=== PATIENT | male | born 1965 | race Caucasian/White ===

== ENCOUNTER → 2018-11-11 09:08 | Outpatient (CLI) | payer MEDICAID, SELFPAY ==
--- NOTE | 2018-11-11 09:21 | RAD_ITS ---
STUDY: X-RAY CHEST REASON FOR EXAM: Male, 53 years old. Shortness of breath. TECHNIQUE: PA and lateral views of the chest. COMPARISON: None. FINDINGS: The lungs are clear and expanded. There is no demonstrated pleural abnormality. Normal size heart. Normal mediastinum and magdi. Normal visualized pulmonary arteries. Normal visualized aortic arch and descending thoracic aorta. Normal visualized thoracic spine. Normal visualized ribs, clavicles, and shoulders. There is no demonstrated abnormality of the visualized soft tissue structures of the upper abdomen. RAD/Chest PA and Lateral IMPRESSION: No evidence of acute cardiopulmonary process. Electronically Signed: Aaron Arcos DO at 21:09 EST , Service support ,
--- NOTE | 2018-11-11 09:22 | US_ITS ---
STUDY: ABDOMINAL ULTRASOUND - RIGHT UPPER QUADRANT REASON FOR VISIT: Male, 53 years old. Epigastric pain. TECHNIQUE: Ultrasound evaluation of the right upper quadrant was performed with real-time and static flores-scale imaging. TECHNICAL QUALITY: Adequate. COMPARISON: None. FINDINGS: Liver: The liver measures 17.5 cm. Increased echogenicity with coarsened echotexture. The bile ducts are within normal limits. There is hepatic color flow. The direction of portal flow is hepatopetal. There is no demonstrated mass lesion. Gallbladder: Normal distended gallbladder. The gallbladder wall measures 3 mm. There is a negative sonographic Dallas's sign. There is no pericholecystic fluid. There are no gallstones. Common Bile Duct (C.B.D.): The common bile duct measures 4 mm. Pancreas: Normal size of the head, body and tail of the pancreas. There is normal echogenicity of the pancreas. There is no demonstrated pancreatic mass or cyst. Right Kidney: Normal size of the right kidney. The right kidney measures 13.6 cm. Normal renal cortex. The right cortex measures 2.3 cm. There is no demonstrated renal mass or cyst. There is no right hydronephrosis. US/Gallbladder IMPRESSION: Fatty liver. Normal gallbladder. Electronically Signed: Raul Arnold MD at 3:30 EST , Service support ,
== END ==
PROVIDERS: Family Provider Family Medicine; PCP Family Medicine; Referring Provider Family Medicine; Visit Provider Family Medicine
DX: R10.13 Epigastric pain (principal); R06.02 Shortness of breath
CPT/HCPCS: 71046; 76705

== ENCOUNTER 2018-11-17 12:48 | Observation (INO) | payer OTHER, SELFPAY ==
[2018-11-17] VITALS (10 sets, daily range): BP systolic 119–147; BP diastolic 68–95; PULSE 56–82; RESP 13–22; TEMP 36.8–37.1; O2SAT 96–98; BMI 38.9; BMI 37.7
--- NOTE | 2018-11-17 13:11 | RAD_ITS ---
STUDY: X-RAY CHEST REASON FOR EXAM: Male, 53 years old. Chest pain TECHNIQUE: AP COMPARISON: 11/11/2018 FINDINGS: EKG leads project over the chest. The lungs are clear and expanded. There is no demonstrated pleural abnormality. Interval enlargement of the cardiac silhouette may be projectional artifact. Normal mediastinum and magdi. Normal visualized pulmonary arteries. Normal visualized aortic arch and descending thoracic aorta. No acute bony process. There is no demonstrated abnormality of the visualized soft tissue structures of the upper abdomen. RAD/Chest 1 View (Portable) IMPRESSION: 1. No airspace consolidation or pleural effusion. 2. Probable artificial enlargement of the cardiac silhouette. Electronically Signed: Tom Vicente MD at 13:40 EDT , Service support ,
--- NOTE | 2018-11-17 13:11 | EKG12_ITS ---
Test Reason : CP Blood Pressure : / mmHG Vent. Rate : 060 BPM Atrial Rate : 060 BPM P-R Int : 178 ms QRS Dur : 092 ms QT Int : 404 ms P-R-T Axes : 054 -26 058 degrees QTc Int : 404 ms Normal sinus rhythm Normal ECG Confirmed by HANK LARA, SANJIV ([id number]), advertising editor TAWANA GERMAN ([id number]) on 11/22/2018 9:22:32 AM Referred By: Dung Fernandez Confirmed By:SANJIV MCKINNEY MD
--- NOTE | 2018-11-17 13:17 | NURSING ---
NO OLD EKGS
[2018-11-17 13:27] LABS: Absolute Lymphocyte Count 1.68 X10^3/ul (0.83-4.51); Absolute Neutrophil Count 3.9 X10^3/uL (2.0-7.7); Basophil# 0.08 X10^3/uL; Basophil% 1.2 % (0-1); Eosinophil# 0.19 X10^3/uL; Eosinophils% 2.9 % (0-5); Hematocrit 44.9 % (40-54); Hemoglobin 14.5 g/dl (13.0-16.5); Lymphocyte # 1.68 X10^3/ul (4.0); Lymphocyte % 25.7 % (19-41); Mean Corp Hgb Conc 32.3 g/gl (32-36); Mean Corpuscular Hgb 26.9 pg (27.0-32.0); Mean Corpuscular Volume 83.1 fL (80-94); Mean Platelet Vol. 9.8 fl (6.2-12.0); Monocyte# 0.65 X10^3/uL; Monocyte% 9.9 % (0-10); Neutrophil # 3.91 X10^3/uL (2.7-7.7); Neutrophil % 59.8 % (47-70); POSITIVE COUNT NO; POSITIVE DIFFERENTIAL NO; POSITIVE MORPHOLOGY NO; Platelet Count 300 K/mm3 (150-450); RBC Distribution Width CV 13.3 % (11.6-14.6); RBC Distribution Width SD 40.5 fl (35.1-43.9); White Blood Count 6.5 K/mm3 (4.4-11.0)
[2018-11-17 13:43] LABS: Anion Gap 6 (5-15); BUN 17 mg/dL (7-18); BUN/Creat Ratio 16.8 RATIO (10-20); Calcium,Total 8.5 mg/dL (8.5-10.1); Chloride 105 mmol/L (98-107); Creatinine, Serum 1.01 mg/dL (0.70-1.30); EST Glomerular Filtration Rate 81 mL/min (>60); Est Glom Filt Rate - Afr Amer 99 mL/min (>60); Estimated Creatinine Clearance 101.46 ml/min; Glucose 98 mg/dL (74-106); Sodium Level 136 mmol/L (136-145)
[2018-11-17] MEDS: Nitroglycerin Oint 1 INCH PACKET TRANSDERM. (14:37)
--- NOTE | 2018-11-17 15:10 | ED.VISSUMM ---
- ER Visit Summary Date of Service: 11/17/18 Chief Complaint: Chest pain History of Present Illness: The patient is a 53 M with chest pain since last night he describes as sharp in the lower chest wall region and pressure in the upper left chest region as well as radiation to his left jaw. He has no shortness of breath no back pain no tearing sensation he has no pleuritic component. Physical Examination: Not appear in acute distress. Moist mucous membranes, no obvious facial deformity No C-spine tenderness supple neck. Regular rate and rhythm without any obvious murmurs Clear lungs bilaterally speaking in full sentences without any obvious respiratory distress Abdomen soft and nontender no guarding or rebound Moves all extremities without any difficulty or pain. Skin does not show any obvious rashes or lesions, no trauma. Alert oriented ?3 with no gross focal deficit Emergency Department Course and Treatment: Patient has an unremarkable EKG, troponin is intermediate heart score is 6. Patient was placed on nitroglycerin ointment. He is now pain-free. He will be admitted to the hospital service. Disposition: Admit in stable condition Impression: Chest pain This note was generated with [employer] dictation software. It may contain incorrect words, spelling, and punctuation that were not noted in review of the chart prior to signing ED Disposition - Plan for ED Patient: Referrals: Maximo Samayoa [Primary Care Provider] -
--- NOTE | 2018-11-17 15:13 | ED.DCSUM_ITS ---
- ER Visit Summary Date of Service: 11/17/18 Chief Complaint: Chest pain History of Present Illness: The patient is a 53 M with chest pain since last night he describes as sharp in the lower chest wall region and pressure in the upper left chest region as well as radiation to his left jaw. He has no shortn ess of breath no back pain no tearing sensation he has no pleuritic component. Physical Examination: Not appear in acute distress. Moist mucous membranes, no obvious facial deformity No C-spine tenderness supple neck. Regular rate and rhythm without any obvious murmurs Clear lungs bilaterally speaking in full sentences without any obvious respiratory distress Abdomen soft and nontender no guarding or rebound Moves all extremities without any difficulty or pain. Skin does not show any obvious rashes or lesions, no trauma. Alert oriented ?3 with no gross focal deficit Emergency Department Course and Treatment: Patient has an unremarkable EKG, troponin is intermediate heart score is 6. Patient was placed on nitroglycerin ointment. He is now pain-free. He will be admitted to the hospital service. Disposition: Admit in stable condition Impression: Chest pain This note was generated with [employer] dictation software. It may contain incorrect words, spelling, and punctuation that were not noted in review of the chart prior to signing ED Disposition - Plan for ED Patient: Referrals: Maximo Samayoa [Primary Care Provider] -
--- NOTE | 2018-11-17 15:57 | PCM.HP.STD ---
Problem List (1) Unstable angina Status: Acute History of Present Illness Date of Admission: 11/17/18 Chief Complaint: chest pain The patient is a 53 year old M who was in normal state of health up until this morning where he started having left-sided chest pain. Begin lower left chest and upwards of his chest and into his left side of his jaw. He has had pain similar to this. Patient had a stent placed in his maker 5 years ago. Has had intermittent chest pain evaluated and has been previously unremarkable. Last heart catheterization was about 2 years ago. Did feel nauseated and short of breath when this happened. [] Past Medical History Medical History: Medical History (Last Updated 11/17/18 @ 15:58 by Dung Fernandez DO) CAD (coronary artery disease) I25.10 Allergies No Known Allergies Allergy (Verified 11/17/18 12:59) Home Medications: Ambulatory Orders Medication Instructions Recorded Clopidogrel Bisulfate [Plavix] 75 mg PO DAILY 11/17/18 Rosuvastatin Calcium [Crestor] 5 mg PO DAILY 11/17/18 Lives: Spouse/ Significant Other Smoking Status: Never smoker Tobacco Use: Non-smoker Alcohol: None Drugs: None - *Family History Paternal History Items: Heart Disease Review of Systems Constitutional: Denies: Anorexia, Chills, Fever, Night Sweats Eyes: Denies: Blurred vision, Double vision HEENT: Denies: Head Aches, Sinus Congestion, Sinus Drainage Cardiovascular: Reports: Chest Pain. Denies: Edema Respiratory: Reports: Shortness of Breath. Denies: Cough, Sputum production Gastrointestinal: Reports: Abdominal Pain - Was not having abdominal pain receiving 3 weeks prior to his events today., Nausea. Denies: Vomiting Genitourinary: Denies: Dysuria Musculoskeletal: Denies: Joint Pain, Joint Tenderness Skin: Denies: Dryness, Jaundice Neurological: Denies: Balance problems, Blurred vision, Double vision Psychiatric: Denies: Anxiety, Depression Hematologic/ Lymphatic: Denies: Easy Bruising, Easy Bleeding, Hx of blood clot VTE Information - Inpt Only VTE Present on Admission: No VTE Mechan Device Prophylaxis: None VTE Pharm Prophylaxis ordered?: Yes Patient Problems: Active and Suspected Problems Unstable angina (Acute) - Physical Exam General: Alert, Cooperative, No apparent distress HEENT: Atraumatic, Normocephalic Oral: Moist Mucosa, No Gingival or Mucosal Lesions/ Ulcerations Neck: No Nodes, Thyroid Normal Size and Texture Lungs: Clear to auscultation, Normal air movement, No rhonchi, No wheeze Cardiovascular: Regular rate, Regular Rhythm, Normal S1, Normal S2, No murmurs Abdomen: Bowel Sounds Present, Soft, Non Tender, Non-Distended, No Hepato-splenomegaly Extremities: No edema, No Calf Tenderness Skin: No rashes, No breakdown Psych/Mental Status: Normal Affect, Appropriate Vital Signs Temp Pulse Resp BP Pulse Ox 36.8 C 59 L 13 134/95 H 98 11/17/18 12:49 11/17/18 15:13 11/17/18 15:13 11/17/18 15:13 11/17/18 15:13 Oxygen Delivery Method Nasal Cannula Weight: 145 kg Body Mass Index (BMI) 38.9 Laboratory Tests Past 24 Hrs 11/17/18 11/17/18 12:50 12:50 WBC 6.5 RBC 5.40 Hgb 14.5 Hct 44.9 MCV 83.1 MCH 26.9 L MCHC 32.3 RDW 13.3 RDW Differential 40.5 Plt Count 300 MPV 9.8 Immature Gran % (Auto) 0.500 Neut % (Auto) 59.8 Lymph % (Auto) 25.7 [place] % (Auto) 9.9 Eos % (Auto) 2.9 Baso % (Auto) 1.2 H Absolute Neuts (auto) 3.9 Absolute Lymphs (auto) 1.68 Total Counted Not Reportable Sodium 136 Potassium 4.0 Chloride 105 Carbon Dioxide 25.0 Anion Gap 6 BUN 17 Creatinine 1.01 Estim Creat Clear Calc 101.46 Est GFR (MDRD) Af Amer 99 Est GFR (MDRD) Non-Af 81 BUN/Creatinine Ratio 16.8 Glucose 98 Calcium 8.5 Troponin I 0.091 H EKG reviewed and showed normal sinus rhythm without any acute changes. Assessment/Plan All Active Problems Unstable angina (Acute) 1. Unstable angina: Currently pain-free at this time. We will continue with Evex. Patient received aspirin in the emergency room and will continue with her on 4. Change Crestor to high intensity statin with atorvastatin. Discussed with Dr. Abdul, who states that cardiology team will see him in the morning and make further recommendations at that time, such as if he needs a heart catheterization or not. We will cycle the troponins. Requested records from [facility] where the patient has had his prior heart catheterizations. Troponin slightly elevated at 0.09. 2. DVT prophylaxis with low molecular weight heparin Code Visit OBSV E&M: 92447 Initial observation care L2
[2018-11-17] MEDS: Atorvastatin Calcium 80 MG Tablet PO (20:57)
--- NOTE | 2018-11-17 21:07 | EKG12_ITS ---
Test Reason : AM EKG Blood Pressure : / mmHG Vent. Rate : 056 BPM Atrial Rate : 056 BPM P-R Int : 188 ms QRS Dur : 090 ms QT Int : 418 ms P-R-T Axes : 053 -22 043 degrees QTc Int : 403 ms Sinus bradycardia Otherwise normal ECG When compared with ECG of 17-NOV-2018 16:33, MANUAL COMPARISON REQUIRED, DATA IS UNCONFIRMED Confirmed by HANK LARA, SANJIV ([id number]), school photograph editor TAWANA GERMAN ([id number]) on 11/22/2018 9:42:36 AM Referred By: Dung Fernandez Confirmed By:SANJIV MCKINNEY MD
[2018-11-17 22:22] LABS: Bacteria 0 SEEN /hpf (None Seen); Mucous, Urine 0 SEEN /hpf (<or=2+); Red Blood Cells-Urine 0 SEEN /hpf (0-5); White Blood Cells 0 SEEN /hpf (0-5)
[2018-11-17 22:24] LABS: Color, Urine Yellow (Yellow); Glucose, Dipstick Normal (Normal); Ketone-Dipstick Negative (Negative); Leukocyte Esterase-Dipstick Negative /ul (Negative); Nitrite-Dipstick Negative (Negative); Occult Blood-Urine Negative /ul (Negative); Protein-Dipstick 30 mg/dl (Negative); Specific Gravity, Urine 1.005 (1.002-1.030); Urine Bilirubin Dipstick Negative (Negative); Urine Clarity Clear (Clear); Urine Urobilinogen Normal (Normal)
[2018-11-17 22:32] LABS: Squamous Epithelial Cells - UA 0-5 SEEN /hpf (0-5)
[2018-11-18] VITALS (14 sets, daily range): BP systolic 111–135; BP diastolic 50–75; PULSE 51–69; RESP 18; TEMP 36.9–37; O2SAT 94–99
[2018-11-18 01:59] LABS: International Normalized Ratio 1.1; Prothrombin Time (Protime)PT. 13.7 SECONDS (11.7-14.9)
[2018-11-18 02:00] LABS: Partial Thromboplast Time 27.2 Seconds (24.1-36.2)
[2018-11-18 02:04] LABS: Hematocrit 43.3 % (40-54); Hemoglobin 13.9 g/dl (13.0-16.5); Mean Corp Hgb Conc 32.1 g/gl (32-36); Mean Corpuscular Hgb 26.7 pg (27.0-32.0); Mean Corpuscular Volume 83.1 fL (80-94); Mean Platelet Vol. 9.9 fl (6.2-12.0); Platelet Count 281 K/mm3 (150-450); RBC Distribution Width CV 13.2 % (11.6-14.6); RBC Distribution Width SD 39.9 fl (35.1-43.9); Red Blood Count 5.21 M/mm3 (4.6-6.2); White Blood Count 6.6 K/mm3 (4.4-11.0)
[2018-11-18 02:05] LABS: Scan Indicated on CBC? Y/N NO
[2018-11-18 02:15] LABS: Anion Gap 7 (5-15); BUN 15 mg/dL (7-18); BUN/Creat Ratio 16.3 RATIO (10-20); Chloride 108 mmol/L (98-107); Cholesterol 133 mg/dL (200); Creatinine, Serum 0.92 mg/dL (0.70-1.30); EST Glomerular Filtration Rate 91 mL/min (>60); Est Glom Filt Rate - Afr Amer 110 mL/min (>60); Estimated Creatinine Clearance 111.38 ml/min; Glucose 94 mg/dL (74-106); High Density Lipoprotein 23 mg/dL; Potassium 3.7 mmol/L (3.5-5.1); Sodium Level 139 mmol/L (136-145); Triglycerides 275 mg/dL; Very Low Density Lipoprotein 55 mg/dL (5-40)
--- NOTE | 2018-11-18 06:00 | EKG12_ITS ---
Test Reason : CP ADMISSION Blood Pressure : / mmHG Vent. Rate : 055 BPM Atrial Rate : 055 BPM P-R Int : 192 ms QRS Dur : 092 ms QT Int : 424 ms P-R-T Axes : 057 -23 044 degrees QTc Int : 405 ms Sinus bradycardia Otherwise normal ECG When compared with ECG of 17-NOV-2018 12:51, MANUAL COMPARISON REQUIRED, DATA IS UNCONFIRMED Confirmed by HANK LARA, SANJIV ([id number]), marketing editor TAWANA GERMAN ([id number]) on 11/22/2018 9:46:55 AM Referred By: Dung Fernandez Confirmed By:SANJIV MCKINNEY MD
[2018-11-18] MEDS: Clopidogrel Bisulfate 75 MG Tablet PO (07:29)
[2018-11-18] MEDS: Aspirin E.C. 81 MG Tablet PO (07:29)
--- NOTE | 2018-11-18 07:52 | PCM.CONS.C ---
Reason for Consult Date of Consultation: 11/18/18 Reason for Consultation: Chest pain History of Present Illness: The patient is a 53 year old M with a known history of coronary artery disease status post angioplasty and stenting approximately 5 years ago and a cardiac catheterization 2 years ago. He also states that he had a stress test done in June of last year. He presented to the emergency room with chest discomfort which was noted to be sharp but also tight and radiating to his jaw. It was somewhat reminiscent of his previous chest discomfort. He had no nausea or diaphoresis no dizziness near syncope or syncope. He was inactive when this happened. He was seen in the emergency room he was noted to be in sinus rhythm with no acute changes cardiac enzymes were done which were mildly abnormal. He has not had any further chest discomfort since coming into the hospital. [] Past Medical History Allergies/Adverse Reactions: Allergies No Known Allergies Allergy (Verified 11/17/18 12:59) Home Medications: Ambulatory Orders Medication Instructions Recorded Aspirin [Aspirin, Baby] 81 mg PO DAILY 11/17/18 Clopidogrel Bisulfate [Plavix] 75 mg PO DAILY 11/17/18 Rosuvastatin Calcium [Crestor] 5 mg PO DAILY 11/17/18 - *Family History Paternal History Items: Heart Disease Lives: Spouse/ Significant Other Smoking Status: Former smoker Tobacco Use: Non-smoker Alcohol: None Drugs: None Review of Systems - Review of Systems General: Denies: Fever, Night Sweats, Fatigue HEENT: Denies: Vision Change Cardiovascular: Reports: Chest Discomfort, Chest Discomfort at Rest. Denies: Shortness of Breath, Orthopnea, PND, Peripheral Edema, Palpitations, Lightheadedness, Dizziness, Near Syncope, Syncope Respiratory: Denies: Cough, Sputum Production, Hemoptysis Gastrointestinal: Denies: Indigestion, Hematemesis, Hematochezia, Melena Genitourinary: Denies: Dysuria, Hematuria Muscoloskeletal: Denies: Myalgias Skin: Denies: Rash Neurological: Denies: Dizziness Psychiatric: Denies: Anxiety Endocrine: Denies: Excessive Sweating Subjectve: Pleasant gentleman in no apparent distress Objective: Vital Signs Temp Pulse Resp BP Pulse Ox 98.6 F 58 L 18 122/75 H 97 11/18/18 07:24 11/18/18 07:24 11/18/18 07:24 11/18/18 07:24 11/18/18 07:24 Oxygen Delivery Method Room Air Weight: 309 lb 11.991 oz Body Mass Index (BMI) 37.7 Intake and Output for Last 24 Hours 11/16/18 11/17/18 11/18/18 22:59 23:59 23:59 Intake Total Balance General: Awake, Alert, Oriented x 3 HEENT: PERRL, EOMI, Sclera Non Icteric Neck: Supple, Good ROM, No Lymph Node Enlargement Lungs: Clear to auscultation Cardiovascular: Regular Rhythm, Normal S1, Normal S2, No Murmurs, No Rubs, No Gallops Vascular: No Carotid Bruits, Normal Femoral Pulses, Normal Radial Pulses, Normal Dorsalis Pedal Pulse, Normal Posterior Tibial Pulses Abdomen: Bowel Sounds Present, Soft, Non Tender, No HSM, No Organomegaly Extremities: No Cyanosis, No Clubbing, No edema Musculoskeletal: No Erythema Skin: No Rashes Lymphatic: No Lymph Node Enlargement Neurological: No Focal Motor or Sensory Deficit Psych/Mental Status: Appropriate 11/17/18 12:50: WBC 6.5, RBC 5.40, Hgb 14.5, Hct 44.9, MCV 83.1, MCH 26.9 L, MCHC 32.3, RDW 13.3, RDW Differential 40.5, Plt Count 300, MPV 9.8, Immature Gran % (Auto) 0.500, Neut % (Auto) 59.8, Lymph % (Auto) 25.7, [place] % (Auto) 9.9, Eos % (Auto) 2.9, Baso % (Auto) 1.2 H, Absolute Neuts (auto) 3.9, Total Counted Not Reportable 11/17/18 12:50: Sodium 136, Potassium 4.0, Chloride 105, Carbon Dioxide 25.0, Anion Gap 6, BUN 17, Creatinine 1.01, Est GFR (MDRD) Af Amer 99, Est GFR (MDRD) Non-Af 81, BUN/Creatinine Ratio 16.8, Glucose 98, Calcium 8.5, Troponin I 0.091 H 11/17/18 12:58: Urine Color Yellow, Urine Clarity Clear, Urine pH 7.0, Ur Specific [place] 1.005, Urine Protein 30 H, Urine Glucose (UA) Normal, Urine Ketones Negative, Urine Occult Blood Negative, Urine Nitrite Negative, Urine Bilirubin Negative, Urine Urobilinogen Normal, Ur Leukocyte Esterase Negative, Urine RBC 0 SEEN, Urine WBC 0 SEEN 11/17/18 16:48: Troponin I 0.096 H 11/17/18 18:45: Troponin I 0.085 H 11/18/18 01:40: Triglycerides Cancelled, Cholesterol Cancelled, LDL Cholesterol Cancelled, VLDL Cholesterol Cancelled, HDL Cholesterol Cancelled 11/18/18 01:40: Sodium 139, Potassium 3.7, Chloride 108 H, Carbon Dioxide 24.0, Anion Gap 7, BUN 15, Creatinine 0.92, Est GFR (MDRD) Af Amer 110, Est GFR (MDRD) Non-Af 91, BUN/Creatinine Ratio 16.3, Glucose 94, Calcium 8.0 L, Troponin I 0.095 H, Triglycerides 275 H, Cholesterol 133, LDL Cholesterol 55, VLDL Cholesterol 55 H, HDL Cholesterol 23 L 11/18/18 01:40: WBC 6.6, RBC 5.21, Hgb 13.9, Hct 43.3, MCV 83.1, MCH 26.7 L, MCHC 32.1, RDW 13.2, RDW Differential 39.9, Plt Count 281, MPV 9.9 11/18/18 01:40: PT 13.7, INR 1.1, APTT 27.2 11/18/18 01:40: Sodium Cancelled, Potassium Cancelled, Chloride Cancelled, Carbon Dioxide Cancelled, Anion Gap Cancelled, BUN Cancelled, Creatinine Cancelled, Est GFR (MDRD) Af Amer Cancelled, Est GFR (MDRD) Non-Af Cancelled, BUN/Creatinine Ratio Cancelled, Glucose Cancelled, Calcium Cancelled Rhythm: EKG: Normal sinus rhythm with no acute changes Assessment/Plan 1. Chest pain Patient presents with chest pain and has mildly abnormal cardiac enzymes. He underwent stress testing less than 4 months ago which was apparently normal. Due to the above it was felt that with a correct of the chest pain reminiscent of his previous angina the recommendation would be to proceed with a left heart catheterization. He is already on clopidogrel which will be continued. The risk benefits alternatives have been explained to him he understands and agrees to proceed. 2. Coronary artery disease Patient has known coronary artery disease and this will be further evaluated with a cardiac catheterization. 3. Hyperlipidemia Continue high intensity statin. Thank you for allowing me to participate in the care of your patient. Please don't hesitate to call if any issues arise Addendum: Cardiac catheterization today demonstrated the following: Normal left main coronary artery. Left anterior descending artery with previously placed stents patent with mild diffuse disease. Ramus intermedius with 60% mid to distal stenosis Left circumflex artery with diffuse moderate disease. Dominant right coronary artery with mild disease Preserved left ventricular systolic function On the above angiographic findings I would probably recommend medical therapy with nitrates and low-dose beta-ash.
--- NOTE | 2018-11-18 07:57 | CON.PCM_ITS ---
Reason for Consult Date of Consultation: 11/18/18 Reason for Consultation: Chest pain History of Present Illness: The patient is a 53 year old M with a known history of coronary artery disease status post angioplasty and stenting approximately 5 years ago and a cardiac catheterization 2 years ago. He also states that he had a stress test done in June of last year. He presented to the emergency room with chest discomfort which was noted to be sharp but also tight and radiating to his jaw. It was somewhat reminiscent of his previous chest discomfort. He had no nausea or diaphoresis no dizziness near syncope or syncope. He was inactive when this happened. He was seen in the emergency room he was noted to be in sinus rhythm with no acute changes cardiac enzymes were done which were mildly abnormal. He has not had any further chest discomfort since coming into the hospital. [] Past Medical History Allergies/Adverse Reactions: Allergies No Known Allergies Allergy (Verified 11/17/18 12:59) Home Medications: Ambulatory Orders Medication Instructions Recorded Aspirin [Aspirin, Baby] 81 mg PO DAILY 11/17/18 Clopidogrel Bisulfate [Plavix] 75 mg PO DAILY 11/17/18 Rosuvastatin Calcium [Crestor] 5 mg PO DAILY 11/17/18 - *Family History Paternal History Items: Heart Disease Lives: Spouse/ Significant Other Smoking Status: Former smoker Tobacco Use: Non-smoker Alcohol: None Drugs: None Review of Systems - Review of Systems General: Denies: Fever, Night Sweats, Fatigue HEENT: Denies: Vision Change Cardiovascular: Reports: Chest Discomfort, Chest Discomfort at Rest. Denies: Shortness of Breath, Orthopnea, PND, Peripheral Edema, Palpitations, Lightheadedness, Dizziness, Near Syncope, Syncope Respiratory: Denies: Cough, Sputum Production, Hemoptysis Gastrointestinal: Denies: Indigestion, Hematemesis, Hematochezia, Melena Genitourinary: Denies: Dysuria, Hematuria Muscoloskeletal: Denies: Myalgias Skin: Denies: Rash Neurological: Denies: Dizziness Psychiatric: Denies: Anxiety Endocrine: Denies: Excessive Sweating Subjectve: Pleasant gentleman in no apparent distress Objective: Vital Signs Temp Pulse Resp BP Pulse Ox 98.6 F 58 L 18 122/75 H 97 11/18/18 07:24 11/18/18 07:24 11/18/18 07:24 11/18/18 07:24 11/18/18 07:24 Oxygen Delivery Method Room Air Weight: 309 lb 11.991 oz Body Mass Index (BMI) 37.7 Intake and Output for Last 24 Hours 11/16/18 11/17/18 11/18/18 22:59 23:59 23:59 Intake Total Balance General: Awake, Alert, Oriented x 3 HEENT: PERRL, EOMI, Sclera Non Icteric Neck: Supple, Good ROM, No Lymph Node Enlargement Lungs: Clear to auscultation Cardiovascular: Regular Rhythm, Normal S1, Normal S2, No Murmurs, No Rubs, No Gallops Vascular: No Carotid Bruits, Normal Femoral Pulses, Normal Radial Pulses, Normal Dorsalis Pedal Pulse, Normal Posterior Tibial Pulses Abdomen: Bowel Sounds Present, Soft, Non Tender, No HSM, No Organomegaly Extremities: No Cyanosis, No Clubbing, No edema Musculoskeletal: No Erythema Skin: No Rashes Lymphatic: No Lymph Node Enlargement Neurological: No Focal Motor or Sensory Deficit Psych/Mental Status: Appropriate 11/17/18 12:50: WBC 6.5, RBC 5.40, Hgb 14.5, Hct 44.9, MCV 83.1, MCH 26.9 L, MCHC 32.3, RDW 13.3, RDW Differential 40.5, Plt Count 300, MPV 9.8, Immature Gran % (Auto) 0.500, Neut % (Auto) 59.8, Lymph % (Auto) 25.7, [place] % (Auto) 9.9, Eos % (Auto) 2.9, Baso % (Auto) 1.2 H, Absolute Neuts (auto) 3.9, Total Counted Not Reportable 11/17/18 12:50: Sodium 136, Potassium 4.0, Chloride 105, Carbon Dioxide 25.0, Anion Gap 6, BUN 17, Creatinine 1.01, Est GFR (MDRD) Af Amer 99, Est GFR (MDRD) Non-Af 81, BUN/Creatinine Ratio 16.8, Glucose 98, Calcium 8.5, Troponin I 0.091 H 11/17/18 12:58: Urine Color Yellow, Urine Clarity Clear, Urine pH 7.0, Ur Specific [place] 1.005, Urine Protein 30 H, Urine Glucose (UA) Normal, Urine Ketones Negative, Urine Occult Blood Negative, Urine Nitrite Negative, Urine Bilirubin Negative, Urine Urobilinogen Normal, Ur Leukocyte Esterase Negative, Urine RBC 0 SEEN, Urine WBC 0 SEEN 11/17/18 16:48: Troponin I 0.096 H 11/17/18 18:45: Troponin I 0.085 H 11/18/18 01:40: Triglycerides Cancelled, Cholesterol Cancelled, LDL Cholesterol Cancelled, VLDL Cholesterol Cancelled, HDL Cholesterol Cancelled 11/18/18 01:40: Sodium 139, Potassium 3.7, Chloride 108 H, Carbon Dioxide 24.0, Anion Gap 7, BUN 15, Creatinine 0.92, Est GFR (MDRD) Af Amer 110, Est GFR (MDRD) Non-Af 91, BUN/Creatinine Ratio 16.3, Glucose 94, Calcium 8.0 L, Troponin I 0.095 H, Triglycerides 275 H, Cholesterol 133, LDL Cholesterol 55, VLDL Cholesterol 55 H, HDL Cholesterol 23 L 11/18/18 01:40: WBC 6.6, RBC 5.21, Hgb 13.9, Hct 43.3, MCV 83.1, MCH 26.7 L, MCHC 32.1, RDW 13.2, RDW Differential 39.9, Plt Count 281, MPV 9.9 11/18/18 01:40: PT 13.7, INR 1.1, APTT 27.2 11/18/18 01:40: Sodium Cancelled, Potassium Cancelled, Chloride Cancelled, Carbon Dioxide Cancelled, Anion Gap Cancelled, BUN Cancelled, Creatinine Cancelled, Est GFR (MDRD) Af Amer Cancelled, Est GFR (MDRD) Non-Af Cancelled, BUN/Creatinine Ratio Cancelled, Glucose Cancelled, Calcium Cancelled Rhythm: EKG: Normal sinus rhythm with no acute changes Assessment/Plan 1. Chest pain Patient presents with chest pain and has mildly abnormal cardiac enzymes. He underwent stress testing less than 4 months ago which was apparently normal. Due to the above it was felt that with a correct of the chest pain reminiscent of his previous angina the recommendation would be to proceed with a left heart catheterization. He is already on clopidogrel which will be continued. The risk benefits alternatives have been explained to him he understands and agrees to proceed. 2. Coronary artery disease * Patient has known coronary artery disease and this will be further evaluated with a cardiac catheterization. * 3. Hyperlipidemia * Continue high intensity statin. * * * * Thank you for allowing me to participate in the care of your patient. Please don't hesitate to call if any issues arise * Addendum: Cardiac catheterization today demonstrated the following: Normal left main coronary artery. Left anterior descending artery with previously placed stents patent with mild diffuse disease. Ramus intermedius with 60% mid to distal stenosis Left circumflex artery with diffuse moderate disease. Dominant right coronary artery with mild disease Preserved left ventricular systolic function On the above angiographic findings I would probably recommend medical therapy with nitrates and low-dose beta-ash.
[2018-11-18] MEDS: 0.9% NaCl Peripheral Flush Adult/Peds IV (08:36)
[2018-11-18] MEDS: 0.9% Normal Saline 1,000 ML 15 ML IV (08:36)
--- NOTE | 2018-11-18 09:02 | CASEMGMT ---
According to the [facility] website, the following are in-network tertiary facilities: [facility], [facility], [facility], [facility], [facility], and . Milo BARKER CM
--- NOTE | 2018-11-18 12:45 | PCM.PN.HOSP ---
Patient Problems: Active and Suspected Problems (Last Updated 11/17/18 @ 15:58 by Dung Fernandez DO) Unstable angina (Acute) Subjective: Patient seen and examined. He was admitted with complaint of chest pain overnight. Currently he denies any chest pain. Denies any fever chills, palpitations or dizziness, abdominal pain, diarrhea or vomiting. Review of systems otherwise negative. He is to have a cardiac cath today. Cardiology on board. Vitals/I&O's: Vital Signs Temp Pulse Resp BP Pulse Ox 98.6 F 63 18 122/75 H 97 11/18/18 07:24 11/18/18 10:59 11/18/18 07:24 11/18/18 07:24 11/18/18 07:24 Oxygen Delivery Method Room Air Weight: 309 lb 11.991 oz Body Mass Index (BMI) 37.7 Intake and Output for Last 24 Hours 11/16/18 11/17/18 11/18/18 22:59 23:59 23:59 Intake Total Balance General: Alert, Oriented x3, Cooperative, No apparent distress HEENT: Atraumatic, PERRLA, EOMI, Normocephalic Oral: Moist Mucosa Neck: Supple, No JVD, Negative Carotid Bruits Lungs: Clear to auscultation, Normal air movement, No rhonchi, No wheeze, No rales Cardiovascular: Regular rate, Regular Rhythm, Normal S1, Normal S2, No murmurs Abdomen: Bowel Sounds Present, Non Tender, Non-Distended, No Hepato-splenomegaly Extremities: No clubbing, No cyanosis, No edema, Capillary Refill Less than 3 Seconds Skin: No rashes, No breakdown Musculoskeletal: No Tenderness to Palpation of Joints or Extremities Lymphatic: No Cervical, Supraclavicular, or Inguinal Adenopathy Neurological: Cranial nerves II-XII grossly intact, Neuro grossly intact, Motor Exam 5/5 strength throughout Psych/Mental Status: Normal Affect, Appropriate, Alert and oriented to time, place, person, mood and affect Laboratory Results 11/17/18 12:50: WBC 6.5, RBC 5.40, Hgb 14.5, Hct 44.9, MCV 83.1, MCH 26.9 L, MCHC 32.3, RDW 13.3, RDW Differential 40.5, Plt Count 300, MPV 9.8, Immature Gran % (Auto) 0.500, Neut % (Auto) 59.8, Lymph % (Auto) 25.7, [place] % (Auto) 9.9, Eos % (Auto) 2.9, Baso % (Auto) 1.2 H, Absolute Neuts (auto) 3.9, Absolute Lymphs (auto) 1.68, Total Counted Not Reportable 11/17/18 12:50: Sodium 136, Potassium 4.0, Chloride 105, Carbon Dioxide 25.0, Anion Gap 6, BUN 17, Creatinine 1.01, Estim Creat Clear Calc 101.46, Est GFR (MDRD) Af Amer 99, Est GFR (MDRD) Non-Af 81, BUN/Creatinine Ratio 16.8, Glucose 98, Calcium 8.5, Troponin I 0.091 H 11/17/18 12:58: Urine Color Yellow, Urine Clarity Clear, Urine pH 7.0, Ur Specific [place] 1.005, Urine Protein 30 H, Urine Glucose (UA) Normal, Urine Ketones Negative, Urine Occult Blood Negative, Urine Nitrite Negative, Urine Bilirubin Negative, Urine Urobilinogen Normal, Ur Leukocyte Esterase Negative, Urine RBC 0 SEEN, Urine WBC 0 SEEN, Ur Squamous Epith Cells 0-5 SEEN, Urine Bacteria 0 SEEN, Urine Mucus 0 SEEN 11/17/18 16:48: Troponin I 0.096 H 11/17/18 18:45: Troponin I 0.085 H 11/18/18 01:40: Triglycerides Cancelled, Cholesterol Cancelled, LDL Cholesterol Cancelled, VLDL Cholesterol Cancelled, HDL Cholesterol Cancelled 11/18/18 01:40: Sodium 139, Potassium 3.7, Chloride 108 H, Carbon Dioxide 24.0, Anion Gap 7, BUN 15, Creatinine 0.92, Estim Creat Clear Calc 111.38, Est GFR (MDRD) Af Amer 110, Est GFR (MDRD) Non-Af 91, BUN/Creatinine Ratio 16.3, Glucose 94, Calcium 8.0 L, Troponin I 0.095 H, Triglycerides 275 H, Cholesterol 133, LDL Cholesterol 55, VLDL Cholesterol 55 H, HDL Cholesterol 23 L 11/18/18 01:40: WBC 6.6, RBC 5.21, Hgb 13.9, Hct 43.3, MCV 83.1, MCH 26.7 L, MCHC 32.1, RDW 13.2, RDW Differential 39.9, Plt Count 281, MPV 9.9 11/18/18 01:40: PT 13.7, INR 1.1, APTT 27.2 11/18/18 01:40: Sodium Cancelled, Potassium Cancelled, Chloride Cancelled, Carbon Dioxide Cancelled, Anion Gap Cancelled, BUN Cancelled, Creatinine Cancelled, Estim Creat Clear Calc Cancelled, Est GFR (MDRD) Af Amer Cancelled, Est GFR (MDRD) Non-Af Cancelled, BUN/Creatinine Ratio Cancelled, Glucose Cancelled, Calcium Cancelled Current Medications Aspirin (Ecotrin) 81 mg PO DAILY@0800 [facility] Last Admin: 11/18/18 07:29 Dose: 81 mg Atorvastatin Calcium (Lipitor) 80 mg PO QHS [facility] Last Admin: 11/17/18 20:57 Dose: 80 mg Clopidogrel Bisulfate (Plavix) 75 mg PO DAILY [facility] Last Admin: 11/18/18 07:29 Dose: 75 mg Enoxaparin Sodium (Lovenox) 40 mg SC DAILY@1000 [facility] Last Admin: 11/18/18 10:13 Dose: Not Given Sodium Chloride () 1,000 mls @ 15 mls/hr IV .Q48H [facility] Last Admin: 11/18/18 08:36 Dose: 15 mls/hr Magnesium Hydroxide (Milk Of Magnesia) 30 ml PO DAILY PRN PRN Reason: Constipation Nitroglycerin (Nitrostat) 0.4 mg SUBLINGUAL Q5M PRN PRN Reason: CHEST PAIN Sodium Chloride () 5 - 15 ml IV UD PRN PRN Reason: SALINE FLUSH Last Admin: 11/18/18 08:36 Dose: 10 ml Medical Necessity - Tobacco Use Smoking Status: Former smoker Tobacco Use: Non-smoker Assessment/Plan All Active Problems (Last Updated 11/17/18 @ 15:58 by Dung Fernandez DO) Unstable angina (Acute) 1. Unstable angina He was admitted with complaint of chest pain. Has a history of a stent being placed in his maker about 5 years ago. On aspirin, Plavix and high intensity statin. Cardiac cath findings were moderate CD with previously placed stents patent. Cardiology on board-recommend medical therapy 2. CAD status post stent: As under 1. DVT prophylaxis: Lovenox. Code Visit OBSV E&M: 87307 Subsequent observation care L3
--- NOTE | 2018-11-18 12:50 | PN_ITS ---
Patient Problems: Active and Suspected Problems (Last Updated 11/17/18 @ 15:58 by Dung Fernandez DO) Unstable angina (Acute) Subjective: Patient seen and examined. He was admitted with complaint of chest pain overnight. Currently he denies any chest pain. Denies any fever chills, palpitations or dizziness, abdominal pain, diarrhea or vomiting. Review of systems otherwise negative. He is to have a cardiac cath today. Cardiology on board. Vitals/I&O's: Vital Signs Temp Pulse Resp BP Pulse Ox 98.6 F 63 18 122/75 H 97 11/18/18 07:24 11/18/18 10:59 11/18/18 07:24 11/18/18 07:24 11/18/18 07:24 Oxygen Delivery Method Room Air Weight: 309 lb 11.991 oz Body Mass Index (BMI) 37.7 Intake and Output for Last 24 Hours 11/16/18 11/17/18 11/18/18 22:59 23:59 23:59 Intake Total Balance General: Alert, Oriented x3, Cooperative, No apparent distress HEENT: Atraumatic, PERRLA, EOMI, Normocephalic Oral: Moist Mucosa Neck: Supple, No JVD, Negative Carotid Bruits Lungs: Clear to auscultation, Normal air movement, No rhonchi, No wheeze, No rales Cardiovascular: Regular rate, Regular Rhythm, Normal S1, Normal S2, No murmurs Abdomen: Bowel Sounds Present, Non Tender, Non-Distended, No Hepato-splenomegaly Extremities: No clubbing, No cyanosis, No edema, Capillary Refill Less than 3 Seconds Skin: No rashes, No breakdown Musculoskeletal: No Tenderness to Palpation of Joints or Extremities Lymphatic: No Cervical, Supraclavicular, or Inguinal Adenopathy Neurological: Cranial nerves II-XII grossly intact, Neuro grossly intact, Motor Exam 5/5 strength throughout Psych/Mental Status: Normal Affect, Appropriate, Alert and oriented to time, place, person, mood and affect Laboratory Results 11/17/18 12:50: WBC 6.5, RBC 5.40, Hgb 14.5, Hct 44.9, MCV 83.1, MCH 26.9 L, MCHC 32.3, RDW 13.3, RDW Differential 40.5, Plt Count 300, MPV 9.8, Immature Gran % (Auto) 0.500, Neut % (Auto) 59.8, Lymph % (Auto) 25.7, [place] % (Auto) 9.9, Eos % (Auto) 2.9, Baso % (Auto) 1.2 H, Absolute Neuts (auto) 3.9, Absolute Lymphs (auto) 1.68, Total Counted Not Reportable 11/17/18 12:50: Sodium 136, Potassium 4.0, Chloride 105, Carbon Dioxide 25.0, Anion Gap 6, BUN 17, Creatinine 1.01, Estim Creat Clear Calc 101.46, Est GFR (MDRD) Af Amer 99, Est GFR (MDRD) Non-Af 81, BUN/Creatinine Ratio 16.8, Glucose 98, Calcium 8.5, Troponin I 0.091 H 11/17/18 12:58: Urine Color Yellow, Urine Clarity Clear, Urine pH 7.0, Ur Specific [place] 1.005, Urine Protein 30 H, Urine Glucose (UA) Normal, Urine Ketones Negative, Urine Occult Blood Negative, Urine Nitrite Negative, Urine Bilirubin Negative, Urine Urobilinogen Normal, Ur Leukocyte Esterase Negative, Urine RBC 0 SEEN, Urine WBC 0 SEEN, Ur Squamous Epith Cells 0-5 SEEN, Urine Bacteria 0 SEEN, Urine Mucus 0 SEEN 11/17/18 16:48: Troponin I 0.096 H 11/17/18 18:45: Troponin I 0.085 H 11/18/18 01:40: Triglycerides Cancelled, Cholesterol Cancelled, LDL Cholesterol Cancelled, VLDL Cholesterol Cancelled, HDL Cholesterol Cancelled 11/18/18 01:40: Sodium 139, Potassium 3.7, Chloride 108 H, Carbon Dioxide 24.0, Anion Gap 7, BUN 15, Creatinine 0.92, Estim Creat Clear Calc 111.38, Est GFR (MDRD) Af Amer 110, Est GFR (MDRD) Non-Af 91, BUN/Creatinine Ratio 16.3, Glucose 94, Calcium 8.0 L, Troponin I 0.095 H, Triglycerides 275 H, Cholesterol 133, LDL Cholesterol 55, VLDL Cholesterol 55 H, HDL Cholesterol 23 L 11/18/18 01:40: WBC 6.6, RBC 5.21, Hgb 13.9, Hct 43.3, MCV 83.1, MCH 26.7 L, MCHC 32.1, RDW 13.2, RDW Differential 39.9, Plt Count 281, MPV 9.9 11/18/18 01:40: PT 13.7, INR 1.1, APTT 27.2 11/18/18 01:40: Sodium Cancelled, Potassium Cancelled, Chloride Cancelled, Carbon Dioxide Cancelled, Anion Gap Cancelled, BUN Cancelled, Creatinine Cancelled, Estim Creat Clear Calc Cancelled, Est GFR (MDRD) Af Amer Cancelled, Est GFR (MDRD) Non-Af Cancelled, BUN/Creatinine Ratio Cancelled, Glucose Cancelled, Calcium Cancelled Current Medications Aspirin (Ecotrin) 81 mg PO DAILY@0800 [facility] Last Admin: 11/18/18 07:29 Dose: 81 mg Atorvastatin Calcium (Lipitor) 80 mg PO QHS [facility] Last Admin: 11/17/18 20:57 Dose: 80 mg Clopidogrel Bisulfate (Plavix) 75 mg PO DAILY [facility] Last Admin: 11/18/18 07:29 Dose: 75 mg Enoxaparin Sodium (Lovenox) 40 mg SC DAILY@1000 [facility] Last Admin: 11/18/18 10:13 Dose: Not Given Sodium Chloride () 1,000 mls @ 15 mls/hr IV .Q48H [facility] Last Admin: 11/18/18 08:36 Dose: 15 mls/hr Magnesium Hydroxide (Milk Of Magnesia) 30 ml PO DAILY PRN PRN Reason: Constipation Nitroglycerin (Nitrostat) 0.4 mg SUBLINGUAL Q5M PRN PRN Reason: CHEST PAIN Sodium Chloride () 5 - 15 ml IV UD PRN PRN Reason: SALINE FLUSH Last Admin: 11/18/18 08:36 Dose: 10 ml Medical Necessity - Tobacco Use Smoking Status: Former smoker Tobacco Use: Non-smoker Assessment/Plan All Active Problems (Last Updated 11/17/18 @ 15:58 by Dung Fernandez DO) Unstable angina (Acute) 1. Unstable angina * He was admitted with complaint of chest pain. Has a history of a stent being placed in his maker about 5 years ago. * On aspirin, Plavix and high intensity statin. * Cardiac cath findings were moderate CD with previously placed stents patent. * Cardiology on board-recommend medical therapy * 2. CAD status post stent: As under 1. DVT prophylaxis: Lovenox. Code Visit OBSV E&M: 62351 Subsequent observation care L3
--- NOTE | 2018-11-18 12:55 | CL.D_ITS ---
Patient Name: QI VELA Study Date: 11/18/2018 Performing: Gordo Godinez MD Ht: 75.98 inches 193 cm : 1965 Wt: 310.85 lbs 141 kg Age: 53 Gender: male BSA: 2.67 PROCEDURE(S) PERFORMED [id number]/LV CLINICAL PROFILE AND INDICATIONS Indications: Suspected CAD Heart Failure: None Stress/Imaging Stress/Image Study Performed: No CAD Presentations: Unstable angina. CONCLUSIONS Moderate CAD with previously placed stents patent RECOMMENDATIONS Medical therapy DESCRIPTION OF PROCEDURE The patient arrived to the procedure lab. The risks and benefits of the procedure as well as a full d escription of our services here and current unavailability of surgical backup were fully explained to the patient and/or their significant other prior to the catheterization. The Timeout was completed, verifying the correct patient and procedure. The patient's procedural site was prepped and draped in the usual fashion. Local anesthetic was given subcutaneously to right radial region with Lidocaine 2% . Using a modified Seldinger technique, arterial access was obtained via the right radial artery, a 6 Fr sheath was inserted. Left Coronary Artery selective angiography was performed in multiple views u sing a 5 Fr. 4.0 [place] catheter. Right Coronary Artery selective angiography was then performed in mu ltiple views using a 5 Fr. 4.0 [place] catheter. Left Ventriculography was performed in RAMÍREZ projection using a 5 Fr. [place] catheter. LV to AO pullback pressures were then recorded.The arterial sheath was pulled and a TR Band was applied for hemostasis CORONARY ANGIOGRAPHY DOMINANCE: Right Dominant LEFT HEART ASSESSMENT Left Ventricular Ejection Fraction: by LV Gram 60 % Normal LV wall motion Normal Left Ventricular systolic function LEFT MAIN: Mild calcification, Mild luminal irregularities LEFT ANTERIOR DECENDING ARTERY: PROX LAD: Previously placed stent is patent MID LAD: Mild luminal irregularities DIAGONAL 1: Proximal - Mild luminal irregularities DIAGONAL 2: Proximal - Mild luminal irregularities CIRCUMFLEX ARTERY: MID CIRC: Moderate luminal irregularities up to 50% RAMUS: 60-70 % Stenosis RIGHT CORONARY ARTERY: Mild luminal irregularities COMPLICATIONS No Complications PROCEDURE MEDICATIONS Versed 1 mg IV Fentanyl 50 mcg IV Oxygen: 2 L/min via nasal cannula Heparin given IA 11/18/2018 12:20:40 Verapamil 2.5mg, Ntg 100mcgs, 2000 units of Heparin given IA 11/18/2018 12:20:40 SUMMARY OF HEMODYNAMIC DATA Time AIR REST ECG 12:06:29 AO 94/63 (78) SA 12:22:45 LV 106/-2, 5 12:32:58 LV 123/-2, 7 12:33:05 LV 97/-4, 5 12:34:21 LV 93/-4, 4 12:34:28 LVp 95/-4, 5 12:34:35 AOp 102/56 (76) 12:34:40 Signed By Gordo Godinez MD On 11/18/2018 12:54:41 Gordo Godinez MD
--- NOTE | 2018-11-18 16:13 | DCINST_ITS ---
- Discharge Diagnoses Current Active Problems: Current Active and Chronic Problems (Last Updated 11/17/18 @ 15:58 by Dung Fernandez DO) Unstable angina (Acute) You will use the following diet at home:: Cardiac Your food should be the consistency of: Regular Your liquids should be the consistency of: Regular/Thin Discharge Activity: Return to Normal Activity Weight Bearing Status: Weight bearing as tolerated Call your doctor if you observe: Chest pain Allergies/Adverse Reactions: Allergies No Known Allergies Allergy (Verified 11/17/18 12:59) Medications to take at Discharge Aspirin [Aspirin, Baby] 81 mg PO DAILY 11/17/18 Clopidogrel Bisulfate [Plavix] 75 mg PO DAILY 11/17/18 Isosorbide Mononitrate [Imdur] 30 mg PO DAILY #30 tablet 11/18/18 Metoprolol(XL)Succ [Toprol Xl (Beta Cheryl)] 25 mg PO DAILY #30 tablet 11/18/18 Rosuvastatin Calcium 20 mg PO DAILY #30 tablet 11/18/18 The following prescriptions were given: Isosorbide Mononitrate [Imdur] 30 mg PO DAILY #30 tablet Metoprolol(XL)Succ [Toprol Xl (Beta Cheryl)] 25 mg PO DAILY #30 tablet Rosuvastatin Calcium 20 mg PO DAILY #30 tablet Primary Care Physician: Maximo Samayoa [Primary Care Provider] - Please follow up with your Primary Care Physician in: one week Test Results: Test results from this visit will be discussed in further detail at your follow- up appointment, if applicable. Please Follow Up With: Gordo Godinez MD When: 1-2 weeks Proposed Discharge Date: 11/18/18
--- NOTE | 2018-11-18 16:17 | DS.PCM_ITS ---
Discharge Date and Diagnosis - Problem List Patient Problems: Active and Suspected Problems (Last Updated 11/17/18 @ 15:58 by Dung Fernandez DO) Unstable angina (Acute) Date of Admission: 11/17/18 Date of Discharge: 11/18/18 - Primary Discharge Diagnosis Active and Suspected Problems (Last Updated 11/17/18 @ 15:58 by Dung Fernandez DO) Unstable angina (Acute) Hospital Course and Treatment Imaging Results: Diagnostic Data Chest X-Ray 11/17/18 13:11 IMPRESSION: 1. No airspace consolidation or pleural effusion. 2. Probable artificial enlargement of the cardiac silhouette. Electronically Signed: Tom Vicente MD at 13:40 EDT , Service support , cardiology- Dr Godinez Operations: None Procedures: Cardiac catheterization Summary of Care Provided: The patient is a 53 year old M with past medical history of CAD status post stents was admitted with complaint of left-sided chest pain with assisted nausea and shortness of breath. He had a stent put in his maker artery 5 years ago. Review of systems otherwise negative. Troponins were mildly elevated; EKG showed no acute ST changes. He was admitted and managed for unstable angina. He had a cardiac cath on 11/18/2018 which showed moderate coronary artery disease with patent previously placed stents. Recommendation was for medical management. Patient remained stable post cardiac cath and was discharged home on 11/18/2018. He was given scripts for high intensity statin, and was started on Imdur and metoprolol. His follow-up with his primary care doctor and cardiology. Vision seen and examined prior to discharge. He had no complaints and felt well. Review of systems otherwise negative. Labs and vitals reviewed. Medications reviewed and reconciled. [] o/e: Vital Signs Height 6 ft 4 in Weight: 309 lb 11.991 oz Weight in Pounds 309.7 lbs Pulse Ox 95 Temperature 98.6 F Pulse Rate 67 Respiratory Rate 18 Blood Pressure 135/70 Blood Pressure Position Semi-Fowlers General: Alert, Oriented x3, Cooperative, No apparent distress HEENT: Atraumatic, PERRLA, EOMI, Normocephalic Oral: Moist Mucosa Neck: Supple, No JVD, Negative Carotid Bruits Lungs: Clear to auscultation, Normal air movement, No rhonchi, No wheeze, No rales Cardiovascular: Regular rate, Regular Rhythm, Normal S1, Normal S2, No murmurs Abdomen: Bowel Sounds Present, Non Tender, Non-Distended, No Hepato-splenomegaly Extremities: No clubbing, No cyanosis, No edema, Capillary Refill Less than 3 Seconds Skin: No rashes, No breakdown Musculoskeletal: No Tenderness to Palpation of Joints or Extremities Lymphatic: No Cervical, Supraclavicular, or Inguinal Adenopathy Neurological: Cranial nerves II-XII grossly intact, Neuro grossly intact, Motor Exam 5/5 strength throughout Psych/Mental Status: Normal Affect, Appropriate, Alert and oriented to time, place, person, mood and affect Plan as above. Patient Problems: Active and Suspected Problems (Last Updated 11/17/18 @ 15:58 by Dung Fernandez DO) Unstable angina (Acute) - Physical Exam Vital Signs Temp Pulse Resp BP Pulse Ox 98.6 F 67 18 135/70 H 95 11/18/18 16:03 11/18/18 16:03 11/18/18 16:03 11/18/18 16:03 11/18/18 16:03 Oxygen Delivery Method Room Air Weight: 309 lb 11.991 oz Body Mass Index (BMI) 37.7 Intake and Output for Last 24 Hours 11/16/18 11/17/18 11/18/18 22:59 23:59 23:59 Intake Total Balance Laboratory Tests Past 24 Hrs 11/17/18 11/17/18 11/17/18 12:58 16:48 18:45 WBC RBC Hgb Hct MCV MCH MCHC RDW RDW Differential Plt Count MPV PT INR APTT Sodium Potassium Chloride Carbon Dioxide Anion Gap BUN Creatinine Estim Creat Clear Calc Est GFR (MDRD) Af Amer Est GFR (MDRD) Non-Af BUN/Creatinine Ratio Glucose Calcium Troponin I 0.096 H 0.085 H Triglycerides Cholesterol LDL Cholesterol VLDL Cholesterol HDL Cholesterol Urine Color Yellow Urine Clarity Clear Urine pH 7.0 Ur Specific Willard 1.005 Urine Protein 30 H Urine Glucose (UA) Normal Urine Ketones Negative Urine Occult Blood Negative Urine Nitrite Negative Urine Bilirubin Negative Urine Urobilinogen Normal Ur Leukocyte Esterase Negative Urine RBC 0 SEEN Urine WBC 0 SEEN Ur Squamous Epith Cells 0-5 SEEN Urine Bacteria 0 SEEN Urine Mucus 0 SEEN 11/18/18 11/18/18 11/18/18 01:40 01:40 01:40 WBC 6.6 RBC 5.21 Hgb 13.9 Hct 43.3 MCV 83.1 MCH 26.7 L MCHC 32.1 RDW 13.2 RDW Differential 39.9 Plt Count 281 MPV 9.9 PT INR APTT Sodium 139 Potassium 3.7 Chloride 108 H Carbon Dioxide 24.0 Anion Gap 7 BUN 15 Creatinine 0.92 Estim Creat Clear Calc 111.38 Est GFR (MDRD) Af Amer 110 Est GFR (MDRD) Non-Af 91 BUN/Creatinine Ratio 16.3 Glucose 94 Calcium 8.0 L Troponin I 0.095 H Triglycerides Cancelled 275 H Cholesterol Cancelled 133 LDL Cholesterol Cancelled 55 VLDL Cholesterol Cancelled 55 H HDL Cholesterol Cancelled 23 L Urine Color Urine Clarity Urine pH Ur Specific Willard Urine Protein Urine Glucose (UA) Urine Ketones Urine Occult Blood Urine Nitrite Urine Bilirubin Urine Urobilinogen Ur Leukocyte Esterase Urine RBC Urine WBC Ur Squamous Epith Cells Urine Bacteria Urine Mucus 11/18/18 11/18/18 01:40 01:40 WBC RBC Hgb Hct MCV MCH MCHC RDW RDW Differential Plt Count MPV PT 13.7 INR 1.1 APTT 27.2 Sodium Cancelled Potassium Cancelled Chloride Cancelled Carbon Dioxide Cancelled Anion Gap Cancelled BUN Cancelled Creatinine Cancelled Estim Creat Clear Calc Cancelled Est GFR (MDRD) Af Amer Cancelled Est GFR (MDRD) Non-Af Cancelled BUN/Creatinine Ratio Cancelled Glucose Cancelled Calcium Cancelled Troponin I Triglycerides Cholesterol LDL Cholesterol VLDL Cholesterol HDL Cholesterol Urine Color Urine Clarity Urine pH Ur Specific Willard Urine Protein Urine Glucose (UA) Urine Ketones Urine Occult Blood Urine Nitrite Urine Bilirubin Urine Urobilinogen Ur Leukocyte Esterase Urine RBC Urine WBC Ur Squamous Epith Cells Urine Bacteria Urine Mucus Discharge Diet: Low fat/ Low Cholesterol Discharge Activity: Return to Normal Activity Weight Bearing Status: Weight bearing as tolerated Call your doctor if you observe: Chest pain Home Medications: Medications to take at Discharge Aspirin [Aspirin, Baby] 81 mg PO DAILY 11/17/18 Clopidogrel Bisulfate [Plavix] 75 mg PO DAILY 11/17/18 Isosorbide Mononitrate [Imdur] 30 mg PO DAILY #30 tablet 11/18/18 Metoprolol(XL)Succ [Toprol Xl (Beta Cheryl)] 25 mg PO DAILY #30 tablet 11/18/18 Rosuvastatin Calcium 20 mg PO DAILY #30 tablet 11/18/18 Following Prescrptions Were Given to Patient: Isosorbide Mononitrate [Imdur] 30 mg PO DAILY #30 tablet Metoprolol(XL)Succ [Toprol Xl (Beta Cheryl)] 25 mg PO DAILY #30 tablet Rosuvastatin Calcium 20 mg PO DAILY #30 tablet Primary Care Physician: Maximo Samayoa [Primary Care Provider] - Please follow up with your Primary Care Physician in: one week Please Follow Up With: Gordo Godinez MD When: 1-2 weeks Patient Instructions: Discharge Instructions for Angina Disposition: Home Minutes spent on discharge:: 40 Patient Condition:: Stable Medical Necessity - Tobacco Use Smoking Status: Former smoker Tobacco Use: Non-smoker Meaningful Use Info Meaningful Use Diagnoses (Choose all that apply): None applicable Code Visit Inpatient E&M: 02025 Disch Hosp
== END 2018-11-18 12:45 | disposition home or self-care (01) ==
LOC: ED 13:45 → PCU 16:09
PROVIDERS: Emergency Provider Emergency Medicine; Family Provider Family Medicine; PCP Family Medicine; Visit Provider Student in an Organized Health Care Education/Training Program
DX: I25.110 Atherosclerotic heart disease of native coronary artery with unstable angina pectoris (principal); E78.5 Hyperlipidemia, unspecified; Z79.02 Long term (current) use of antithrombotics/antiplatelets; Z79.899 Other long term (current) drug therapy; Z79.82 Long term (current) use of aspirin; Z95.5 Presence of coronary angioplasty implant and graft; Z87.891 Personal history of nicotine dependence
CPT/HCPCS: 36415; 71045; 80048; 80061; 81001; 84484; 85025; 85027; 85610; 85730; 93005; 93458; 99152; 99153; 99218; 99284; J7030; A4216; C1769; C1894; G0378; Q9967

== ENCOUNTER → 2019-02-10 | Outpatient (CLI) | payer MEDICAID, SELFPAY ==
[2019-02-10 09:07] VITALS: BMI 39.2
--- NOTE | 2019-02-10 09:19 | RAD_ITS ---
STUDY: X-RAY - RIGHT KNEE REASON FOR EXAM: Pain. TECHNIQUE: 5 view(s) of the knee. COMPARISON: None. FINDINGS: Normal visualized distal femur. Normal visualized proximal tibia and fibula. Normal proximal tibiofibular articulation. There is severe joint space loss of the medial femorotibial compartment. There are marginal osteophytes of the lateral tibial plateau without joint space narrowing of the lateral femorotibial compartment. There are small marginal osteophytes and mild joint space narrowing of the patellofemoral articulation. The soft tissue structures are unremarkable. RAD/Knee 4 or More Views IMPRESSION: Arthrosis of the medial femorotibial and patellofemoral compartments. Electronically Signed: Bernardino Cruz MD at 10:38 EDT Tel , Service support ,
--- NOTE | 2019-02-10 09:19 | RAD_ITS ---
STUDY: X-RAY - LEFT KNEE REASON FOR EXAM: Pain. TECHNIQUE: 5 view(s) of the knee. COMPARISON: None. FINDINGS: Normal visualized distal femur. Normal visualized proximal tibia and fibula. Normal proximal tibiofibular articulation. There is severe joint space loss of the medial femorotibial compartment. There are marginal osteophytes of the lateral tibial plateau without joint space narrowing of the lateral femorotibial compartment. There are small marginal osteophytes and mild joint space narrowing of the patellofemoral articulation. The soft tissue structures are unremarkable. RAD/Knee 4 or More Views IMPRESSION: Arthrosis of the medial femorotibial and patellofemoral compartments. Electronically Signed: Bernardino Cruz MD at 10:37 EDT Tel , Service support ,
== END | disposition home or self-care (01) ==
LOC: HPRAD 09:18
PROVIDERS: Family Provider Family Medicine; PCP Family Medicine; Referring Provider Orthopaedic Surgery; Visit Provider Orthopaedic Surgery
DX: M25.561 Pain in right knee (principal); M25.562 Pain in left knee
CPT/HCPCS: 73564

== ENCOUNTER 2019-07-08 14:47 | Observation (INO) | payer OTHER, SELFPAY ==
[2019-06-23 08:05] VITALS: BMI 39.2
[2019-06-30 10:12] VITALS: BP 130/75; PULSE 60; RESP 16; TEMP 36.8; O2SAT 97; BMI 39.7
[2019-06-30 10:55] LABS: Hematocrit 44.4 % (40-54); Mean Corp Hgb Conc 31.5 g/dL (32-36); Mean Corpuscular Hgb 26.4 pg (27.0-32.0); Mean Corpuscular Volume 83.6 fL (80-94); Mean Platelet Vol. 9.7 fl (6.2-12.0); Platelet Count 242 K/mm3 (150-450); RBC Distribution Width CV 13.2 % (11.6-14.6); RBC Distribution Width SD 40.2 fl (35.1-43.9); Red Blood Count 5.31 M/mm3 (4.6-6.2); White Blood Count 5.6 K/mm3 (4.4-11.0)
[2019-06-30 11:08] LABS: Anion Gap 4 (5-15); BUN 23 mg/dL (7-18); BUN/Creat Ratio 20.4 RATIO (10-20); Calcium,Total 9.4 mg/dL (8.5-10.1); Chloride 106 mmol/L (98-107); Creatinine, Serum 1.13 mg/dL (0.70-1.30); EST Glomerular Filtration Rate 71 mL/min (>60); Est Glom Filt Rate - Afr Amer 86 mL/min (>60); Estimated Creatinine Clearance 88.28 ml/min; Glucose 91 mg/dL (74-106); Potassium 4.3 mmol/L (3.5-5.1); Sodium Level 138 mmol/L (136-145)
[2019-07-08] VITALS (11 sets, daily range): BP systolic 95–128; BP diastolic 50–81; PULSE 54–80; RESP 16–18; TEMP 36.4–36.9; O2SAT 92–99; BMI 38.7
[2019-07-08] MEDS: Scopolamine 1mg/72hr Patch 1 PATCH TRANSDERM. (07:00)
[2019-07-08] MEDS: Gabapentin 600 MG Tablet PO (08:59)
[2019-07-08] MEDS: Acetaminophen 500 MG Tablet 1000 MG PO ×3 (09:00→21:48)
[2019-07-08] MEDS: Celecoxib 200 MG Capsule 400 MG PO (09:00)
[2019-07-08] MEDS: Magnesium Sulfate 4gm/100mL 4 GM/100 ML IV.SOLN. IV (09:45)
[2019-07-08] MEDS: Lactated Ringers 1,000 ML 100 ML IV (09:48)
[2019-07-08 10:11] LABS: Bedside Glucose 154 mg/dL (70-110)
[2019-07-08] MEDS: Cefazolin 2 GM in 0.9% Normal Saline 100 ML IV (10:23)
--- NOTE | 2019-07-08 10:28 | HP.PCM_ITS ---
History and Physical Date of Admission: 07/08/19 Intake Vital Signs 06/23/19 Body Mass Index (BMI) 39.2 Intake Visit Reasons: LEFT KNEE Chief Complaint: Follow up Allergies No Known Allergies Allergy (Verified 12/04/18 12:58) Medications Aspirin [Aspirin, Baby] 81 mg PO DAILY 11/17/18 [History Confirmed 06/23/19] nitroglycerin 0.4 mg sublingual tablet 0.4 mg SUBLINGUAL Q5-15M PRN 11/29/18 [History Confirmed 06/23/19] lisinopril 2.5 mg tablet 2.5 mg PO DAILY #90 tab 12/04/18 [Rx Confirmed 06/23/19] omega-3 fatty acids 1,000 mg capsule 1,000 mg PO DAILY 12/04/18 [History Confirmed 06/23/19] clopidogrel 75 mg tablet 75 mg PO DAILY #30 tab 12/06/18 [Rx Confirmed 06/23/19] PFSH Medical History (Updated 11/18/18 @ 18:36 by Suzanne Chowdary) Hyperlipidemia (Chronic) Atherosclerosis of coronary artery of [place] heart without angina pectoris (Chronic) Obesity (Chronic) Surgical History (Updated 11/29/18 @ 14:47 by Kristal Bryant) History of coronary artery stent placement (Resolved ~2013) History of left heart catheterization (Resolved 11/18/18) Family History (Updated 11/18/18 @ 18:34 by Suzanne Chowdary) Father Heart disease Social History (Updated 06/23/19 @ 08:55 by Leonel Witt DO) Smoking Status: Never smoker HPI LEFT KNEE: Details: Parts of this documentation were recorded by a scribe, this documentation accurately reflects the service provided and the decisions made by tx, Leonel Witt DO 06/23/19 0752. QI VELA is a 53 year old M here today for LEFT KNEE pain. Patient is here today to sign surgery consent for a left TKA. Denies numbness, tingling or other associated symptoms. Patient continues to have left knee pain and states that the PT, NSAIDs, and bracing. Patient is not a diabetic and does not smoke. Ortho Exam Right Knee Patella Translation: 1 Left Knee Skin/Wound: No ecchymosis, No erythema, No swelling Homans Sign: No Knee ROM: Yes ROM-Extension -20 to 0, No ROM-Flexion 0-140 (118) Stability: NML: Anterior Drawer, NML: Posterior Drawer, NML: Valgus 30, NML: Varus 30 Apprehension with Lateral Translation: No Patella Translation: 1 Patella Grind: Yes KNEE: good quad tone, no joint effusion 4mm of medial gapping. no varus instability. Assessment & Plan Problems 1. Primary osteoarthritis of left knee M17.12 Plan Patient educated that since he has not had success with conservative tx for his left knee OA then we can proceed with left TKA. Reviewed the pre-operative plans with the patient. Risks and benefits of the procedure were fully explained, including but not limited to infection, neurovascular injury, continued pain, arthritis, stiffness, need for further surgery, re-injury, DVT, PE, general risks of anesthesia, and loss of limb or life. The patient understands all the risks and does wish to proceed with written consent. Educated that he may have an Iovera tx if he chooses. We will be looking at surgery for July 08 2019. 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 Patient educated that the most important part is to start ROM and therapy. Patient educated that post op he will be on a blood thinner for 2 weeks post op during which he can continue baby aspirin if PCP desires. Follow up 2 weeks post op or sooner if pain, swelling, numbness or associated symptoms, or concerns develop. All questions answered. Patient in agreement of plan. Coding Level of Care Code Off vis,est,level 3 Diagnoses Primary osteoarthritis of left knee M17.12 I have re-examined the patient. There are no clinical changes since date of exam
[2019-07-08] MEDS: dexAMETHasone 10 MG/ML Vial IV (10:39)
[2019-07-08] MEDS: Bupivacaine 0.5% PF 10 ML VIAL (12:08)
[2019-07-08] MEDS: Betamethasone/Betamethasone 30 MG/5 ML Vial (12:08)
--- NOTE | 2019-07-08 13:04 | RAD_ITS ---
STUDY: X-RAY - LEFT KNEE REASON FOR EXAM: Male, 53 years old. Total knee replacement. TECHNIQUE: AP and lateral view(s) of the knee. COMPARISON: Comparison is made with prior study dated February 10, 2019. FINDINGS: The patient status post total knee replacement. There is good alignment. Postoperative soft tissue changes. RAD/Knee 1 or 2 Views IMPRESSION: Status post total knee replacement. There is good alignment. Postoperative soft tissue changes. Electronically Signed: Liu Clements, at 13:46 EDT , Service support ,
[2019-07-08] MEDS: Lactated Ringers 1,000 ML 125 ML IV ×2 (13:37→15:04)
--- NOTE | 2019-07-08 13:53 | OP.PCM_ITS ---
Report of Operation Date of Procedure: 07/08/19 Description of Surgical Findings:: Preoperative diagnosis: Left knee DJD Postoperative diagnosis: Same Procedure: Left total knee arthroplasty Implant: Lawrence triathlon press-fit left femoral component size 8, press-fit tibial baseplate size 8, press fit asymmetric patella size 38, polyethylene X3 size 9 CS Anesthesia: General with adductor canal block Tourniquet time: 90 minutes at 300 mmHg Complications: None Estimated blood loss: 25 cc Indication for procedure: This is a 3-year-old male with long standing degenerative joint disease of the knee who has failed conservative treatment and wished to proceed with elective total knee arthroplasty. Risk benefits and alternatives were reviewed including; risk of bleeding, infection, nerve artery and tissue damage, continued pain, postoperative stiffness, venous thromboembolism, need for postoperative rehabilitation, mechanical feel to the knee, and expected postoperative course. Procedure: The patient was met in the preoperative holding area. The operative extremity was identified by both patient and physician and was marked. Patient was met by anesthesia. An adductor canal block was placed by anesthesia preoperatively. The patient was brought back to the operating room on a wheeled cart and transferred to the operating table in the supine position. Anesthesia was started. A well-padded tourniquet was placed on the operative extremity. The patient was prepped and draped in the usual sterile fashion. A timeout was called to ensure the proper patient procedure and extremity were being contemplated. An Esmarch was used to exsanguinate the extremity. The tourniquet was inflated. A 10 blade scalpel was used to make a midline incision down through the skin and subcutaneous tissue. Skin retractors placed. Bovie was used to perform meticulous hemostasis. full-thickness flaps were elevated medial and lateral along the joint capsule. A deep blade scalpel was used to perform a medial parapatellar arthrotomy. The knee was brought to full extension. A Bovie was used to release the soft tissues off the most proximal aspect of the medial tibial plateau a three-quarter inch curved osteotome was also used for this process. The infrapatellar fat pad was excised. The fat pad was excised partially anterior lateral portion the anterior medial was elevated from the femur. the patella was everted. The knee was brought into flexion. An intramedullary drill was used followed by flexible intramedullary guide roselia. The distal femoral cutting block was placed and set to remove 10 mm of bone and 5 degrees of valgus. The block was secured with pins and an oscillating saw was used to complete the distal femoral cut. During this, and all bony cuts retractors were used to protect the collateral ligaments. At this point a femoral sizer was used to measure the AP dimension of the femur. The sizer block was pinned in 3 degrees of external rotation. The sizing block was removed and the appropriately sized 4-in-1 cutting block was placed over the previously made pinholes. It was checked with an imani wing and the block was secured with pins. An oscillating saw was used to complete the anterior cut followed by the posterior cut followed by the posterior chamfer cut followed by the anterior chamfer cut. The block was removed as well as the fragments. A ronguer was used to remove excess osteophytes. The medial and lateral meniscus were excised as well as the ACL. At this point a PCL retractor was placed and an intramedullary drill was passed down the tibial canal followed by a solid intramedullary guide roselia. The tibial cutting block was attached and set to taina ve 9 mm of bone from the high side. This was checked with an external alignment drop roselia for slope and tilt. It was pinned into place. An oscillating saw was used to complete the tibial plateau cut and the block was removed. A large osteotome was used to elevate the fragment and a Babak and a Bovie were used to free the fragment from the surrounding soft tissue. A rongeur was once again used to remove osteophytes a lamina mechanical estimator was used to evaluate the posterior capsular structures. A three-quarter inch curved osteotome was used to remove posterior osteophytes. A spacer block was inserted in both extension and flexion to ensure adequate spacing. Trials were inserted full extension and flexion were achieved in varus and valgus stability throughout range of motion were seen, balancing techniques were performed. At this point the attention was turned towards the patella. A caliper was used to ensure sufficient bone stock to remove 11 mm of bone. A reamer was used to perform this task. Lug holes were made for the appropriate-sized patella. The patella trial was inserted and there was good patellar tracking with knee range of motion. The tibial baseplate was allowed to float into rotation and was marked on the tibial plateau with a Bovie. Lug holes were made in the femur and trials were removed. The tibial baseplate was then sized and its preparation was completed with a fin punch, and 4 corner drill guide for press-fit component. the knee was thoroughly irrigated. Aricept rinse was allowed to sit for 1 minute then rinsed out. A posterior capsular injection was performed with our standard cocktail. this point all gloves were changed. the knee was brought into flexion and irrigated again. The tibial baseplate was press fit . The polyethylene component was inserted. The femoral component was press-fit. The knee was brought into full extension and placed on a bump. The patellar component was press-fit. The knee was thoroughly irrigated the joint capsule was closed with #1 Ethibond. Tourniquet was let down followed by 0 Vicryl and 2-0 Vicryl in the subcutaneous tissues. followed by meredith in the skin. Dressing was applied in the form of Mepilex Ag web roll and an Yaron wrap from the foot to the groin. The patient tolerated the procedure well, all counts were correct patient was brought back to the PACU in stable condition.
[2019-07-08] MEDS: Cefazolin 1 GM/50 ML BAG IV ×2 (13:57→21:44)
[2019-07-08] MEDS: Senna/Docusate Sodium 1 Tablet 2 TABLET PO (21:50)
[2019-07-08] MEDS: oxyCODONE HCl Cr 10 MG Tablet PO (21:51)
[2019-07-09 03:33] VITALS: BP 98/61; PULSE 68; RESP 16; TEMP 36.9
[2019-07-09] MEDS: oxyCODONE 5 MG Tablet PO (03:43)
[2019-07-09] MEDS: Cefazolin 1 GM/50 ML BAG IV (05:35)
[2019-07-09] MEDS: Acetaminophen 500 MG Tablet 1000 MG PO ×2 (05:37→13:38)
[2019-07-09 05:42] LABS: Hematocrit 37.8 % (40-54); Hemoglobin 11.7 g/dL (13.0-16.5); Mean Corpuscular Hgb 26.4 pg (27.0-32.0); Mean Corpuscular Volume 85.1 fL (80-94); Mean Platelet Vol. 10.2 fl (6.2-12.0); Platelet Count 239 K/mm3 (150-450); RBC Distribution Width CV 13.4 % (11.6-14.6); Red Blood Count 4.44 M/mm3 (4.6-6.2); White Blood Count 14.5 K/mm3 (4.4-11.0)
[2019-07-09 06:07] LABS: Anion Gap 8 (5-15); BUN 29 mg/dL (7-18); BUN/Creat Ratio 23.8 RATIO (10-20); Calcium,Total 8.2 mg/dL (8.5-10.1); Chloride 105 mmol/L (98-107); Creatinine, Serum 1.22 mg/dL (0.70-1.30); EST Glomerular Filtration Rate 65 mL/min (>60); Est Glom Filt Rate - Afr Amer 79 mL/min (>60); Estimated Creatinine Clearance 83.99 ml/min; Glucose 162 mg/dL (74-106); Potassium 4.6 mmol/L (3.5-5.1); Sodium Level 139 mmol/L (136-145)
--- NOTE | 2019-07-09 07:46 | DCINST_ITS ---
Discharge Diet: No Restrictions Call your doctor if you observe: Shortness of breath, Dizziness, Chest pain Additional Instructions: Ice and elevate next week while not ambulating. Encourage ambulation weightbearing as tolerated. Encourage FULL knee extension and flexion 1 time EVERY time you get up and down and MULTIPLE times per day. Begin showering postop day #3. Remove the dressing prior to shower gently wash with warm water and antibacterial soap then pat dry place ABD pad and REJI hose over top. This is to be done daily. do not submerge for 3 weeks. If not showering daily must clean incision and change dressing daily. Do not allow animals near incision keep clean. Follow anticoagulation recommendations. Hold Plavix until completed with Eliquis may continue baby aspirin however. call Dr. Witt with any concerns. Allergies/Adverse Reactions: Allergies No Known Allergies Allergy (Verified 07/08/19 08:51) Medications to take at Discharge Aspirin [Aspirin, Baby] 81 mg PO DAILY 11/17/18 nitroglycerin 0.4 mg sublingual tablet 0.4 mg SUBLINGUAL Q5-15M PRN 11/29/18 lisinopril 2.5 mg tablet 2.5 mg PO DAILY #90 tab 12/04/18 omega-3 fatty acids 1,000 mg capsule 1,000 mg PO DAILY 12/04/18 Acetaminophen [Tylenol] 1,000 mg PO Q6H PRN #50 tab 07/09/19 Apixaban [Eliquis] 2.5 mg PO BID #28 tab 07/09/19 Oxycodone [Oxyir] 5 - 10 mg PO Q4H PRN PRN #60 tablet 07/09/19 The following prescriptions were given: Apixaban [Eliquis] 2.5 mg PO BID #28 tab Transmission Status: Pending to [facility][id number] Oxycodone [Oxyir] 5 - 10 mg PO Q4H PRN PRN #60 tablet PRN Reason: Pain Score 4-10/10 Transmission Status: Received by [id number] Acetaminophen [Tylenol] 1,000 mg PO Q6H PRN #50 tab Transmission Status: Pending to [facility][id number] Primary Care Physician: Maximo Samayoa [Primary Care Provider] - Test Results: Test results from this visit will be discussed in further detail at your follow- up appointment, if applicable. Please Follow Up With: Leonel Witt DO - 2 weeks
--- NOTE | 2019-07-09 07:47 | PCM.DC.SUM ---
Discharge Date and Diagnosis Date of Admission: 07/08/19 Date of Discharge: 07/09/19 - Secondary Discharge Diagnosis Chronic Problems (Last Reviewed 12/04/18 @ 13:27 by Gordo Godinez MD) Hyperlipidemia (Chronic) Atherosclerosis of coronary artery of [place] heart without angina pectoris (Chronic) Hospital Course and Treatment Operations: None Summary of Care Provided: The patient is a 53 year old M who has long history of degenerative joint disease to the knee who has failed conservative treatment and wished to undergo elective total knee arthroplasty. Patient underwent the aformentioned procedure on the admission date without any intraoperative complications. Patient did receive pre-and postoperative antibiotics which were discontinued within 23 hours postoperatively. Patient did receive general anesthesia as well as an adductor canal block postoperatively. pain was controlled with IV and transition to p.o. pain medication Patient will be discharged home with oxycodone and will continue Tylenol as well. Patient had minimal intraoperative blood loss and tranexamic acid was administered there was no need for postoperative blood transfusion her vital signs remained stable. Patient was started on both mechanical and chemical DVT per prophylaxis postoperatively in the form of SCDs REJI hose and Eliquis 2.5 mg twice daily for which she will continue for 2 additional weeks post hospital discharge. Yaron removed post op day number one and thigh high reji hose placed over top of the meplix silver dressing. This should be removed 72 hrs post operatively and showering begun daily at that time with warm water and antibacterial soap. not to submerge for 3 weeks. To change dressing daily at that point. Patient will follow-up in the office in 2 weeks. No intrahospital complications. Subjective: Alert oriented pain controlled no fevers chills nausea vomiting shortness of breath chest pain - Physical Exam Vitals/I&O's: Vital Signs Temp Pulse Resp BP Pulse Ox 98.5 F 68 16 98/61 96 07/09/19 03:33 07/09/19 03:33 07/09/19 03:33 07/09/19 03:33 07/08/19 21:59 Oxygen Flow Rate (L/min) 2 Oxygen Delivery Method Room Air Weight: 317 lb 14.505 oz Body Mass Index (BMI) 38.7 Intake and Output for Last 24 Hours 07/07/19 07/08/19 07/09/19 23:59 23:59 23:59 Intake Total 4511.25 / 6511.25 355 / 3549 Balance 451. / 65. 355 / 3549 General: Alert, Oriented x3, Cooperative, No apparent distress Extremities: - - Dressing clean dry and intact compartment soft neurovascular intact Laboratory Results 07/08/19 08:57: POC Glucose 154 H 07/09/19 05:26: WBC 14.5 H, RBC 4.44 L, Hgb 11.7 L, Hct 37.8 L, MCV 85.1, MCH 26.4 L, MCHC 31.0 L, RDW Std Deviation 42.0, RDW Coeff of Hillary 13.4, Plt Count 239, MPV 10.2 07/09/19 05:26: Sodium 139, Potassium 4.6, Chloride 105, Carbon Dioxide 26.0, Anion Gap 8, BUN 29 H, Creatinine 1.22, Estim Creat Clear Calc 83.99, Est GFR (MDRD) Af Amer 79, Est GFR (MDRD) Non-Af 65, BUN/Creatinine Ratio 23.8 H, Glucose 162 H, Calcium 8.2 L Current Medications Acetaminophen (Tylenol) 1,000 mg PO Q8 [facility] Last Admin: 07/09/19 05:37 Dose: 1,000 mg Documented by: Apixaban (Eliquis) 2.5 mg PO BID [facility] Hydromorphone HCl (Dilaudid Inj) 0.5 mg IV Q2H PRN PRN PRN Reason: Breakthrough pain (>4/10) Insulin Human Lispro (Humalog Kwikpen (Bkc)) 1 - 6 unit SC Q4H PRN PRN; Protocol PRN Reason: BG>/= 180, SEE PROTOCOL Ketorolac Tromethamine (Toradol) 30 mg IV Q6H PRN PRN PRN Reason: Pain Score 1-5/10 Stop: 07/10/19 13:04 Lisinopril (Zestril) 2.5 mg PO DAILY [facility] Nitroglycerin (Nitrostat) 0.4 mg SUBLINGUAL Q5M PRN PRN Reason: chest pain Ondansetron HCl (Zofran) 4 mg IV Q6H PRN PRN PRN Reason: NAUSEA Oxycodone HCl (Oxyir) 5 - 10 mg PO Q4H PRN PRN PRN Reason: Pain Score 4-10/10 Last Admin: 07/09/19 03:43 Dose: 5 mg Documented by: Oxycodone HCl (Oxycontin) 10 mg PO BID [facility] Stop: 07/09/19 10:01 Last Admin: 07/08/19 21:51 Dose: 10 mg Documented by: Senna/Docusate Sodium (Senokot-S, Joana-Colace) 2 tablet PO BID [facility] Last Admin: 07/08/19 21:50 Dose: 2 tablet Documented by: Sodium Chloride () 5 - 15 ml IV UD PRN PRN Reason: SALINE FLUSH Discharge Diet: No Restrictions Call your doctor if you observe: Shortness of breath, Dizziness, Chest pain Home Medications: Medications to take at Discharge Aspirin [Aspirin, Baby] 81 mg PO DAILY 11/17/18 nitroglycerin 0.4 mg sublingual tablet 0.4 mg SUBLINGUAL Q5-15M PRN 11/29/18 lisinopril 2.5 mg tablet 2.5 mg PO DAILY #90 tab 12/04/18 omega-3 fatty acids 1,000 mg capsule 1,000 mg PO DAILY 12/04/18 Acetaminophen [Tylenol] 1,000 mg PO Q6H PRN #50 tab 07/09/19 Apixaban [Eliquis] 2.5 mg PO BID #28 tab 07/09/19 Oxycodone [Oxyir] 5 - 10 mg PO Q4H PRN PRN #60 tablet 07/09/19 Following Prescrptions Were Given to Patient: Apixaban [Eliquis] 2.5 mg PO BID #28 tab Transmission Status: Pending to [id number] Oxycodone [Oxyir] 5 - 10 mg PO Q4H PRN PRN #60 tablet PRN Reason: Pain Score 4-1010 Transmission Status: Received by [id number] Acetaminophen [Tylenol] 1,000 mg PO Q6H PRN #50 tab Transmission Status: Pending to [id number] Primary Care Physician: Maximo Samayoa [Primary Care Provider] - Please Follow Up With: Leonel Witt DO - 2 weeks Additional Instructions: Ice and elevate next week while not ambulating. Encourage ambulation weightbearing as tolerated. Encourage FULL knee extension and flexion 1 time EVERY time you get up and down and MULTIPLE times per day. Begin showering postop day #3. Remove the dressing prior to shower gently wash with warm water and antibacterial soap then pat dry place ABD pad and REJI hose over top. This is to be done daily. do not submerge for 3 weeks. If not showering daily must clean incision and change dressing daily. Do not allow animals near incision keep clean. Follow anticoagulation recommendations. Hold Plavix until completed with Eliquis may continue baby aspirin however. call Dr. Witt with any concerns. Medical Necessity - Tobacco Use Smoking Status: Former smoker Meaningful Use Info Meaningful Use Diagnoses (Choose all that apply): None applicable
[2019-07-09 08:10] VITALS: BP 120/56; PULSE 67; RESP 16; TEMP 36.7; O2SAT 94
[2019-07-09] MEDS: Senna/Docusate Sodium 1 Tablet 2 TABLET PO (08:10)
[2019-07-09] MEDS: Lisinopril 2.5 MG Tablet PO (08:10)
[2019-07-09] MEDS: oxyCODONE HCl Cr 10 MG Tablet PO (08:13)
[2019-07-09] MEDS: APIXABAN 2.5 MG TABLET PO (08:13)
--- NOTE | 2019-07-09 09:40 | CASEMGMT ---
LUCERO ARNOLD Face to Face with patient for initial transition planning/care coordination assessment. RN CATALINA introduced self and role at [facility]. Patient lying in bed, alert and oriented. Patient willing to participate in assessment and is able to answer all questions appropriately. Care providers, pharmacy, and demographics verified. Patient wishes to discharge home and has outpatient therapy scheduled for tomorrow in [place]. Patient states he has no further needs or concerns at this time. CM to follow for discharge planning needs that may arise. PCP: Yao Specialists: [employer] Preferred Pharmacy: [facility] Insurance: [employer] Prescription Benefit: yes Living Will/HPOA: none LNOK: Living Arrangements: Patient lives with in single story home with no steps to enter the room. Patient independent prior to surgery Transportation: DME/HHC: Patient states he has walker, cane, crutches, raised toilet, tub bench, and BSC. Patient has outpatient therapy scheduled for tomorrow in [place] Disposition Plan: Patient to discharge home with outpatient therapy, family support, and follow-up plans in place. Eileen ESTRELLAN, RN, CM
[2019-07-09 13:40] VITALS: BP 121/72; PULSE 67; RESP 16; TEMP 36.5; O2SAT 97
== END 2019-07-09 14:49 | disposition home or self-care (01) ==
LOC: SDC 15:04
PROVIDERS: Admitting Provider Orthopaedic Surgery; Family Provider Family Medicine; PCP Family Medicine; Referring Provider Orthopaedic Surgery; Visit Provider Orthopaedic Surgery
PROC: (CPT 27447; principal; 2019-07-08 10:05)
DX: M17.12 Unilateral primary osteoarthritis, left knee (principal); E78.5 Hyperlipidemia, unspecified; I25.10 Atherosclerotic heart disease of native coronary artery without angina pectoris; E66.9 Obesity, unspecified; I10 Essential (primary) hypertension; Z68.38 Body mass index [BMI] 38.0-38.9, adult; Z79.899 Other long term (current) drug therapy; Z79.82 Long term (current) use of aspirin; Z71.3 Dietary counseling and surveillance; Z79.01 Long term (current) use of anticoagulants; Z87.891 Personal history of nicotine dependence; Z79.02 Long term (current) use of antithrombotics/antiplatelets; Z95.5 Presence of coronary angioplasty implant and graft
CPT/HCPCS: 27447; 64447; 36415; 73560; 80048; 82962; 85027; 87081; 96361; 96365; 96366; 97110; 97116; 97162; 97166; 97530; 99218; C1776; J7120; G0378; G0379; J0702; J2405

== ENCOUNTER 2020-02-13 11:58 | Observation (INO) | payer OTHER, SELFPAY ==
[2019-09-29 07:51] VITALS: BMI 38.7
[2020-02-13] VITALS (7 sets, daily range): BP systolic 110–139; BP diastolic 71–82; PULSE 51–61; RESP 12–18; TEMP 36.4–37.1; O2SAT 95–98; BMI 41.8; BMI 39.0; BMI 39.1
--- NOTE | 2020-02-13 12:17 | EKG12_ITS ---
Test Reason : Blood Pressure : / mmHG Vent. Rate : 062 BPM Atrial Rate : 062 BPM P-R Int : 188 ms QRS Dur : 090 ms QT Int : 400 ms P-R-T Axes : 002 -22 039 degrees QTc Int : 406 ms Normal sinus rhythm Normal ECG Confirmed by HANK LARA, SANJIV ([id number]), publication editor TAWANA GERMAN ([id number]) on 02/16/2020 1:27:13 PM Referred By: RADHA Confirmed By:SANJIV MCKINNEY MD
--- NOTE | 2020-02-13 12:23 | ED.DCSUM_ITS ---
- ER Visit Summary Date of Service: 02/13/20 Chief Complaint: Chest pain History of Present Illness: The patient is a 54 M presenting with chest pain. Patient has had intermittent chest pain for the past 2 days. Today he had associated diaphoresis. Pain is in his mid chest and radiates to his left arm. He denies PE/DVT risk factors. He has history of one cardiac stent. He has hypertension and hypercholesterolemia. He has not been able to find a cholesterol medicine that does not give him side effects. He is not a smoker. Physical Examination: Vitals are stable. Patient is afebrile. Alert no acute distress. HEENT exam is unremarkable. Neck is supple. Lungs are clear and equal bilaterally. Heart is regular rate and rhythm. Abdomen is soft nontender nondistended. Extremities are unremarkable. Skin is warm and dry. No focal neurologic deficit. Remainder of exam is unremarkable. Emergency Department Course and Treatment: Patient was given aspirin on arrival. EKG is sinus rhythm rate of 62 with no acute ischemic changes. Chest x-ray shows cardiomegaly. CBC, chemistries unremarkable other than glucose 137, BUN 22. Troponin 0.128. Patient remains chest pain-free in the ED. Discussed with Dr. Godinez and the hospitalist. Patient will be admitted. Disposition: Admission Impression: Chest pain This note was generated with [employer] dictation software. It may contain incorrect words, spelling, and punctuation that were not noted in review of the chart prior to signing ED Disposition - Plan for ED Patient: Referrals: Maximo Samayoa DO [Primary Care Provider] -
[2020-02-13] MEDS: Aspirin 81 MG TAB.CHEW 324 MG PO (12:27)
[2020-02-13 12:45] LABS: Absolute Lymphocyte Count 1.38 X10^3/uL (0.83-4.51); Absolute Neutrophil Count 3.8 X10^3/uL (2.0-7.7); Basophil# 0.07 X10^3/uL; Basophil% 1.2 % (0-1); Eosinophil# 0.21 X10^3/uL; Eosinophils% 3.5 % (0-5); Hematocrit 42.8 % (40-54); Hemoglobin 13.6 g/dL (13.0-16.5); Lymphocyte # 1.38 X10^3/ul (4.0); Mean Corp Hgb Conc 31.8 g/dL (32-36); Mean Corpuscular Hgb 26.7 pg (27.0-32.0); Mean Corpuscular Volume 84.1 fL (80-94); Monocyte# 0.55 X10^3/uL; Monocyte% 9.2 % (0-10); NRBC Flagged by Analyzer 0 % (0-5); Neutrophil # 3.75 X10^3/uL (2.7-7.7); Neutrophil % 62.4 % (47-70); Platelet Count 237 K/mm3 (150-450); RBC Distribution Width SD 42.5 fl (35.1-43.9); Red Blood Count 5.09 M/mm3 (4.6-6.2)
--- NOTE | 2020-02-13 12:55 | RAD_ITS ---
STUDY: X-RAY CHEST REASON FOR EXAM: Male, 54 years old. chest pain TECHNIQUE: Single AP portable view of the chest. COMPARISON: Comparison is made with prior study of November 17, 2018. FINDINGS: EKG electrodes are seen. The lungs are clear and expanded. There is no demonstrated pleural abnormality. There is moderate cardiac enlargement. Normal mediastinum and magdi. Normal visualized pulmonary arteries. Normal visualized aortic arch and descending thoracic aorta. Normal visualized thoracic spine. Normal visualized ribs, clavicles, and shoulders. There is no demonstrated abnormality of the visualized soft tissue structures of the upper abdomen. RAD/Chest 1 View (Portable) IMPRESSION: Cardia megaly. Electronically Signed: Liu Clements, at 13:17 EDT , Service support ,
[2020-02-13 12:58] LABS: Anion Gap 8 (5-15); BUN 22 mg/dL (7-18); BUN/Creat Ratio 18.6 RATIO (10-20); Calcium,Total 9.2 mg/dL (8.5-10.1); Chloride 104 mmol/L (98-107); Creatinine, Serum 1.18 mg/dL (0.70-1.30); EST Glomerular Filtration Rate 68 mL/min (>60); Est Glom Filt Rate - Afr Amer 82 mL/min (>60); Estimated Creatinine Clearance 83.55 ml/min; Glucose 137 mg/dL (74-106); Potassium 3.8 mmol/L (3.5-5.1); Sodium Level 137 mmol/L (136-145)
--- NOTE | 2020-02-13 15:03 | EKG12_ITS ---
Test Reason : CP ADMIT Blood Pressure : / mmHG Vent. Rate : 053 BPM Atrial Rate : 053 BPM P-R Int : 196 ms QRS Dur : 092 ms QT Int : 428 ms P-R-T Axes : 055 -21 036 degrees QTc Int : 401 ms Sinus bradycardia Otherwise normal ECG When compared with ECG of 13-FEB-2020 11:58, MANUAL COMPARISON REQUIRED, DATA IS UNCONFIRMED Confirmed by HANK LARA, SANJIV ([id number]), electronic news gathering editor TACO FUENTES ([id number]) on 02/17/2020 10:38:53 AM Referred By: WALTER Confirmed By:SANJIV MCKINNEY MD
--- NOTE | 2020-02-13 15:23 | PCM.HP.STD ---
History of Present Illness Date of Admission: 02/13/20 Chief Complaint: Chest pain The patient is a 54 year old M with a significant PMH for CAD who presented to the ED today with intermittent CP for the last 2 days. He states that he was having sx a few weeks ago and his duplicating machine operator (Dr. Kothari) did a stress test and told him that the stress test was negative and put him on metoprolol 25 mg BID (this has since been changed to ER as he was having fatigue). He reports that over the last 2 days he has had CP in the center of his chest but became worried today when it started to radiate to his shoulder and upper arm on the L side. This was also associated with diaphoresis. He denies any nausea, vomiting, or lightheadedness. He does state that it seems worse when sits up. He did ride his bike for 30 min this am and was asymptomatic while riding. He has not tolerated Crestor in the past and doesn't take a statin. He is compliant with ASA and Plavix. He has a cardiac stent that was place in [place] in 2013 and had a cardiac cath done about 1 year ago here that showed patency of his previously placed stent in the proximal left anterior descending artery, mild luminal irregularities were noted in the first and second diagonal branch, the circumflex artery had moderate luminal irregularities up to 50% and there was a ramus intermedius versus high first obtuse marginal branch which had a 60-70% stenosis which was unchanged from his previous cardiac catheterization in 2015. Per notes he has been on nitrates and BB in the past and not tolerated them well. His initial troponin was 0.128. There were no acute ischemia changes on his EKG. He is currently asymptomatic. Past Medical History Past Medical History (Chronic Problems): Chronic Problems (Last Reviewed 12/04/18 @ 13:[address] Gordo Godinez MD) Hyperlipidemia (Chronic) Atherosclerosis of coronary artery of [place] heart without angina pectoris (Chronic) Medical History: Medical History (Last Reviewed 02/13/20 @ 15:[address] Destiny Briscoe DO) Hyperlipidemia (Chronic) E78.5 Atherosclerosis of coronary artery of [place] heart without angina pectoris (Chronic) I25.10 Obesity E66.9 Allergies No Known Allergies Allergy (Verified 02/13/20 11:58) Home Medications: Ambulatory Orders Medication Instructions Recorded Aspirin [Aspirin, Baby] 81 mg PO DAILY 11/17/18 nitroglycerin 0.4 mg sublingual 0.4 mg SUBLINGUAL Q5-15M PRN 11/29/18 tablet omega-3 fatty acids 1,000 mg 2 cap PO DAILY 12/04/18 capsule clopidogrel 75 mg tablet 75 mg PO DAILY #90 tab 12/16/19 lisinopril 2.5 mg tablet 2.5 mg PO DAILY #90 tab 12/16/19 Metoprolol Succinate 25 mg PO DAILY 02/13/20 Surgical History: Surgical History (Last Reviewed 02/13/20 @ 15:[address] Destiny Briscoe DO) History of coronary artery stent placement (Resolved) Onset Date: ~2013 Z95.5 Prox LAD 01/29/2014 Waqar History of left heart catheterization Onset Date: 11/18/18 Z98.890 Surgical History: total knee arthroplasty Lives: Spouse/ Significant Other Smoking Status: Former smoker Tobacco Use: Cigarettes Alcohol: Rare Drugs: None - *Family History Paternal Family History: Family History (Last Reviewed 02/13/20 @ 15:[address] Destiny Briscoe DO) Father Heart disease History Items: Heart Disease Review of Systems Constitutional: Reports: Weakness, Fatigue. Denies: Anorexia, Chills, Fever, Night Sweats, Malaise, Weight Change Eyes: Denies: Blurred vision, Cataracts, Conjunctivae Inflammation, Double vision, Drainage, Eyelid Inflammation, Pain, Redness, Vision Change HEENT: Denies: Difficulty Hearing, Difficulty Swallowing, Dysphasia, Ear Pain, Eye Pain, Hard of Hearing, Head Aches, Hearing Changes, Nasal bleeding, Nasal Congestion, Post Nasal Drip, Sinus Congestion, Sinus Drainage, Sore Throat, Visual Changes Cardiovascular: Reports: Chest Pain, Chest Pressure, Chest Tightness, Heaviness. Denies: Claudication, Edema, Light Headedness, Orthopnea, Palpitations, Paroxysmal Noc. Dyspnea, Syncope Respiratory: Reports: Shortness of Breath, Shortness of breath upon exertion. Denies: Cough, Hemoptysis, Pleuritic Pain, Shortness of breath at rest, Sputum production, Wheezing Gastrointestinal: Denies: Abdominal Pain, Constipation, Diarrhea, Dyspepsia, Hematemesis, Hematochezia, Nausea, Melena, Vomiting Genitourinary: Denies: Dysuria, Frequency, Hematuria, Hesitancy, Incontinence, Nocturia, Retention, Urgency Musculoskeletal: Reports: Arm Pain, Shoulder Pain. Denies: Back Pain, Joint Pain, Joint stiffness, Joint swelling, Joint Tenderness, Neck Pain Skin: Denies: Dryness, Jaundice, Lesions, Pruritis, Rash, Skin Changes, Wounds Neurological: Denies: Balance problems, Blurred vision, Double vision, Change in Speech, Slurred speech, Confusion, Difficulty swallowing, Focal weakness, Headaches, Incoordination, Numbness, Tingling, Tremor, Seizures Psychiatric: Denies: Anxiety, Depression Endocrine: Denies: Change in Body Habitus, Heat/ Cold Intolerance, Polydipsia, Polyuria, Hx of Irradiation, Hx of Thyroiditis Hematologic/ Lymphatic: Denies: Adenopathy, Anemia, Easy Bruising, Easy Bleeding, Petechiae, Purpura, Hx of blood clot, Hx of blood transfusion VTE Information - Inpt Only VTE Present on Admission: No VTE Mechan Device Prophylaxis: SCD's VTE Pharm Prophylaxis ordered?: No - Physical Exam Vitals/I&O's: Vital Signs Temp Pulse Resp BP Pulse Ox 97.8 F 53 L 12 126/78 H 98 02/13/20 15:18 02/13/20 15:18 02/13/20 15:18 02/13/20 15:18 02/13/20 15:18 Oxygen Flow Rate (L/min) 2 Oxygen Delivery Method Nasal Cannula Weight: 141.8 kg Body Mass Index (BMI) 39.0 General: Alert, Oriented x3, Cooperative, No apparent distress, Well developed, Well nourished, - - at bedside HEENT: Atraumatic, PERRLA, EOMI, Normocephalic, EAC Clear Oral: Moist Mucosa, No Gingival or Mucosal Lesions/ Ulcerations, - - Mallampati 3, no thrush, good dentition Neck: Supple, No JVD, Negative Carotid Bruits, Negative Hepatojugular Reflux, No Nodes, No Nuchal Rigidity, Trachea Midline, Thyroid Normal Size and Texture Lungs: Clear to auscultation, Normal air movement, No rhonchi, No wheeze, No rales Cardiovascular: Regular rate, Regular Rhythm, Normal S1, Normal S2, No murmurs, No Ectopic Activity, No rub noted, No Gallop Abdomen: Bowel Sounds Present, Soft, Non Tender, Non-Distended, No Hepato-splenomegaly, No hernias noted Extremities: No clubbing, No cyanosis, No edema, Capillary Refill Less than 3 Seconds, No Calf Tenderness, Peripheral Pulses Normal Skin: No rashes, No breakdown Musculoskeletal: No Tenderness to Palpation of Joints or Extremities, No Muscle Wasting, - - well healed scar L knee Lymphatic: No Cervical, Supraclavicular, or Inguinal Adenopathy Neurological: Cranial nerves II-XII grossly intact, Deep Tendon Reflexes 2+/4 and Symmetrical, Neuro grossly intact, Motor Exam 5/5 strength throughout, Muscle tone normal, Sensory exam intact to light touch and pain Psych/Mental Status: Normal Affect, Appropriate, Alert and oriented to time, place, person, mood and affect Laboratory Results 02/13/20 12:25: WBC 6.0, RBC 5.09, Hgb 13.6, Hct 42.8, MCV 84.1, MCH 26.7 L, MCHC 31.8 L, RDW Std Deviation 42.5, RDW Coeff of Hillary 14.0, Plt Count 237, MPV 10.0, Immature Gran % (Auto) 0.700, Neut % (Auto) 62.4, Lymph % (Auto) 23.0, Waller % (Auto) 9.2, Eos % (Auto) 3.5, Baso % (Auto) 1.2 H, Absolute Neuts (auto) 3.8, Absolute Lymphs (auto) 1.38, Nucleated RBC % 0 02/13/20 12:25: Sodium 137, Potassium 3.8, Chloride 104, Carbon Dioxide 25.0, Anion Gap 8, BUN 22 H, Creatinine 1.18, Estim Creat Clear Calc 83.55, Est GFR (MDRD) Af Amer 82, Est GFR (MDRD) Non-Af 68, BUN/Creatinine Ratio 18.6, Glucose 137 H, Calcium 9.2, Troponin I 0.128 H Current Medications Acetaminophen (Tylenol) 650 mg PO Q6H PRN PRN PRN Reason: Pain Score 1-10/Temp > 100.7 F Albuterol Sulfate (Ventolin Aerosols) 2.5 mg INHALATION Q2H PRN PRN PRN Reason: SOB/Wheezing Aspirin (Aspirin, Baby) 81 mg PO DAILY@0800 [facility] Atorvastatin Calcium (Lipitor) 80 mg PO QHS [facility] Clopidogrel Bisulfate (Plavix) 75 mg PO DAILY [facility] Dextrose (D50w Syringe) 0 gm IV X1 PRN; Protocol PRN Reason: Hypoglycemia Glucagon () 1 mg IM .X1 PRN PRN Reason: Hypoglycemia Lactated Ringer's () 1,000 mls @ 50 mls/hr IV .Q20H [facility] Lisinopril (Zestril) 2.5 mg PO DAILY [facility] Melatonin (Melatonin) 3 mg PO QHS PRN PRN PRN Reason: INSOMNIA Metoprolol Succinate (Toprol Xl (Beta Cheryl)) 25 mg PO DAILY [facility] Morphine Sulfate () 2 mg IV Q3H PRN PRN PRN Reason: Pain Score 6-10/10 Nitroglycerin (Nitrostat) 0.4 mg SUBLINGUAL Q5M PRN PRN Reason: CARDIAC/CHEST PAIN Non-Formulary Medication (Sycamore-3 Fatty Acids [Sycamore-3]) 2 cap PO DAILY [facility] Ondansetron HCl (Zofran) 4 mg IV Q8H PRN PRN PRN Reason: NAUSEA/VOMITING Senna/Docusate Sodium (Senokot-S, Joana-Colace) 2 tablet PO BID PRN PRN PRN Reason: Constipation Sodium Chloride () 10 - 40 ml IV UD PRN PRN Reason: SALINE FLUSH Assessment/Plan All Active Problems (Last Reviewed 12/04/18 @ 13:[address] Gordo Godinez MD) Elevated troponin (Acute 11/17/18) History of coronary artery stent placement (Resolved ~2013) Unstable angina (Acute) CP -pt with strong cardiac history -per ED--> d/w Dr. Godinez and asked to admit for further cardiac w/u -repeat EKG upon arrival to the floor -cycle troponins -prn nitro -prn morphine for pain -cardiac diet -continue asa and plavix -continue BB for now--> may need to discontinue prior to d/c as it sound like pt may not be tolerating -will start statin for pleiotropic effects (Lipitor) -check lipids in am -Consult cards -NPO after MN incase cath desired CICI -mild -will hydrate in anticipation of potential cath -BMP in am CAD -see above HPL -restart statin -check lipids in am -continue fish oil -was recently started on Niacin but stopped 2/2 flushing Suspected MARTIR -needs outpt PSG Obesity -recommend wgt loss Hyperglycemia -non-fasting -will check fasting in am -A1c in am DVT prophylaxis -Lovenox 40 daily Inpatient E&M: 22445 Init Hosp L3
[2020-02-13] MEDS: Lactated Ringers 1,000 ML 50 ML IV (15:58)
[2020-02-13] MEDS: 0.9% Saline Lock 10 ML Syringe IV (15:58)
--- NOTE | 2020-02-13 16:03 | CASEMGMT ---
Insurance review for [employer] insurance/[employer] per website if transfer is recommended: [facility] ([facility]), [facility], [facility], [facility], [facility], [facility], [facility], [place] Carli Greer BSN RN CM
[2020-02-13 16:26] LABS: Bedside Glucose 92 mg/dL (70-110)
[2020-02-13 16:31] LABS: Hemoglobin A1c 6.5 % (3.8-5.6)
[2020-02-13] MEDS: Enoxaparin 40 MG/0.4 ML Syringe SC (16:41)
--- NOTE | 2020-02-13 17:05 | PCM.CONS.C ---
Reason for Consult Date of Consultation: 02/13/20 Reason for Consultation: Chest pain History of Present Illness: The patient is a 54 year old M with a history of coronary artery disease who presented to the emergency room today with intermittent chest discomfort over the last 2 days. He says that he had similar symptoms in May and blew it off. 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 He was put on metoprolol 25 mg twice a day. He reports that over the last 2 days he has had CP in the center of his chest but became worried today when it started to radiate to his shoulder and upper arm on the L side. This was also associated with diaphoresis. He denies any nausea, vomiting, or lightheadedness. He does state that it seems worse when sits up. He did ride his bike for 30 min this am and was asymptomatic while riding. He has not tolerated Crestor in the past and doesn't take a statin. He is compliant with ASA and Plavix. He has a cardiac stent that was place in [place] in 2013 and had a cardiac cath done about 1 year ago here that showed patency of his previously placed stent in the proximal left anterior descending artery, mild luminal irregularities were noted in the first and second diagonal branch, the circumflex artery had moderate luminal irregularities up to 50% and there was a ramus intermedius versus high first obtuse marginal branch which had a 60-70% stenosis which was unchanged from his previous cardiac catheterization in 2014. He also had distal circumflex lesion and a right coronary artery with luminal irregularities. Per notes he has been on nitrates and BB in the past and not tolerated them well. His initial troponin was 0.128. There were no acute ischemia changes on his EKG. He is currently asymptomatic. Cardiology was called for further evaluation and management. Past Medical History Allergies/Adverse Reactions: Allergies No Known Allergies Allergy (Verified 02/13/20 11:58) Home Medications: Ambulatory Orders Medication Instructions Recorded Aspirin [Aspirin, Baby] 81 mg PO DAILY 11/17/18 nitroglycerin 0.4 mg sublingual 0.4 mg SUBLINGUAL Q5-15M PRN 11/29/18 tablet omega-3 fatty acids 1,000 mg 2 cap PO DAILY 12/04/18 capsule clopidogrel 75 mg tablet 75 mg PO DAILY #90 tab 12/16/19 lisinopril 2.5 mg tablet 2.5 mg PO DAILY #90 tab 12/16/19 Metoprolol Succinate 25 mg PO DAILY 02/13/20 Past Medical History (Chronic Problems): Chronic Problems (Last Reviewed 02/13/20 @ 15:[address] Destiny Briscoe DO) Hyperlipidemia (Chronic) Atherosclerosis of coronary artery of [place] heart without angina pectoris (Chronic) Surgical History: total knee arthroplasty - *Family History Paternal Family History: Family History (Last Reviewed 02/13/20 @ 15:[address] Destiny Briscoe DO) Father Heart disease History Items: Heart Disease Lives: Spouse/ Significant Other Smoking Status: Former smoker Tobacco Use: Cigarettes Alcohol: Rare Drugs: None Review of Systems - Review of Systems General: Denies: Fever, Night Sweats, Fatigue HEENT: Denies: Vision Change Cardiovascular: Reports: Chest Discomfort, Chest Discomfort at Rest. Denies: Shortness of Breath, Orthopnea, PND, Peripheral Edema, Palpitations, Lightheadedness, Dizziness, Near Syncope, Syncope Respiratory: Denies: Cough, Sputum Production, Hemoptysis Gastrointestinal: Denies: Indigestion, Hematemesis, Hematochezia, Melena Genitourinary: Denies: Dysuria, Hematuria Muscoloskeletal: Denies: Myalgias Skin: Denies: Rash Neurological: Denies: Dizziness Psychiatric: Denies: Anxiety Endocrine: Denies: Unexplained Weight Loss Hematologic/ Lymphatic: Denies: Anemia Subjectve: Pleasant obese gentleman in no distress Objective: Vital Signs Temp Pulse Resp BP Pulse Ox 97.8 F 54 L 12 126/78 H 98 02/13/20 15:18 02/13/20 15:32 02/13/20 15:18 02/13/20 15:18 02/13/20 15:18 Oxygen Flow Rate (L/min) 2 Oxygen Delivery Method Room Air Weight: 312 lb 9.848 oz Body Mass Index (BMI) 39.0 General: Awake, Alert, Oriented x 3 HEENT: PERRL, EOMI, Sclera Non Icteric Neck: Supple, Good ROM, No Lymph Node Enlargement Lungs: Clear to auscultation Cardiovascular: Regular Rhythm, Normal S1, Normal S2, No Murmurs, No Rubs, No Gallops Vascular: No Carotid Bruits, Normal Femoral Pulses, Normal Radial Pulses, Normal Dorsalis Pedal Pulse, Normal Posterior Tibial Pulses Abdomen: Bowel Sounds Present, Soft, Non Tender, No HSM, No Organomegaly Extremities: No Cyanosis, No Clubbing, No edema Musculoskeletal: No Erythema Skin: No Rashes Lymphatic: No Lymph Node Enlargement Neurological: No Focal Motor or Sensory Deficit Psych/Mental Status: Appropriate 02/13/20 12:25: WBC 6.0, RBC 5.09, Hgb 13.6, Hct 42.8, MCV 84.1, MCH 26.7 L, MCHC 31.8 L, Plt Count 237, MPV 10.0, Immature Gran % (Auto) 0.700, Neut % (Auto) 62.4, Lymph % (Auto) 23.0, [place] % (Auto) 9.2, Eos % (Auto) 3.5, Baso % (Auto) 1.2 H, Absolute Neuts (auto) 3.8, Nucleated RBC % 0 02/13/20 12:25: Sodium 137, Potassium 3.8, Chloride 104, Carbon Dioxide 25.0, Anion Gap 8, BUN 22 H, Creatinine 1.18, Est GFR (MDRD) Af Amer 82, Est GFR (MDRD) Non-Af 68, BUN/Creatinine Ratio 18.6, Glucose 137 H, Calcium 9.2, Troponin I 0.128 H 02/13/20 12:25: Hemoglobin A1c 6.5 H 02/13/20 15:56: Troponin I 0.124 H Rhythm: EKG: Normal sinus rhythm with no acute changes ECHO: Stress Test: Cardiac Cath: PCI: CT Surgery: Holter monitor: EPS: PPM: CXR: Chest CT Scan: Assessment/Plan 1. Chest pain. Patient with known coronary artery disease status post previous angioplasty and stenting of the left anterior descending artery who underwent cardiac catheterization in November 2018 and a stress test in the last 8 weeks demonstrating no obvious ischemia. He continues to have a recurrence of his chest discomfort the etiology of which is unclear at this particular time. He does have mildly abnormal cardiac troponin enzymes. My recommendation at this time would be to continue to serially study his cardiac enzymes and depending on the levels further recommendations will be made. This may include a repeat cardiac catheterization. 2. Hypertension Good control on the current medical therapy I would not recommend any changes at this time 3. Risk factor modification Unfortunately he has not been able to tolerate statins in the past. This somewhat limits appropriate care. We will try and start him on a lower dose of a statin. Thank you for allowing me to participate in the care of your patient. Please don't hesitate to call if any issues arise.
[2020-02-13] MEDS: Enoxaparin 120 MG/0.8 ML Syringe 110 MG SC (20:43)
[2020-02-13] MEDS: Atorvastatin Calcium 80 MG Tablet PO (21:35)
[2020-02-13 22:01] LABS: Bedside Glucose 88 mg/dL (70-110)
[2020-02-14] VITALS (9 sets, daily range): BP systolic 103–127; BP diastolic 66–77; PULSE 55–64; RESP 17–20; TEMP 36.4–36.9; O2SAT 93–97
[2020-02-14 06:37] LABS: Absolute Lymphocyte Count 1.78 X10^3/uL (0.83-4.51); Basophil# 0.08 X10^3/uL; Basophil% 1.4 % (0-1); Eosinophil# 0.27 X10^3/uL; Eosinophils% 4.7 % (0-5); Hematocrit 44.5 % (40-54); Hemoglobin 14.1 g/dL (13.0-16.5); Lymphocyte # 1.78 X10^3/ul (4.0); Mean Corp Hgb Conc 31.7 g/dL (32-36); Mean Corpuscular Hgb 26.4 pg (27.0-32.0); Mean Corpuscular Volume 83.2 fL (80-94); Mean Platelet Vol. 10.1 fl (6.2-12.0); Monocyte# 0.62 X10^3/uL; Monocyte% 10.8 % (0-10); NRBC Flagged by Analyzer 0 % (0-5); Neutrophil # 2.95 X10^3/uL (2.7-7.7); Neutrophil % 51.2 % (47-70); Platelet Count 249 K/mm3 (150-450); RBC Distribution Width SD 41.1 fl (35.1-43.9); Red Blood Count 5.35 M/mm3 (4.6-6.2); White Blood Count 5.8 K/mm3 (4.4-11.0)
[2020-02-14 06:41] LABS: Bedside Glucose 135 mg/dL (70-110)
[2020-02-14 07:11] LABS: AST(SGOT) 18 U/L (15-37); Alanine Aminotransfer ALT/SGPT 40 U/L (16-61); Albumin, Serum 3.6 g/dL (3.2-5.0); Alkaline Phosphatase 57 U/L (45-117); Anion Gap 9 (5-15); BUN 18 mg/dL (7-18); BUN/Creat Ratio 15.8 RATIO (10-20); Chloride 103 mmol/L (98-107); Cholesterol 203 mg/dL (200); Creatinine, Serum 1.14 mg/dL (0.70-1.30); EST Glomerular Filtration Rate 71 mL/min (>60); Est Glom Filt Rate - Afr Amer 85 mL/min (>60); Estimated Creatinine Clearance 86.48 ml/min; Globulin 3.5 g/dL (2.2-4.2); Glucose 133 mg/dL (74-106); High Density Lipoprotein 19 mg/dL; Potassium 4.2 mmol/L (3.5-5.1); Protein, Total 7.1 g/dL (6.4-8.2); Sodium Level 138 mmol/L (136-145); Triglycerides 493 mg/dL
[2020-02-14] MEDS: Lactated Ringers 1,000 ML 50 ML IV (09:26)
[2020-02-14] MEDS: Aspirin 81 MG TAB.CHEW PO (09:27)
[2020-02-14] MEDS: Omega-3 Acid Ethyl Esters 1 GM Capsule 2 GM PO (09:28)
[2020-02-14] MEDS: Clopidogrel Bisulfate 75 MG Tablet PO (09:28)
[2020-02-14] MEDS: Metoprolol(XL)Succ 25 MG Tablet PO (09:28)
[2020-02-14] MEDS: Lisinopril 2.5 MG Tablet PO (09:29)
--- NOTE | 2020-02-14 10:03 | PN.CARD_ITS ---
Subjectve: Patient seen and evaluated. Appears to be doing well. No chest pain. Objective: Vital Signs Temp Pulse Resp BP Pulse Ox 98.2 F 62 20 H 127/77 H 93 02/14/20 09:23 02/14/20 09:28 02/14/20 09:23 02/14/20 09:23 02/14/20 09:23 Oxygen Flow Rate (L/min) 2 Oxygen Delivery Method Room Air Weight: 309 lb 4.937 oz Body Mass Index (BMI) 39.0 Intake and Output for Last 24 Hours 02/12/20 02/13/20 02/14/20 23:59 23:59 23:59 Intake Total 950.83 / 950.83 472.50 / 472.50 Balance 950.83 / 950.83 472.50 / 472.50 General: Awake, Alert, Oriented x 3 HEENT: PERRL, EOMI, Sclera Non Icteric Neck: Supple, Good ROM, No Lymph Node Enlargement Lungs: Clear to auscultation Cardiovascular: Regular Rhythm, Normal S1, Normal S2, No Murmurs, No Rubs, No Gallops Vascular: No Carotid Bruits, Normal Femoral Pulses, Normal Radial Pulses, Normal Dorsalis Pedal Pulse, Normal Posterior Tibial Pulses Abdomen: Bowel Sounds Present, Soft, Non Tender, No HSM, No Organomegaly Extremities: No Cyanosis, No Clubbing, No edema Musculoskeletal: No Erythema Skin: No Rashes Lymphatic: No Lymph Node Enlargement Neurological: No Focal Motor or Sensory Deficit Psych/Mental Status: Appropriate 02/13/20 12:25: WBC 6.0, RBC 5.09, Hgb 13.6, Hct 42.8, MCV 84.1, MCH 26.7 L, MCHC 31.8 L, Plt Count 237, MPV 10.0, Immature Gran % (Auto) 0.700, Neut % (Auto) 62.4, Lymph % (Auto) 23.0, [place] % (Auto) 9.2, Eos % (Auto) 3.5, Baso % (Auto) 1.2 H, Absolute Neuts (auto) 3.8, Nucleated RBC % 0 02/13/20 12:25: Sodium 137, Potassium 3.8, Chloride 104, Carbon Dioxide 25.0, Anion Gap 8, BUN 22 H, Creatinine 1.18, Est GFR (MDRD) Af Amer 82, Est GFR (MDRD) Non-Af 68, BUN/Creatinine Ratio 18.6, Glucose 137 H, Calcium 9.2, Troponin I 0.128 H 02/13/20 12:25: Hemoglobin A1c 6.5 H 02/13/20 15:56: Troponin I 0.124 H 02/13/20 18:12: Troponin I 0.136 H 02/13/20 21:35: Troponin I 0.134 H 02/14/20 06:00: WBC 5.8, RBC 5.35, Hgb 14.1, Hct 44.5, MCV 83.2, MCH 26.4 L, MCHC 31.7 L, Plt Count 249, MPV 10.1, Immature Gran % (Auto) 0.900, Neut % (Auto) 51.2, Lymph % (Auto) 31.0, [place] % (Auto) 10.8 H, Eos % (Auto) 4.7, Baso % (Auto) 1.4 H, Absolute Neuts (auto) 3.0, Nucleated RBC % 0 02/14/20 06:00: Sodium 138, Potassium 4.2, Chloride 103, Carbon Dioxide 26.0, Anion Gap 9, BUN 18, Creatinine 1.14, Est GFR (MDRD) Af Amer 85, Est GFR (MDRD) Non-Af 71, BUN/Creatinine Ratio 15.8, Glucose 133 H, Calcium 9.0, Magnesium 2.0, Total Bilirubin 0.50, Triglycerides 493 H, Cholesterol 203 H, LDL Cholesterol TNP, VLDL Cholesterol TNP, HDL Cholesterol 19 L Rhythm: EKG: ECHO: Stress Test: Cardiac Cath: PCI: CT Surgery: Holter monitor: EPS: PPM: CXR: Chest CT Scan: Medical Necessity - Tobacco Use Smoking Status: Former smoker Tobacco Use: Cigarettes Assessment/Plan 1. Chest pain. * Patient with known coronary artery disease status post previous angioplasty and stenting of the left anterior descending artery who underwent cardiac catheterization in November 2018 and a stress test in the last 8 weeks demonstrating no obvious ischemia. He continues to have a recurrence of his chest discomfort the etiology of which is unclear at this particular time. He does have mildly abnormal cardiac troponin enzymes. * After discussion with him he is agreeable to undergoing a cardiac catheterization. This will be performed on Sunday a.m. * 2. Hypertension * Good control on the current medical therapy I would not recommend any changes at this time * 3. Risk factor modification * Unfortunately he has not been able to tolerate statins in the past. This somewhat limits appropriate care. We will try and start him on a lower dose of a statin. * * Thank you for allowing me to participate in the care of your patient. Please don't hesitate to call if any issues arise.
--- NOTE | 2020-02-14 11:09 | PCM.PROGNOTE ---
<Freddy Amayassica - Last Filed: 02/14/20 11:21> Subjective: Patient seen and examined. Denies further chest pain overnight or this morning. Plan for cardiac catheterization Sunday. - Physical Exam Vitals/I&O's: Vital Signs Temp Pulse Resp BP Pulse Ox 98.2 F 62 20 H 127/77 H 93 02/14/20 09:23 02/14/20 09:28 02/14/20 09:23 02/14/20 09:23 02/14/20 09:23 Oxygen Flow Rate (L/min) 2 Oxygen Delivery Method Room Air Weight: 309 lb 4.937 oz Body Mass Index (BMI) 39.0 Intake and Output for Last 24 Hours 02/12/20 02/13/20 02/14/20 23:59 23:59 23:59 Intake Total 950.83 / 950.83 551.67 / 551.67 Balance 950.83 / 950.83 551.67 / 551.67 General: Alert, Oriented x3, Cooperative HEENT: Atraumatic, PERRLA, EOMI, Normocephalic Neck: Supple, No JVD, Negative Carotid Bruits Lungs: Clear to auscultation, Normal air movement Cardiovascular: Regular rate, Regular Rhythm, Normal S1, Normal S2, No murmurs Abdomen: Bowel Sounds Present, Soft, Non Tender Extremities: No clubbing, No cyanosis, No edema, Capillary Refill Less than 3 Seconds Skin: No rashes, No breakdown Musculoskeletal: No Tenderness to Palpation of Joints or Extremities Neurological: Cranial nerves II-XII grossly intact, Neuro grossly intact Psych/Mental Status: Normal Affect, Appropriate Laboratory Results 02/13/20 12:25: WBC 6.0, RBC 5.09, Hgb 13.6, Hct 42.8, MCV 84.1, MCH 26.7 L, MCHC 31.8 L, RDW Std Deviation 42.5, RDW Coeff of [place] 14.0, Plt Count 237, MPV 10.0, Immature Gran % (Auto) 0.700, Neut % (Auto) 62.4, Lymph % (Auto) 23.0, [place] % (Auto) 9.2, Eos % (Auto) 3.5, Baso % (Auto) 1.2 H, Absolute Neuts (auto) 3.8, Absolute Lymphs (auto) 1.38, Nucleated RBC % 0 02/13/20 12:25: Sodium 137, Potassium 3.8, Chloride 104, Carbon Dioxide 25.0, Anion Gap 8, BUN 22 H, Creatinine 1.18, Estim Creat Clear Calc 83.55, Est GFR (MDRD) Af Amer 82, Est GFR (MDRD) Non-Af 68, BUN/Creatinine Ratio 18.6, Glucose 137 H, Calcium 9.2, Troponin I 0.128 H 02/13/20 12:25: Hemoglobin A1c 6.5 H 02/13/20 15:56: Troponin I 0.124 H 02/13/20 16:11: POC Glucose 92 02/13/20 18:12: Troponin I 0.136 H 02/13/20 21:34: POC Glucose 88 02/13/20 21:35: Troponin I 0.134 H 02/14/20 06:00: WBC 5.8, RBC 5.35, Hgb 14.1, Hct 44.5, MCV 83.2, MCH 26.4 L, MCHC 31.7 L, RDW Std Deviation 41.1, RDW Coeff of [place] 14.0, Plt Count 249, MPV 10.1, Immature Gran % (Auto) 0.900, Neut % (Auto) 51.2, Lymph % (Auto) 31.0, [place] % (Auto) 10.8 H, Eos % (Auto) 4.7, Baso % (Auto) 1.4 H, Absolute Neuts (auto) 3.0, Absolute Lymphs (auto) 1.78, Nucleated RBC % 0 02/14/20 06:00: Sodium 138, Potassium 4.2, Chloride 103, Carbon Dioxide 26.0, Anion Gap 9, BUN 18, Creatinine 1.14, Estim Creat Clear Calc 86.48, Est GFR (MDRD) Af Amer 85, Est GFR (MDRD) Non-Af 71, BUN/Creatinine Ratio 15.8, Glucose 133 H, Calcium 9.0, Magnesium 2.0, Total Bilirubin 0.50, AST 18, ALT 40, Alkaline Phosphatase 57, Total Protein 7.1, Albumin 3.6, Globulin 3.5, Albumin/Globulin Ratio 1.0, Triglycerides 493 H, Cholesterol 203 H, LDL Cholesterol TNP, VLDL Cholesterol TNP, HDL Cholesterol 19 L 02/14/20 06:32: POC Glucose 135 H Current Medications Acetaminophen (Tylenol) 650 mg PO Q6H PRN PRN PRN Reason: Pain Score 1-10/Temp > 100.7 F Albuterol Sulfate (Ventolin Aerosols) 2.5 mg INHALATION Q2H PRN PRN PRN Reason: SOB/Wheezing Aspirin (Aspirin, Baby) 81 mg PO DAILY@0800 REPLACED BY [facility] Last Admin: 02/14/20 09:27 Dose: 81 mg Documented by: Atorvastatin Calcium (Lipitor) 80 mg PO QHS REPLACED BY [facility] Last Admin: 02/13/20 21:35 Dose: 80 mg Documented by: Clopidogrel Bisulfate (Plavix) 75 mg PO DAILY REPLACED BY [facility] Last Admin: 02/14/20 09:28 Dose: 75 mg Documented by: Dextrose (D50w Syringe) 0 gm IV X1 PRN; Protocol PRN Reason: Hypoglycemia Enoxaparin Sodium (Lovenox) 150 mg SC Q12@0600,1800 REPLACED BY [facility] Last Admin: 02/14/20 05:58 Dose: Not Given Documented by: Glucagon () 1 mg IM .X1 PRN PRN Reason: Hypoglycemia Insulin Human Lispro (Humalog Kwikpen (Bkc)) 0 unit SC ACHS REPLACED BY [facility]; Protocol Last Admin: 02/14/20 06:37 Dose: Not Given Documented by: Lisinopril (Zestril) 2.5 mg PO DAILY REPLACED BY [facility] Last Admin: 02/14/20 09:29 Dose: 2.5 mg Documented by: Melatonin (Melatonin) 3 mg PO QHS PRN PRN PRN Reason: INSOMNIA Metoprolol Succinate (Toprol Xl (Beta Cheryl)) 25 mg PO DAILY REPLACED BY [facility] Last Admin: 02/14/20 09:28 Dose: 25 mg Documented by: Morphine Sulfate () 2 mg IV Q3H PRN PRN PRN Reason: Pain Score 6-10/10 Nitroglycerin (Nitrostat) 0.4 mg SUBLINGUAL Q5M PRN PRN Reason: CARDIAC/CHEST PAIN Ljfuc-3-Wmsr Ethyl Esters (Lovaza) 2 gm PO DAILY REPLACED BY [facility] Last Admin: 02/14/20 09:28 Dose: 2 gm Documented by: Ondansetron HCl (Zofran) 4 mg IV Q8H PRN PRN PRN Reason: NAUSEA/VOMITING Senna/Docusate Sodium (Senokot-S, Joana-Colace) 2 tablet PO BID PRN PRN PRN Reason: Constipation Sodium Chloride () 10 - 40 ml IV UD PRN PRN Reason: SALINE FLUSH Last Admin: 02/13/20 15:58 Dose: 10 ml Documented by: Medical Necessity - Tobacco Use Smoking Status: Former smoker Tobacco Use: Cigarettes Assessment/Plan All Active Problems (Last Reviewed 02/13/20 @ 15:[address] Destiny Briscoe, DO) Elevated troponin (Acute 11/17/18) History of coronary artery stent placement (Resolved ~2013) Unstable angina (Acute) 1. Chest pain, abnormal troponin with history of CAD status post PCI-continue aspirin, Plavix, beta-cheryl, lisinopril. PRN nitro. Plan for cardiac cath Sunday. Cardiology following. Cardiac catheterization November 2018 demonstrated moderate CAD with patent previously placed stents. 2. Newly diagnosed type 2 diabetes mellitus-hemoglobin A1c 6.5%. Accu-Cheks with sliding scale insulin. will initiate oral regimen at discharge. 3. Hypertension-stable, continue home metoprolol, lisinopril regimen. 4. Hyperlipidemia-lipid panel with elevated triglycerides and total cholesterol. Low HDL. Continue high-dose statin. 5. Suspected MARTIR-recommend outpatient PSG. 6. Obesity-encouraged diet and lifestyle modifications. Nutrition consult. DVT prophylaxis-Lovenox subcu This patient was seen by PENELOPE Corrales under the supervision of Dr. Ahumada. <Wilbert Ahumada - Last Filed: 02/14/20 12:23> - Physical Exam Vitals/I&O's: Vital Signs Temp Pulse Resp BP Pulse Ox 98.2 F 62 20 H 127/77 H 93 02/14/20 09:23 02/14/20 09:28 02/14/20 09:23 02/14/20 09:23 02/14/20 09:23 Oxygen Flow Rate (L/min) 2 Oxygen Delivery Method Room Air Weight: 140.3 kg Body Mass Index (BMI) 39.0 Intake and Output for Last 24 Hours 02/12/20 02/13/20 02/14/20 23:59 23:59 23:59 Intake Total 950.83 / 950.83 551.67 / 551.67 Balance 950.83 / 950.83 551.67 / 551.67 Laboratory Results 02/13/20 12:25: WBC 6.0, RBC 5.09, Hgb 13.6, Hct 42.8, MCV 84.1, MCH 26.7 L, MCHC 31.8 L, RDW Std Deviation 42.5, RDW Coeff of [place] 14.0, Plt Count 237, MPV 10.0, Immature Gran % (Auto) 0.700, Neut % (Auto) 62.4, Lymph % (Auto) 23.0, [place] % (Auto) 9.2, Eos % (Auto) 3.5, Baso % (Auto) 1.2 H, Absolute Neuts (auto) 3.8, Absolute Lymphs (auto) 1.38, Nucleated RBC % 0 02/13/20 12:25: Sodium 137, Potassium 3.8, Chloride 104, Carbon Dioxide 25.0, Anion Gap 8, BUN 22 H, Creatinine 1.18, Estim Creat Clear Calc 83.55, Est GFR (MDRD) Af Amer 82, Est GFR (MDRD) Non-Af 68, BUN/Creatinine Ratio 18.6, Glucose 137 H, Calcium 9.2, Troponin I 0.128 H 02/13/20 12:25: Hemoglobin A1c 6.5 H 02/13/20 15:56: Troponin I 0.124 H 02/13/20 16:11: POC Glucose 92 02/13/20 18:12: Troponin I 0.136 H 02/13/20 21:34: POC Glucose 88 02/13/20 21:35: Troponin I 0.134 H 02/14/20 06:00: WBC 5.8, RBC 5.35, Hgb 14.1, Hct 44.5, MCV 83.2, MCH 26.4 L, MCHC 31.7 L, RDW Std Deviation 41.1, RDW Coeff of [place] 14.0, Plt Count 249, MPV 10.1, Immature Gran % (Auto) 0.900, Neut % (Auto) 51.2, Lymph % (Auto) 31.0, [place] % (Auto) 10.8 H, Eos % (Auto) 4.7, Baso % (Auto) 1.4 H, Absolute Neuts (auto) 3.0, Absolute Lymphs (auto) 1.78, Nucleated RBC % 0 02/14/20 06:00: Sodium 138, Potassium 4.2, Chloride 103, Carbon Dioxide 26.0, Anion Gap 9, BUN 18, Creatinine 1.14, Estim Creat Clear Calc 86.48, Est GFR (MDRD) Af Amer 85, Est GFR (MDRD) Non-Af 71, BUN/Creatinine Ratio 15.8, Glucose 133 H, Calcium 9.0, Magnesium 2.0, Total Bilirubin 0.50, AST 18, ALT 40, Alkaline Phosphatase 57, Total Protein 7.1, Albumin 3.6, Globulin 3.5, Albumin/Globulin Ratio 1.0, Triglycerides 493 H, Cholesterol 203 H, LDL Cholesterol TNP, VLDL Cholesterol TNP, HDL Cholesterol 19 L 02/14/20 06:32: POC Glucose 135 H 02/14/20 12:10: POC Glucose 129 H Current Medications Acetaminophen (Tylenol) 650 mg PO Q6H PRN PRN PRN Reason: Pain Score 1-10/Temp > 100.7 F Albuterol Sulfate (Ventolin Aerosols) 2.5 mg INHALATION Q2H PRN PRN PRN Reason: SOB/Wheezing Aspirin (Aspirin, Baby) 81 mg PO DAILY@0800 REPLACED BY [facility] Last Admin: 02/14/20 09:27 Dose: 81 mg Documented by: Atorvastatin Calcium (Lipitor) 80 mg PO QHS REPLACED BY [facility] Last Admin: 02/13/20 21:35 Dose: 80 mg Documented by: Clopidogrel Bisulfate (Plavix) 75 mg PO DAILY REPLACED BY [facility] Last Admin: 02/14/20 09:28 Dose: 75 mg Documented by: Dextrose (D50w Syringe) 0 gm IV X1 PRN; Protocol PRN Reason: Hypoglycemia Enoxaparin Sodium (Lovenox) 150 mg SC Q12@0600,1800 REPLACED BY [facility] Last Admin: 02/14/20 05:58 Dose: Not Given Documented by: Glucagon () 1 mg IM .X1 PRN PRN Reason: Hypoglycemia Insulin Human Lispro (Humalog Kwikpen (Bkc)) 0 unit SC ACHS REPLACED BY [facility]; Protocol Last Admin: 02/14/20 06:37 Dose: Not Given Documented by: Lisinopril (Zestril) 2.5 mg PO DAILY REPLACED BY [facility] Last Admin: 02/14/20 09:29 Dose: 2.5 mg Documented by: Melatonin (Melatonin) 3 mg PO QHS PRN PRN PRN Reason: INSOMNIA Metoprolol Succinate (Toprol Xl (Beta Cheryl)) 25 mg PO DAILY REPLACED BY [facility] Last Admin: 02/14/20 09:28 Dose: 25 mg Documented by: Morphine Sulfate () 2 mg IV Q3H PRN PRN PRN Reason: Pain Score 6-10/10 Nitroglycerin (Nitrostat) 0.4 mg SUBLINGUAL Q5M PRN PRN Reason: CARDIAC/CHEST PAIN Wnjse-2-Ciap Ethyl Esters (Lovaza) 2 gm PO DAILY REPLACED BY [facility] Last Admin: 02/14/20 09:28 Dose: 2 gm Documented by: Ondansetron HCl (Zofran) 4 mg IV Q8H PRN PRN PRN Reason: NAUSEA/VOMITING Senna/Docusate Sodium (Senokot-S, Joana-Colace) 2 tablet PO BID PRN PRN PRN Reason: Constipation Sodium Chloride () 10 - 40 ml IV UD PRN PRN Reason: SALINE FLUSH Last Admin: 02/13/20 15:58 Dose: 10 ml Documented by: Assessment/Plan This patient was seen in conjunction with PENELOPE Corrales . I have independently interviewed and examined the patient and reviewed pertinent historical, laboratory, and other data. Please refer to PENELOPE Corrales note for details of this patient's presentation, findings, and recommendations. I have reviewed PENELOPE Corrales note and concur with documented findings. In brief, patient is 84-year-old gentleman with past medical history single for CAD with previous PCI who presented with chest pain with slightly elevated troponin admitted to monitored bed with consultation placed to cardiology. Plan for patient to undergo left heart catheterization on 02/16/2020 Physical Examination: GENERAL: cooperative HEENT: Atraumatic; EYES; Anicteric, Normal Conjunctiva NECK; supple, normal thyroid, RESPIRATORY: Diminished to auscultation CARDIOVASCULAR: Regular S1 S2, GI: soft, normoactive bowel sounds, : No Renal angle tenderness; EXTREMITIES: No edema, no clubbing, MUSCULOSKELETAL: no muscle waisting NEURO: Awake; no lateralizing signs. SKIN: No Rash PSYCH; Flat affect Assessment: 1. Chest pain, abnormal troponin 3. CAD with previous PCI 3./Hypertension 4. Dyslipidemia 5. [place] diagnosed diabetes mellitus type 2 6. Suspected CAD 7. Obesity with BMI of 38.7 8. DVT prophylaxis 1. I have discussed the results of my overview and impressions with the patient 2. Options for management were reviewed Inpatient E&M: 56724 Subs Hosp L3
[2020-02-14 12:15] LABS: Bedside Glucose 129 mg/dL (70-110)
[2020-02-14 17:11] LABS: Bedside Glucose 98 mg/dL (70-110)
[2020-02-14] MEDS: Enoxaparin 150 MG/ML Syringe SC (17:11)
[2020-02-14] MEDS: Atorvastatin Calcium 80 MG Tablet PO (21:21)
[2020-02-14 21:26] LABS: Bedside Glucose 104 mg/dL (70-110)
[2020-02-15] VITALS (10 sets, daily range): BP systolic 104–120; BP diastolic 57–71; PULSE 53–65; RESP 16–18; TEMP 36.6–36.9; O2SAT 94–97
[2020-02-15] MEDS: Enoxaparin 150 MG/ML Syringe SC (06:36)
[2020-02-15 06:51] LABS: Bedside Glucose 129 mg/dL (70-110)
--- NOTE | 2020-02-15 08:40 | PN.CARD_ITS ---
Subjectve: Patient seen and evaluated. Objective: Vital Signs Temp Pulse Resp BP Pulse Ox 98.0 F 53 L 17 120/68 97 02/15/20 03:20 02/15/20 06:44 02/15/20 03:20 02/15/20 03:20 02/15/20 07:11 Oxygen Flow Rate (L/min) 2 Oxygen Delivery Method Room Air Weight: 309 lb 8.464 oz Body Mass Index (BMI) 39.0 Intake and Output for Last 24 Hours 02/13/20 02/14/20 02/15/20 23:59 23:59 23:59 Intake Total 950.83 / 950.83 1811.67 / 1811.67 350 / 350 Balance 950.83 / 950.83 1811.67 / 1811.67 350 / 350 General: Awake, Alert, Oriented x 3 HEENT: PERRL, EOMI, Sclera Non Icteric Neck: Supple, Good ROM, No Lymph Node Enlargement Lungs: Clear to auscultation Cardiovascular: Regular Rhythm, Normal S1, Normal S2, No Murmurs, No Rubs, No Gallops Vascular: No Carotid Bruits, Normal Femoral Pulses, Normal Radial Pulses, Normal Dorsalis Pedal Pulse, Normal Posterior Tibial Pulses Abdomen: Bowel Sounds Present, Soft, Non Tender, No HSM, No Organomegaly Extremities: No Cyanosis, No Clubbing, No edema Musculoskeletal: No Erythema Skin: No Rashes Lymphatic: No Lymph Node Enlargement Neurological: No Focal Motor or Sensory Deficit Psych/Mental Status: Appropriate Rhythm: EKG: ECHO: Stress Test: Cardiac Cath: PCI: CT Surgery: Holter monitor: EPS: PPM: CXR: Chest CT Scan: Medical Necessity - Tobacco Use Smoking Status: Former smoker Tobacco Use: Cigarettes Assessment/Plan 1. Chest pain. * Patient with known coronary artery disease status post previous angioplasty and stenting of the left anterior descending artery who underwent cardiac catheterization in November 2018 and a stress test in the last 8 weeks demo nstrating no obvious ischemia. He continues to have a recurrence of his chest discomfort the etiology of which is unclear at this particular time. He does have mildly abnormal cardiac troponin enzymes. * After discussion with him he is agreeable to undergoing a cardiac catheterization. This will be performed on Sunday a.m. * 2. Hypertension * Good control on the current medical therapy I would not recommend any changes at this time * 3. Risk factor modification * Unfortunately he has not been able to tolerate statins in the past. This somewhat limits appropriate care. We will try and start him on a lower dose of a statin. * * Thank you for allowing me to participate in the care of your patient. Please don't hesitate to call if any issues arise.
[2020-02-15] MEDS: Aspirin 81 MG TAB.CHEW PO (09:31)
[2020-02-15] MEDS: Omega-3 Acid Ethyl Esters 1 GM Capsule 2 GM PO (09:31)
[2020-02-15] MEDS: Clopidogrel Bisulfate 75 MG Tablet PO (09:32)
[2020-02-15] MEDS: Metoprolol(XL)Succ 25 MG Tablet PO (09:32)
[2020-02-15] MEDS: Lisinopril 2.5 MG Tablet PO (09:32)
--- NOTE | 2020-02-15 10:21 | PCM.PROGNOTE ---
<Terri Amaya - Last Filed: 02/15/20 10:23> Subjective: Patient seen and examined. Denies chest pain overnight or this morning. Denies current complaints. Plan for cardiac cath in a.m. - Physical Exam Vitals/I&O's: Vital Signs Temp Pulse Resp BP Pulse Ox 98.4 F 65 18 119/57 L 94 02/15/20 09:28 02/15/20 09:32 02/15/20 09:28 02/15/20 09:28 02/15/20 09:28 Oxygen Flow Rate (L/min) 2 Oxygen Delivery Method Room Air Weight: 309 lb 8.464 oz Body Mass Index (BMI) 39.0 Intake and Output for Last 24 Hours 02/13/20 02/14/20 02/15/20 23:59 23:59 23:59 Intake Total 950.83 / 950.83 1811.67 / 1811.67 350 / 350 Balance 950.83 / 950.83 1811.67 / 1811.67 350 / 350 General: Alert, Oriented x3, Cooperative HEENT: Atraumatic, PERRLA, EOMI, Normocephalic Neck: Supple, No JVD, Negative Carotid Bruits Lungs: Clear to auscultation, Normal air movement Cardiovascular: Regular rate, Regular Rhythm, Normal S1, Normal S2, No murmurs Abdomen: Bowel Sounds Present, Soft, Non Tender, Non-Distended Extremities: No clubbing, No cyanosis, No edema, Capillary Refill Less than 3 Seconds Skin: No rashes, No breakdown Musculoskeletal: No Tenderness to Palpation of Joints or Extremities Neurological: Cranial nerves II-XII grossly intact, Neuro grossly intact Psych/Mental Status: Normal Affect, Appropriate Laboratory Results 02/14/20 12:10: POC Glucose 129 H 02/14/20 16:59: POC Glucose 98 02/14/20 21:19: POC Glucose 104 02/15/20 06:35: POC Glucose 129 H Current Medications Acetaminophen (Tylenol) 650 mg PO Q6H PRN PRN PRN Reason: Pain Score 1-10/Temp > 100.7 F Albuterol Sulfate (Ventolin Aerosols) 2.5 mg INHALATION Q2H PRN PRN PRN Reason: SOB/Wheezing Aspirin (Aspirin, Baby) 81 mg PO DAILY@0800 [facility] Last Admin: 02/15/20 09:31 Dose: 81 mg Documented by: Atorvastatin Calcium (Lipitor) 80 mg PO QHS [facility] Last Admin: 02/14/20 21:21 Dose: 80 mg Documented by: Clopidogrel Bisulfate (Plavix) 75 mg PO DAILY [facility] Last Admin: 02/15/20 09:32 Dose: 75 mg Documented by: Dextrose (D50w Syringe) 0 gm IV X1 PRN; Protocol PRN Reason: Hypoglycemia Enoxaparin Sodium (Lovenox) 40 mg SC DAILY@0600 [facility] Glucagon () 1 mg IM .X1 PRN PRN Reason: Hypoglycemia Sodium Chloride () 1,000 mls @ 0 mls/hr IV .Q0M [facility] Insulin Human Lispro (Humalog Kwikpen (Bkc)) 0 unit SC ACHS [facility]; Protocol Last Admin: 02/15/20 06:36 Dose: Not Given Documented by: Lisinopril (Zestril) 2.5 mg PO DAILY [facility] Last Admin: 02/15/20 09:32 Dose: 2.5 mg Documented by: Melatonin (Melatonin) 3 mg PO QHS PRN PRN PRN Reason: INSOMNIA Metoprolol Succinate (Toprol Xl (Beta Cheryl)) 25 mg PO DAILY [facility] Last Admin: 02/15/20 09:32 Dose: 25 mg Documented by: Morphine Sulfate () 2 mg IV Q3H PRN PRN PRN Reason: Pain Score 6-10/10 Nitroglycerin (Nitrostat) 0.4 mg SUBLINGUAL Q5M PRN PRN Reason: CARDIAC/CHEST PAIN Gwaln-5-Jrfo Ethyl Esters (Lovaza) 2 gm PO DAILY [facility] Last Admin: 02/15/20 09:31 Dose: 2 gm Documented by: Ondansetron HCl (Zofran) 4 mg IV Q8H PRN PRN PRN Reason: NAUSEA/VOMITING Senna/Docusate Sodium (Senokot-S, Joana-Colace) 2 tablet PO BID PRN PRN PRN Reason: Constipation Sodium Chloride () 10 - 40 ml IV UD PRN PRN Reason: SALINE FLUSH Last Admin: 02/13/20 15:58 Dose: 10 ml Documented by: Medical Necessity - Tobacco Use Smoking Status: Former smoker Tobacco Use: Cigarettes Assessment/Plan All Active Problems (Last Reviewed 02/13/20 @ 15:[address] Destiny Briscoe DO) Elevated troponin (Acute 11/17/18) History of coronary artery stent placement (Resolved ~2013) Unstable angina (Acute) 1. Chest pain, abnormal troponin with history of CAD status post PCI-continue aspirin, Plavix, beta-cheryl, lisinopril. PRN nitro. Plan for cardiac cath Sunday morning. Cardiology following. Cardiac catheterization November 2018 demonstrated moderate CAD with patent previously placed stents. 2. Newly diagnosed type 2 diabetes mellitus-hemoglobin A1c 6.5%. Accu-Cheks with sliding scale insulin. Will initiate oral regimen at discharge. 3. Hypertension-stable, continue home metoprolol, lisinopril regimen. 4. Hyperlipidemia-lipid panel with elevated triglycerides and total cholesterol. Low HDL. Continue high-dose statin. 5. Suspected MARTIR-recommend outpatient PSG. 6. Obesity-encouraged diet and lifestyle modifications. Nutrition consult. DVT prophylaxis-Lovenox subcu This patient was seen by PENELOPE Corrales under the supervision of Dr. Ahumada. <Wilbert Ahumada - Last Filed: 02/15/20 11:24> - Physical Exam Vitals/I&O's: Vital Signs Temp Pulse Resp BP Pulse Ox 98.4 F 65 18 119/57 L 94 02/15/20 09:28 02/15/20 09:32 02/15/20 09:28 02/15/20 09:28 02/15/20 09:28 Oxygen Flow Rate (L/min) 2 Oxygen Delivery Method Room Air Weight: 140.4 kg Body Mass Index (BMI) 39.0 Intake and Output for Last 24 Hours 02/13/20 02/14/20 02/15/20 23:59 23:59 23:59 Intake Total 950.83 / 950.83 1811.67 / 1811.67 350 / 350 Balance 950.83 / 950.83 1811.67 / 1811.67 350 / 350 Laboratory Results 02/14/20 12:10: POC Glucose 129 H 02/14/20 16:59: POC Glucose 98 02/14/20 21:19: POC Glucose 104 02/15/20 06:35: POC Glucose 129 H Current Medications Acetaminophen (Tylenol) 650 mg PO Q6H PRN PRN PRN Reason: Pain Score 1-10/Temp > 100.7 F Albuterol Sulfate (Ventolin Aerosols) 2.5 mg INHALATION Q2H PRN PRN PRN Reason: SOB/Wheezing Aspirin (Aspirin, Baby) 81 mg PO DAILY@0800 [facility] Last Admin: 02/15/20 09:31 Dose: 81 mg Documented by: Atorvastatin Calcium (Lipitor) 80 mg PO QHS [facility] Last Admin: 02/14/20 21:21 Dose: 80 mg Documented by: Clopidogrel Bisulfate (Plavix) 75 mg PO DAILY [facility] Last Admin: 02/15/20 09:32 Dose: 75 mg Documented by: Dextrose (D50w Syringe) 0 gm IV X1 PRN; Protocol PRN Reason: Hypoglycemia Enoxaparin Sodium (Lovenox) 40 mg SC DAILY@0600 [facility] Glucagon () 1 mg IM .X1 PRN PRN Reason: Hypoglycemia Sodium Chloride () 1,000 mls @ 0 mls/hr IV .Q0M [facility] Insulin Human Lispro (Humalog Kwikpen (Bkc)) 0 unit SC ACHS [facility]; Protocol Last Admin: 02/15/20 06:36 Dose: Not Given Documented by: Lisinopril (Zestril) 2.5 mg PO DAILY [facility] Last Admin: 02/15/20 09:32 Dose: 2.5 mg Documented by: Melatonin (Melatonin) 3 mg PO QHS PRN PRN PRN Reason: INSOMNIA Metoprolol Succinate (Toprol Xl (Beta Cheryl)) 25 mg PO DAILY [facility] Last Admin: 02/15/20 09:32 Dose: 25 mg Documented by: Morphine Sulfate () 2 mg IV Q3H PRN PRN PRN Reason: Pain Score 6-10/10 Nitroglycerin (Nitrostat) 0.4 mg SUBLINGUAL Q5M PRN PRN Reason: CARDIAC/CHEST PAIN Rjrfz-1-Lbtr Ethyl Esters (Lovaza) 2 gm PO DAILY [facility] Last Admin: 02/15/20 09:31 Dose: 2 gm Documented by: Ondansetron HCl (Zofran) 4 mg IV Q8H PRN PRN PRN Reason: NAUSEA/VOMITING Senna/Docusate Sodium (Senokot-S, Joana-Colace) 2 tablet PO BID PRN PRN PRN Reason: Constipation Sodium Chloride () 10 - 40 ml IV UD PRN PRN Reason: SALINE FLUSH Last Admin: 02/13/20 15:58 Dose: 10 ml Documented by: Assessment/Plan This patient was seen in conjunction with PENELOPE Corrales . I have independently interviewed and examined the patient and reviewed pertinent historical, laboratory, and other data. Please refer to PENELOPE Corrales note for details of this patient's presentation, findings, and recommendations. I have reviewed PENELOPE Corrales note and concur with documented findings. In brief, patient is 84-year-old gentleman with past medical history single for CAD with previous PCI who presented with chest pain with slightly elevated troponin admitted to monitored bed with consultation placed to cardiology. Plan for patient to undergo left heart catheterization on 02/16/2020 02/15/2020: Seen denies any chest pain. Scheduled to undergo left heart catheterization on 02/16/2020 with possible PCI if indicated Physical Examination: GENERAL: cooperative HEENT: Atraumatic; EYES; Anicteric, Normal Conjunctiva NECK; supple, normal thyroid, RESPIRATORY: Diminished to auscultation CARDIOVASCULAR: Regular S1 S2, GI: soft, normoactive bowel sounds, : No Renal angle tenderness; EXTREMITIES: No edema, no clubbing, MUSCULOSKELETAL: no muscle waisting NEURO: Awake; no lateralizing signs. SKIN: No Rash PSYCH; Flat affect Assessment: 1. Chest pain, abnormal troponin 3. CAD with previous PCI 3./Hypertension 4. Dyslipidemia 5. New Luis Felipe diagnosed diabetes mellitus type 2 6. Suspected CAD 7. Obesity with BMI of 38.7 8. DVT prophylaxis 1. I have discussed the results of my overview and impressions with the patient 2. Options for management were reviewed Inpatient E&M: 63379 Subs Hosp L2
[2020-02-15 11:30] LABS: Bedside Glucose 120 mg/dL (70-110)
[2020-02-15 17:01] LABS: Bedside Glucose 96 mg/dL (70-110)
[2020-02-15] MEDS: Atorvastatin Calcium 80 MG Tablet PO (21:11)
[2020-02-15 21:16] LABS: Bedside Glucose 119 mg/dL (70-110)
[2020-02-16] VITALS (24 sets, daily range): BP systolic 102–131; BP diastolic 50–90; PULSE 51–66; RESP 13–21; TEMP 36.6–37; O2SAT 92–100
[2020-02-16 05:21] LABS: Hematocrit 45.7 % (40-54); Hemoglobin 14.5 g/dL (13.0-16.5); Mean Corp Hgb Conc 31.7 g/dL (32-36); Mean Corpuscular Hgb 26.2 pg (27.0-32.0); Mean Corpuscular Volume 82.6 fL (80-94); Mean Platelet Vol. 9.9 fl (6.2-12.0); Platelet Count 234 K/mm3 (150-450); RBC Distribution Width CV 13.5 % (11.6-14.6); RBC Distribution Width SD 40.6 fl (35.1-43.9); Red Blood Count 5.53 M/mm3 (4.6-6.2); White Blood Count 6.8 K/mm3 (4.4-11.0)
[2020-02-16 05:27] LABS: Prothrombin Time (Protime)PT. 12.9 SECONDS (11.7-14.9)
[2020-02-16 05:33] LABS: Anion Gap 9 (5-15); BUN 20 mg/dL (7-18); BUN/Creat Ratio 18.7 RATIO (10-20); Calcium,Total 8.5 mg/dL (8.5-10.1); Chloride 107 mmol/L (98-107); Creatinine, Serum 1.07 mg/dL (0.70-1.30); EST Glomerular Filtration Rate 76 mL/min (>60); Est Glom Filt Rate - Afr Amer 92 mL/min (>60); Estimated Creatinine Clearance 92.13 ml/min; Glucose 117 mg/dL (74-106); Potassium 4.2 mmol/L (3.5-5.1); Sodium Level 137 mmol/L (136-145)
--- NOTE | 2020-02-16 05:55 | EKG12_ITS ---
Test Reason : AM EKG Blood Pressure : / mmHG Vent. Rate : 054 BPM Atrial Rate : 054 BPM P-R Int : 198 ms QRS Dur : 088 ms QT Int : 418 ms P-R-T Axes : 057 -14 048 degrees QTc Int : 396 ms Sinus bradycardia Otherwise normal ECG When compared with ECG of 13-FEB-2020 15:51, MANUAL COMPARISON REQUIRED, DATA IS UNCONFIRMED Confirmed by HANK LARA, SANJIV ([id number]), general expeditor TACO FUENTES ([id number]) on 02/17/2020 10:18:48 AM Referred By: DR WATSON Confirmed By:SANJIV MCKINNEY MD
[2020-02-16] MEDS: Aspirin 81 MG TAB.CHEW PO (06:02)
[2020-02-16] MEDS: Lisinopril 2.5 MG Tablet PO (06:02)
[2020-02-16] MEDS: Clopidogrel Bisulfate 75 MG Tablet PO (06:02)
[2020-02-16] MEDS: Metoprolol(XL)Succ 25 MG Tablet PO (06:02)
[2020-02-16 06:46] LABS: Bedside Glucose 136 mg/dL (70-110)
[2020-02-16] MEDS: 0.9% Saline Lock 10 ML Syringe IV (07:26)
[2020-02-16] MEDS: 0.9% Normal Saline 1,000 ML 15 ML IV (07:26)
--- NOTE | 2020-02-16 07:28 | NURSING ---
Called report to Di BARKER in [facility] manager
--- NOTE | 2020-02-16 08:17 | PN.CARD_ITS ---
Subjectve: Patient seen and evaluated. Objective: Vital Signs Temp Pulse Resp BP Pulse Ox 98.6 F 61 18 111/65 96 02/16/20 06:01 02/16/20 07:01 02/16/20 06:01 02/16/20 06:02 02/16/20 06:01 Oxygen Flow Rate (L/min) 2 Oxygen Delivery Method Room Air Weight: 308 lb 10.354 oz Body Mass Index (BMI) 39.0 Intake and Output for Last 24 Hours 02/14/20 02/15/20 02/16/20 23:59 23:59 23:59 Intake Total 1811.67 / 1811.67 1800 / 1800 0 / 0 Balance 1811.67 / 1811.67 1800 / 1800 0 / 0 General: Awake, Alert, Oriented x 3 HEENT: PERRL, EOMI, Sclera Non Icteric Neck: Supple, Good ROM, No Lymph Node Enlargement Lungs: Clear to auscultation Cardiovascular: Regular Rhythm, Normal S1, Normal S2, No Murmurs, No Rubs, No Gallops Vascular: No Carotid Bruits, Normal Femoral Pulses, Normal Radial Pulses, Normal Dorsalis Pedal Pulse, Normal Posterior Tibial Pulses Abdomen: Bowel Sounds Present, Soft, Non Tender, No HSM, No Organomegaly Extremities: No Cyanosis, No Clubbing, No edema Musculoskeletal: No Erythema Skin: No Rashes Lymphatic: No Lymph Node Enlargement Neurological: No Focal Motor or Sensory Deficit Psych/Mental Status: Appropriate 02/16/20 05:00: WBC 6.8, RBC 5.53, Hgb 14.5, Hct 45.7, MCV 82.6, MCH 26.2 L, MCHC 31.7 L, Plt Count 234, MPV 9.9 02/16/20 05:00: Sodium 137, Potassium 4.2, Chloride 107, Carbon Dioxide 21.0, Anion Gap 9, BUN 20 H, Creatinine 1.07, Est GFR (MDRD) Af Amer 92, Est GFR (MDRD) Non-Af 76, BUN/Creatinine Ratio 18.7, Glucose 117 H, Calcium 8.5 02/16/20 05:00: PT 12.9, INR 1.0 Rhythm: EKG: ECHO: Stress Test: Cardiac Cath: PCI: CT Surgery: Holter monitor: EPS: PPM: CXR: Chest CT Scan: Medical Necessity - Tobacco Use Smoking Status: Former smoker Tobacco Use: Cigarettes Assessment/Plan 1. Chest pain. * Patient with known coronary artery disease status post previous angioplasty and stenting of the left anterior descending artery who underwent cardiac catheterization in November 2018 and a stress test in the last 8 weeks demonstrating no obvious ischemia. * His cardiac catheterization today demonstrated the following: Left main coronary artery which is normal. Left anterior descending artery with previously placed stent which is patent and moderate disease noted in the diagonal vessel and mid left anterior descending artery. Ramus intermedius with mild proximal disease and distal 90% stenosis. Left circumflex artery which is large with moderate 40 to 50% proximal and mid disease and distal 90% in the second obtuse marginal branch. Dominant right coronary artery with mild luminal irregularities. Preserved low ventricular systolic function. Based on the above angiographic findings would recommend angioplasty to the ramus intermedius as well as the distal circumflex artery. 2. Hypertension * Good control on the current medical therapy I would not recommend any changes at this time * 3. Risk factor modification * Unfortunately he has not been able to tolerate statins in the past. This somewhat limits appropriate care. We will try and start him on a lower dose of a statin. * * Thank you for allowing me to participate in the care of your patient. Please don't hesitate to call if any issues arise.
--- NOTE | 2020-02-16 08:25 | NURSING ---
Called report to Mic BARKER in ICU
--- NOTE | 2020-02-16 08:34 | CL.D_ITS ---
Patient Name: QI VELA Study Date: 02/16/2020 Performing: Gordo Godinez MD Ht: 75.19 inches 191 cm : 1965 Wt: 308.65 lbs 140 kg Age: 54 Gender: male BSA: 2.64 PROCEDURE(S) PERFORMED [id number]/LV CLINICAL PROFILE AND INDICATIONS Indications: Suspected CAD Heart Failure: None Stress/Imaging Stress/Image Study Performed: No CAD Presentations: Unstable angina. CONCLUSIONS Triple-vessel disease with previously placed stent in the LAD patent, severe disease noted in the nichole us intermedius and the circumflex artery RECOMMENDATIONS Referred for immediate PCI DESCRIPTION OF PROCEDURE The patient arrived to the procedure lab. The risks and benefits of the procedure as well as a full d escription of our services here and current unavailability of surgical backup were fully explained to the patient and/or their significant other prior to the catheterization. The Timeout was completed, verifying the correct patient and procedure. The patient's procedural site was prepped and draped in the usual fashion. Local anesthetic was given subcutaneously to right groin region with Lidocaine 2%. Using a modified Seldinger technique, arterial access was obtained via the right femoral artery, a 5 Fr sheath was inserted. Left Coronary Artery selective angiography was performed in multiple views u sing a 5 Fr. JL4 catheter. Right Coronary Artery selective angiography was then performed in multiple views using a 5 Fr. 3DRC (Luis) catheter. Left Ventriculography was performed in RAMÍREZ projection using a 5 Fr. Pigtail catheter. LV to AO pullback pressures were then recorded. CORONARY ANGIOGRAPHY DOMINANCE: Right Dominant LEFT HEART ASSESSMENT Left Ventricular Ejection Fraction: by LV Gram 60 % Normal LV wall motion Normal Left Ventricular systolic function LEFT MAIN: Mild calcification, No significant disease noted LEFT ANTERIOR DESCENDING ARTERY: Previously placed stent is patent, Mild luminal irregularities less than 30% DIAGONAL 1: Ostial - 50 % Stenosis CIRCUMFLEX ARTERY: PROX CIRC: Moderate luminal irregularities up to 50% OM 2: Distal - 90 % Stenosis RAMUS: 90 % Stenosis RIGHT CORONARY ARTERY: Mild luminal irregularities COMPLICATIONS PROCEDURE MEDICATIONS Versed 1 mg IV Versed 1 mg IV Oxygen: 2 L/min via nasal cannula Heparin 6000 unit(s) IV 02/16/2020 08:16:39 Nitro 200 mcg IC 02/16/2020 08:19:03 Nitro 200 mcg IC 02/16/2020 08:19:03 IV Bolus: .9 NaCl ml total 02/16/2020 08:17:52 SUMMARY OF HEMODYNAMIC DATA Time AIR REST ECG 07:40:14 AO 117/76 (96) SA 07:55:16 LV 128/7, 12 08:02:42 LV 113/8, 13 08:02:48 LV 107/9, 11 08:03:33 LVp 109/7, 12 08:03:36 AOp 112/71 (89) 08:03:41 Signed By Gordo Godinez MD On 02/16/2020 08:33:40 Gordo Godinez MD
--- NOTE | 2020-02-16 09:12 | CL.I_ITS ---
Patient Name: QI VELA Study Date: 02/16/2020 Performing: Kamron Rapp MD Ht: 75 inches 191 cm : 1965 Wt: 309.1 lbs 140 kg Age: 54 Gender: male BSA: 2.64 PROCEDURE(S) PERFORMED [id number] W OR WO PTCA, SINGLE CORONARY ARTERY [id number] W OR WO PTCA, SINGLE CORONARY ARTERY CLINICAL PROFILE AND CO-MORBIDITIES Indications: Suspected CAD, ACS > 24 hrs, New Onset Angina <= 2 months, Stable Known CAD Heart Failure: None Stress/Imaging Stress Test w/SPECT MPI: Yes Result: Negative Stress Test with SPECT MPI: Negative Stress/Image Study Performed: No Angina Classification Anginal Classification w/in 2 Weeks: CCS IV CAD Presentations: Unstable angina. Unstable angina. Non-STEMI. Symptom onset Date/Time: 0 Time Not Available Comorbidities/Risk Factors: Hypertension Dyslipidemia Prior PCI CONCLUSIONS Successful PTCA/SUSY to distal Ramus with a 2.25 x 12 Promus Synergy, followed upstream with a 2.25 x 12 Promus Synergy; 85% and 75%, respectively reduced to 0%. Pt had identical CP symptoms during stent deployment. Successful PTCA/SUSY distal LCX with a 2.25 x 12 Promus Synergy; 75%-->0%, no dissection. RECOMMENDATIONS Highly recommend quitting all tobacco products Follow up with primary customs compliance specialist Risk factor modification ASA Indefinitley Plavix for at least 12 months Routine post interventional care Refer for Outpatient Cardiac Rehab Manual sheath removal per protocol Follow up with Dr. Godinez Successful Mynx Control closure of RFA. DESCRIPTION OF PROCEDURE The patient arrived to the procedure lab. The risks and benefits of the procedure as well as a full d escription of our services here and current unavailability of surgical backup were fully explained to the patient and/or their significant other prior to the catheterization. The Timeout was completed, verifying the correct patient and procedure. The patient's procedural site was prepped and draped in the usual fashion. Local anesthetic was given subcutaneously to right groin region with Lidocaine 2% Using a modified Seldinger technique,arterial access was obtained via the right femoral artery, a 5Fr sheath was inserted. Left Coronary Artery selective angiography was performed in multiple views usin g a 5 Fr. JL4 catheter. Right Coronary Artery selective angiography was then performed in multiple vi ews using a 5 Fr. 3DRC (Luis) catheter. Left Ventriculography was performed in RAMÍREZ projection usi ng a 5 Fr. Pigtail catheter. LV to AO pullback pressures were then recorded.The images were reviewed and options discussed. A decision was then made to proceed with an Intervention, IVUS o r other adjunct procedure. Arterial sheath was exchanged for a 6 Fr Sheath. EBU 3.75 Guide catheter was inserted and engaged into the LCA. BMW [place] Guide wire was advanced to the Circumflex. BMW [place] (2) Guide wire was advanced to the Ramus. Emerge 2.0 x 8 Balloon catheter was inserted on BMW Wire (2). Balloon cath eter was advanced across lesion in the ramus branch, distal. PTCA balloon inflated at 7 atms for 17 s ecs. PTCA balloon inflated at 6 atms for 10 secs. PTCA balloon inflated at 6 atms for 12 secs. Angiog nichole performed post balloon dilatation. Synergry 2.25 x 12 Drug Eluting stent was inserted on BMW Wire (2). Drug Eluting stent was advanced across the lesion in the ramus branch, distal. Emerge 2.0 x 8 B alloon catheter was reinserted on BMW Wire (1). Balloon catheter was advanced across lesion in the ci rcumflex, distal. PTCA balloon inflated at 8 atms for 23 secs. Synergy 2.25 x 12 Drug Eluting stent w as inserted on BMW Wire (1). Synergy 2.25 x 12 Drug Eluting stent was inserted on BMW Wire (2). Drug Eluting stent was advanced across the lesion in the ramus branch, mid. Contrast was injecte d through the sheath and the Right Iliac and Femoral artery were assessed for possible closure device . The arterial sheath was pulled and a Mynx closure device was deployed for hemostasis INTERVENTION INFORMATION LESION SITE: Ramus (Distal) Lesion Complexity: Non-High/Non-C, lesion at bifurcation: No, thrombus present: No, lesion length: 12 mm, culprit lesion: Yes Pre Stenosis: 85 % Pre intervention MT flow: 3 PROCEDURE: Drug Eluting Stent with pre dilatation. Post Stenosis: 0 % Post intervention MT flow: 3 Lesion Devices: Zeomatrixtronic 6 Fr EBU3.75 100cm Guide Catheter Arrieta .014 BMW [place] Straight 190cm Arrieta .014 [employer] [place] Straight 190cm Marcus Sci EMERGE MR 2.00x08 BALLOON Marcus Sci Synergy MR SUSY 2.25x12 LESION SITE: Circumflex (Distal) Lesion Complexity: Non-High/Non-C, lesion at bifurcation: No, thrombus present: No, lesion length: 12 mm, culprit lesion: No Pre Stenosis: 75 % Pre intervention MT flow: 3 PROCEDURE: Drug Eluting Stent Post Stenosis: 0 % Post intervention MT flow: 3 Lesion Devices: Medtronic 6 Fr EBU3.75 100cm Guide Catheter Arrieta .014 [employer] [place] Straight 190cm Arrieta .014 [employer] [place] Straight 190cm Marcus Sci EMERGE MR 2.00x08 BALLOON Marcus Sci Synergy MR SUSY 2.25x12 LESION SITE: Ramus (Mid) Lesion Complexity: Non-High/Non-C, lesion at bifurcation: No, thrombus present: No, lesion length: 12 mm, culprit lesion: No Pre Stenosis: 75 % Pre intervention MT flow: 3 PROCEDURE: Drug Eluting Stent with pre dilatation. 0 % Post intervention MT flow: 3 Lesion Devices: Marcus Sci Synergy MR SUSY 2.25x12 COMPLICATIONS No Complications PROCEDURE MEDICATIONS Versed 1 mg IV Versed 1 mg IV Oxygen: 2 L/min via nasal cannula Heparin 6000 unit(s) IV 02/16/2020 08:16:39 Nitro 200 mcg IC 02/16/2020 08:19:03 Nitro 200 mcg IC 02/16/2020 08:19:03 Nitro 200 mcg IC 02/16/2020 08:31:02 IV Bolus: .9 NaCl 500ml total 02/16/2020 08:17:52 IV Fluids: .9 NaCl decreased to 150 ml/hr 02/16/2020 08:56:43 SUMMARY OF HEMODYNAMIC DATA Time AIR REST ECG 07:40:14 AO 117/76 (96) SA 07:55:16 LV 128/7, 12 08:02:42 LV 113/8, 13 08:02:48 LV 107/9, 11 08:03:33 LVp 109/7, 12 08:03:36 AOp 112/71 (89) 08:03:41 Signed By Kamron Rapp MD On 02/16/2020 9:11:40 AM Kamrno Rapp MD
--- NOTE | 2020-02-16 09:15 | EKG12_ITS ---
Test Reason : PCI Blood Pressure : / mmHG Vent. Rate : 055 BPM Atrial Rate : 055 BPM P-R Int : 202 ms QRS Dur : 086 ms QT Int : 422 ms P-R-T Axes : 059 -24 050 degrees QTc Int : 403 ms Sinus bradycardia Low voltage QRS Borderline ECG No previous ECGs available Confirmed by HANK LARA, SANJIV ([id number]), copy editor TAWANA GERMAN ([id number]) on 02/24/2020 9:48:00 AM Referred By: ALLY Confirmed By:SANJIV MCKINNEY MD
[2020-02-16] MEDS: 0.9% Normal Saline 1,000 ML 150 ML IV (09:20)
--- NOTE | 2020-02-16 10:23 | CRPHASE1 ---
Patient Communication PHII Cardiac Rehab Discussed with Patient:: Yes Guide to Cardiac Rehab Given to Patient:: Yes Cardiac Rehab Facility Choice List Given to Patient:: Yes Choice Program [facility] CR PHII:: Communication Given to CR, Refer to [facility] Service Correspondent:: Kamron Rapp Refer Phase II Cardiac Rehab:: Yes - To take place after discharge Sessions:: 36 sessions - 3 days/wk, 12 weeks Risk Factors/Lifestyle Family History: Family History (Last Reviewed 02/13/20 @ 15:[address] Destiny Briscoe, DO) Father Heart disease Laboratory Values: Cardiac Rehab Phase I Labs Hemoglobin A1c 6.5 % (3.8-5.6) H 02/13/20 12:25 Triglycerides 493 mg/dL (-199) H 02/14/20 06:00 Cholesterol 203 mg/dL (200) H 02/14/20 06:00 LDL Cholesterol TNP 02/14/20 06:00 HDL Cholesterol 19 mg/dL (40-) L 02/14/20 06:00 Cardiac Rehabilitation Info Cardiac Rehabilitation Program Information: Cardiac Rehabilitation is important for patients like you who are recovering from a heart problem. Cardiac rehabilitation programs are recognized as integral to the continued care of the patient with coronary heart disease. The cardiac rehabilitation program is designed to optimize a patient's physical, psychological, and social functioning. Health residential care officer work in cardiac rehabilitation programs and assist you with getting the treatments you need to get stronger and healthier - like exercise, healthy eating habits, and medications. Cardiac rehabilitation has been show to help people with heart problems live longer and have better life enjoyment than people who do not go to cardiac rehabilitation. Please contact the Cardiac Rehabilitation Program at [facility] at in two weeks if you have not heard from them.
--- NOTE | 2020-02-16 10:25 | CRPH1.INSTRU ---
General Education CAD and cardiac anatomy and function:: Patient communicates acknowledgment Explanation of diagnoses and procedures:: Patient communicates acknowledgment Sign/Symptoms of [place]:: Patient communicates acknowledgment Antiplatelet therapy: Patient communicates acknowledgment Proper use of NTG-SL: Patient communicates acknowledgment Emergency procedures and activation of EMS: Patient communicates acknowledgment Compliance of all prescribed medications: Patient communicates acknowledgment Smoking Patient Nicotine/Smoking Risk Factors Are:: Cigarettes Recommendations Include:: Previous smoker; encourage continued cessation Nicotine/Smoking Response Code:: Patient communicates acknowledgment Dyslipidemia Patient Dyslipidemia Risk Factors Are:: Total Cholesterol - 203, Triglycerides - 493, HDL - 19 Recommendations Include:: Lipid profile provided, Reviewed NCEP/ATP guidelines, Therapeutic Lifestyle Change dietary guidelines Dyslipidemia Response Code:: Patient communicates acknowledgment Overweight/Obesity Patient Overweight/Obesity Risk Factors Are:: Obesity - > or = 30 Recommendations Include:: Weight loss of 5-10%, Reduced calorie diet, Exercise 5-7 times/week Overweight/Obesity:: Patient communicates acknowledgment Heart Disease Patient Heart Disease Risk Factors Are:: Family history of heart disease < 65 years old, Previous cardiac event Recommendations Include:: Educated family members of their risk, Educated family members of importance of prevention of heart disease Heart Disease Response Code:: Patient communicates acknowledgment Diabetes Patient Diabetes Risk Factors Are:: No documented hx of diabetes, Elevated blood sugars, Post-op hyperglycemia Recommendations Include:: Maintain fasting blood sugars 70-110 md/dL, Maintain HgbA1c of 6% or less, Monitor blood sugar as prescribed, Diabetic dietary guidelines, Decrease/maintain body weight Diabetes:: Patient communicates acknowledgment Metabolic Syndrome Patient Metabolic Syndrome Risk Factors Are [3 of 5]:: Fasting blood sugar > 100 mg/dL, Waist circumference > 35 [female] or 40 [male], High triglyceride >150, Low HDL <40 [male] or < 50 [female] Recommendations Include:: Reinforce compliance to risk factor modifications, Encouraged follow-up with Primary Care Physician Metabolic Syndrome Response Code:: Patient communicates acknowledgment Sedentary Patient Sedentary Risk Factors Are:: Lack of regular exercise Recommendations Include:: Aerobic exercise 5-7 times/week for 20-30 minutes continuously, Benefits of regular exercise, Discussed home walking program, Monitored Outpatient Cardiac Rehab Sedentary Response Code:: Patient communicates acknowledgment Stress Recommendations Include:: Identification of stressors, and assessment of coping skills, Stress management techniques Stress Response Code:: Patient communicates acknowledgment
[2020-02-16 11:10] LABS: Bedside Glucose 110 mg/dL (70-110)
[2020-02-16] MEDS: Omega-3 Acid Ethyl Esters 1 GM Capsule 2 GM PO (11:16)
--- NOTE | 2020-02-16 12:18 | PCM.PROGNOTE ---
<Terri Amaya - Last Filed: 02/16/20 12:59> Subjective: Patient seen and examined. Patient underwent cardiac catheterization with successful PTCA/SUSY to distal ramus and distal LCx. Patient reports 3/10 pain across his upper chest/collar bone area. Denies other associated symptoms. - Physical Exam Vitals/I&O's: Vital Signs Temp Pulse Resp BP Pulse Ox 98.1 F 55 L 16 128/82 H 100 02/16/20 12:00 02/16/20 12:00 02/16/20 12:00 02/16/20 12:00 02/16/20 12:00 Oxygen Flow Rate (L/min) 2 Oxygen Delivery Method Room Air Weight: 308 lb 10.354 oz Body Mass Index (BMI) 39.0 Intake and Output for Last 24 Hours 02/14/20 02/15/20 02/16/20 23:59 23:59 23:59 Intake Total 1811.67 / 1811.67 1800 / 1800 120 / 120 Output Total 450 / 450 Balance 1811.67 / 1811.67 1800 / 1800 -330 / -330 General: Alert, Oriented x3, Cooperative HEENT: Atraumatic, PERRLA, EOMI, Normocephalic Neck: Supple, No JVD, Negative Carotid Bruits Lungs: Clear to auscultation, Normal air movement Cardiovascular: Regular rate, Regular Rhythm, Normal S1, Normal S2, No murmurs Abdomen: Bowel Sounds Present, Soft, Non Tender, Obese Extremities: No clubbing, No cyanosis, No edema, Capillary Refill Less than 3 Seconds Skin: No rashes, No breakdown, - - Right groin site intact Musculoskeletal: No Tenderness to Palpation of Joints or Extremities Neurological: Cranial nerves II-XII grossly intact, Neuro grossly intact Psych/Mental Status: Normal Affect, Appropriate Laboratory Results 02/15/20 16:55: POC Glucose 96 02/15/20 21:09: POC Glucose 119 H 02/16/20 05:00: WBC 6.8, RBC 5.53, Hgb 14.5, Hct 45.7, MCV 82.6, MCH 26.2 L, MCHC 31.7 L, RDW Std Deviation 40.6, RDW Coeff of Hillary 13.5, Plt Count 234, MPV 9.9 02/16/20 05:00: Sodium 137, Potassium 4.2, Chloride 107, Carbon Dioxide 21.0, Anion Gap 9, BUN 20 H, Creatinine 1.07, Estim Creat Clear Calc 92.13, Est GFR (MDRD) Af Amer 92, Est GFR (MDRD) Non-Af 76, BUN/Creatinine Ratio 18.7, Glucose 117 H, Calcium 8.5 02/16/20 05:00: PT 12.9, INR 1.0 02/16/20 06:40: POC Glucose 136 H 02/16/20 11:00: POC Glucose 110 Current Medications Acetaminophen (Tylenol) 650 mg PO Q6H PRN PRN PRN Reason: Pain Score 1-10/Temp > 100.7 F Albuterol Sulfate (Ventolin Aerosols) 2.5 mg INHALATION Q2H PRN PRN PRN Reason: SOB/Wheezing Aspirin (Aspirin, Baby) 81 mg PO DAILY@0800 [facility] Last Admin: 02/16/20 06:02 Dose: 81 mg Documented by: Atorvastatin Calcium (Lipitor) 80 mg PO QHS [facility] Last Admin: 02/15/20 21:11 Dose: 80 mg Documented by: Atropine Sulfate () 0.5 mg IV UD PRN PRN Reason: HR <50 bpm Clopidogrel Bisulfate (Plavix) 75 mg PO DAILY [facility] Last Admin: 02/16/20 06:02 Dose: 75 mg Documented by: Dextrose (D50w Syringe) 0 gm IV X1 PRN; Protocol PRN Reason: Hypoglycemia Glucagon () 1 mg IM .X1 PRN PRN Reason: Hypoglycemia Heparin Sodium (Beef Lung) (Heparin 500 Unit/5 Ml (100/Ml)) 500 unit IV UD PRN PRN Reason: HEPARIN FLUSH Sodium Chloride () 1,000 mls @ 0 mls/hr IV .Q0M [facility] Last Admin: 02/16/20 07:26 Dose: 15 mls/hr Documented by: Sodium Chloride () 1,000 mls @ 150 mls/hr IV .Q6H40M [facility] Stop: 02/16/20 15:44 Last Admin: 02/16/20 09:20 Dose: 150 mls/hr Documented by: Labetalol HCl (Trandate) 5 mg IV X1 PRN PRN Reason: SBP > 160 when pulling sheath Stop: 02/18/20 09:06 Lisinopril (Zestril) 2.5 mg PO DAILY [facility] Last Admin: 02/16/20 06:02 Dose: 2.5 mg Documented by: Melatonin (Melatonin) 3 mg PO QHS PRN PRN PRN Reason: INSOMNIA Metoprolol Succinate (Toprol Xl (Beta Cheryl)) 25 mg PO DAILY [facility] Last Admin: 02/16/20 06:02 Dose: 25 mg Documented by: Morphine Sulfate () 2 mg IV Q3H PRN PRN PRN Reason: Pain Score 6-10/10 Nitroglycerin (Nitrostat) 0.4 mg SUBLINGUAL Q5M PRN PRN Reason: CARDIAC/CHEST PAIN Oyfga-2-Ggeo Ethyl Esters (Lovaza) 2 gm PO DAILY [facility] Last Admin: 02/16/20 11:16 Dose: 2 gm Documented by: Ondansetron HCl (Zofran) 4 mg IV Q8H PRN PRN PRN Reason: NAUSEA/VOMITING Senna/Docusate Sodium (Senokot-S, Joana-Colace) 2 tablet PO BID PRN PRN PRN Reason: Constipation Sodium Chloride () 10 - 40 ml IV UD PRN PRN Reason: SALINE FLUSH Last Admin: 02/16/20 07:26 Dose: 10 ml Documented by: Sodium Chloride () 500 ml IV BOLUS PRN PRN Reason: VASO-VAGAL PROTOCOL Medical Necessity - Tobacco Use Smoking Status: Former smoker Tobacco Use: Cigarettes Assessment/Plan All Active Problems (Last Reviewed 02/13/20 @ 15:[address] Destiny Briscoe, DO) Elevated troponin (Acute 11/17/18) History of coronary artery stent placement (Resolved ~2013) Unstable angina (Acute) 1. Chest pain, abnormal troponin with history of CAD status post PCI-Cardiology following. Cardiac catheterization November 2018 demonstrated moderate CAD with patent previously placed stents. Repeat cardiac catheterization completed 02/16/2020, patient underwent cardiac catheterization with successful PTCA/SUSY to distal ramus and distal LCx. Continue aspirin, Plavix, beta-cheryl, lisinopril. 2. Newly diagnosed type 2 diabetes mellitus-hemoglobin A1c 6.5%. Accu-Cheks with sliding scale insulin. Will initiate oral regimen at discharge. 3. Hypertension-stable, continue home metoprolol, lisinopril regimen. 4. Hyperlipidemia-lipid panel with elevated triglycerides and total cholesterol. Low HDL. Continue high-dose statin. 5. Suspected MARTIR-recommend outpatient PSG. 6. Obesity-encouraged diet and lifestyle modifications. Nutrition consult. DVT prophylaxis-Lovenox subcu This patient was seen by PENELOPE Corrales under the supervision of Dr. Miranda. <Eva Miranda - Last Filed: 02/16/20 13:58> - Physical Exam Vitals/I&O's: Vital Signs Temp Pulse Resp BP Pulse Ox 98.1 F 65 18 124/57 H 96 02/16/20 12:00 02/16/20 13:00 02/16/20 13:00 02/16/20 13:00 02/16/20 13:00 Oxygen Flow Rate (L/min) 2 Oxygen Delivery Method Room Air Weight: 140 kg Body Mass Index (BMI) 39.0 Intake and Output for Last 24 Hours 02/14/20 02/15/20 02/16/20 23:59 23:59 23:59 Intake Total 1811.67 / 1811.67 1800 / 1800 120 / 120 Output Total 450 / 450 Balance 1811.67 / 1811.67 1800 / 1800 -330 / -330 Laboratory Results 02/15/20 16:55: POC Glucose 96 02/15/20 21:09: POC Glucose 119 H 02/16/20 05:00: WBC 6.8, RBC 5.53, Hgb 14.5, Hct 45.7, MCV 82.6, MCH 26.2 L, MCHC 31.7 L, RDW Std Deviation 40.6, RDW Coeff of Hillary 13.5, Plt Count 234, MPV 9.9 02/16/20 05:00: Sodium 137, Potassium 4.2, Chloride 107, Carbon Dioxide 21.0, Anion Gap 9, BUN 20 H, Creatinine 1.07, Estim Creat Clear Calc 92.13, Est GFR (MDRD) Af Amer 92, Est GFR (MDRD) Non-Af 76, BUN/Creatinine Ratio 18.7, Glucose 117 H, Calcium 8.5 02/16/20 05:00: PT 12.9, INR 1.0 02/16/20 06:40: POC Glucose 136 H 02/16/20 11:00: POC Glucose 110 Current Medications Acetaminophen (Tylenol) 650 mg PO Q6H PRN PRN PRN Reason: Pain Score 1-10/Temp > 100.7 F Albuterol Sulfate (Ventolin Aerosols) 2.5 mg INHALATION Q2H PRN PRN PRN Reason: SOB/Wheezing Aspirin (Aspirin, Baby) 81 mg PO DAILY@0800 [facility] Last Admin: 02/16/20 06:02 Dose: 81 mg Documented by: Atorvastatin Calcium (Lipitor) 80 mg PO QHS [facility] Last Admin: 02/15/20 21:11 Dose: 80 mg Documented by: Atropine Sulfate () 0.5 mg IV UD PRN PRN Reason: HR <50 bpm Clopidogrel Bisulfate (Plavix) 75 mg PO DAILY [facility] Last Admin: 02/16/20 06:02 Dose: 75 mg Documented by: Dextrose (D50w Syringe) 0 gm IV X1 PRN; Protocol PRN Reason: Hypoglycemia Glucagon () 1 mg IM .X1 PRN PRN Reason: Hypoglycemia Heparin Sodium (Beef Lung) (Heparin 500 Unit/5 Ml (100/Ml)) 500 unit IV UD PRN PRN Reason: HEPARIN FLUSH Sodium Chloride () 1,000 mls @ 0 mls/hr IV .Q0M [facility] Last Admin: 02/16/20 07:26 Dose: 15 mls/hr Documented by: Sodium Chloride () 1,000 mls @ 150 mls/hr IV .Q6H40M [facility] Stop: 02/16/20 15:44 Last Admin: 02/16/20 09:20 Dose: 150 mls/hr Documented by: Labetalol HCl (Trandate) 5 mg IV X1 PRN PRN Reason: SBP > 160 when pulling sheath Stop: 02/18/20 09:06 Lisinopril (Zestril) 2.5 mg PO DAILY [facility] Last Admin: 02/16/20 06:02 Dose: 2.5 mg Documented by: Melatonin (Melatonin) 3 mg PO QHS PRN PRN PRN Reason: INSOMNIA Metoprolol Succinate (Toprol Xl (Beta Cheryl)) 25 mg PO DAILY [facility] Last Admin: 02/16/20 06:02 Dose: 25 mg Documented by: Morphine Sulfate () 2 mg IV Q3H PRN PRN PRN Reason: Pain Score 6-10/10 Nitroglycerin (Nitrostat) 0.4 mg SUBLINGUAL Q5M PRN PRN Reason: CARDIAC/CHEST PAIN Hpvdx-9-Abon Ethyl Esters (Lovaza) 2 gm PO DAILY [facility] Last Admin: 02/16/20 11:16 Dose: 2 gm Documented by: Ondansetron HCl (Zofran) 4 mg IV Q8H PRN PRN PRN Reason: NAUSEA/VOMITING Senna/Docusate Sodium (Senokot-S, Joana-Colace) 2 tablet PO BID PRN PRN PRN Reason: Constipation Sodium Chloride () 10 - 40 ml IV UD PRN PRN Reason: SALINE FLUSH Last Admin: 02/16/20 07:26 Dose: 10 ml Documented by: Sodium Chloride () 500 ml IV BOLUS PRN PRN Reason: VASO-VAGAL PROTOCOL Assessment/Plan This patient was seen in conjunction with Terri Amaya FEED MILLER. I have independently interviewed and examined the patient and reviewed pertinent historical, laboratory, and other data. Please refer to her note for patient's presentation, findings, and recommendations. Patient was seen and examined. He underwent successful PCI with stents to the mid and distal ramus, distal left circumflex -3 stents in total. Complains of mild upper chest discomfort. Denied dizziness or palpitations. Vitals were reviewed -stable Physical Exam: Gen: Comfortable, not pale, not jaundiced, alert oriented x3 CVS:HS I +II, regular, no murmurs RESP: CTA GI: BS present and normal, nontender, no palpable organs, right groin is soft, no hematoma EXT:No edema Labs reviewed: ASSESSMENT: 1. Angina/CAD status post 3 stents 2. Type II DM, newly diagnosed 3. Hypertension 4. Hyperlipidemia 5. Suspected MARTIR 6. Obesity Meds reviewed Plan: Continue on aspirin, Plavix, statin, lisinopril, metoprolol Inpatient E&M: 99623 Subs Hosp L2
[2020-02-16 13:55] LABS: ACT Activated Clotting Time 153 sec (74-137)
[2020-02-16] MEDS: Atorvastatin Calcium 80 MG Tablet PO (21:14)
[2020-02-17] VITALS (12 sets, daily range): BP systolic 90–156; BP diastolic 60–100; PULSE 53–72; RESP 11–21; TEMP 36.6–36.7; O2SAT 94–98
[2020-02-17 03:54] LABS: Hematocrit 43.6 % (40-54); Hemoglobin 13.9 g/dL (13.0-16.5); Mean Corp Hgb Conc 31.9 g/dL (32-36); Mean Corpuscular Hgb 26.4 pg (27.0-32.0); Mean Corpuscular Volume 82.7 fL (80-94); Mean Platelet Vol. 10.2 fl (6.2-12.0); Platelet Count 252 K/mm3 (150-450); RBC Distribution Width CV 14.1 % (11.6-14.6); RBC Distribution Width SD 41.1 fl (35.1-43.9); Red Blood Count 5.27 M/mm3 (4.6-6.2); White Blood Count 7.8 K/mm3 (4.4-11.0)
[2020-02-17 03:56] LABS: AST(SGOT) 64 U/L (15-37); Alanine Aminotransfer ALT/SGPT 109 U/L (16-61); Albumin, Serum 3.6 g/dL (3.2-5.0); Alkaline Phosphatase 63 U/L (45-117); Anion Gap 7 (5-15); BUN 21 mg/dL (7-18); BUN/Creat Ratio 18.9 RATIO (10-20); Calcium,Total 8.4 mg/dL (8.5-10.1); Chloride 106 mmol/L (98-107); Creatinine, Serum 1.11 mg/dL (0.70-1.30); EST Glomerular Filtration Rate 73 mL/min (>60); Est Glom Filt Rate - Afr Amer 88 mL/min (>60); Estimated Creatinine Clearance 88.81 ml/min; Globulin 3.6 g/dL (2.2-4.2); Glucose 114 mg/dL (74-106); Potassium 4.2 mmol/L (3.5-5.1); Protein, Total 7.2 g/dL (6.4-8.2); Sodium Level 137 mmol/L (136-145)
[2020-02-17 04:02] LABS: Scan Indicated on CBC? Y/N NO
--- NOTE | 2020-02-17 07:49 | PN.CARD_ITS ---
Subjectve: Patient seen and evaluated. Appears to be doing well this morning. No complaints. Objective: Vital Signs Temp Pulse Resp BP Pulse Ox 98.1 F 62 21 H 96/72 98 02/17/20 04:00 02/17/20 06:00 02/17/20 06:00 02/17/20 06:00 02/17/20 06:00 Oxygen Flow Rate (L/min) 2 Oxygen Delivery Method Room Air Weight: 308 lb 10.354 oz Body Mass Index (BMI) 39.0 Intake and Output for Last 24 Hours 02/15/20 02/16/20 02/17/20 23:59 23:59 23:59 Intake Total 1800 / 1800 1773.5 / 1773.5 480 / 480 Output Total 450 / 450 Balance 1800 / 1800 1323.5 / 1323.5 480 / 480 General: Awake, Alert, Oriented x 3 HEENT: PERRL, EOMI, Sclera Non Icteric Neck: Supple, Good ROM, No Lymph Node Enlargement Lungs: Clear to auscultation Cardiovascular: Regular Rhythm, Normal S1, Normal S2, No Murmurs, No Rubs, No Gallops Vascular: No Carotid Bruits, Normal Femoral Pulses, Normal Radial Pulses, Normal Dorsalis Pedal Pulse, Normal Posterior Tibial Pulses Abdomen: Bowel Sounds Present, Soft, Non Tender, No HSM, No Organomegaly Extremities: No Cyanosis, No Clubbing, No edema Musculoskeletal: No Erythema Skin: No Rashes Lymphatic: No Lymph Node Enlargement Neurological: No Focal Motor or Sensory Deficit 02/17/20 03:25: WBC 7.8, RBC 5.27, Hgb 13.9, Hct 43.6, MCV 82.7, MCH 26.4 L, MCHC 31.9 L, Plt Count 252, MPV 10.2 02/17/20 03:25: Sodium 137, Potassium 4.2, Chloride 106, Carbon Dioxide 24.0, Anion Gap 7, BUN 21 H, Creatinine 1.11, Est GFR (MDRD) Af Amer 88, Est GFR (MDRD) Non-Af 73, BUN/Creatinine Ratio 18.9, Glucose 114 H, Calcium 8.4 L, Total Bilirubin 0.40 Rhythm: EKG: ECHO: Stress Test: Cardiac Cath: PCI: CT Surgery: Holter monitor: EPS: PPM: CXR: Chest CT Scan: Medical Necessity - Tobacco Use Smoking Status: Former smoker Tobacco Use: Cigarettes Assessment/Plan 1. Chest pain. * Patient with known coronary artery disease status post previous angioplasty and stenting of the left anterior descending artery who underwent cardiac catheterization in November 2018 and a stress test in the last 8 weeks demonstrating no obvious ischemia. * His cardiac catheterization demonstrated the following: Left main coronary artery which is normal. Left anterior descending artery with previously placed stent which is patent and moderate disease noted in the diagonal vessel and mid left anterior descending artery. Ramus intermedius with mild proximal disease and distal 90% stenosis. Left circumflex artery which is large with moderate 40 to 50% proximal and mid disease and distal 90% in the second obtuse marginal branch. Dominant right coronary artery with mild luminal irregularities. Preserved low ventricular systolic function. Based on the above angiographic findings he underwent angioplasty to the ramus intermedius as well as the distal circumflex artery. * This morning he is doing well he has no complaints. No EKG changes. 2. Hypertension * Good control on the current medical therapy I would not recommend any changes at this time * 3. Risk factor modification * Unfortunately he has not been able to tolerate statins in the past. This somewhat limits appropriate care. We will try and start him on a lower dose of a statin. * * * He can be discharged for outpatient follow-up with me in 2 to 4 weeks. * Thank you for allowing me to participate in the care of your patient. Please don't hesitate to call if any issues arise.
--- NOTE | 2020-02-17 09:15 | DCINST_ITS ---
You will use the following diet at home:: Calorie/Carbohydrate Controlled (specify 1200, 1400, etc), Cardiac Discharge Activity: Return to Normal Activity Call your doctor if you observe: Shortness of breath, Dizziness, Fainting spells, Chest pain Allergies/Adverse Reactions: Allergies No Known Allergies Allergy (Verified 02/13/20 11:58) Medications to take at Discharge Aspirin [Aspirin, Baby] 81 mg PO DAILY 11/17/18 nitroglycerin 0.4 mg sublingual tablet 0.4 mg SUBLINGUAL Q5-15M PRN 11/29/18 omega-3 fatty acids 1,000 mg capsule 2 cap PO DAILY 12/04/18 clopidogrel 75 mg tablet 75 mg PO DAILY #90 tab 12/16/19 lisinopril 2.5 mg tablet 2.5 mg PO DAILY #90 tab 12/16/19 Metoprolol Succinate 25 mg PO DAILY 02/13/20 Atorvastatin Calcium 40 mg PO QHS #30 tab 02/17/20 metFORMIN (XR) [Glucophage Xr] 500 mg PO DAILY #30 tab 02/17/20 The following prescriptions were given: Atorvastatin Calcium 40 mg PO QHS #30 tab Transmission Status: Pending to [facility]/pharmacy #[id number] metFORMIN (XR) [Glucophage Xr] 500 mg PO DAILY #30 tab Transmission Status: Pending to [facility]/pharmacy #[id number] Primary Care Physician: Maximo Samayoa DO [Primary Care Provider] - Please follow up with your Primary Care Physician in: 1 Week Test Results: Test results from this visit will be discussed in further detail at your follow- up appointment, if applicable. Please Follow Up With: Gordo Godinez MD When: 2-4 weeks Proposed Discharge Date: 02/17/20
--- NOTE | 2020-02-17 09:37 | PCM.DC.SUM ---
<Terri Amaya - Last Filed: 02/17/20 09:43> Discharge Date and Diagnosis Date of Admission: 02/13/20 Date of Discharge: 02/17/20 - Primary Discharge Diagnosis Acute Problems: 1. Chest pain, abnormal troponin, CAD status post PTCA/SUSY to distal ramus and distal LCx. 2. Newly diagnosed type 2 diabetes mellitus 3. Hypertension 4. Hyperlipidemia 5. Suspected MARTIR 6. Obesity - Secondary Discharge Diagnosis Chronic Problems: Chronic Problems (Last Reviewed 02/13/20 @ 15:[address] Destiny Briscoe, DO) Hyperlipidemia (Chronic) Atherosclerosis of coronary artery of [place] without angina pectoris (Chronic) Hospital Course and Treatment Imaging Results: Diagnostic Data Chest X-Ray 02/13/20 12:55 IMPRESSION: Marleen dodson. Electronically Signed: Liu Clements, at 13:17 EDT , Service support , Dr. ramirez- cardiology Operations: None Procedures: Cardiac catheterization Summary of Care Provided: The patient is a 54 year old M admitted at 02/13/2020 due to chest pain. 1. Chest pain, abnormal troponin with history of CAD status post PCI-Cardiology following. Cardiac catheterization November 2018 demonstrated moderate CAD with patent previously placed stents. Repeat cardiac catheterization completed 02/16/2020, patient underwent cardiac catheterization with successful PTCA/SUSY to distal ramus and distal LCx. Continue aspirin, Plavix, beta-cheryl, lisinopril. Follow-up with cardiology in 2 to 4 weeks. 2. Newly diagnosed type 2 diabetes mellitus-hemoglobin A1c 6.5%. Metformin 500 mg daily at discharge. Follow-up with primary care physician for repeat hemoglobin A1c. 3. Hypertension-stable, continue home metoprolol, lisinopril regimen. 4. Hyperlipidemia-lipid panel with elevated triglycerides and total cholesterol. Low HDL. Has not tolerated Crestor in the past. Has been tolerating atorvastatin during admission. Discharged on atorvastatin 40 mg nightly. 5. Suspected MARTIR-recommend outpatient PSG which can be arranged by primary care provider. 6. Obesity-encouraged diet and lifestyle modifications. Nutrition consult. General: Alert, Oriented x3, Cooperative HEENT: Atraumatic, PERRLA, EOMI, Normocephalic Neck: Supple, No JVD, Negative Carotid Bruits Lungs: Clear to auscultation, Normal air movement Cardiovascular: Regular rate, Regular Rhythm, Normal S1, Normal S2, No murmurs Abdomen: Bowel Sounds Present, Soft, Non Tender, Obese Extremities: No clubbing, No cyanosis, No edema, Capillary Refill Less than 3 Seconds Skin: No rashes, No breakdown, - - Right groin site intact Musculoskeletal: No Tenderness to Palpation of Joints or Extremities Neurological: Cranial nerves II-XII grossly intact, Neuro grossly intact Psych/Mental Status: Normal Affect, Appropriate Patient seen and examined prior to discharge. Physical assessment as noted above. Patient is stable for discharge with follow up recommendations as noted above. This patient was seen by PENELOPE Corrales under the supervision of Dr. Miranda. - Physical Exam Vitals/I&O's: Vital Signs Temp Pulse Resp BP Pulse Ox 98.1 F 62 15 108/74 94 02/17/20 04:00 02/17/20 08:00 02/17/20 08:00 02/17/20 08:00 02/17/20 08:00 Oxygen Flow Rate (L/min) 2 Oxygen Delivery Method Room Air Weight: 308 lb 10.354 oz Body Mass Index (BMI) 39.0 Intake and Output for Last 24 Hours 02/15/20 02/16/20 02/17/20 23:59 23:59 23:59 Intake Total 1800 / 1800 1773.5 / 1773.5 480 / 480 Output Total 450 / 450 Balance 1800 / 1800 1323.5 / 1323.5 480 / 480 Laboratory Results 02/16/20 08:49: Activated Clotting Time 153 H 02/16/20 11:00: POC Glucose 110 02/17/20 03:25: WBC 7.8, RBC 5.27, Hgb 13.9, Hct 43.6, MCV 82.7, MCH 26.4 L, MCHC 31.9 L, RDW Std Deviation 41.1, RDW Coeff of Hilalry 14.1, Plt Count 252, MPV 10.2 02/17/20 03:25: Sodium 137, Potassium 4.2, Chloride 106, Carbon Dioxide 24.0, Anion Gap 7, BUN 21 H, Creatinine 1.11, Estim Creat Clear Calc 88.81, Est GFR (MDRD) Af Amer 88, Est GFR (MDRD) Non-Af 73, BUN/Creatinine Ratio 18.9, Glucose 114 H, Calcium 8.4 L, Total Bilirubin 0.40, AST 64 H, ALT 109 H, Alkaline Phosphatase 63, Total Protein 7.2, Albumin 3.6, Globulin 3.6, Albumin/Globulin Ratio 1.0 Current Medications Acetaminophen (Tylenol) 650 mg PO Q6H PRN PRN PRN Reason: Pain Score 1-10/Temp > 100.7 F Albuterol Sulfate (Ventolin Aerosols) 2.5 mg INHALATION Q2H PRN PRN PRN Reason: SOB/Wheezing Aspirin (Aspirin, Baby) 81 mg PO DAILY@0800 [facility] Last Admin: 02/16/20 06:02 Dose: 81 mg Documented by: Atorvastatin Calcium (Lipitor) 80 mg PO QHS [facility] Last Admin: 02/16/20 21:14 Dose: 80 mg Documented by: Atropine Sulfate () 0.5 mg IV UD PRN PRN Reason: HR <50 bpm Clopidogrel Bisulfate (Plavix) 75 mg PO DAILY [facility] Last Admin: 02/16/20 06:02 Dose: 75 mg Documented by: Dextrose (D50w Syringe) 0 gm IV X1 PRN; Protocol PRN Reason: Hypoglycemia Glucagon () 1 mg IM .X1 PRN PRN Reason: Hypoglycemia Heparin Sodium (Beef Lung) (Heparin 500 Unit/5 Ml (100/Ml)) 500 unit IV UD PRN PRN Reason: HEPARIN FLUSH Sodium Chloride () 1,000 mls @ 0 mls/hr IV .Q0M [facility] Last Infusion: 02/16/20 19:00 Dose: Infused Documented by: Labetalol HCl (Trandate) 5 mg IV X1 PRN PRN Reason: SBP > 160 when pulling sheath Stop: 02/18/20 09:06 Lisinopril (Zestril) 2.5 mg PO DAILY [facility] Last Admin: 02/16/20 06:02 Dose: 2.5 mg Documented by: Melatonin (Melatonin) 3 mg PO QHS PRN PRN PRN Reason: INSOMNIA Metoprolol Succinate (Toprol Xl (Beta Cheryl)) 25 mg PO DAILY [facility] Last Admin: 02/16/20 06:02 Dose: 25 mg Documented by: Morphine Sulfate () 2 mg IV Q3H PRN PRN PRN Reason: Pain Score 6-10/10 Nitroglycerin (Nitrostat) 0.4 mg SUBLINGUAL Q5M PRN PRN Reason: CARDIAC/CHEST PAIN Jaorq-6-Isxl Ethyl Esters (Lovaza) 2 gm PO DAILY [facility] Last Admin: 02/16/20 11:16 Dose: 2 gm Documented by: Ondansetron HCl (Zofran) 4 mg IV Q8H PRN PRN PRN Reason: NAUSEA/VOMITING Senna/Docusate Sodium (Senokot-S, Joana-Colace) 2 tablet PO BID PRN PRN PRN Reason: Constipation Sodium Chloride () 10 - 40 ml IV UD PRN PRN Reason: SALINE FLUSH Last Admin: 02/16/20 07:26 Dose: 10 ml Documented by: Sodium Chloride () 500 ml IV BOLUS PRN PRN Reason: VASO-VAGAL PROTOCOL Discharge Diet: Low fat/ Low Cholesterol, Carb Control Diet Discharge Activity: Return to Normal Activity Call your doctor if you observe: Shortness of breath, Dizziness, Fainting spells, Chest pain Home Medications: Medications to take at Discharge Aspirin [Aspirin, Baby] 81 mg PO DAILY 11/17/18 nitroglycerin 0.4 mg sublingual tablet 0.4 mg SUBLINGUAL Q5-15M PRN 11/29/18 omega-3 fatty acids 1,000 mg capsule 2 cap PO DAILY 12/04/18 clopidogrel 75 mg tablet 75 mg PO DAILY #90 tab 12/16/19 lisinopril 2.5 mg tablet 2.5 mg PO DAILY #90 tab 12/16/19 Metoprolol Succinate 25 mg PO DAILY 02/13/20 Atorvastatin Calcium 40 mg PO QHS #30 tab 02/17/20 metFORMIN (XR) [Glucophage Xr] 500 mg PO DAILY #30 tab 02/17/20 Following Prescrptions Were Given to Patient: Atorvastatin Calcium 40 mg PO QHS #30 tab Transmission Status: Received by [facility] #[id number] metFORMIN (XR) [Glucophage Xr] 500 mg PO DAILY #30 tab Transmission Status: Received by [facility] #[id number] Other Amb Orders: Glucometer Location: None Selected Primary Care Physician: Maximo Samayoa DO [Primary Care Provider] - Please follow up with your Primary Care Physician in: 1 Week Please Follow Up With: Gordo Ramirez MD When: 2-4 weeks Disposition: Home Minutes spent on discharge:: 35 Patient Condition:: Stable Medical Necessity - Tobacco Use Smoking Status: Former smoker Tobacco Use: Cigarettes Meaningful Use Info Meaningful Use Diagnoses (Choose all that apply): None applicable <Eva Miranda - Last Filed: 02/17/20 14:36> Discharge Date and Diagnosis - Secondary Discharge Diagnosis Chronic Problems: Chronic Problems (Last Reviewed 02/13/20 @ 15:[address] Destiny Briscoe, DO) Hyperlipidemia (Chronic) Atherosclerosis of coronary artery of [place] without angina pectoris (Chronic) Hospital Course and Treatment Summary of Care Provided: This patient was seen in conjunction with Terri Amaya NP. I have independently interviewed and examined the patient and reviewed pertinent historical, laboratory, and other data. Please refer to her note for patient's presentation, findings, and recommendations. 54-year-old male with past medical history of CAD who was abnormal. Admitted with 2-day history of chest pain. This was not associated with any nausea vomiting or lightheadedness. EKG showed normal sinus rhythm, no acute ST-T changes. Patient's cycled troponins were abnormal. Patient underwent cardiac catheterization on 02/16/20 which showed stenosis in the mid and distal ramus as well as distal left circumflex artery. He subsequently underwent intervention with stents placement. He was monitored overnight in the ICU with no acute events. On the day of discharge, patient was seen and examined. Denied any new complaints. No chest pain or dizziness or palpitation. He will follow-up in the outpatient with cardiology. Vitals were reviewed -stable Physical Exam: Gen: Comfortable, not pale, not jaundiced, alert oriented x3 CVS:HS I +II, regular, no murmurs RESP: CTA GI: BS present and normal, nontender, no palpable organs, right groin is soft, no hematoma, minor skin bruise EXT:No edema Labs reviewed: - Physical Exam Vitals/I&O's: Vital Signs Temp Pulse Resp BP Pulse Ox 98.0 F 70 16 113/74 95 02/17/20 09:00 02/17/20 09:51 02/17/20 09:38 02/17/20 09:51 02/17/20 09:38 Oxygen Flow Rate (L/min) 2 Oxygen Delivery Method Room Air Weight: 140 kg Body Mass Index (BMI) 39.0 Intake and Output for Last 24 Hours 0602/16/20 02/17/20 23:59 23:59 23:59 Intake Total 1800 / 1800 1773.5 / 1773.5 480 / 480 Output Total 450 / 450 Balance 1800 / 1800 1323.5 / 1323.5 480 / 480 Laboratory Results 02/17/20 03:25: WBC 7.8, RBC 5.27, Hgb 13.9, Hct 43.6, MCV 82.7, MCH 26.4 L, MCHC 31.9 L, RDW Std Deviation 41.1, RDW Coeff of Hillary 14.1, Plt Count 252, MPV 10.2 02/17/20 03:25: Sodium 137, Potassium 4.2, Chloride 106, Carbon Dioxide 24.0, Anion Gap 7, BUN 21 H, Creatinine 1.11, Estim Creat Clear Calc 88.81, Est GFR (MDRD) Af Amer 88, Est GFR (MDRD) Non-Af 73, BUN/Creatinine Ratio 18.9, Glucose 114 H, Calcium 8.4 L, Total Bilirubin 0.40, AST 64 H, ALT 109 H, Alkaline Phosphatase 63, Total Protein 7.2, Albumin 3.6, Globulin 3.6, Albumin/Globulin Ratio 1.0 02/17/20 10:40: POC Glucose 135 H OBSV E&M: [id number] Observation care discharge
[2020-02-17] MEDS: Metoprolol(XL)Succ 25 MG Tablet PO (09:51)
[2020-02-17] MEDS: Lisinopril 2.5 MG Tablet PO (09:52)
[2020-02-17] MEDS: Clopidogrel Bisulfate 75 MG Tablet PO (09:52)
[2020-02-17] MEDS: Aspirin 81 MG TAB.CHEW PO (09:52)
--- NOTE | 2020-02-17 10:00 | EKG12_ITS ---
Test Reason : AM EKG Blood Pressure : / mmHG Vent. Rate : 059 BPM Atrial Rate : 059 BPM P-R Int : 196 ms QRS Dur : 088 ms QT Int : 414 ms P-R-T Axes : 054 -20 038 degrees QTc Int : 409 ms Sinus bradycardia Otherwise normal ECG When compared with ECG of 16-FEB-2020 05:37, MANUAL COMPARISON REQUIRED, DATA IS UNCONFIRMED Confirmed by HANK LARA, SANJIV ([id number]), fashion editor TAWANA GERMAN ([id number]) on 02/24/2020 9:47:26 AM Referred By: ALLY Confirmed By:SANJIV MCKINNEY MD
[2020-02-17 11:01] LABS: Bedside Glucose 135 mg/dL (70-110)
== END 2020-02-17 11:15 | disposition home or self-care (01) ==
LOC: ED 12:55 → PCU 14:31 → ICU 02-16 08:28
PROVIDERS: Family Medicine; Internal Medicine; Internal Medicine Cardiovascular Disease; Nurse Practitioner Family; Admitting Provider Internal Medicine; Emergency Provider Emergency Medicine; PCP Family Medicine; Visit Provider Internal Medicine
DX: I25.110 Atherosclerotic heart disease of native coronary artery with unstable angina pectoris (principal); I10 Essential (primary) hypertension; E78.5 Hyperlipidemia, unspecified; E11.9 Type 2 diabetes mellitus without complications; E66.9 Obesity, unspecified; Z95.5 Presence of coronary angioplasty implant and graft; Z79.899 Other long term (current) drug therapy; Z79.82 Long term (current) use of aspirin; Z79.02 Long term (current) use of antithrombotics/antiplatelets; Z87.891 Personal history of nicotine dependence; Z68.39 Body mass index [BMI] 39.0-39.9, adult
CPT/HCPCS: 36415; 71045; 80048; 80053; 80061; 82962; 83036; 83735; 84484; 85025; 85027; 85347; 85610; 92928; 93005; 93458; 96360; 96361; 96372; 97802; 99152; 99153; 99218; 99285; C1760; J7030; J7120; A4216; C1769; C9600; G0378; Q9967

== ENCOUNTER → 2020-02-24 08:02 | Outpatient (CLI) | payer OTHER, SELFPAY ==
[2020-02-17 10:14] VITALS: BMI 39.0
--- NOTE | 2020-02-24 08:07 | CR.ITP_ITS ---
Diagnosis - General Information Admitting Diagnosis: PCI W/COROANRY STENT Personal Learning Style:: Audio/Visual, Written Barriers to Learning: Vision Impairment Stage of change r/t lifestyle modifications:: Action Gave educational material for:: Treating Heart Disease, Emotions & Heart Disease, Stress Management & Relaxation, Sleep Disorders & Heart Disease, How The Heart Works, What it means to have Heart Disease, How Coronary Artery Disease is Diagnosed, Heart Procedures, What Heart Medications Do, Risk Factors & Modifications, Living an Active Life, Nutrition - Education/Goals Individual Counseling: Initial Assessment: Nicotine/Smoking, Abnormal Cholesterol Levels, High Blood Pressure, Overweight/Obesity, Diabetes - [place] TYPE II DM, Metabolic Syndrome (as evidenced by 3 of 5 A-E below), A. Fasting Blood Sugar >100 - GLUCOSE 114 A1C 6.5, B. Waist Circumference >35/Females >40/Males - OBESITY BMI 39, C. High Triglycerides >150 - TRI 493, Hypertension - 113/74 CONTROLLED MEDICATIONS, Low HDL <40/Males or <50/Females - HDL 19 Cardiac Rehabilitation Goals: 1. Maintain the individual as the primary focus of care. 2. To improve the patient's quality of life. 3. Identification of cardiac risk factors and provide cardiac risk factor management. 4. Enhance the psychosocial status of the patient. 5. Reconditioning enough to allow the patient to resume customary activities. 6. Control symptoms of cardiac disease Personal Goals: Initial Assessment: Improve energy level, Improve muscle strength and endurance, Improve diet and eating habits (eat healthier), Control risk factors (learn risk factor modification) Scale for measuring improvement of personal goals: Enter appropriate number in Comments. 2 = Unchanged. 3 = Slightly Better. 4 = Moderate Improvement. 5 = Met my Goal - Diagnosis & Disease Process Outcomes/Goals: Pt IDs own risk factors & lifestyle modifications by Session 10, Verbalizes symptoms of angina & response by session 3., Pt independently manages Plan/Interventions: Assist Pt to ID & engage in lifestyle modification to reduce CVD risk, Instruct on individual risk factors, Review symptoms of angina & emergency actions, Review secondary diagnosis & identify educational needs. - Safety Referral to Physical Therapy: No Referral to [facility] Case Management: No Fall Risk Assessed:: Yes Assistive Devices:: None Exercise - Initial Assessment - Visit Date of Eval: 02/24/20 Session #:: 0 - INITIAL EVALUATION Mets: Pre-: >7 METS for 30 minutes by discharge - Physician Prescribed Exercise Modalities: Treadmill, Rower, Airdyne, NuStep Frequency: 3x/week for 12 weeks [36 sessions] Intensity: 60-80% of age predicted maximum heart rate reserve Target Heart Rate:: 106-139 Resting Blood Pressure: 113/74 EKG Type: SINUS BRADYCARDIA - Outcomes & Goals Goals:: Verbalizes understanding of THR, RPE & goal METS by session 6, Documents in home exercise log/reports 30 min aerobic 5 day/wk by DC, Demonstrates accurate pulse taking by DC - Intervention & Plan Exercise Program Goals: Instruct on personal THR & RPE, Instruct on MET level & personal MET goal, Show patient to take own pulse /validate performance until accurate, Instruct on home exercise - Physical Activity Home Exercise Physical Activity - Home Exercise: Safe Exercise, Warm-up, Self-monitoring, Cool-Down, Home Exercise > 30 min Daily, Sitting Time <3 hours/daily - Outcomes & Goals Outcomes/Goals: Demonstrates correct Warm-up/exercise Cool-Down (S3) if = 2.5 METs, Verbalizes symptoms of exercise intolerance by Session 3 (S3), Demonstrate safe equipment use (S3) & follows exercise prescrition (6) - Intervention & Plan Plan/Intervention: Instruct warm-up & cool-down if exercising at > 2 METs, Instruct on symptoms of exercise intolerance & actions to take, Instruct & monitor on saf, Assess intial functional capacity & safety risk Nutrition - Initial Assessment - Program Goals Nutrition Program Goals: LDL <100 optimal. 100 - 129 Near optimal. 130 - 159 Borderline High. 160 - 189 High. Total Cholesterol <200 desirable. 200 - 239 Borderline High. >/= 240 High. HDL < 40 Low >/=60 High. Triglycerides <150 desirable. <199 optimal. VlDL 5 - 40. HgbA1C <7%. BMI <25 Patient has diagnosis of Hyperlipidemia (ICD E78)?: Yes - Visit Date of Assessment:: 02/24/20 Session #:: 0 - INITIAL EVALUATION - Cholesterol/Lipids Triglycerides (mg/dL): 493 Total Cholesterol (mg/dL): 203 LDL Cholesterol (mg/dL): 0 - TNP HDL Cholesterol (mg/dL): 19 Determine presence & major risk factors that modify LDL goal: Cigarette smoking, Hypertension or hypertensive medication, Low HDL cholesterol <40 mg/dL*, Age men > 45 years; women >/= 55 years Outcomes/Goals: Pt IDs own risk factors & lifestyle modifications by Session 10, Verbalizes symptoms of angina & response by session 3., Pt independently manages Intervention/Plan: Instruct on personal lipid levels & lipid goals/NCEP guidelines, Instruct on cholesterol Referral to dietitian:: Yes - MEDICAL NUTRITION THERAPY/DSMNT & MNT/WHY WEIGHT - Diabetes (Other Core Measures) Diabetes Type: Diagnosis Type II ICD-10 E11 - [place] DM TYPE II / RISK METABOLIC SYNDROME Non-Insulin Dependent?: Yes - METFORMIN 500MG Do you monitor your blood sugar at home?: Yes Referral to Diabetic Clinic:: Yes - DSMNT & MNT Outcomes/Goals:: Able to state symptoms of, Able to state, Able to state Intervention/Plan:: Instruct on, Refer to, Instruct on - Weight Mgt (Other Care) Not Applicable: No Height: 6 ft 3 in Weight:: 308 lb BMI: 38.5 Diagnosis Overweight/Obesity BMI> 30% ICD-10 E66: Yes Diagnosis High BMI/Morbid Obesity BMI> 35% ICD-10 Z68: Yes Outcomes/Goals: Pt sets, maintains & shows weight loss goal & trend during rehab Intervention/Plan: Instruct on ideal BMI & set weight loss goal w/patient, Assist pt to ID & incorporate diet changes for weight loss by S9, Refer to Structured Weight Loss program as appropriate, Encourage goal of using 250- 300dcal per session for weight loss - Healthy Eating Habits Will attend diet classes:: Yes Outcomes/Goals:: Consume diet rich in vegs,fruits,whole grain/high fiber,fish,lean meat, Limit sat/trans fats,cholesterol & added salts & sugars Intervention/Plan:: Assess current eating habits - Education Gave educational materials for:: Signs & symptoms of hypoglycemia, Signs & symptoms of hyperglycemia, Relate diabetes to coronary artery disease, Healthy eating Medical - Initial Assessment - Visit Date of Eval: 02/24/20 Session #:: 0 - INITIAL EVALUATION - Medication Compliance Preventative Medication(s):: Aspirin, Clopidogrel/P2Y12 inhibit, Statin/lipid, Beta ash H/O mental health issues: depression, anxiety, or addiction?: No Doesn?t believe in the benefits of treatment?: No Believes medications are unnecessary or harmful?: No Has a concern about medication side effects?: No Expresses concern over the cost of medications?: No Outcomes/Goals: Verbalizes medications,desired effect & common side effects @ DC, Pt self-reports following medication regimen, Keeps card in wallet w/medications listed by DC Interventions/plans: Instruct on medication effects & side effects, Review medication list w/patient every two weeks, Instruct importance of taking meds as ordered & assist problem solving - Tobacco Use Tobacco Use: Cigarettes - RECENT QUIT HEAVY SMOKER > 10/DAY How long ago did you quit using tobacco products?: Less than 6 months ago Do you use smokeless tobacco?: No Outcomes/Goals: Smoking cessation achieved or maintained by discharge, Identify aids/strategies for achieving smoking cessation by session 6 Interventions/plan: Instruct on effects of smoking & provide smoking cessation resource, Assist pt to set quit date & provide encouragement, Assist pt w/nicotine replacement & medication for cessation success - Hypertension Hypertension Diagnosis:: Hypertension ICD-10 I10 Resting Blood Pressure:: 113/74 [place] [employer] Hypertension Guidelines: [place] [employer] Hypertension Guidelines. Normal BP Less than 120/80. Elevated BP 120/80. Hypertension Stage 1: BP 130-139/80-89. Hypertesnion Stage 2: BP 140 or higher/90 or higher. Hypertension Crisis: BP higher than 180/120 Outcomes/Goals: Able to verbalize/achieve optimal blood pressure <130/80, Incorporates diet changes & exercise for blood pressure control by DC Interventions/plan: Instruct on optimal blood pressure, hypertension & medications, Instruct on effects of sodium, alcohol, stress, exercise &hypertension - Tobacco Cessation Referral Smoking Cessation Referral:: Yes Individual Education/Counseling:: Yes - SMOKING CESSATION NICOTINE DEPENDENCY Education Schedule Given:: Yes Psychosocial - Initial Assess - VIsit Date of Eval: 02/24/20 Session #:: 0 - INITIAL EVALUATION Not Applicable: Yes History of previous Mental disease:: No - Target Goals Target Goals: Assess presence or absence of depression. Using a valid screening tool, maximizes coping skills. Positive support system - Psychosocial Test Tool Used:: [employer] SuperDimension QOL Cardiac, PHQ-9 Questionnaire phq-9 Severity: Severity. 1-4 Minimal Depression. 5-9 Mild Depression. 10-14 Moderate Depression. 15-19 Moderately Sever Depression. 20-27 Severe Depression. Rule: - Referral to Behavioral Health PS - Interventions: Yes Attend Stress Management Classes, No Referral to [facility] - Outcomes/Goals: See list Psychosocial Outcomes/Goals:: ID's personal stressors & 2 strategies to manage stress by discharge - Intervention/Plan: See List Interventions/Plan:: Assess stressors,coping strategies & signs of derpression on admission, Instruct/assist pt to develop coping & personal stress Mgt strategies, Instruct patient to recognize signs & symptoms of depression, Instruct patient to recog Patient Health Questionnaire Initial Assessment 1. Little interest or pleasure in doing things: Not at all 2. Feeling down, depressed, or hopeless: Not at all 3. Trouble falling or staying asleep, or sleeping too much: Not at all 4. Feeling tired or having little energy: Not at all 5. Poor appetite or overeating: Several days 6. Feeling bad about yourself -- or that you are a failure or have let yourself or your family down: Several days 7. Trouble concentrating on things, such as reading the newspaper or watching television: Not at all 8. Moving or speaking so slowly that other people could have noticed. Or the opposite - being so fidgety or restless that you have been moving around a lot more than usual: Not at all 9. Thoughts that you would be better off , or of hurting yourself in some way: Not at all How difficult have these problems made it for you to do your work, take care of things at home, or get along with other people?: Not difficult at all Total Score: 2 MAXIMILIANO-Q SV Test - Statements CAD is a disease of the arteries in the heart: True Examples of risk factors for heart disease: True Angina is chest pain or discomfort: False The benefits of resistance training include: True Eating more meat and dairy products: False Anti-platelet medications such as aspirin are important: True The only effective way to manage stress: False An exercise warm-up slowly increases heart rate: True Prepared, processed foods usually have high sodium: True Depression is common after a heart attack: I Don't Know The statin medications lower cholesterol: True To control blood pressure, lower the amount of sodium: True If someone gets chest discomfort during walking: False Transfats are partially hydrogenated vegetable oils: True Sleep apnea that is not treated increases the risk: I Don't Know To control cholesterol, one should become a vegetarian: False Someone knows if he/she is exercising at the right level: True Diabetes cannot be prevented with exercise & health eating: False Stress is a large risk for heart attack: True A diet that can help lower blood pressure is rich in: True - Total Score Total Correct Responses: 16 Self-Efficacy Initial Assessment We would like to know how confident you are in doing certain activities. Please select your confidence level for:: Select your confidence level for the following using the scale 1-10 where 1 is not at all confident and 10 is totally confident. Your score is the average of all 6 responses. Fatigue: How confident are you that you can keep the fatigue caused by your disease from interfering with the things you want to do? Select Number: 9 Physical Discomfort or Pain: How confident are you that you can keep the physical discomfort or pain of your disease from interfering with the things you want to do? Select Number: 8 Emotional Distress: How confident are you that you can keep the emotional distress caused by your disease from interfering with the things you want to do? Select Number: 8 Other Symptoms or Health Problems: How confident are you that you can keep other symptoms or health problems from interfering with the things you want to do? Select Number: 8 Different Tasks and Activities: How confident are you that you can do the different tasks and activities needed to manage your health condition so as to reduce your need to see a doctor? Select Number: 7 Medication: How confident are you that you can do things other than just taking medication to reduce how much your illness affects your everyday life? Select Number: 8 Total Score:: 8 Nutrition Survey - Nutrition Survey Instructions Scoring Instructions: Scoring is as follows: Yes = 1 points. No = 0 point. Patient score that is >/=12 is considered to be at potential nutritional risk and could benefit from a referral to a registered dietitian. - Nutrition Survey Initial Have you lost >10 lbs over the past 2 months without trying?: No Are you following a special diet at home for diabetes, low fat, or low salt?: Yes Are you interested in meeting with a dietitian for help understanding your diet?: No Do you eat less than 3 meals a day?: Yes Do you eat fatty meats (lockhart, sausage, ribs, etc), fried foods, desserts, large amounts of salad dressings, margarine, butter, or cheese most days?: No Do you have food allergies? [Enter types in comment field]: No Do you eat in restaurants more than 3 times a week?: No Do you season food with salt, seasoning salt, or garlic salt?: Yes Do you used canned, boxed, frozen meals, or soups, seasoning packets?: No Total Score:: 3
--- NOTE | 2020-02-24 08:07 | PCM.CR.HP2 ---
CR - History & Physical - General Arrival date:: 02/24/20 Arrival time:: 08:09 Date of Referral:: 02/17/20 Date of CR Evaluation:: 02/24/20 Referring Physician: DR. SANJIV MCKINNEY Primary Diagnosis: PCI W/CORONARY STENTING - History of Present Cardiac Event Onset Date: Enter Onset Date of cardiac illnesses in Comment field below PTCA or coronary stenting:: Yes - 02/16/2020 Type of Symptoms:: INTERMITTENT CHEST PAIN FOR TWO DAYS, PRESENTED TO EMERGENCY ROOM W/ELEVATED TROPONIN. PATIENT STRONG CARDIAC HISTORY. PATIENT HAD PREVIOUS STENT PLACEMENT IN 2013. Interventions with present event:: HEART CATH/PCI INTERVENTION Were there any complications?: NONE - Medications Home Medications: Ambulatory Orders Medication Instructions Recorded Aspirin [Aspirin, Baby] 81 mg PO DAILY 11/17/18 nitroglycerin 0.4 mg sublingual 0.4 mg SUBLINGUAL Q5-15M PRN 11/29/18 tablet omega-3 fatty acids 1,000 mg 2 cap PO DAILY 12/04/18 capsule clopidogrel 75 mg tablet 75 mg PO DAILY #90 tab 12/16/19 lisinopril 2.5 mg tablet 2.5 mg PO DAILY #90 tab 12/16/19 Metoprolol Succinate 25 mg PO DAILY 02/13/20 Atorvastatin Calcium 40 mg PO QHS #30 tab 02/17/20 metFORMIN (XR) [Glucophage Xr] 500 mg PO DAILY #30 tab 02/17/20 - Allergies Allergies/Adverse Reactions: Allergies No Known Allergies Allergy (Verified 02/13/20 11:58) - Sleep Disorder Evaluation Hx of Sleep Apnea: Yes Do you snore loudly (louder than talking or can be heard through closed doors)?: Yes - SUSPECTED MARTIR Do you often feel tired/ fatigued/ sleepy during daytime?: No Has anyone observed you stop breathing during sleep?: No History of Hypertension (for STOP score): Yes STOP Results: Positive Advanced Directives - Advanced Directives Power of Financial Reporting Advisor: No Living Will: No Advance Directives Information Provided: Yes Advance Directives on File: No DNR Order?:: No - MOLST See MOLST form: No Past Medical History - Past Medical Illness Medical History: Past Medical History (Last Updated 02/24/20 @ 08:30 by Josiah Shen, CHILD WELFARE SPECIALIST, FARM MACHINERY MECHANIC, BS) Hyperlipidemia (Chronic) E78.5 Atherosclerosis of coronary artery of [place] heart without angina pectoris (Chronic) I25.10 NEWLY DIAGNOSED TYPE II DIABETES MELLITU Hypertension I10 Obesity E66.9 - Past Surgical History Surgical History: Past Surgical History (Last Updated 02/17/20 @ 17:42 by Harper Rodriguez) History of coronary artery stent placement (Resolved) Onset Date: 02/16/20 Z95.5 Prox LAD 01/29/2014 Waqar; Ramus intermedius 02/16/2020 @ [facility] History of left heart catheterization Onset Date: 11/18/18 Z98.890 Surgical History: total knee arthroplasty - Family History Summary Family History: Family History (Last Reviewed 02/13/20 @ 15:[address] Destiny Briscoe, DO) Father Heart disease Social History - Smoking History Smoking Status: Former smoker Years Smokin - QUIT SMOKING IN 1992 Packs Smoked per Day: 1 Hx Tobacco Use: Yes Hx Smoking Exposure: No - Alcohol Use Alcohol Usage: No - Substance Abuse Hx Substance Use: No - Occupation Occupation (List type of work in comments):: Employed Hours worked per day:: 8 Returned to work on:: 02/23/20 - Hobbies, Recreation, Social Activities Hobbies: Other - HUNTING FISHING Recreational Activities: I am able to engage in most, but not all activities Social Environment - Status Marital Status: - Current Living Arrangements Living Environment:: Spouse - Children How many children do you have?: 2 Do any of your children live nearby?: Yes - Safety Do you feel safe in your surroundings?: Yes - Assistance Do you need any assistance at home?: NONE Review of Systems - Review of Systems Hints: Right click = Denies (Slash). Left click = Reports ([place]) Review of Present Symptoms: Reports: Heart Arrhythmia/Irregularities - SINUS BRADYCARDIA, Appetite - Normal, Appetite - Special Diet - CARDIAC DIET, LOW FAT, LOW SODIUM, LOW CHOLESTEROL. JUST NEWLY DIAGNOSED DM TYPE II., Sleep - Normal - SUSPECTED MARTRI.. Denies: Shortness of Breath at Rest, Shortness of Breath with Exertion, Angina, Dizziness/Lightheadedness, Fatigue, Sexual Changes - Pain Is Patient Pain Free?: Yes Pain Location: none Pain Level: 0/10 Risk Factor Assessment - Chief Complaint Chief Complaint: PATIENT IS A 54 YR OLD MALE OF DR. MCKINNEY WHO PRESENTS TO CARDIAC REHAB TODAY FOLLOWING RECENT HOSPITALIZATION W/PCI INTERVENTION ON 02/16/2020. - Vital Signs Temperature: 98 F Respiratory Rate: 16 Pulse Ox: 95 Blood Pressure: 113/74 - Pulse Pulse Rate: 70 Pulse Rhythm: Regular - Hypertension How long have you been treated?: COUPLE OF YEARS, PATIENT NOT VERY INFORMATIVE On medication(s)?: YES Blood Pressure Sitting - Left Arm: 113/74 - Blood Cholesterol/Lipids Total Cholesterol (mg/dL) Goal = less than 200 mg/dL: 203 HDL Cholesterol (mg/dL) Goal = less than 40 mg/dL: 19 LDL Cholesterol (mg/dL) Goal = less than 70 mg/dL: 0 - TNP Triglycerides (mg/dL) Goal = less than 150 mg/dL: 493 - Diabetes Diabetic History: Type II - [place] DM TYPE II, Medication Dependent Nutrition Referral for Diabetes: Yes - Obesity Height: 6 ft 3 in Weight:: 308 lb Weight in Pounds: 308.0 lbs Weight Source: Stated by Patient Body Mass Index (BMI): 38.5 Nutritional Referral for Obesity: Yes - WHY WEIGHT PROGRAM - Risk Stratification Risk Guidelines: Lowest Risk: Risk Factor for Hypertension - CURRENTLY CONTROLLED, Risk Factor for Sedentary Lifestyle, Risk Factor for Depression, Moderate Risk: Risk Factor for Diabetes, Highest Risk: Risk Factor for Smoking - RECENT QUIT HEAVY SMOKER > 10 PER DAY, Risk Factor for Dyslipidemia, Risk Factor for Obesity - For Smoking Smoking Risk Guidelines: Smoking Low Risk: None or quit greater than 6 months ago. Smoking Moderate Risk: Smoker or quit 6 months or less ago. Smoking High Risk: Smoker - For Dyslipidemia Dyslipidemia Risk Guidelines: Low Risk: Moderate Risk: High Risk: 15-25% fat 25.1-29% fat >/= 30% fat. <7% sat fat 7-9% sat fat >9% sat fat. <150 mg chol 150-299 mg chol >/= 300 mg chol. LDL <100 LDL 100-129 LDL >/= 130. Chol/HDL ratio <5.0 Chol/HDL ratio 5.0-6.0 Chol/HDL ratio >6.0. Triglycerides <100 Triglycerides 100-149 Triglycerides >/= 150 - For Diabetes Mellitus Diabetes Risk Guidelines: Diabetes Low Risk: HgA1c <6.5% and/or FBG <120. Diabetes Moderate Risk: HgA1c 6.6-7.9% and/or FBG 120-180. Diabetes High Risk: HgA1c >/= 8% and/or FBG >180 - For Obesity/Overweight Obesity/Overweight Risk Guidelines: Obesity Low Risk: BMI <25.0. Obesity Moderate Risk: BMI 25-29.9. Obesity High Risk: BMI >/= 30.0 - For Hypertension Hypertension Risk Guidelines: Hypertension Low Risk: Systolic <120 and Diastolic <80. Hypertension Moderate Risk: Systolic 120-139 and Diastolic 80-89. Hypertension High Risk: Systolic >/= 140 and Diastolic >/= 90 - For Sedentary Lifestyle Sedentary Lifestyle Risk Guidelines: Sedentary Lifestyle Low Risk: >/= 1,500 kcal/week. Sedentary Lifestyle Moderate Risk: 700-1,499 kcal/week. Sedentary Lifestyle High Risk: < 700 kcal/week - For Depression Depression Risk Guidelines: Depression Low Risk: Not clinically depressed. Depression Moderate Risk: Mildly depressed. Depression High Risk: Clinically depressed - Family History Family History: Family History (Last Reviewed 02/13/20 @ 15:[address] Destiny Briscoe, DO) Father Heart disease Motivation - Motivation to Participate On a scale of 1 to 10, how prepared are you to commit to attending program?: 5 What do you see as barriers to successfully being able to complete the program?: AFFORD What do you see as the benefits of succesfully completing the program? In other words, what do you hope to get out of participating in the program?: KNOWING MORE ABOUT HEART DISEASE AND WHAT I NEED OT BE DOING FOR MY HEALTH Are there issues you are dealing with that will interfere with completing the program?: FINANCIALLY ABLE TO AFFORD IT BASED ON INSURANCE Do you have a spouse or signficant other, family or friends who will help support you to complete the program?: YES.
[2020-02-24 08:36] VITALS: BP 113/74; PULSE 70; RESP 16; TEMP 36.6; O2SAT 95; BMI 38.5
[2020-02-24 09:21] VITALS: BP 113/74; BMI 38.5
== END ==
PROVIDERS: PCP Family Medicine; Referring Provider Internal Medicine Cardiovascular Disease; Visit Provider Internal Medicine Cardiovascular Disease
DX: E66.9 Obesity, unspecified (principal); E78.5 Hyperlipidemia, unspecified; I10 Essential (primary) hypertension

== ENCOUNTER → 2020-06-23 06:45 | Outpatient (CLI) | payer OTHER, SELFPAY ==
[2020-02-24 09:21] VITALS: BMI 38.5
[2020-06-14 07:43] VITALS: BMI 36.3
[2020-06-23 09:08] LABS: AST(SGOT) 14 U/L (15-37); Alanine Aminotransfer ALT/SGPT 38 U/L (16-61); Alkaline Phosphatase 76 U/L (45-117); Bilirubin, Direct 0.19 mg/dL (0.00-0.30); Cholesterol 106 mg/dL (200); Globulin 3.9 g/dL (2.2-4.2); High Density Lipoprotein 29 mg/dL; Protein, Total 7.9 g/dL (6.4-8.2); Triglycerides 99 mg/dL; Very Low Density Lipoprotein 20 mg/dL (5-40)
== END ==
PROVIDERS: PCP Family Medicine; Referring Provider Internal Medicine Cardiovascular Disease; Visit Provider Internal Medicine Cardiovascular Disease
DX: E78.5 Hyperlipidemia, unspecified (principal); E78.1 Pure hyperglyceridemia
CPT/HCPCS: 36415; 80061; 80076

== ENCOUNTER → 2020-12-06 06:11 | Outpatient (CLI) | payer OTHER, SELFPAY ==
[2020-02-24 09:21] VITALS: BMI 38.5
--- NOTE | 2020-12-06 12:32 | STRESSREP_ITS ---
Stress Test Report Exercise myocardial perfusion stress test. 55-year-old man with a history of coronary artery disease status post angioplasty and stenting of the left circumflex artery. Stress protocol: Resting EKG demonstrates normal sinus rhythm with a rate of 52 bpm normal intervals are noted resting blood pressure is 116/70 mmHg. The patient exerci sed according to the regular [place]ano protocol for a total duration of 9 minutes and 10 seconds. The maximum heart rate was 142 bpm which was 87% of max impacted heart rate the maximum workload was 10.4 metabolic equivalents. At rest there were no ST or T wave changes noted to suggest ischemia and at peak exercise upsloping ST changes only were noted which did not meet the criteria for ischemia. No clinical angina was noted. The test was terminated due to the target heart rate being achieved. The resting blood pressure was 116/70 with a peak blood pressure 160/69 mmHg. Myocardial perfusion protocol. 14.8 mCi of technetium 99m sestamibi was injected at rest. The patient exercised according to regular Cayetano protocol for a total duration of 9 minutes and 10 seconds. At peak exercise 44.9 mCi of technetium 99m sestamibi was injected stress images were obtained stress and rest images were reconstructed and compared in the short axis vertical long and horizontal long axis. Gated images were also obtained. Perfusion SPECT analysis: Review of the stress images demonstrate normal uptake of tracer noted in all areas of the myocardium, the resting images similar demonstrated normal uptake of tracer noted in all areas of the myocardium. There is mild inferior wall attenuation artifact noted. No obvious ischemia is noted and no previous infarct is present. Gated SPECT analysis: The gated ejection fraction is 55%. Conclusion: Exercise myocardial perfusion stress test at a high workload with no evidence of ischemia. Inferior attenuation artifact is present.
== END ==
PROVIDERS: PCP Family Medicine; Referring Provider Internal Medicine Cardiovascular Disease; Visit Provider Internal Medicine Cardiovascular Disease
DX: R53.83 Other fatigue (principal); R42 Dizziness and giddiness; M79.602 Pain in left arm; I25.2 Old myocardial infarction; I25.10 Atherosclerotic heart disease of native coronary artery without angina pectoris; Z95.5 Presence of coronary angioplasty implant and graft
CPT/HCPCS: 78452; 93017; A9500; A4216

== ENCOUNTER → 2020-12-22 08:03 | Outpatient (CLI) | payer OTHER, SELFPAY ==
[2020-02-24 09:21] VITALS: BMI 38.5
[2020-12-22 09:12] LABS: AST(SGOT) 19 U/L (15-37); Alanine Aminotransfer ALT/SGPT 43 U/L (16-61); Albumin, Serum 4.2 g/dL (3.2-5.0); Alkaline Phosphatase 77 U/L (45-117); Bilirubin, Direct 0.18 mg/dL (0.00-0.30); Cholesterol 126 mg/dL (200); Globulin 3.7 g/dL (2.2-4.2); High Density Lipoprotein 27 mg/dL; Protein, Total 7.9 g/dL (6.4-8.2); Triglycerides 150 mg/dL; Very Low Density Lipoprotein 30 mg/dL (5-40)
== END ==
PROVIDERS: PCP Family Medicine; Referring Provider Physician Assistant Medical; Visit Provider Physician Assistant Medical
DX: E78.00 Pure hypercholesterolemia, unspecified (principal); E78.5 Hyperlipidemia, unspecified
CPT/HCPCS: 36415; 80061; 80076

== ENCOUNTER → 2021-06-22 07:51 | Outpatient (CLI) | payer OTHER, SELFPAY ==
[2020-02-24 09:21] VITALS: BMI 38.5
[2021-06-22 09:14] LABS: AST(SGOT) 20 U/L (15-37); Alanine Aminotransfer ALT/SGPT 56 U/L (16-61); Albumin, Serum 4.1 g/dL (3.2-5.0); Alkaline Phosphatase 74 U/L (45-117); Bilirubin, Direct 0.15 mg/dL (0.00-0.30); Cholesterol 128 mg/dL (200); Globulin 3.6 g/dL (2.2-4.2); High Density Lipoprotein 24 mg/dL; Protein, Total 7.7 g/dL (6.4-8.2); Triglycerides 188 mg/dL; Very Low Density Lipoprotein 38 mg/dL (5-40)
== END ==
PROVIDERS: PCP Family Medicine; Referring Provider Physician Assistant Medical; Visit Provider Physician Assistant Medical
DX: E78.00 Pure hypercholesterolemia, unspecified (principal); E78.5 Hyperlipidemia, unspecified
CPT/HCPCS: 36415; 80061; 80076

== ENCOUNTER → 2022-01-23 | Outpatient (CLI) | payer OTHER, SELFPAY ==
[2020-02-24 09:21] VITALS: BMI 38.5
[2022-01-23 15:20] LABS: Absolute Lymphocyte Count 1.58 X10^3/uL (0.83-4.51); Absolute Neutrophil Count 4.1 X10^3/uL (2.0-7.7); Basophil# 0.08 X10^3/uL; Basophil% 1.2 % (0-1); Eosinophil# 0.27 X10^3/uL; Hematocrit 43.9 % (40-54); Lymphocyte # 1.58 X10^3/ul (0.83-4.51); Lymphocyte % 23.3 % (19-41); Mean Corp Hgb Conc 31.9 g/dL (32-36); Mean Corpuscular Hgb 26.9 pg (27.0-32.0); Mean Corpuscular Volume 84.4 fL (80-94); Mean Platelet Vol. 10.3 fl (6.2-12.0); Monocyte% 10.3 % (0-10); NRBC Flagged by Analyzer 0 % (0-5); Neutrophil # 4.11 X10^3/uL (2.7-7.7); Neutrophil % 60.5 % (47-70); Platelet Count 299 K/mm3 (150-450); RBC Distribution Width CV 13.2 % (11.6-14.6); RBC Distribution Width SD 40.4 fl (35.1-43.9); White Blood Count 6.8 K/mm3 (4.4-11.0)
[2022-01-23 16:07] LABS: Anion Gap 8 (5-15); BUN 26 mg/dL (7-18); BUN/Creat Ratio 22.6 RATIO (10-20); Chloride 106 mmol/L (98-107); Creatinine, Serum 1.15 mg/dL (0.70-1.30); EST Glomerular Filtration Rate 69 mL/min (>60); Est Glom Filt Rate - Afr Amer 84 mL/min (>60); Free T3 2.7 pg/mL (2.18-3.98); Glucose 164 mg/dL (74-106); Magnesium 1.9 mg/dL (1.6-2.6); Sodium Level 140 mmol/L (136-145); Thyroid Stim Hormone (TSH) 1.12 uIU/mL (0.358-3.74)
== END | disposition home or self-care (01) ==
LOC: LAB 14:12
PROVIDERS: PCP Family Medicine; Referring Provider Nurse Practitioner Gerontology; Visit Provider Nurse Practitioner Gerontology
DX: R00.2 Palpitations (principal)
CPT/HCPCS: 36415; 80048; 83735; 84439; 84443; 84481; 85025

== ENCOUNTER → 2022-02-02 | Outpatient (CLI) | payer OTHER, SELFPAY ==
[2020-02-24 09:21] VITALS: BMI 38.5
== END | disposition home or self-care (01) ==
LOC: PSN 08:22
PROVIDERS: PCP Family Medicine; Referring Provider Nurse Practitioner Gerontology; Visit Provider Nurse Practitioner Gerontology
DX: R00.2 Palpitations (principal)
CPT/HCPCS: 93225; 93226

== ENCOUNTER → 2022-04-06 | Outpatient (CLI) | payer OTHER, SELFPAY ==
[2020-02-24 09:21] VITALS: BMI 38.5
[2022-04-06 10:54] LABS: AST(SGOT) 18 U/L (15-37); Alanine Aminotransfer ALT/SGPT 50 U/L (16-61); Alkaline Phosphatase 75 U/L (45-117); Bilirubin, Direct 0.08 mg/dL (0.00-0.30); Cholesterol 149 mg/dL (200); Globulin 3.6 g/dL (2.2-4.2); High Density Lipoprotein 27 mg/dL; Protein, Total 7.6 g/dL (6.4-8.2); Triglycerides 230 mg/dL; Very Low Density Lipoprotein 46 mg/dL (5-40)
== END | disposition home or self-care (01) ==
LOC: LAB 09:19
PROVIDERS: PCP Family Medicine; Referring Provider Physician Assistant Medical; Visit Provider Physician Assistant Medical
DX: E78.5 Hyperlipidemia, unspecified (principal)
CPT/HCPCS: 36415; 80061; 80076

== ENCOUNTER → 2022-10-02 | Outpatient (CLI) | payer OTHER, SELFPAY ==
[2020-02-24 09:21] VITALS: BMI 38.5
--- NOTE | 2022-10-02 06:58 | CT_ITS ---
STUDY: CT SCAN LOWER EXTREMITY RIGHT REASON FOR EXAM: Male, 57 years old. Templating right TKA. LYDIA protocol. RADIATION DOSAGE (If Supplied By Facility): CTDIvol = ( 19.09 ) mGy, DLP = ( 3126.27 ) mGycm. Individualized dose optimization techniques were used for this CT.? TECHNIQUE: Multiple axial tomographic images of the hip joint, knee joint and ankle joint were obtained. Coronal and sagittal reconstruction was obtained as well. COMPARISON: None. FINDINGS: Imaging of the hip joint was obtained. No significant joint space narrowing is seen. There is evidence of a small inguinal hernia containing fat. Imaging of the knee joint was obtained. There is a marked degree of joint space narrowing involving the medial compartment of knee joint with evidence of degenerative spur formation of the medial and lateral femoral condyles as well as the lateral tibial plateau. There is also evidence of small subchondral geodes along the medial tibial plateau. Moderate degree of joint space narrowing of the patellofemoral joint. Tiny joint effusion. Imaging of the ankle joint was obtained. No significant abnormality is seen. CT/Extremity Lower without Contra IMPRESSION: Moderate degree of joint space narrowing with degenerative spur formation involving the medial compartment of knee joint. Electronically Signed: Liu Clements MD at 9:03 EST ,
== END | disposition home or self-care (01) ==
LOC: CT 06:56
PROVIDERS: PCP Family Medicine; Referring Provider Orthopaedic Surgery; Visit Provider Orthopaedic Surgery
DX: M17.11 Unilateral primary osteoarthritis, right knee (principal); M25.40 Effusion, unspecified joint
CPT/HCPCS: 73700

== ENCOUNTER 2022-10-10 14:41 | Observation (INO) | payer OTHER, SELFPAY ==
[2020-02-24 09:21] VITALS: BMI 38.5
--- NOTE | 2022-10-02 07:10 | EKG12_ITS ---
Test Reason : PRE-OP Blood Pressure : / mmHG Vent. Rate : 068 BPM Atrial Rate : 068 BPM P-R Int : 176 ms QRS Dur : 086 ms QT Int : 376 ms P-R-T Axes : 013 -40 051 degrees QTc Int : 399 ms Normal sinus rhythm Left axis deviation Abnormal ECG Confirmed by HANK LARA, SANJIV ([id number]), managing editor TAWANA GERMAN ([id number]) on 10/02/2022 11:00:11 AM Referred By: Leonel Witt Confirmed By:SANJIV MCKINNEY MD
[2022-10-02 08:04] LABS: Absolute Neutrophil Count 3.3 X10^3/uL (2.0-7.7); Basophil# 0.08 X10^3/uL; Basophil% 1.4 % (0-1); Eosinophil# 0.26 X10^3/uL; Eosinophils% 4.6 % (0-5); Hematocrit 47.7 % (40-54); Hemoglobin 15.2 g/dL (13.0-16.5); Lymphocyte % 23.1 % (19-41); Mean Corp Hgb Conc 31.9 g/dL (32-36); Mean Corpuscular Volume 84.6 fL (80-94); Mean Platelet Vol. 9.9 fl (6.2-12.0); Monocyte# 0.62 X10^3/uL; NRBC Flagged by Analyzer 0 % (0-5); Neutrophil # 3.33 X10^3/uL (2.7-7.7); Neutrophil % 59.4 % (47-70); Platelet Count 299 K/mm3 (150-450); RBC Distribution Width CV 13.3 % (11.6-14.6); RBC Distribution Width SD 41.1 fl (35.1-43.9); Red Blood Count 5.64 M/mm3 (4.6-6.2); White Blood Count 5.6 K/mm3 (4.4-11.0)
[2022-10-02 08:22] LABS: Anion Gap 7 (5-15); BUN 17 mg/dL (7-18); BUN/Creat Ratio 13.1 RATIO (10-20); Chloride 105 mmol/L (98-107); EST Glomerular Filtration Rate 60 mL/min (>60); Est Glom Filt Rate - Afr Amer 73 mL/min (>60); Glucose 131 mg/dL (74-106); Potassium 4.7 mmol/L (3.5-5.1); Sodium Level 137 mmol/L (136-145)
[2022-10-02 08:27] LABS: Magnesium 2.2 mg/dL (1.6-2.6)
[2022-10-02 08:40] LABS: International Normalized Ratio 1.1; Prothrombin Time (Protime)PT. 13.6 SECONDS (11.7-14.9)
[2022-10-02 08:41] LABS: Partial Thromboplast Time 26.8 Seconds (24.1-36.2)
[2022-10-02 08:45] LABS: Hemoglobin A1c 6.8 % (3.8-5.6)
[2022-10-04 20:55] LABS: Fructosamine 246 umol/L (0-285)
[2022-10-10] VITALS (10 sets, daily range): BP systolic 105–126; BP diastolic 61–79; PULSE 53–72; RESP 16–18; TEMP 36.1–36.9; O2SAT 92–100; BMI 38.8; BMI 38.6
--- NOTE | 2022-10-10 10:08 | HP.PCM_ITS ---
History and Physical Date of Admission: 10/10/22 [facility] [id number] [place] [address] OFFICE VISIT Date of Service:? 09/13/22 MR#: [id number] Acct: [id number] Name:QI TAYLOR Rep #: [id number] : 1965 ? ? Provider: Dr. Leonel Witt, DO Age/Sex:? 57/M ? ? [place] [facility] [place] Signed with Addenda ADDENDUM by Dr. Leonel Witt, DO on 09/27/22 at 1003 Assessment and Plan Assessment and Plan (1) Primary osteoarthritis of right knee: ?Status:?Acute ?Plan: Patient was educated on postoperative range of motion and strengthening exercises that will need to be performed and expected postoperative course in addition he was set up for up rehabilitation physical therapy evaluation to review this as well. (2) History of non-ST elevation myocardial infarction (NSTEMI): ?Status:?Resolved ?Comment: 11/2018, 02/13/2020 (3) Atherosclerosis of coronary artery of [place] heart without angina pectoris: ?Status:?Chronic ?Qualifiers: ?Coronary Disease-Associated Artery/Lesion type:?[place] artery? Qualified Code(s):?I25.10 - Atherosclerotic heart disease of [place] coronary artery without angina pectoris (4) Hypertriglyceridemia: ?Status:?Chronic (5) History of coronary artery stent placement: ?Status:?Resolved ?Comment: QQU-RDE-Dsgk LAD 01/29/2014; GPU-OTD-ywinjs Ramus with a 2.25 x 12 mm? Promus Synergy, followed upstream with a 2.25 x 12 mm Promus Synergy,? SUSY distal LCX with a 2.25 x 12 mm Promus Synergy? 02/16/2020 09/27/22 1003 <Electronically signed by Leonel Witt DO> Date Leonel Witt DO cc:? Dr. Maximo Samayoa, DO ~* Signed Intake Vital Signs ? 09/13/2308:56 Height 6 ft 3 in Weight: 321 lb BMI 40.1 Intake Visit Reasons:?RIGHT KNEE Chief Complaint: right knee Is patient in pain?: Yes Allergies rosuvastatin [From Crestor] Adverse Reaction (Verified 09/13/22 09:25) myalgia Medications aspirin 81 mg tablet,delayed release (Adult Aspirin Regimen) 81 mg PO QDAY #90 tabs 07/27/22 [Rx Confirmed 09/13/22] atorvastatin 40 mg tablet 40 mg PO QHS #90 tabs 07/27/22 [Rx Confirmed 09/13/22] isosorbide mononitrate 30 mg tablet,extended release 24 hr 30 mg PO DAILY #90 tabs 07/27/22 [Rx Confirmed 09/13/22] lisinopril 2.5 mg tablet 2.5 mg PO DAILY #90 tabs 07/27/22 [Rx Confirmed 09/13/22] nitroglycerin 0.4 mg sublingual tablet 0.4 mg sublingual Q5-15M PRN chest pain #25 tabs 07/27/22 [Rx Confirmed 09/13/22] ranolazine 500 mg tablet,extended release,12 hr 500 mg PO DAILY #90 tabs 07/27/22 [Rx Confirmed 09/13/22] gabapentin 100 mg capsule 100 mg PO 09/13/22 [History Confirmed 09/13/22] metformin 500 mg tablet,extended release 24 hr 500 mg PO 09/13/22 [History Confirmed 09/13/22] PFSH Medical History? Atherosclerosis of coronary artery of [place] heart without angina pectoris History of non-ST elevation myocardial infarction (NSTEMI) (02/13/20) Hyperlipidemia Hypertriglyceridemia Obesity Type 2 diabetes mellitus Surgical History? History of coronary artery stent placement (02/16/20) History of left heart catheterization (02/13/20) Family History? Father Heart disease Social History?(Reviewed 04/06/22 @ 08:55 by Rashi H Roof DIRECTOR SALES SUPPORT, DIRECTOR SALES SUPPORT-C) Smoking Status:? Former smoker HPI RIGHT KNEE Details: Parts of this documentation were recorded by a scribe, this documentation accurately reflects the service provided and the decisions made by me, Dr. Leonel Witt, DO 09/13/22 0919. QI VELA is a 57 year old M here today for a followup on his right knee. Patient states that he is having knee pain over his medial knee.? Patient has knee instability. Patient has popping and clicking and grinding. He notes his pain is affecting his ADLs. He has increased pain with ambulating down stairs. He had a steroid injection on 02/01/22 which was helpful for about a month and on 06/14/2020. Patient believes he had gel injections many years ago which he is unsure if they were helpful.? Patient would like to discuss having a total knee arthroplasty. Ortho Exam General General: Yes no acute distress Neurologic: Yes alert and Yes oriented x3 Psychologic: Yes reasonable and appropriate Right Knee Skin/Wound: Yes CDI, No erythema, No ecchymosis and No swelling Knee ROM: Yes ROM-Extension -20 to 0 and Yes ROM-Flexion 0-140 (122) Examination: Yes Med jt line tenderness Stability: NML: Valgus 0, NML: Valgus 30, NML: Varus 0 (fixed varus deformity) and NML: Varus 30 KNEE: firm bakers cyst, no numbness or tingling. BMI 40.1 Supplemental Info 09/13/2022 x-ray right knee: Severe knee arthrosis medial compartment there is moderate spurring of the lateral and patellofemoral compartment Coding Level of Care Code Off vis,est,level 4 Diagnoses Primary osteoarthritis of right knee? M17.11 History of non-ST elevation myocardial infarction (NSTEMI)? I25.2 Atherosclerosis of coronary artery of [place] heart without angina pectoris? I25.10 ? ? ? Coronary Disease-Associated Artery/Lesion type: [place] artery Hypertriglyceridemia? E78.1 History of coronary artery stent placement? Z95.5 Assessment and Plan Assessment and Plan (1) Primary osteoarthritis of right knee: ?Status:?Acute (2) History of non-ST elevation myocardial infarction (NSTEMI): ?Status:?Resolved ?Comment: 11/2018, 02/13/2020 (3) Atherosclerosis of coronary artery of [place] heart without angina pectoris: ?Status:?Chronic ?Qualifiers: ?Coronary Disease-Associated Artery/Lesion type:?[place] artery? Qualified Code(s):?I25.10 - Atherosclerotic heart disease of [place] coronary artery without angina pectoris (4) Hypertriglyceridemia: ?Status:?Chronic (5) History of coronary artery stent placement: ?Status:?Resolved ?Comment: QTP-VBV-Wgva LAD 01/29/2014; WFC-SHL-rotryt Ramus with a 2.25 x 12 mm? Promus Synergy, followed upstream with a 2.25 x 12 mm Promus Synergy,? SUSY distal LCX with a 2.25 x 12 mm Promus Synergy? 02/16/2020 ? ? ? Orders: Orders Knee 4 or More Views Today M17.11 - Unilateral primary osteoarthritis, right knee ? Plan Spoke with the patient about the anatomy of the knee. Explained his options- steroid injection, visco injections, physical therapy, bracing, glucosamine chondrotin, weight loss and a total knee arthroplasty. Spoke with him about the increased risks to higher BMI of infection and postoperative complications and do recommend patient lose weight following surgery however I will not hold up his surgery for this. Patient would like to proceed with a total knee arthroplasty. He would like to proceed with iovera if approved with insurance. Patient will need a CT scan for the makoplasty. Recommended the patient stay as an inpatient after his surgery due to his cardiac history. Spoke with him about the benefits and risks of his surgery.?Risks, benefits and alternatives of surgery reviewed including but not limited to , bleeding, infection, nerve, artery and/or tissue damage, fracture, VTE, mechanical feel of the knee, continued pain, stiffness and expected post-operative course.? Patient needs to stop his aspirin 7 days prior to surgery but we will get cardiac clearance. Follow up for iovera or sooner if pain, swelling, numbness or associated symptoms, or concerns develop.? All questions answered. Patient in agreement of plan. 09/13/22 1157 <Electronically signed by Leonel Witt DO> Date Leonel Biggs Signature: Date (if applicable) ? CC:? Dr. Maximo Samayoa, DO ~ I have examined the patient and the H&P has been reviewed. There are no clinical changes since date of exam.
[2022-10-10] MEDS: Lactated Ringers 1,000 ML 125 ML IV (10:57)
[2022-10-10] MEDS: Acetaminophen 500 MG Tablet 1000 MG PO ×2 (10:58→21:52)
[2022-10-10] MEDS: Celecoxib 200 MG Capsule 400 MG PO (10:58)
[2022-10-10] MEDS: Magnesium 1 GM over 15 mins IV (10:58)
[2022-10-10] MEDS: Gabapentin 600 MG Tablet PO (10:59)
[2022-10-10] MEDS: Scopolamine 1mg/72hr Patch 1 PATCH TD (11:00)
[2022-10-10 11:20] LABS: Bedside Glucose 142 mg/dL (74-106)
[2022-10-10] MEDS: Cefazolin 2 GM in 0.9% Normal Saline 100 ML IV ×3 (12:15→23:35)
[2022-10-10] MEDS: TXA 1000mg in NS100 100ml (IVPB at Incision) 660 MG IV (12:16)
[2022-10-10] MEDS: dexAMETHasone 10 MG/ML Vial IV (12:20)
--- NOTE | 2022-10-10 12:30 | KNEE_PTH ---
PATIENT: QI VELA LOC: [facility] U#:[id number] AGE/SX: 57/M ROOM: [facility] [place]10/10/[address]: Dr. Leonel Witt DO : 1965 BED: 1 DIS: 10/11/2022 SPEC #: [id number] RECD: 10/10/22 16:44 STATUS: CHAVO GONZALES #: [id number] ASYA: 10/10/22 12:[address]: Leonel Witt DEPT: SURGICAL PATHOLOGY RECD BY: Yaritza Schwarz ENTERED: 10/11/22 10:25 SP TYPE: TOTAL KNEE OTHR DR: Dr. Maximo Samayoa DO Tissues: Knee, NOS Procedures: Decalcification bone/plaque Surgery Specimen Level IV HEADER OPERATION: ERAS, total replacement robotic arm assist PRE-OP DIAGNOSIS: Right knee osteoarthritis TISSUE SUBMITTED: Knee bone and soft tissue MICROSCOPIC DIAGNOSIS Bone and tissue of right knee, total knee resection: Severe degenerative joint disease. AM:luigi 10/16/2022 MICROSCOPIC DESCRIPTION Slides are reviewed. GROSS DESCRIPTION Received is one container designated bone and soft tissue right knee. The specimen consists of multiple fragments of torres-yellow bone measuring in aggregate 12 x 11 x 3 cm. No soft tissue is identified. A number of bony fragments contain articular surfaces consistent with tibial plateau and femoral condyle and displaying prominent osteophyte formation, eburnation, and bone erosion. Fieldwork Coordinator sections are submitted in one cassette after decalcification. / SJ:luigi 10/11/2022 TC:5 CPT: 26632, 81319
[2022-10-10] MEDS: TXA 1000mg in NS100 100ml (IVPB at Closure) 660 MG IV (12:53)
[2022-10-10] MEDS: Bupivacaine Mpf 0.5% 30 ML VIAL (14:00)
[2022-10-10] MEDS: Epinephrine (1 mg/ml) 1 MG/ML VIAL (14:00)
[2022-10-10] MEDS: 0.9% Normal Saline (Pres. free 10 ML Vial ×2 (14:00)
[2022-10-10] MEDS: dexAMETHasone 4 MG/ML Vial (14:00)
--- NOTE | 2022-10-10 14:43 | PCM.OP.BLANK ---
Operative Report Date of Procedure: 10/10/22 Preoperative diagnosis: Right knee DJD Postoperative diagnosis: Same Procedure: Right total knee arthroplasty CT guided Robotic Assisted Implant: [place] triathlon press fit, femoral component size7, tibial baseplate size 7, asymmetric patella size 38, polyethylene X3 size 9 CS Anesthesia: Spinal with adductor canal block Tourniquet time: 15 minutes at 300 mmHg Complications: None Condition: Stable to PACU Estimated blood loss: 250 cc Indication for procedure: This is a 57-year-old male with long standing degenerative joint disease of the knee who has failed conservative treatment and wished to proceed with elective total knee arthroplasty. Risk benefits and alternatives were reviewed including; risk of bleeding, infection, nerve artery and tissue damage, continued pain, postoperative stiffness, venous thromboembolism, need for postoperative rehabilitation, mechanical feel to the knee, and expected postoperative course. The pre- operative CT and templating was performed with component sizing. Procedure: The patient was met in the preoperative holding area. The operative extremity was identified by both patient and physician and was marked. Patient was met by anesthesia. An adductor canal block was placed by anesthesia postoperatively the patient was brought back to the operating room on a wheeled cart and transferred to the operating table in the supine position. Anesthesia was started. A well-padded tourniquet was placed on the operative extremity. The patient was prepped and draped in the usual sterile fashion. A timeout was called to ensure the proper patient procedure and extremity were being contemplated. An esmarch was used to exsanguinate the extremity. The tourniquet was inflated. A 10 blade scalpel was used to make a midline incision down through the skin and subcutaneous tissue. Skin retractors placed. Bovie and Aquamantis were used to perform meticulous hemostasis. full-thickness flaps were elevated medial and lateral along the joint capsule. A deep blade scalpel was used to perform a medial parapatellar arthrotomy. The knee was brought to full extension. A bovie was used to release the soft tissues off the most proximal aspect of the medial tibial plateau, a three-quarter inch curved osteotome was also used in this process. The infrapatellar fat pad was excised. The suprapatellar fat pad was excised partially anteriorolateraly and portion the anterioromedial pad was elevated from the femur. At this point our intra-articular femoral array was placed at a 45 degree angle proximal and posterior to the medial epicondyle. femoral checkpoint was placed at this time. Our tibial array was placed greater than 1 hands breath below the incision at a 20 degree angle stab incisions were made with a 15 blade scalpel and pins were placed and attached to the tibial array , tibial checkpoint was placed in the proximal tibial metaphysis. Tourniquet was let down. At this point registration gunn were taken throughout the knee . Once the knee was registered we then tensioned the medial and lateral ligaments in extension and 90 degrees of flexion. We then used these numbers to adjust our components within parameters to balance the knee in both flexion and extension once this was done on our monitor we then proceeded with using the robotic arm to make our tibial plateau cut, anterior and posterior chamfer and distal femur cuts. we removed the cut fragments with the use of a bovie and Babak, we did use a lamina account development specialist to insure we visualized and removed all posterior osteophytes and at this time also used the Aquamantis on the posterior joint capsule. we then trialed and achieved the desired plan with a well-balanced knee. we used the green probe to jim the corresponding tibial rotation based on our CT template. Lug holes were drilled in the femur the tibia preparation was completed with the appropriate sized base plate pinned based on previous rotation jim. An appropriate sized fin punch was used on the tibia and 4 corner drill was used for the press fit component and the patella was prepared by first using a caliper to ensure sufficient bone stock and a patellar reamer to remove the desired amount of bone. lug holes drilled for an asymmetric poly. We then brought the knee through range of motion with excellent patellar tracking. We thoroughly irrigated the knee. Trial components were removed a posterior capsular injection was preformed with our standard cocktail. In addition the aqua Mantis was also used to aid in hemostasis. Betadine rinse was allowed to sit and washed out completely. Components were press-fit into place. Aricept rinse was then used followed by several more liters of irrigation after it was allowed to sit. The joint capsule was closed with #1 Ethibond [id number] followed by Vicryl in the subcutaneous tissues with meredith in the skin. Arrays and checkpoints were removed prior to closure all counts were correct stab incisions were closed with a staple standard dressing in the form of Mepilex AG for the main incision and a small Mepilex over the pin holes. Thigh-high REJI hose applied over top of dressing. Patient tolerated the procedure well and was directed to PACU in stable condition . There were no intraoperative complications.
--- NOTE | 2022-10-10 14:50 | RAD_ITS ---
STUDY: X-RAY - RIGHT KNEE REASON FOR EXAM: Male, 57 years old. Post op TECHNIQUE: 2 view(s) of the knee. COMPARISON: Comparison is made with prior study dated 09/13/2022. FINDINGS: Normal visualized distal femur. Normal visualized proximal tibia and fibula. Normal proximal tibiofibular articulation. The patient is status post total knee replacement. There is good alignment. Postoperative soft tissue changes. RAD/Knee 1 or 2 Views IMPRESSION: Status post right total knee replacement. There is good alignment. Postoperative soft tissue changes. Electronically Signed: Liu Clements MD at 15:16 EST ,
[2022-10-10 15:45] LABS: Bedside Glucose 123 mg/dL (74-106)
[2022-10-10] MEDS: metFORMIN (XR) 500 MG Tablet PO (18:50)
[2022-10-10] MEDS: Senna/Docusate Sodium 1 Tablet 2 TABLET PO (21:52)
[2022-10-10] MEDS: Atorvastatin Calcium 40 MG Tablet PO (21:52)
[2022-10-11] MEDS: oxyCODONE 5 MG Tablet PO (03:22)
[2022-10-11 03:26] VITALS: BP 119/63; PULSE 61; RESP 18; TEMP 36.8; O2SAT 94
[2022-10-11 05:47] VITALS: BP 109/64; PULSE 63; RESP 16; TEMP 36.7; O2SAT 97
[2022-10-11] MEDS: Acetaminophen 500 MG Tablet 1000 MG PO (05:49)
[2022-10-11] MEDS: APIXABAN 2.5 MG TABLET (WCH) PO (05:49)
[2022-10-11 07:02] VITALS: O2SAT 98
[2022-10-11 07:07] LABS: Hematocrit 39.5 % (40-54); Hemoglobin 12.6 g/dL (13.0-16.5); Mean Corp Hgb Conc 31.9 g/dL (32-36); Mean Corpuscular Hgb 27.2 pg (27.0-32.0); Mean Corpuscular Volume 85.3 fL (80-94); Mean Platelet Vol. 10.1 fl (6.2-12.0); Platelet Count 248 K/mm3 (150-450); RBC Distribution Width CV 13.8 % (11.6-14.6); RBC Distribution Width SD 42.7 fl (35.1-43.9); Red Blood Count 4.63 M/mm3 (4.6-6.2); White Blood Count 13.5 K/mm3 (4.4-11.0)
[2022-10-11 07:30] LABS: Anion Gap 8 (5-15); BUN 16 mg/dL (7-18); BUN/Creat Ratio 14.7 RATIO (10-20); Calcium,Total 8.6 mg/dL (8.5-10.1); Chloride 108 mmol/L (98-107); Creatinine, Serum 1.09 mg/dL (0.70-1.30); EST Glomerular Filtration Rate 74 mL/min (>60); Est Glom Filt Rate - Afr Amer 89 mL/min (>60); Estimated Creatinine Clearance 87.21 ml/min; Glucose 133 mg/dL (74-106); Potassium 4.4 mmol/L (3.5-5.1); Sodium Level 140 mmol/L (136-145)
--- NOTE | 2022-10-11 07:39 | PN.ORTHO_ITS ---
Subjective Subjective Seen and examined. Doing well pain controlled denies shortness of breath or chest pain or other complaints. Objective Data Objective Data Vital Signs: Vital Signs Temp Pulse Resp BP Pulse Ox O2 Del Method O2 Flow Rate 98.1 F 63 16 109/64 98 Room Air 4 10/11/22 05:47 10/11/22 05:47 10/11/22 05:47 10/11/22 05:47 10/11/22 07:02 10/11/22 07:02 10/10/22 15:51 Oxygen Flow Rate (L/min) 4 Oxygen Delivery Method Room Air Weight: 310 lb 10.101 oz Body Mass Index (BMI) 38.6 Intake & Output: Intake and Output for Last 24 Hours 10/09/22 10/10/22 10/11/22 23:59 23:59 23:59 Intake Total 4342 / 4342 910 / 910 Output Total 400 / 400 2049 Balance 3942 / 3942 -1140 / -1140 Lab / Micro Data Result Diagrams: 10/11/22 06:48 10/11/22 06:48 Labs: Laboratory Results - last 24 hr 10/10/22 10:53: POC Glucose 142 H 10/10/22 15:24: POC Glucose 123 H 10/11/22 06:48: WBC 13.5 H, RBC 4.63, Hgb 12.6 L, Hct 39.5 L, MCV 85.3, MCH 27. 2, MCHC 31.9 L, RDW Std Deviation 42.7, RDW Coeff of Hillary 13.8, Plt Count 248, MPV 10.1 10/11/22 06:48: Sodium 140, Potassium 4.4, Chloride 108 H, Carbon Dioxide 24.0, Anion Gap 8, BUN 16, Creatinine 1.09, Estim Creat Clear Calc 87.21, Est GFR (MDRD) Af Amer 89, Est GFR (MDRD) Non-Af 74, BUN/Creatinine Ratio 14.7, Glucose 133 H, Calcium 8.6 Micro: Microbiology 10/02/22 07:37 Swab (Method) Nasal Screen MRSA/MSSA - Final Radiography Diagnostic Testing: Radiology Impression Knee X-Ray 10/10/22 14:50 IMPRESSION: Status post right total knee replacement. There is good alignment. Postoperative soft tissue changes. Electronically Signed: Liu Clements MD at 15:16 EST , Physical Exam Const alert, oriented x3 and no apparent distress Extremity Extremity Narrative: Dressings clean dry intact compartments soft neurovascular intact, EHL tibialis anterior gastrocsoleus palpable pedal pulses Assessment & Plan Assessment/Plan (1) S/P total knee arthroplasty: PLAN: Postop day #1 right total knee arthroplasty Doing well DC home Outpatient physical therapy DVT prophylaxis Eliquis 2.5 mg twice daily for 14 days post hospital discharge, thigh-high compression stockings Follow-up in the office 2 weeks
--- NOTE | 2022-10-11 07:41 | DCINST_ITS ---
Discharge Instructions Diet Discharge Diet: Carb Control Diet (High sugar diet increases risk of infection) Activity Weight Bearing Status: Full weight bearing Dressing / Incision Call your doctor if you observe: Shortness of breath and Chest pain Additional Dressing/Incision Instructions:: Ice and elevate lower extremities 2 weeks while not ambulating. Ambulation is encouraged. Weight bearing as hakeem erated. Use assistive devise for stability. Encourage FULL knee extension and flexion 1 time EVERY time you get up and down and MULTIPLE times per day. No showering 72 hours after surgery. Begin showering postop day #3. Remove the dressing prior to shower and gently wash with warm water and antibacterial soap then pat dry and place abdominal pad (or plain gauze) and REJI hose over top. This is to be done daily. Do not submerge for 3 weeks. If not showering daily after the initial 72 hours then you must clean incision and change dressing daily. Do not allow animals near the incision area. Keep clean. Follow anti- coagulation recommendations as prescribed. Do not take any NSAIDs while on blood thinner. Do not take any additional narcotic pain medication other than what was prescribed on your surgery day without discussing with physician. Narcotic medication can be addictive. Do not drink alcohol while taking narcotics. Supplement narcotic prescription with acetaminophen 1000 mg 4 times a day. Start physical therapy. If you are not currently scheduled for physical therapy or you are unsure of appointment time please call office [facility] to arrange. Call Dr. Witt with any concerns. Follow Up Care Please Follow Up With: Leonel Witt DO When: 2 weeks Test Results: Test results from this visit will be discussed in further detail at your follow- up appointment, if applicable. Discharge Plan Admission Admit Date/Time: 10/10/22 14:41 Primary Reason for Your Visit: Right total knee arthroplasty Attending Provider: Leonel Witt Primary Care Provider: Maximo Samayoa Discharge Orders/Prescriptions Prescriptions: New acetaminophen [acetaminophen] 500 mg tablet 1,000 mg PO Q6H PRN Qty: 100 0RF Eliquis 2.5 mg tablet 2.5 mg PO BID Qty: 28 0RF oxycodone 5 mg tablet 5 mg PO Q4H PRN (Reason: pain) 7 Days Qty: 60 0RF Continued gabapentin 100 mg capsule 100 mg PO QHS Label Comments: TAKE ONE AT BEDTIME FOR 3 DAYS, THEN 2 AT BEDTIME FOR 3 DAYS metformin 500 mg tablet extended release 24 hr 500 mg PO BID Label Comments: TAKE 1 TABLET BY MOUTH TWICE A DAY atorvastatin 40 mg tablet 40 mg PO QHS isosorbide mononitrate 30 mg tablet extended release 24 hr 30 mg PO DAILY aspirin [Adult Aspirin Regimen] 81 mg tablet,delayed release (DR/EC) 81 mg PO QDAY Rx Instructions: STOP 7 DAYS lisinopril 2.5 mg tablet 2.5 mg PO DAILY nitroglycerin 0.4 mg tablet, sublingual 0.4 mg SUBLINGUAL Q5-15M PRN (Reason: chest pain) Qty: 25 3RF Other Ambulatory Orders: 12 Lead EKG (Routine) Location: None Selected Ordered By: Dr. Leonel Witt Referrals / Follow Up: Maximo Samayoa DO [Primary Care Provider] -
[2022-10-11 07:45] VITALS: BP 122/60; PULSE 56; RESP 18; TEMP 36.5; O2SAT 96
[2022-10-11] MEDS: metFORMIN (XR) 500 MG Tablet PO (07:47)
[2022-10-11] MEDS: Isosorbide Mononitrate 30 MG Tablet PO (07:47)
[2022-10-11] MEDS: Cefazolin 2 GM in 0.9% Normal Saline 100 ML IV (07:47)
[2022-10-11] MEDS: 0.9% Saline Lock 10 ML Syringe IV (07:48)
[2022-10-11] MEDS: Lisinopril 2.5 MG Tablet PO (07:49)
[2022-10-11] MEDS: Senna/Docusate Sodium 1 Tablet 2 TABLET PO (07:50)
--- NOTE | 2022-10-11 10:42 | PHA.DC.MC ---
Pharmacy Service has performed discharge medication reconciliation and counseling for this patient. 1. APIXABAN 2.5MG PO BID X 14 DAYS 2. OXYCODONE 5MG PO Q4H PRN PAIN The patient's discharge medication list was reviewed for discrepancies and discrepancies were resolved. Home Medications nitroglycerin 0.4 mg sublingual tablet 0.4 mg sublingual Q5-15M PRN chest pain #25 tabs 07/27/22 gabapentin 100 mg capsule 100 mg PO QHS MUSCLE RELAXER 09/13/22 metformin 500 mg tablet,extended release 24 hr 500 mg PO BID BLOOD SUGAR 09/13/22 aspirin 81 mg tablet,delayed release (Adult Aspirin Regimen) 81 mg PO QDAY HEART 09/26/22 atorvastatin 40 mg tablet 40 mg PO QHS CHOLESTEROL 09/26/22 isosorbide mononitrate 30 mg tablet,extended release 24 hr 30 mg PO DAILY HEART 09/26/22 lisinopril 2.5 mg tablet 2.5 mg PO DAILY BP 09/26/22 acetaminophen 500 mg tablet 1,000 mg PO Q6H PRN #100 tabs 10/11/22 apixaban 2.5 mg tablet (Eliquis) 2.5 mg PO BID #28 tabs 10/11/22 oxycodone 5 mg tablet 5 mg PO Q4H PRN pain 7 days #60 tabs 10/11/22 The patient was counseled on the following discharge medications and changes in medications for homegoing were reviewed. The Reason for Use, instructions for use, and potential side effects were reviewed for all new medications. The patient's questions regarding all of their medications were answered. The patient was able to verbally demonstrate an understanding of their discharge medications.
--- NOTE | 2022-10-11 11:55 | CASEMGMT ---
N?CM?INFORMATION TECHNOLOGY ADVISOR?CM?to room to meet with patient for initial transition planning/care coordination?assessment.?RN?CM?introduced self and role at [facility].? Pt voices understanding and consents to?assessment?at this time.? Pt sitting up in chair in room in no distress at this time.? Pt is A/O at this time and answers all questions appropriately.?? Care providers, pharmacy, and demographics verified/updated at this time. PCP: Yao Specialists: Eduar-orthoHerbert-cardio Preferred Pharmacy: [facility] Retail [place]: , [facility] Living Arrangements: Lives w/ in one-story home. Indep prior to surgery and used no DME to ambulate. Transportation:?Pt states drives self and states no transportation concerns at this time.? also drives DME:States has the following DME:?knee brace, built-in shower seat. Also has available: WW, cane, W/C, RTS ?Pt states no need for further DME at this time.? HHC/SNF: No hx SNF. Has had HHC in the past. Denies need for HHC. [facility] has an appt @ [facility] tomorrow for OP PT. Pt wishes to return home and states has no concerns with going home at time of discharge.? ?CM?to follow for any discharge planning/needs.? Pt voices no concerns/needs at this time.? Advised pt to ask for?CM?if any questions/concerns/needs arise.? Voices understanding. PLAN:??Home w/spousal support and OP therapy @ [facility]. Percy ESTRELLAN?RN?CM
--- NOTE | 2022-10-11 12:03 | CASEMGMT ---
Called to [facility] Retail pharmacy, cost for Eliquis is $40. RN CM in to pt room, this is affordable to him. Pt plans to go through the drive through for meds upon dc. Denies further needs.
== END 2022-10-11 12:22 | disposition home or self-care (01) ==
LOC: SDC 14:49 → MS3 14:49
PROVIDERS: Anesthesiology; Admitting Provider Orthopaedic Surgery; PCP Family Medicine; Referring Provider Orthopaedic Surgery; Visit Provider Orthopaedic Surgery
PROC: 0SRC0JZ Replacement of Right Knee Joint with Synthetic Substitute, Open Approach (ICD-10-PCS; CPT 27447; principal; 2022-10-10 12:00)
DX: M17.11 Unilateral primary osteoarthritis, right knee (principal); Z68.41 Body mass index [BMI] 40.0-44.9, adult; Z87.891 Personal history of nicotine dependence; I25.10 Atherosclerotic heart disease of native coronary artery without angina pectoris; E78.1 Pure hyperglyceridemia; Z95.5 Presence of coronary angioplasty implant and graft; I25.2 Old myocardial infarction; Z79.82 Long term (current) use of aspirin; Z79.899 Other long term (current) drug therapy; E66.9 Obesity, unspecified; Z79.84 Long term (current) use of oral hypoglycemic drugs
CPT/HCPCS: 27447; S2900; 01402; 64447; 36415; 73560; 80048; 82962; 82985; 83036; 83735; 85025; 85027; 85610; 85730; 87081; 88305; 88311; 93005; 94668; 94762; 96365; 96366; 97162; 97166; 99221; 99252; C1776; J7120; A4216; G0378; G0463; J2405; J3475; J3490

== ENCOUNTER 2022-12-11 11:19 | Day surgery (SDC) | payer OTHER, SELFPAY ==
[2022-10-23 08:23] VITALS: BMI 38.5
[2022-12-11] VITALS (7 sets, daily range): BP systolic 91–134; BP diastolic 60–84; PULSE 74–83; RESP 16–18; TEMP 36.1–36.6; O2SAT 93–100; BMI 37.5
--- NOTE | 2022-12-11 12:21 | PCM.HP.BLA ---
History and Physical Date of Admission: 12/11/22 Date of Service:? 11/28/22 MR#: [id number] Acct: [id number] Name:QI TAYLOR Rep #: [id number] : 1965 ? ? Provider: Dr. Torsten Skelton MD Age/Sex:? 57/M ? ? Location: [facility] Status: Signed Intake Vital Signs ? 11/29/2307:47 Height 6 ft 3 in Weight: 317 lb BMI 39.6 BP 123/78 H Blood Pressure Location Lt brachial Position Sitting Respiration 17 Pulse 75 Pulse Source Monitor Temp 97.3 F L Temp Source Temporal Pulse Oximetry (%) 96 Oxygen Delivery Method room air Intake Visit Reasons:?COLONOSCOPY Chief Complaint: colonoscopy Is patient in pain?: No Allergies rosuvastatin [From [facility]] Adverse Reaction (Verified 11/28/22 08:48) myalgia Medications nitroglycerin 0.4 mg sublingual tablet 0.4 mg sublingual Q5-15M PRN chest pain #25 tabs 07/27/22 [Rx Confirmed 11/20/22] metformin 500 mg tablet,extended release 24 hr 500 mg PO BID BLOOD SUGAR 09/13/22 [History Confirmed 11/28/22] aspirin 81 mg tablet,delayed release (Adult Aspirin Regimen) 81 mg PO QDAY HEART 09/26/22 [History Confirmed 11/28/22] atorvastatin 40 mg tablet 40 mg PO QHS CHOLESTEROL 09/26/22 [History Confirmed 11/28/22] isosorbide mononitrate 30 mg tablet,extended release 24 hr 30 mg PO DAILY HEART 09/26/22 [History Confirmed 11/28/22] lisinopril 2.5 mg tablet 2.5 mg PO DAILY BP 09/26/22 [History Confirmed 11/28/22] acetaminophen 500 mg tablet 1,000 mg PO Q6H PRN #100 tabs 10/11/22 [Rx Confirmed 11/28/22] oxycodone 5 mg tablet 5 mg PO Q4H PRN pain 7 days #60 tabs 10/11/22 [Rx Confirmed 11/20/22] ranolazine 500 mg tablet,extended release,12 hr 500 mg PO BID 11/28/22 [History Confirmed 11/28/22] PFSH Medical History?(Reviewed 10/06/22 @ 08:33 by Rashi Medel [employer], [employer]BER-C) Atherosclerosis of coronary artery of [place] heart without angina pectoris Cardiology follow-up encounter Chest pain High cholesterol History of Holter monitoring History of non-ST elevation myocardial infarction (NSTEMI) (02/13/20) History of stress test Hyperlipidemia Hypertriglyceridemia Loss of hearing Non-smoker Obesity Type 2 diabetes mellitus Wears glasses Surgical History? History of cardiac catheterization History of coronary artery stent placement (02/16/20) History of coronary artery stent placement History of left heart catheterization (02/13/20) Hx of total knee replacement Family History?(Reviewed 10/06/22 @ 08:33 by Rashi Medel [employer], [employer]BER-C) Father Heart disease Social History?(Updated 11/28/22 @ 08:47 by Paola Pope) Smoking Status:? Former smoker substance use type:? does not use HPI HPI HPI: Patient is a 57-year-old male who presents for need to schedule screening colonoscopy secondary to age.? They are referred for surgical consultation from Dr. Samayoa.? Patient has not had prior colonoscopy.? Patient has no personal history of inflammatory bowel disease or diverticulitis. They describe their bowel habits as normal.? They have approximately 1 bowel movement per day and spend roughly 5 minutes on the toilet without significant straining (however there remarked they have been using some oxycodone in the postoperative period following a knee operation and have experienced occasional straining as a result).? They have not noticed recent bleeding or dark stools.? They do not regularly take fiber supplements.? They do consume significant fiber in their regular diet. Patient has no family history of colon cancer, inflammatory bowel disease, or diverticulitis.? ? The patient's weight is stable. The patient is not prescribed anticoagulants/blood thinners (he states that he was placed on Eliquis for a self-limited time following his knee procedure but is now simply taking baby aspirin a day). Relevant prior abdominal surgical history includes: None Patient does not have a significant history of GERD/heartburn.? Patient states that he experience the symptoms hardly ever he notes that if he eats pizza late at night he may put himself at risk for this symptom so he does not do this and while he is refraining from this habit he experiences the symptoms no more than once every couple months. Patient confirms a remote smoking history but underwent smoking cessation 20 years ago.? He estimates that he smoked for a period of approximately 20 years at a consumption rate of 1 pack/day. ROS General General: Yes fatigue; No weight change, appetite, colon cancer, breast cancer or weakness HEENT HEENT: No difficulty swallowing, eye injury, eye surgery, swollen glands or hoarseness Endo Endocrine: Yes diabetes mellitus; No thyroid disease, thyroid cancer, Hair loss, heat intolerance or cold intolerance Skin Skin: No rash or changing moles Musc Musculoskeletal: Yes gout; No back problems, arthritis, rheumatoid arthritis or joint pain Cardio Cardiovascular: Yes heart disease and heart stent; No murmur, pacemaker, atrial fibrillation, high blood pressure, heart attack, palpitations, shortness of breat with exertion or chest pain Psych Psychiatric: No depression, anxiety or hearing voices Resp Respiratory: No shortness of breath, No sleep apnea, No cough, No COPD, No asthma, No emphysema and No wheezing Gastro Gastrointestinal: No abdominal pain, No nausea or vomiting, No diarrhea, No constipation, No blood in stool, No acid reflux, No hemorrhoids, No ulcers, No gallbladder problem and No black,tarry stools [place] Hematologic: No blood thinners, No blood disorders, No bleeding, No anemia and No blood clots Neuro Neurologic: No system reviewed and no additional complaints, except as documented, No as per HPI, No abnormal gait, No abnormal hearing, No abnormal movements, No abnormal speech, No behavioral changes, No burning sensations, No confusion, No convulsions, No disequilibrium, No dizziness, No localized weakness, No frequent falls, No headache(s), No lack of coordination, No loss of vision, No memory loss, No numbness, No other visual disturbances, No radicular pain, No restless legs, No sensory deficit, No syncope, No tingling, No tremor(s), No weakness and No other Exam Const General: cooperative and no acute distress Orientation: alert, awake and oriented x3 Resp Effort & Inspection: normal respiratory effort Auscultation: no rales, no rhonchi and no wheezes Cardio Rate: regular rate GI Other: No scars.? No visible herniation.? Nondistended, soft, nontender to palpation x4 quadrants Assessment and Plan Assessment and Plan (1) Screening for malignant neoplasm of colon: ?Status:?Acute ?Comment: This is a 57-year-old male, with a significant cardiovascular history status post PCI now on baby aspirin daily, who presents for consultation regarding request for screening colonoscopy.? Based on review of his history, he appears to be an average risk for colon cancer and denies any complaints aside from occasional straining as he takes oxycodone as needed for postoperative pain relief following a knee procedure.? Additionally, he has no family history for colon cancer or inflammatory bowel disease.? Given that his cardiac status has been stable and that he has not been screened previously, find a screening colonoscopy to represent a reasonable request.? I have discussed the procedure in detail including details about the preprocedure bowel prep as well as any biopsies that may be required.? Patient and his spouse accept this information and wished to be scheduled. ?Plan: Plan will be to complete screening colonoscopy on first mutually agreeable date under local MAC.? Pre-procedure prep discussed and paper instructions provided.? Patient is also made aware that he will need to have a ambulance driver paramedic with him the day of the procedure. I have examined the patient and the H&P has been reviewed. There are no clinical changes since date of exam. Patient confirms that he completed his prep successfully and that there have been no solid/particulate components to his bowel movements since yesterday. Plan to proceed to the endoscopy suite for scheduled screening colonoscopy.
[2022-12-11] MEDS: Lactated Ringers 1,000 ML 15 ML IV (12:31)
[2022-12-11 12:55] LABS: Bedside Glucose 100 mg/dL (74-106)
--- NOTE | 2022-12-11 14:00 | COLBX_PTH ---
PATIENT: QI VELA LOC: EN U#:[id number] AGE/SX: 57/M ROOM: RE12/11/[address]: Dr. Torsten Skelton MD : 1965 BED: DIS: 12/11/2022 SPEC #: [id number] RECD: 12/11/22 14:22 STATUS: CHAVO CHRISTIAN #: [id number] ASYA: 12/11/22 14:[address]: Torsten Skelton DEPT: SURGICAL PATHOLOGY RECD BY: Farhana Parker ENTERED: 12/12/22 07:58 SP TYPE: COLON BX OTHR DR: Dr. Maximo Samayoa DO Tissues: A - Transverse colon B - Sigmoid colon biopsy C - Sigmoid colon biopsy D - Rectum, NOS Procedures: Surgery Specimen Level IV HEADER OPERATION: Colonoscopy (MAC) with biopsy, polypectomy, endoscopy PRE-OP DIAGNOSIS: Screening TISSUE SUBMITTED: A ? Transverse colon plaque biopsy at 100 cm, B ? Sigmoid colon polyp at 35, C - Sigmoid colon polyps #2 and biopsies, D ? Rectal polyp MICROSCOPIC DIAGNOSIS A. Transverse colon plaque at 100 cm, biopsy: No pathologic change. B. Sigmoid colon polyp at 35 cm, biopsy: Tubular adenoma. C. Sigmoid colon polyps #2, biopsy: Fragment of tubular adenoma. Fragments of hyperplastic polyp. D. Rectal polyp, biopsy: Fragments of tubular adenoma. AM:luigi 12/13/2022 MICROSCOPIC DESCRIPTION Slides are reviewed. GROSS DESCRIPTION A - Received in fixative is one container labeled with the patient's name and designated transverse colon plaque biopsy. The specimen consists of multiple irregular fragments of light torres soft tissue that in aggregate measure 1.2 x 0.5 x 0.1 cm. The specimen is totally submitted in one cassette. B - Received in fixative is one container labeled with the patient's name and designated sigmoid colon polyp at 35 cm. The specimen consists of a torres-pink polyp measuring 1.5 x 1.0 x 0.8 cm. The polyp is serially sectioned and submitted entirely in one cassette. C - Received in fixative is one container labeled with the patient's name and designated sigmoid colon polyp #2. The specimen consists of multiple irregular fragments of light torres soft tissue that in aggregate measure 1.5 x 0.6 x 0.1 cm. The specimen is totally submitted in one cassette. D - Received in fixative is one container labeled with the patient's name and designated rectal polyp. The specimen consists of a torres-pink polyp measuring 0.7 x 0.5 x 0.3 cm. Also present in the container is a piece of torres soft tissue measuring 0.1 cm in greatest dimension. / STEFANIE:luigi 12/12/2022 TC:5 CPT: 86534 x4
--- NOTE | 2022-12-11 14:17 | OP.CCLET_ITS ---
12/11/2022 Maximo Samayoa Re : Colonoscopy procedure for Alexis Garcia Yao This procedure was performed on Sunday, December 11, 2022. My impressions and recommendations are as follows: Impressions : - Diverticulosis in the sigmoid colon and in the descending colon. No specimens collected. - Scar in the transverse colon. Biopsied. Tattooed. - One 30 mm polyp in the sigmoid colon, removed with a hot snare. Resected and retrieved. - Four 2 to 5 mm polyps in the sigmoid colon. Biopsied. - One 5 mm polyp in the rectum, removed with a hot snare. Resected and retrieved. - The examination was otherwise normal on direct and retroflexion views. Recommendations : - Discharge patient to home (via wheelchair). - High fiber diet today. - Continue present medications. - Await pathology results. - Repeat colonoscopy date to be determined after pending pathology results are reviewed for surveillance based on pathology results. - Telephone my office for pathology results in 1 week. My findings are described in the full procedure note, which is enclosed. If I can be of further assistance, please feel free to contact me at Doctor phone number(s): , Work: . Sincerely, Torsten Skelton MD 12/11/2022 2:17:31 PM This report has been signed electronically.
--- NOTE | 2022-12-11 14:17 | OP.COLON_ITS ---
Patient Name: Alexis Piper Procedure Date: 12/11/2022 12:01 PM Date of : 1965 Age: 57 Procedure: Colonoscopy Indications: Screening for colorectal malignant neoplasm Providers: Torsten Skelton MD Referring MD: Torsten Skelton MD Medicines: See the Anesthesia note for documentation of the administered medications Patient Profile: Last Colonoscopy: none. The patient's first colonoscopy is today. Complications: No immediate complications. Estimated blood loss: Minimal. Procedure: Pre-Anesthesia Assessment: - The heart rate, respiratory rate, oxygen saturations, blood pressure, adequacy of pulmonary ventilation, and response to care were monitored throughout the procedure. After I obtained informed consent, the scope was passed under direct vision. Throughout the procedure, the patient's blood pressure, pulse, and oxygen saturations were monitored continuously. The Colonoscope was introduced through the anus and advanced to the cecum, identified by the ileocecal valve. The colonoscopy was somewhat difficult due to poor bowel prep and significant looping. Successful completion of the procedure was aided by changing the patient to a supine position, using manual pressure and lavage. The quality of the bowel preparation was adequate to identify polyps 6 mm and larger in size. Scope In: 12:39:29 PM Scope Withdrawal Time 0 hours 55 minutes 26 seconds Scope Out: 2:02:22 PM Total Procedure Duration Time 1 hour 22 minutes 53 seconds Findings: Multiple small and large-mouthed diverticula were found in the sigmoid colon and descending colon. No biopsies or other specimens were collected for this exam. A 10 mm scar was found in the transverse colon. Biopsies were taken with a cold forceps for histology. Area was tattooed with an injection of 0.8 mL of Nora ink. A 30 mm polyp was found in the sigmoid colon. The polyp was pedunculated. The polyp was removed with a hot snare. Resection and retrieval were complete. Estimated blood loss: none. Four semi-sessile polyps were found in the sigmoid colon. The polyps were 2 to 5 mm in size. Biopsies were taken with a cold forceps for histology. Estimated blood loss was minimal. A 5 mm polyp was found in the rectum. The polyp was semi-pedunculated. The polyp was removed with a hot snare. Resection and retrieval were complete. Estimated blood loss: none. The exam was otherwise without abnormality on direct and retroflexion views. Impression: - Diverticulosis in the sigmoid colon and in the descending colon. No specimens collected. - Scar in the transverse colon. Biopsied. Tattooed. - One 30 mm polyp in the sigmoid colon, removed with a hot snare. Resected and retrieved. - Four 2 to 5 mm polyps in the sigmoid colon. Biopsied. - One 5 mm polyp in the rectum, removed with a hot snare. Resected and retrieved. - The examination was otherwise normal on direct and retroflexion views. Recommendation: - Discharge patient to home (via wheelchair). - High fiber diet today. - Continue present medications. - Await pathology results. - Repeat colonoscopy date to be determined after pending pathology results are reviewed for surveillance based on pathology results. - Telephone my office for pathology results in 1 week. Procedure Code(s): --- Professional --- 72395, Colonoscopy, flexible; with removal of tumor(s), polyp(s), or other lesion(s) by snare technique 90123, Colonoscopy, flexible; with directed submucosal injection(s), any substance 27995, 59, Colonoscopy, flexible; with biopsy, single or multiple Diagnosis Code(s): --- Professional --- Z12.11, Encounter for screening for malignant neoplasm of colon K63.89, Other specified diseases of intestine D12.5, Benign neoplasm of sigmoid colon K62.1, Rectal polyp K57.30, Diverticulosis of large intestine without perforation or abscess without bleeding CPT copyright 2017 [employer]. All rights reserved. The codes documented in this report are preliminary and upon professional fee coder review may be revised to meet current compliance requirements. Torsten Skelton MD 12/11/2022 2:17:31 PM This report has been signed electronically. Number of Addenda: 0 Note Initiated On: 12/11/2022 12:01 PM
== END 2022-12-11 14:51 | disposition home or self-care (01) ==
LOC: EN 11:20 → AC 12:08
PROVIDERS: PCP Family Medicine; Referring Provider Family Medicine; Visit Provider Surgery
PROC: 0DJD8ZZ Inspection of Lower Intestinal Tract, Via Natural or Artificial Opening Endoscopic (ICD-10-PCS; CPT 45378; principal; 2022-12-11 13:55)
DX: Z12.11 Encounter for screening for malignant neoplasm of colon (principal); E11.9 Type 2 diabetes mellitus without complications; Z87.891 Personal history of nicotine dependence; K57.30 Diverticulosis of large intestine without perforation or abscess without bleeding; K62.1 Rectal polyp; K63.89 Other specified diseases of intestine; D12.5 Benign neoplasm of sigmoid colon; E78.5 Hyperlipidemia, unspecified; I25.10 Atherosclerotic heart disease of native coronary artery without angina pectoris; I25.2 Old myocardial infarction
CPT/HCPCS: 45381; 45385; 45380; 82962; 88305; J7120; A4648; J2405

== ENCOUNTER 2023-02-12 20:58 | Inpatient (IN) | payer OTHER, SELFPAY ==
[2022-10-23 08:23] VITALS: BMI 38.5
[2023-02-12] VITALS (10 sets, daily range): BP systolic 122–154; BP diastolic 71–85; PULSE 58–68; RESP 16–24; TEMP 36.1–36.6; O2SAT 95–100; BMI 39.9; BMI 38.9
--- NOTE | 2023-02-12 21:25 | EKG12_ITS ---
Test Reason : CP Blood Pressure : / mmHG Vent. Rate : 068 BPM Atrial Rate : 068 BPM P-R Int : 198 ms QRS Dur : 086 ms QT Int : 380 ms P-R-T Axes : 011 -18 039 degrees QTc Int : 404 ms Normal sinus rhythm Low voltage QRS Borderline ECG Confirmed by HANK LARA, SANJIV ([id number]), international editorial producer TAWANA GERMAN ([id number]) on 02/14/2023 9:36:32 AM Referred By: RU Confirmed By:SANJIV MCKINNEY MD
--- NOTE | 2023-02-12 21:27 | EDS_ITS ---
HPI History of Present Illness Chief Complaint: Chest Pain Informant: patient Narrative Narrative: Patient presents with episodes of chest pain. Patient states for the last 2 or 3 days he has been getting chest pain. It is an aching or discomfort in the left side of his sternum. It lasts for 30 seconds to a minute. He does not get any associated symptoms such as nausea vomiting weakness shortness of breath. He has had stents before. Most recently were done about 3 years ago. He states prior to those he did get chest pain but he also got tingling or aching in his left jaw and arm and he has not had any of that this time. He has had a slight cough recently but no fevers chills or sputum production. No hemoptysis. No pleuritic pain. He did have a right knee replacement in September but that is healed well. He has no leg swelling from that. He has never had a DVT or PE or any family history. His dad did have heart disease but started in his late 50s. Patient's had no change in medicine. He did try nitroglycerin this evening and that seemed to take it away. He does have a history of reflux but does not recall acid taste in his mouth with these episodes. Although he is on cholesterol he states his cholesterol is never been high. This was likely started due to his heart disease. His symptoms just come and go occasionally. They are not necessarily exertional at all. He did have one episode when he was carrying some garbage but other times are just at rest. [facility] Medical History Atherosclerosis of coronary artery of [place] heart without angina pectoris Cardiology follow-up encounter Chest pain High cholesterol History of Holter monitoring History of non-ST elevation myocardial infarction (NSTEMI) (02/13/20) History of stress test Hyperlipidemia Hypertriglyceridemia Loss of hearing Non-smoker Obesity Type 2 diabetes mellitus Wears glasses Home Medications nitroglycerin 0.4 mg sublingual tablet 0.4 mg sublingual Q5-15M PRN chest pain #25 tabs 07/27/22 [Rx Last Taken Unknown] metformin 500 mg tablet,extended release 24 hr 500 mg PO BID BLOOD SUGAR 09/13/22 [History Last Taken 12/11/22] aspirin 81 mg tablet,delayed release (Adult Aspirin Regimen) 81 mg PO QDAY HEART 09/26/22 [History Last Taken 12/11/22] atorvastatin 40 mg tablet 40 mg PO QHS CHOLESTEROL 09/26/22 [History Last Taken 10/09/22] isosorbide mononitrate 30 mg tablet,extended release 24 hr 30 mg PO DAILY HEART 09/26/22 [History Last Taken 12/11/22] oxycodone 5 mg tablet 5 mg PO Q4H PRN pain 7 days #60 tabs 10/11/22 [Rx Last Taken Unknown] acetaminophen 500 mg tablet 1,000 mg PO Q6H PRN PRN Pain 12/06/22 [History Last Taken Unknown] lisinopril 5 mg tablet 5 mg PO DAILY 01/04/23 [History Last Taken Unknown] ranolazine 500 mg tablet,extended release,12 hr 500 mg PO DAILY #90 tabs 01/04/23 [Rx Last Taken Unknown] Allergy/AdvReac Type Severity Reaction Status Date / Time rosuvastatin [From Crestor] AdvReac myalgia Verified 02/12/23 21:05 Family History Father Heart disease Surgical History History of cardiac catheterization History of coronary artery stent placement (02/16/20) History of coronary artery stent placement History of left heart catheterization (02/13/20) Hx of total knee replacement Hx of total knee replacement Social History Smoking Status: Former smoker substance use type: does not use ROS ROS ED ROS Narrative A complete review of systems was performed and is negative except as documented in the history of present illness. Some specific details below. Constitutional: No recent fevers or chills. No malaise. EYE: No discharge, visual complaints, or pain. ENT: No difficulty swallowing. No swelling. No pain. No reflux symptoms although he does have a history of GERD. CV: See history of present illness. Respiratory: Slight cough but no productivity no dyspnea. GI: No abdominal pain. No nausea vomiting diarrhea. No blood in stool. : No frequency dysuria or hematuria. Musculoskeletal: No recent trauma. No pains. No swelling. Skin: No rash. Nondiaphoretic. Neuro: No weakness or numbness. Endocrine: No polyuria or polydipsia. EXAM Physical Exam Narrative Exam Narrative: CONSTITUTIONAL: Patient is nontoxic in appearance. The patient looks comfortable. Work of breathing looks normal. He is not having any symptoms when I see him. HEENT: No notable trauma. Mucous membranes moist. No indication of pain with swallowing. EYES: No conjunctival injection. No proptosis. NECK:No JVD. No stridor. CARDIOVASCULAR: Regular rate. Regular rhythm. No notable murmur. No JVD. RESPIRATORY: No respiratory distress. Breathing is unlabored. No wheezes. No rhonchi. No rales. No pain with a deep breath. No chest wall tenderness. Oxygen saturation is normal at 100% on room air showing no hypoxia. GASTROINTESTINAL: Not distended. Bowel sounds are normal. No tenderness. No guarding. No rebound. No palpable mass. No bruit is heard. GENITOURINARY: No tenderness over the bladder. No CVA tenderness. MUSCULOSKELETAL: Atraumatic. No peripheral edema. No cord. No tenderness along the deep venous system. No asymmetry. No distended veins. Well-healed prior scars. NEUROLOGICAL: Patient is alert and appropriate. No focal deficit noted. SKIN: No noted rashes. No diaphoresis. PSYCHIATRIC: Patient is calm. Mood is appropriate. Const Vital Signs: 02/12/23 20:59 02/12/23 20:59 02/12/23 21:02 Temperature 97 F L Temperature Source Temporal Pulse Rate 68 Respiratory Rate 21 H Respiratory Effort Normal Non-Labored Blood Pressure 154/85 H Blood Pressure Mean 108 Pulse Ox 100 Oxygen Delivery Method Room Air 02/12/23 21:36 Temperature Temperature Source Pulse Rate Respiratory Rate Respiratory Effort Blood Pressure Blood Pressure Mean Pulse Ox 96 Oxygen Delivery Method Room Air Heart Score History: Moderately Suspicious ECG: Normal Age: >45 - <65 years Risk Factors: >/= 3 Risk Factors or History of CAD Troponin: >1 - <3 Normal Limit Score: 5 MDM MDM MDM Narrative Medical decision making narrative: My independent interpretation of the patient's single view 2 images chest x-ray shows no acute process. Final reading is no radiographic evidence of acute cardiopulmonary disease. Patient CBC including white count hemoglobin and platelets is normal. Patient's electrolytes do show a mild rise in his creatinine over his baseline. 1.31 at this time. Glucose is controlled reasonably at 139. Patient's troponin is elevated at 195. Although this certainly could be to cardiac injury there may be a component based on elevated renal function also. Patient did start with another episode of pain here. We attempted to get an EKG but the pain was essentially gone or going away as we got it. This repeat EKG did not show any interval change or development. Patient's rechecked and he is remained asymptomatic. With the patient's heart score of 5, history of heart disease, intermittent symptoms that seem to be increasing, elevated troponin I do not think going home is appropriate. I discussed case with hospitalist. Patient will be admitted. At this time patient is asymptomatic. Lab Data Attestation: I reviewed the patient's lab results. Labs: Laboratory Results - last 24 hr 02/12/23 02/12/23 21:05 21:05 WBC 7.5 RBC 5.11 Hgb 13.2 Hct 41.7 MCV 81.6 MCH 25.8 L MCHC 31.7 L RDW Std Deviation 42.5 RDW Coeff of Hillary 14.5 Plt Count 301 MPV 9.8 Immature Gran % (Auto) 1.300 H Neut % (Auto) 55.8 Lymph % (Auto) 24.8 Lucas % (Auto) 11.4 H Eos % (Auto) 5.1 H Baso % (Auto) 1.6 H Absolute Neuts (auto) 4.2 Absolute Lymphs (auto) 1.85 Nucleated RBC % 0 Sodium 135 L Potassium 4.0 Chloride 107 Carbon Dioxide 23.0 Anion Gap 5 BUN 29 H Creatinine 1.31 H Estim Creat Clear Calc 74.54 Est GFR (MDRD) Af Amer 72 Est GFR (MDRD) Non-Af 59 L BUN/Creatinine Ratio 22.1 H Glucose 139 H Calcium 8.9 Troponin I High Sens 195 H* Radiography Diagnostic Testing: Clinical Impression(s) from Imaging Studies Chest X-Ray 02/12/23 21:35 IMPRESSION: No radiographic evidence of acute cardiopulmonary disease. Electronically Signed: Shelton Watkins MD at 21:52 EDT , EKG Initial EKG: Comments: My independent interpretation of the patient's EKG shows a normal sinus rhythm with overall rate of 68. Mildly low voltage throughout but no sign of acute ST elevation or depression. No ectopy. MI interval, QRS duration and QTc are normal. Follow-up EKG: Comments: My independent interpretation the patient's second EKG were retried capture a change as he had some chest pain shows a normal sinus rhythm with overall rate of 65. No ectopy. No acute ST elevation or depression. MI interval, QRS duration and QTc are normal. There is really no indication of significant interval change from his first. Discharge Plan Triage Chief Complaint: Chest Pain ED Provider: Keith Rouse Dx/Rx/DC Orders Clinical Impression: Chest pain, Elevated troponin, History of coronary artery disease, History of diabetes mellitus, type II, Creatinine elevation Prescriptions: No Action metformin 500 mg tablet extended release 24 hr 500 mg PO BID Label Comments: TAKE 1 TABLET BY MOUTH TWICE A DAY atorvastatin 40 mg tablet 40 mg PO QHS isosorbide mononitrate 30 mg tablet extended release 24 hr 30 mg PO DAILY aspirin [Adult Aspirin Regimen] 81 mg tablet,delayed release (DR/EC) 81 mg PO QDAY Rx Instructions: STOP 7 DAYS oxycodone 5 mg tablet 5 mg PO Q4H PRN (Reason: pain) 7 Days Qty: 60 0RF acetaminophen [acetaminophen] 500 mg tablet 1,000 mg PO Q6H PRN PRN (Reason: Pain) nitroglycerin 0.4 mg tablet, sublingual 0.4 mg SUBLINGUAL Q5-15M PRN (Reason: chest pain) Qty: 25 3RF ranolazine 500 mg tablet extended release 12 hr 500 mg PO DAILY Qty: 90 3RF lisinopril 5 mg tablet 5 mg PO DAILY Primary Care Provider: Maximo Samayoa Referrals: Maximo Samayoa DO [Primary Care Provider] - Disposition Disposition: Acute Care Hospital [facility]
--- NOTE | 2023-02-12 21:35 | RAD_ITS ---
EXAM: XR CHEST, 1 VIEW CLINICAL INDICATION: chest pain TECHNIQUE: Frontal view of the chest. COMPARISON: 6.5.20 FINDINGS: LUNGS AND PLEURAL SPACES: Unremarkable. No consolidation or edema. No pneumothorax. No effusion. HEART: Unremarkable. Cardiac silhouette not enlarged. MEDIASTINUM: Central airways and mediastinal contour are unremarkable. BONES/JOINTS: Unremarkable. SOFT TISSUES: Unremarkable. RAD/Chest 1 View (Portable) IMPRESSION: No radiographic evidence of acute cardiopulmonary disease. Electronically Signed: Shelton Watkins MD at 21:52 EDT ,
[2023-02-12 21:39] LABS: Absolute Lymphocyte Count 1.85 X10^3/uL (0.83-4.51); Absolute Neutrophil Count 4.2 X10^3/uL (2.0-7.7); Basophil# 0.12 X10^3/uL; Basophil% 1.6 % (0-1); Eosinophil# 0.38 X10^3/uL; Eosinophils% 5.1 % (0-5); Hematocrit 41.7 % (40-54); Hemoglobin 13.2 g/dL (13.0-16.5); Lymphocyte # 1.85 X10^3/ul (0.83-4.51); Lymphocyte % 24.8 % (19-41); Mean Corp Hgb Conc 31.7 g/dL (32-36); Mean Corpuscular Hgb 25.8 pg (27.0-32.0); Mean Corpuscular Volume 81.6 fL (80-94); Mean Platelet Vol. 9.8 fl (6.2-12.0); Monocyte# 0.85 X10^3/uL; Monocyte% 11.4 % (0-10); NRBC Flagged by Analyzer 0 % (0-5); Neutrophil # 4.16 X10^3/uL (2.7-7.7); Neutrophil % 55.8 % (47-70); Platelet Count 301 K/mm3 (150-450); RBC Distribution Width CV 14.5 % (11.6-14.6); RBC Distribution Width SD 42.5 fl (35.1-43.9); Red Blood Count 5.11 M/mm3 (4.6-6.2); White Blood Count 7.5 K/mm3 (4.4-11.0)
--- NOTE | 2023-02-12 21:40 | EKG12_ITS ---
Test Reason : REPEAT CP Blood Pressure : / mmHG Vent. Rate : 065 BPM Atrial Rate : 065 BPM P-R Int : 200 ms QRS Dur : 088 ms QT Int : 390 ms P-R-T Axes : -01 -09 024 degrees QTc Int : 405 ms Normal sinus rhythm Low voltage QRS Borderline ECG Confirmed by HANK LARA, SANJIV ([id number]), associate editor TAWANA GERMAN ([id number]) on 02/14/2023 9:36:45 AM Referred By: DANITZA Confirmed By:SANJIV MCKINNEY MD
[2023-02-12 22:00] LABS: Anion Gap 5 (5-15); BUN 29 mg/dL (7-18); BUN/Creat Ratio 22.1 RATIO (10-20); Calcium,Total 8.9 mg/dL (8.5-10.1); Chloride 107 mmol/L (98-107); Creatinine, Serum 1.31 mg/dL (0.70-1.30); EST Glomerular Filtration Rate 59 mL/min (>60); Est Glom Filt Rate - Afr Amer 72 mL/min (>60); Estimated Creatinine Clearance 74.54 ml/min; Glucose 139 mg/dL (74-106); Sodium Level 135 mmol/L (136-145); Troponin-I HS (w/2H Reflex) 195 pg/mL (3.0-78.0)
--- NOTE | 2023-02-12 22:19 | PCM.HP.STD ---
HPI - General General Date of Admission: 02/12/23 Date of Service: 02/12/23 Chief Complaint: Chest pain HPI Narrative QI VELA, is a 57 M with a significant history of CAD status post stents about 7 years ago and in 2002 who presents to the emergency department with 2 to 3-day history of intermittent left sharp parasternal chest pain. His chest pain last about 30 seconds to 1 minute. Because his chest pain was progressively getting worse in frequency patient came to the emergency department. His chest pain is about 4-5 on a scale of 1-10. He denies any aggravating factor chest pain. He denies any ameliorating factor. He took 3 nitroglycerin but he is unsure whether the chest pain went away because of the nitroglycerin as his chest pain goes away into seconds 1 minutes anyway. He denies any nausea, vomiting, diaphoresis or shortness of breath. The chest pain is different from his previous episodes where he had a stent as in his previous episode he also had a tingling sensations at his jaw and his. At the emergency department his chest pain. However EKG remained unchanged.. [facility] Medical History Atherosclerosis of coronary artery of [place] heart without angina pectoris Cardiology follow-up encounter Chest pain High cholesterol History of Holter monitoring History of non-ST elevation myocardial infarction (NSTEMI) (02/13/20) History of stress test Hyperlipidemia Hypertriglyceridemia Loss of hearing Non-smoker Obesity Type 2 diabetes mellitus Wears glasses Home Medications nitroglycerin 0.4 mg sublingual tablet 0.4 mg sublingual Q5-15M PRN chest pain #25 tabs 07/27/22 [Rx Last Taken Unknown] metformin 500 mg tablet,extended release 24 hr 500 mg PO BID BLOOD SUGAR 09/13/22 [History Last Taken 12/11/22] aspirin 81 mg tablet,delayed release (Adult Aspirin Regimen) 81 mg PO QDAY HEART 09/26/22 [History Last Taken 12/11/22] atorvastatin 40 mg tablet 40 mg PO QHS CHOLESTEROL 09/26/22 [History Last Taken 10/09/22] isosorbide mononitrate 30 mg tablet,extended release 24 hr 30 mg PO DAILY HEART 09/26/22 [History Last Taken 12/11/22] lisinopril 5 mg tablet 5 mg PO DAILY bp 01/04/23 [History Last Taken Unknown] ranolazine 500 mg tablet,extended release,12 hr 500 mg PO DAILY angina 02/12/23 [History Last Taken Unknown] Allergy/AdvReac Type Severity Reaction Status Date / Time rosuvastatin [From Crestor] AdvReac myalgia Verified 02/12/23 21:05 Family History Father Heart disease Surgical History History of cardiac catheterization History of coronary artery stent placement (02/16/20) History of coronary artery stent placement History of left heart catheterization (02/13/20) Hx of total knee replacement Hx of total knee replacement Social History Smoking Status: Former smoker substance use type: does not use ROS ROS Narrative Pertinent positives and pertinent negatives as noted in HPI. All other systems were reviewed and are negative Vital Signs Vital Signs Vital Signs: 02/12/23 20:59 02/12/23 20:59 02/12/23 21:02 Temperature 97 F L Temperature Source Temporal Pulse Rate 68 Respiratory Rate 21 H Respiratory Effort Normal Non-Labored Blood Pressure 154/85 H Blood Pressure Mean 108 Pulse Ox 100 Oxygen Delivery Method Room Air 02/12/23 21:36 Temperature Temperature Source Pulse Rate Respiratory Rate Respiratory Effort Blood Pressure Blood Pressure Mean Pulse Ox 96 Oxygen Delivery Method Room Air Weight Weight: 148.8 kg Body Mass Index (BMI) 39.9 Physical Exam Narrative Physical exam: General: Well-nourished, well-developed. Head: Normocephalic, atraumatic, no tenderness Eyes: Vision is grossly intact. EOMI ENT, no trauma, moist mucous membranes, no rhinorrhea Neck: Nontender, No thyromegaly. CVS: Regular rate and rhythm. S1-S2 present. No murmur, gallop or rub. Respiratory : clear to auscultation bilaterally, chest wall nontender Abdomen: Soft, nontender, nondistended, normal bowel sounds, no masses : Deferred Back: Nontender, no CVA tenderness, no midline spinal tenderness, deformities, step-offs Extremities: Nontender full range of motion, no trauma Skin: Normal color, no trauma, abrasions Neuro: Alert, oriented, cranial nerves II through XII grossly intact. Psychiatry: Normal mood. Normal affect. Not depressed. Not anxious. Results Lab / Micro Data Result Diagrams: 02/12/23 21:05 02/12/23 21:05 Labs: Laboratory Results - last 24 hr 02/12/23 21:05: WBC 7.5, RBC 5.11, Hgb 13.2, Hct 41.7, MCV 81.6, MCH 25.8 L, MCHC 31.7 L, RDW Std Deviation 42.5, RDW Coeff of Hillary 14.5, Plt Count 301, MPV 9.8, Immature Gran % (Auto) 1.300 H, Neut % (Auto) 55.8, Lymph % (Auto) 24.8, [place] % (Auto) 11.4 H, Eos % (Auto) 5.1 H, Baso % (Auto) 1.6 H, Absolute Neuts (auto) 4.2, Absolute Lymphs (auto) 1.85, Nucleated RBC % 0 02/12/23 21:05: Sodium 135 L, Potassium 4.0, Chloride 107, Carbon Dioxide 23.0, Anion Gap 5, BUN 29 H, Creatinine 1.31 H, Estim Creat Clear Calc 74.54, Est GFR (MDRD) Af Amer 72, Est GFR (MDRD) Non-Af 59 L, BUN/Creatinine Ratio 22.1 H, Glucose 139 H, Calcium 8.9, Troponin I High Sens 195 H* Radiology Impression Chest X-Ray 02/12/23 21:35 IMPRESSION: No radiographic evidence of acute cardiopulmonary disease. Electronically Signed: Shelton Watkins MD at 21:52 EDT Reading Location ID and State: [facility] / [place] , Service support , Assessment & Plan Assessment/Plan (1) Elevated troponin: (2) Chest pain: (3) Creatinine elevation: PLAN: Plan Chest pain with elevated troponin Initial high sensitive troponin was 195. This could be NSTEMI or other. Trend. Place on a monitored bed at progressive care unit. Actual CXR image was independently visualized. No acute cardiopulmonary process was noted. Agrees with radiology interpretation. Actual EKG tracing was independently visualized. EKG showed sinus rhythm with no acute abnormality but with low voltages. Echocardiogram ordered. Given full dose of aspirin at the emergency department. After midnight we will keep n.p.o. except meds. Check echocardiogram. Cardiology consult. Stat EKG as needed for chest pain Home Imdur and ranolazine continued. Elevated creatinine without diagnosis of hypertension Creatinine presentation was 1.31. Slightly elevated but still in normal baseline. Gentle IV hydration. Trend BMP. Diabetes mellitus Blood glucose is stable. Hold metformin. Trend Accu-Cheks. Correction scale insulin ordered. DVT prophylaxis Subcutaneous Lovenox ordered. Charges/Coding Visit Charges Inpatient E&M: 05278 Init Hosp L3
[2023-02-12] MEDS: Aspirin 81 MG TAB.CHEW 324 MG PO (22:26)
[2023-02-12 23:34] LABS: Reflex Troponin-HS? (from REC) Y
--- NOTE | 2023-02-12 23:34 | ECHOCS_ITS ---
Reason For Study: Chest Pain Procedure This was a 2D Doppler, Color Flow transthoracic echocardiogram. The study was technically difficult. Contrast injection was performed. Exam performed portable in patient room. Left Ventricle Normal LV size. Left ventricular systolic function is normal. The estimated ejection fraction is 55 %. No regional wall motion abnormalities noted. Right Ventricle Normal RV size. Normal systolic function. Atria The left atrium is mildly enlarged. The right atrium is mildly enlarged. Mitral Valve Normal mitral valve. Tricuspid Valve Normal tricuspid valve. Aortic Valve Trisinus/trileaflet aortic valve. Pulmonic Valve Normal pulmonic valve. Great Vessels Normal aortic root. The pulmonary artery is normal size. Normal inferior vena cava. Pericardium/Pleural No pericardial effusion. Medication Diluted definity 2.5ml given slow IV push to enhance endocardial definition. MMode/2D Measurements & Calculations LVIDd: 5.6 cm IVSd: 1.1 cm Ao root diam: 3.7 cm LVIDs: 3.7 cm LVPWd: 1.1 cm LA dimension: 4.7 cm RVDd: 4.1 cm FS: 34.9 % LAV(MOD-sp4): 66.7 ml LVAd ap4: 40.5 cm2 SV(MOD-sp4): 85.1 ml LVLd ap4: 8.6 cm EDV(MOD-sp4): 157.1 ml EDV(sp4-el): 162.1 ml LVAs ap4: 25.6 cm2 LVLs ap4: 7.5 cm ESV(MOD-sp4): 72.0 ml ESV(sp4-el): 73.9 ml EF(MOD-sp4): 54.2 % EF(sp4-el): 54.4 % SV(sp4-el): 88.1 ml LA A4 area: 22.7 cm2 RA A4 area: 24.2 cm2 Time Measurements MV dec time: 0.26 sec Doppler Measurements & Calculations MV E max doug: 68.2 cm/sec Lat Peak E' Doug: 15.6 cm/sec Med Peak E' Doug: 8.9 cm/sec MV A max doug: 65.9 cm/sec E/E' lat: 4.4 E/E' med: 7.6 MV E/A: 1.0 MV V2 max: 76.5 cm/sec MV P1/2t max doug: 71.9 cm/sec Ao V2 max: 131.8 cm/sec MV max P.3 mmHg MV P1/2t: 83.6 msec Ao max P.0 mmHg MV V2 mean: 42.4 cm/sec Ao V2 mean: 90.5 cm/sec MV mean P.83 mmHg MV dec slope: 251.8 cm/sec2 Ao mean P.8 mmHg MV V2 VTI: 26.9 cm MVA(P1/2t): 2.6 cm2 Ao V2 VTI: 27.8 cm AV (velocity ratio): 0.94 LV V1 max: 116.0 cm/sec PA V2 max: 123.5 cm/sec LV V1 max P.4 mmHg PA V2 mean: 80.7 cm/sec LV V1 mean P.8 mmHg LV V1 mean: 78.9 cm/sec LV V1 VTI: 26.1 cm ECHO/Echo Complete W/ Contrast Interpretation Summary Normal LV size. Left ventricular systolic function is normal. The estimated ejection fraction is 55 %. Contrast injection was performed. Ordering Physician: Leonel Laguna Performed By: Keo Fuller RCS
--- NOTE | 2023-02-12 23:34 | EKG12_ITS ---
Test Reason : CP Blood Pressure : / mmHG Vent. Rate : 056 BPM Atrial Rate : 056 BPM P-R Int : 192 ms QRS Dur : 088 ms QT Int : 420 ms P-R-T Axes : 057 -21 033 degrees QTc Int : 405 ms Sinus bradycardia Otherwise normal ECG When compared with ECG of 02-OCT-2022 07:29, No significant change was found Confirmed by HANK LARA, SANJIV ([id number]), associate entertainment editor TAWANA GERMAN ([id number]) on 02/14/2023 9:44:14 AM Referred By: Confirmed By:SANJIV MCKINNEY MD
[2023-02-13] VITALS (10 sets, daily range): BP systolic 112–132; BP diastolic 60–95; PULSE 55–65; RESP 16–18; TEMP 36.1–36.9; O2SAT 94–100
[2023-02-13 00:10] LABS: Troponin-I HS 193 pg/mL (3.0-78.0)
[2023-02-13] MEDS: Enoxaparin 150 MG/ML Syringe SC (00:57)
[2023-02-13] MEDS: 0.9% Normal Saline 1,000 ML 75 ML IV ×2 (01:01→17:05)
[2023-02-13] MEDS: 0.9% Saline Lock 10 ML Syringe IV (01:01)
[2023-02-13 03:54] LABS: Absolute Lymphocyte Count 2.34 X10^3/uL (0.83-4.51); Absolute Neutrophil Count 3.1 X10^3/uL (2.0-7.7); Basophil% 1.5 % (0-1); Eosinophil# 0.35 X10^3/uL; Eosinophils% 5.3 % (0-5); Hematocrit 41.8 % (40-54); Lymphocyte # 2.34 X10^3/ul (0.83-4.51); Lymphocyte % 35.6 % (19-41); Mean Corp Hgb Conc 31.1 g/dL (32-36); Mean Corpuscular Hgb 25.4 pg (27.0-32.0); Mean Corpuscular Volume 81.8 fL (80-94); Mean Platelet Vol. 9.6 fl (6.2-12.0); Monocyte# 0.65 X10^3/uL; Monocyte% 9.9 % (0-10); NRBC Flagged by Analyzer 0 % (0-5); Neutrophil # 3.07 X10^3/uL (2.7-7.7); Neutrophil % 46.6 % (47-70); Platelet Count 270 K/mm3 (150-450); RBC Distribution Width CV 14.3 % (11.6-14.6); RBC Distribution Width SD 42.6 fl (35.1-43.9); Red Blood Count 5.11 M/mm3 (4.6-6.2); White Blood Count 6.6 K/mm3 (4.4-11.0)
[2023-02-13 04:22] LABS: Anion Gap 6 (5-15); BUN 28 mg/dL (7-18); BUN/Creat Ratio 24.1 RATIO (10-20); Calcium,Total 8.2 mg/dL (8.5-10.1); Chloride 111 mmol/L (98-107); Creatinine, Serum 1.16 mg/dL (0.70-1.30); EST Glomerular Filtration Rate 68 mL/min (>60); Est Glom Filt Rate - Afr Amer 83 mL/min (>60); Estimated Creatinine Clearance 84.18 ml/min; Glucose 138 mg/dL (74-106); Potassium 4.2 mmol/L (3.5-5.1); Sodium Level 138 mmol/L (136-145)
[2023-02-13 04:46] LABS: Troponin-I HS 194 pg/mL (3.0-78.0)
[2023-02-13] MEDS: Lisinopril 5 MG Tablet PO (06:17)
[2023-02-13] MEDS: Ranolazine 500 MG Tablet PO (06:17)
[2023-02-13] MEDS: Aspirin E.C. 81 MG Tablet PO (06:17)
[2023-02-13 06:36] LABS: Bedside Glucose 160 mg/dL (74-106)
--- NOTE | 2023-02-13 11:05 | CASEMGMT ---
RN CM Face to Face with patient for initial transition planning/care coordination assessment. RN CM introduced self and role at [facility]. Patient sitting in chair, alert and oriented. Patient willing to participate in assessment and is able to answer all questions appropriately. Care providers, pharmacy, and demographics verified. Patient wishes to discharge home, denies need for home health at this time. Patient states he has no further needs or concerns at this time. CM to follow for discharge planning needs that may arise. PCP: Yao Specialists: none Preferred Pharmacy: [facility] Insurance: [employer] Prescription Benefit: yes Living Will/HPOA: none LNOK: Living Arrangements: Patient lives with in a single story home with no steps to enter. Patient is independent Transportation: self, DME/HHC: Patient has shower chair, raised toilet, cane, walker, and grab bars. Patient has had [facility] HHC in the past. Disposition Plan: Patient to discharge home with family support and follow-up plans in place. Eileen MCCLAIN, RN, CM
[2023-02-13 11:42] LABS: Bedside Glucose 136 mg/dL (74-106)
--- NOTE | 2023-02-13 14:05 | PN_ITS ---
Subjective Subjective Patient seen and examined. He was admitted with a complaint of chest pain. He denies any active complaints now. Chest pain has since he came to the hospital. Review of systems otherwise negative. Therapeutic Recreation Assistant on board. Objective Data Objective Data Vital Signs: Vital Signs Temp Pulse Resp BP Pulse Ox O2 Del Method 97 F L 62 16 114/95 H 95 Room Air 02/13/23 12:30 02/13/23 12:30 02/13/23 12:30 02/13/23 12:30 02/13/23 12:30 02/13/23 12:30 Oxygen Delivery Method Room Air Weight: 320 lb 1.779 oz Body Mass Index (BMI) 38.9 Intake & Output: Intake and Output for Last 24 Hours 02/11/23 02/12/23 02/13/23 23:59 23:59 23:59 Intake Total 120 / 120 Output Total 400 / 400 Balance -280 / -280 Lab / Micro Data Result Diagrams: 02/13/23 03:47 02/13/23 03:47 Labs: Laboratory Results - last 24 hr 02/12/23 21:05: WBC 7.5, RBC 5.11, Hgb 13.2, Hct 41.7, MCV 81.6, MCH 25.8 L, MCHC 31.7 L, RDW Std Deviation 42.5, RDW Coeff of Hillary 14.5, Plt Count 301, MPV 9.8, Immature Gran % (Auto) 1.300 H, Neut % (Auto) 55.8, Lymph % (Auto) 24.8, [place] % (Auto) 11.4 H, Eos % (Auto) 5.1 H, Baso % (Auto) 1.6 H, Absolute Neuts (auto) 4.2, Absolute Lymphs (auto) 1.85, Nucleated RBC % 0 02/12/23 21:05: Sodium 135 L, Potassium 4.0, Chloride 107, Carbon Dioxide 23.0, Anion Gap 5, BUN 29 H, Creatinine 1.31 H, Estim Creat Clear Calc 74.54, Est GFR (MDRD) Af Amer 72, Est GFR (MDRD) Non-Af 59 L, BUN/Creatinine Ratio 22.1 H, Glucose 139 H, Calcium 8.9, Troponin I High Sens 195 H* 02/12/23 23:34: Troponin I High Sens 193 H* 02/13/23 03:47: WBC 6.6, RBC 5.11, Hgb 13.0, Hct 41.8, MCV 81.8, MCH 25.4 L, MCHC 31.1 L, RDW Std Deviation 42.6, RDW Coeff of Hillary 14.3, Plt Count 270, MPV 9.6, Immature Gran % (Auto) 1.100 H, Neut % (Auto) 46.6 L, Lymph % (Auto) 35.6, [place] % (Auto) 9.9, Eos % (Auto) 5.3 H, Baso % (Auto) 1.5 H, Absolute Neuts (auto) 3.1, Absolute Lymphs (auto) 2.34, Nucleated RBC % 0 02/13/23 03:47: Sodium 138, Potassium 4.2, Chloride 111 H, Carbon Dioxide 21.0, Anion Gap 6, BUN 28 H, Creatinine 1.16, Estim Creat Clear Calc 84.18, Est GFR (MDRD) Af Amer 83, Est GFR (MDRD) Non-Af 68, BUN/Creatinine Ratio 24.1 H, Glucose 138 H, Calcium 8.2 L 02/13/23 03:47: Troponin I High Sens 194 H* 02/13/23 06:14: POC Glucose 160 H 02/13/23 11:22: POC Glucose 136 H Radiography Diagnostic Testing: Radiology Impression Chest X-Ray 02/12/23 21:35 IMPRESSION: No radiographic evidence of acute cardiopulmonary disease. Electronically Signed: Shelton Watkins MD at 21:52 EDT Reading Location ID and State: [facility]– [place] / [place] , Service support , Physical Exam Const alert, oriented x3 and no apparent distress General Appearance: cooperative HEENT normocephalic, head/scalp atraumatic, moist oral mucous membranes and oropharynx normal Eyes EOMs intact bilaterally Neck no lymphadenopathy, supple and no JVD Lymph Lymphatic: no lymphadenopathy noted Resp normal respiratory effort, normal air movement and clear to auscultation b ilaterally Cardio regular rate, regular rhythm, S1 normal heart sound, S2 normal heart sound and no murmurs GI normal to inspection, nondistended, normoactive bowel sounds, soft to palpation and non-tender Extremity normal capillary refill, no clubbing, cyanosis or edema and no calf tenderness Skin General Skin Exam: no breakdown Neuro CN's II-XII intact bilaterally, no focal motor deficits and no sensory deficits noted Psych thought process normal and cooperative Appearance: appropriate Assessment & Plan Assessment/Plan (1) Chest pain: PLAN: Plan # Chest pain to rule out ACS * Initial troponin was elevated at 195 but troponins did not trend upwards. EKG showed no acute ST changes. * On aspirin and high intensity statin. Cardiology on board. For cardiac cath today. * Cardiac cath showed previously stented vessel in the left anterior descending artery in the midsegment with the first diagonal also stented in the mid segment there being an approximately 70% stenosis noted and mild diffuse disease present. There was also mild diffuse disease in the circumflex artery. The ramus artery had greater than 90% stenosis in the proximal part of the previously stented vessel with the stent itself noted to be patent. He had moderate luminal irregularities up to 50% in the RCA. Attempts were made to stent the proximal LAD but was unsuccessful. Decision was made to transfer patient for CABG. Per patient's preference, [facility] called. Patient accepted at [facility] but is awaiting a bed. * * Also on Imdur and ranolazine * #Elevated creatinine: Resolved #CAD: S/p stents. Metformin on hold. Insulin sliding scale. Accu-Cheks ACHS. * #Hypertension: On lisinopril DVT prophylaxis: Lovenox Disposition: Transfer to [facility] pending bed availability Charges/Coding Visit Charges Inpatient E&M: 00078 Subs Hosp L2
--- NOTE | 2023-02-13 14:35 | CON.PCM.CA_ITS ---
Assessment & Plan Assessment/Plan (1) Chest pain: PLAN: He presents with chest discomfort which is somewhat atypical with an elevated troponin. He underwent a cardiac catheterization which demonstrated the following: Normal left main coronary. Left anterior descending artery previously stented with patent proximal stent and moderate diffuse disease. Ramus intermedius with proximal 90% stenosis and previously placed stent which is patent. Left circumflex artery with proximal 80% stenosis mid 60% stenosis and mid to distal 70% stenosis. Right coronary artery with diffuse 40 to 50% stenosis. Preserved left ventricular systolic function. Next based on the above angiographic findings we will consider PCI of the above 2 vessels namely the ramus intermedius and circumflex artery. (2) History of coronary artery stent placement: PLAN: He is previous angioplasty and stenting as noted above. (3) Hyperlipidemia: QUALIFIERS: Hyperlipidemia type: unspecified Qualified Code(s): E78.5 - Hyperlipidemia, unspecified PLAN: We will continue with aggressive risk factor modification. Thank you for allowing me to participate in the care of your patient. Please don't hesitate to call if any issues arise. HPI Consult Data Date of Consult: 02/13/23 HPI Narrative HPI Narrative: QI VELA, is a 57 M who presents with chest discomfort to the emergency room. He described this as somewhat atypical sharp and not always related to activity. In the emergency room where he was evaluated his EKG was noted to be normal cardiac enzymes were noted to be mildly abnormal but had a flat pattern. As you remember, he presented to the hospital in February of 2020 with chest discomfort.? He had previously undergone stress testing which was normal but he ultimately underwent a cardiac catheterization which demonstrated a left anterior descending artery with the previously placed stent which was patent with moderate disease noted in the diagonal vessel, ramus intermedius with mild proximal disease and a distal 90% stenosis, a left circumflex artery which was large with moderate 40 to 50% proximal and distal 90% stenosis in the second obtuse marginal branch, and a dominant right coronary artery with luminal irregularity.? He underwent angioplasty and stenting to the ramus intermedius as well as the distal circumflex artery. He denies chest, arm, jaw, or neck discomfort at this time.? He denies palpitations.? He denies bilateral lower extremity edema.? He denies claudication.? He denies shortness of breath with activity, shortness of breath at rest, orthopnea, or PND.? He denies chronic cough.? He denies significant, sudden weight gain.? He denies lightheadedness, dizziness, near-syncope, or syncope.? He denies blood in urine, blood in stool, or epistaxis.? He denies fever or chills.? He denies myalgia.? He denies fatigue.? His exercise level has remained stable though reduced now because of his knee but typically walks daily and exercises with weight machine. [facility] Medical History Atherosclerosis of coronary artery of creek heart without angina pectoris Cardiology follow-up encounter Chest pain High cholesterol History of Holter monitoring History of non-ST elevation myocardial infarction (NSTEMI) (02/13/20) History of stress test Hyperlipidemia Hypertriglyceridemia Loss of hearing Non-smoker Obesity Type 2 diabetes mellitus Wears glasses Home Medications nitroglycerin 0.4 mg sublingual tablet 0.4 mg sublingual Q5-15M PRN chest pain #25 tabs 07/27/22 [Rx Last Taken Unknown] metformin 500 mg tablet,extended release 24 hr 500 mg PO BID BLOOD SUGAR 09/13/22 [History Last Taken 12/11/22] aspirin 81 mg tablet,delayed release (Adult Aspirin Regimen) 81 mg PO QDAY HEART 09/26/22 [History Last Taken 12/11/22] atorvastatin 40 mg tablet 40 mg PO QHS CHOLESTEROL 09/26/22 [History Last Taken 10/09/22] isosorbide mononitrate 30 mg tablet,extended release 24 hr 30 mg PO DAILY HEART 09/26/22 [History Last Taken 12/11/22] lisinopril 5 mg tablet 5 mg PO DAILY bp 01/04/23 [History Last Taken Unknown] ranolazine 500 mg tablet,extended release,12 hr 500 mg PO DAILY angina 02/12/23 [History Last Taken Unknown] Allergy/AdvReac Type Severity Reaction Status Date / Time rosuvastatin [From Crestor] AdvReac myalgia Verified 02/12/23 21:05 Family History Father Heart disease Surgical History History of cardiac catheterization History of coronary artery stent placement (02/16/20) History of coronary artery stent placement History of left heart catheterization (02/13/20) Hx of total knee replacement Hx of total knee replacement Social History Smoking Status: Former smoker substance use type: does not use ROS Constitutional Constitutional: Denies fever(s) or weight loss Eyes Eyes: Reports systems reviewed and no addt'l complaints, except as documented ENT HEENT: Reports systems reviewed and no addt'l complaints, except as documented Cardiovascular Cardiovascular: Reports chest pain at rest and chest pain with activity; Denies dyspnea at rest, dyspnea on exertion, edema, palpitations or paroxysmal nocturnal dyspnea Respiratory/Chest Respiratory/Chest: Denies dyspnea on exertion, productive cough, shortness of breath at rest or shortness of breath with exertion Gastrointestinal Gastrointestinal: Denies change in bowel habits, nausea, vomiting or weight changes Genitourinary Genitourinary: Denies difficulty urinating Musculoskeletal Musculoskeletal: Denies joint stiffness or muscle weakness Integumentary Integumentary: Denies lesions Neurologic Neurologic: Denies dizziness or syncope Psychiatric Psychiatric: Denies anxiety Endocrine Endocrinology: Denies excessive sweating or fatigue Hematologic/Lymphatic Hematologic/Lymphatic: Denies anemia Allergic/Immunologic Allergic/Immunologic: Denies seasonal rhinorrhea Physical Exam Const alert, oriented x3 and no apparent distress General Appearance: cooperative HEENT hearing grossly normal bilaterally Head and Scalp: atraumatic Eyes EOMs intact bilaterally Neck General: normal visual inspection Chest inspection of chest normal and palpation of chest normal Resp normal respiratory effort Auscultation: clear to auscultation bilaterally Cardio regular rate, regular rhythm, S1 normal heart sound and S2 normal heart sound Jugular Venous Distention: JVD GI normal to inspection, nondistended, normoactive bowel sounds Extremity normal capillary refill and no pedal edema Peripheral Pulses: Yes pulses 2+ throughout and femoral pulses present Skin no rashes or lesions noted Neuro oriented x3 and CN's II-XII intact bilaterally Psych Appearance: grossly normal and appropriate Risk Stratification Risk Stratification Applicable: Yes Age >/= 65: No >/= 3 CAD Risk Factors (HTN, HLD, DM, family hx of CAD, or current smoker): Yes Aspirin Use in the Past 7 Days: Yes Severe Angina (>/= episodes in 24 hours): No EKG ST Changes >/= 0.5mm: No Positive Cardiac Marker: Yes MT Risk Stratification Score: 3 MT % Risk: 13% Risk Objective Data Vital Signs: Vital Signs Temp Pulse Resp BP Pulse Ox O2 Del Method 97 F L 62 16 114/95 H 95 Room Air 02/13/23 12:30 02/13/23 12:30 02/13/23 12:30 02/13/23 12:30 02/13/23 12:30 02/13/23 12:30 Oxygen Delivery Method Room Air Weight: 320 lb 1.779 oz Body Mass Index (BMI) 38.9 Intake & Output: Intake and Output for Last 24 Hours 02/11/23 02/12/23 02/13/23 23:59 23:59 23:59 Intake Total 120 / 120 Output Total 400 / 400 Balance -280 / -280 Lab / Micro Data Result Diagrams: 02/13/23 03:47 02/13/23 03:47 Labs: Laboratory Results - last 24 hr 02/12/23 21:05: WBC 7.5, RBC 5.11, Hgb 13.2, Hct 41.7, MCV 81.6, MCH 25.8 L, MCH C 31.7 L, RDW Std Deviation 42.5, RDW Coeff of Hillary 14.5, Plt Count 301, MPV 9.8, Immature Gran % (Auto) 1.300 H, Neut % (Auto) 55.8, Lymph % (Auto) 24.8, [place] % (Auto) 11.4 H, Eos % (Auto) 5.1 H, Baso % (Auto) 1.6 H, Absolute Neuts (auto) 4.2, Absolute Lymphs (auto) 1.85, Nucleated RBC % 0 02/12/23 21:05: Sodium 135 L, Potassium 4.0, Chloride 107, Carbon Dioxide 23.0, Anion Gap 5, BUN 29 H, Creatinine 1.31 H, Estim Creat Clear Calc 74.54, Est GFR (MDRD) Af Amer 72, Est GFR (MDRD) Non-Af 59 L, BUN/Creatinine Ratio 22.1 H, Glucose 139 H, Calcium 8.9, Troponin I High Sens 195 H* 02/12/23 23:34: Troponin I High Sens 193 H* 02/13/23 03:47: WBC 6.6, RBC 5.11, Hgb 13.0, Hct 41.8, MCV 81.8, MCH 25.4 L, MCHC 31.1 L, RDW Std Deviation 42.6, RDW Coeff of Hillary 14.3, Plt Count 270, MPV 9.6, Immature Gran % (Auto) 1.100 H, Neut % (Auto) 46.6 L, Lymph % (Auto) 35.6, [place] % (Auto) 9.9, Eos % (Auto) 5.3 H, Baso % (Auto) 1.5 H, Absolute Neuts (auto) 3.1, Absolute Lymphs (auto) 2.34, Nucleated RBC % 0 02/13/23 03:47: Sodium 138, Potassium 4.2, Chloride 111 H, Carbon Dioxide 21.0, Anion Gap 6, BUN 28 H, Creatinine 1.16, Estim Creat Clear Calc 84.18, Est GFR (MDRD) Af Amer 83, Est GFR (MDRD) Non-Af 68, BUN/Creatinine Ratio 24.1 H, Glucose 138 H, Calcium 8.2 L 02/13/23 03:47: Troponin I High Sens 194 H* 02/13/23 06:14: POC Glucose 160 H 02/13/23 11:22: POC Glucose 136 H Cardiology Labs/Tests 02/12/23 21:05: WBC 7.5, RBC 5.11, Hgb 13.2, Hct 41.7, MCV 81.6, MCH 25.8 L, MCHC 31.7 L, Plt Count 301, MPV 9.8, Immature Gran % (Auto) 1.300 H, Neut % (Auto) 55.8, Lymph % (Auto) 24.8, [place] % (Auto) 11.4 H, Eos % (Auto) 5.1 H, Baso % (Auto) 1.6 H, Absolute Neuts (auto) 4.2, Nucleated RBC % 0 02/12/23 21:05: Sodium 135 L, Potassium 4.0, Chloride 107, Carbon Dioxide 23.0, Anion Gap 5, BUN 29 H, Creatinine 1.31 H, Est GFR (MDRD) Af Amer 72, Est GFR (MDRD) Non-Af 59 L, BUN/Creatinine Ratio 22.1 H, Glucose 139 H, Calcium 8.9 02/13/23 03:47: WBC 6.6, RBC 5.11, Hgb 13.0, Hct 41.8, MCV 81.8, MCH 25.4 L, MCHC 31.1 L, Plt Count 270, MPV 9.6, Immature Gran % (Auto) 1.100 H, Neut % (Auto) 46.6 L, Lymph % (Auto) 35.6, [place] % (Auto) 9.9, Eos % (Auto) 5.3 H, Baso % (Auto) 1.5 H, Absolute Neuts (auto) 3.1, Nucleated RBC % 0 02/13/23 03:47: Sodium 138, Potassium 4.2, Chloride 111 H, Carbon Dioxide 21.0, Anion Gap 6, BUN 28 H, Creatinine 1.16, Est GFR (MDRD) Af Amer 83, Est GFR (MDRD) Non-Af 68, BUN/Creatinine Ratio 24.1 H, Glucose 138 H, Calcium 8.2 L Rhythm: EKG: ECHO: Stress Test: Cardiac Cath: PCI: CT Surgery: Holter monitor: EPS: PPM: CXR: Chest CT Scan: Radiography Diagnostic Testing: Radiology Impression Chest X-Ray 02/12/23 21:35 IMPRESSION: No radiographic evidence of acute cardiopulmonary disease. Electronically Signed: Shelton Watkins MD at 21:52 EDT ,
--- NOTE | 2023-02-13 14:45 | CL.D_ITS ---
Patient Name: QI VELA Study Date: 02/13/2023 Performing: Gordo Godinez MD Ht: 76 inches 193.04 cm : 1965 Wt: 320.11 lbs 145.2 kg Age: 57 Gender: male BSA: 2.71 PROCEDURE(S) PERFORMED DC01-([id number])LHC/COR/LV IC10-([id number])FFR, CORONARY OR GRAFT, INITIAL VESSEL CLINICAL PROFILE AND INDICATIONS Indications: Suspected CAD Heart Failure: None Stress/Imaging Stress/Image Study Performed: No CAD Presentations: Unstable angina. CONCLUSIONS Coronary disease with severe disease involving the proximal ramus intermedius and proximal left circumflex artery. Previously stented LAD and diagonal vessel are patent with mild diffuse disease noted in the right coronary artery. RECOMMENDATIONS Staged for FFR and possible surgery DESCRIPTION OF PROCEDURE The patient arrived to the procedure lab. The risks and benefits of the procedure as well as a full description of our services here and current unavailability of surgical backup were fully explained to the patient and/or their significant other prior to the catheterization. The Timeout was completed, verifying the correct patient and procedure. The patient's procedural site was prepped and draped in the usual fashion. Local anesthetic was given subcutaneously to right radial region with Lidocaine 2%. Using a modified Seldinger technique, arterial access was obtained via the right radial artery, a 6Fr sheath was inserted. Left Coronary Artery selective angiography was performed in multiple views using a 5 Fr. 4.0 [place] catheter. Right Coronary Artery selective angiography was then performed in multiple views using a 5 Fr. 4.0 [place] catheter. Left Ventriculography was performed in RAMÍREZ projection using a 5 Fr. Pigtail catheter. LV to AO pullback pressures were then recorded.The arterial sheath was pulled and a TR Band was applied for hemostasis. 10cc of air CORONARY ANGIOGRAPHY LEFT HEART ASSESSMENT Left Ventricular Ejection Fraction: by LV Gram 55 % Normal LV wall motion Normal Left Ventricular systolic function LEFT MAIN: No significant disease noted LEFT ANTERIOR DESCENDING ARTERY: Previously stented vessel in the midsegment with a first diagonal also stented. In the midsegment there is approximately 70% stenosis noted and mild diffuse disease present. CIRCUMFLEX ARTERY: Nondominant but medium size vessel with proximal 80% stenosis and mid 60 to 70% stenosis present. Mild diffuse distal disease present. RAMUS: Previously stented vessel with proximal longer 90% stenosis noted. The stent itself is noted to be patent. RIGHT CORONARY ARTERY: Moderate luminal irregularities up to 50% COMPLICATIONS No Complications PROCEDURE MEDICATIONS Fentanyl 50 mcg IV Versed 1 mg IV Versed 1 mg IV Oxygen: 2 L/min via nasal cannula Brilinta 180 mg PO 02/13/2023 14:33:59 Adenosine drip for FFR 992 ml IV @ 02/13/2023 15:34:31 Heparin given IA 02/13/2023 14:20:39 Heparin 97846 unit(s) IV 02/13/2023 15:13:05 Verapamil 2.5mg, Ntg 100mcgs, 3000 units of Heparin given IA 02/13/2023 14:20:39 SUMMARY OF HEMODYNAMIC DATA Time AIR REST AO 106/67 (85) SA 14:23:38 LV 118/3, 12 14:29:58 LV 104/1, 13 14:30:06 LVp 112/11, 20 14:30:43 LV 107/29, 30 14:30:45 AOp 105/57 (76) 14:30:50 AO 116/74 (93) 15:13:10 ECG 15:53:44 AIR REST 15:53:44 Signed By Gordo Godinez MD On 02/13/2023 17:22:13 Gordo Godinez MD
--- NOTE | 2023-02-13 16:00 | PCM.OP.PRO ---
Procedure Report Date of Procedure: 02/13/23 Procedure: FFR of the LAD Description: FFR wire was normalized outside the left main and inserted into the LAD. IV adenosine was started and FFR measurement was performed. FFR in the LAD was 0.76 which is consistent with hemodynamically significant lesion in the left main/LAD system. Conclusions: FFR of the LAD was 0.76 which is consistent with hemodynamically significant lesion in the left main/LAD. Recommendations: CT surgery evaluation
[2023-02-13 16:52] LABS: Bedside Glucose 112 mg/dL (74-106)
[2023-02-13] MEDS: 0.9% Normal Saline 1,000 ML 80 ML IV (17:07)
[2023-02-13] MEDS: Isosorbide Mononitrate 30 MG Tablet PO (17:51)
[2023-02-13] MEDS: Nitroglycerin (INPATIENT USE) 0.4 MG TAB.SUBL SL ×2 (21:18→23:32)
[2023-02-13] MEDS: Atorvastatin Calcium 40 MG Tablet PO (21:20)
[2023-02-13 21:43] LABS: Bedside Glucose 146 mg/dL (74-106)
--- NOTE | 2023-02-13 23:37 | NURSING ---
pt in recliner, c/o 3 out of 10 CP and on/off SOB. pt not in respiratory distress w/ RR of 18, this RN placed pt on 2L o2 for comfort and given nitroglycerin for CP. Immediately reports improvement of CP within 5 minutes. no further concerns at this time.
[2023-02-14 03:15] VITALS: BP 130/83; PULSE 69; RESP 18; TEMP 36.8; O2SAT 99
[2023-02-14] MEDS: Insulin Lispro 100 UNIT/ML INSULN.PEN SC ×3 (06:18→21:22)
[2023-02-14 06:37] LABS: Bedside Glucose 159 mg/dL (74-106)
[2023-02-14 07:20] VITALS: O2SAT 96
[2023-02-14 08:56] LABS: Absolute Lymphocyte Count 1.06 X10^3/uL (0.83-4.51); Absolute Neutrophil Count 4.3 X10^3/uL (2.0-7.7); Basophil# 0.06 X10^3/uL; Eosinophils% 3.3 % (0-5); Hematocrit 42.2 % (40-54); Hemoglobin 13.3 g/dL (13.0-16.5); Lymphocyte # 1.06 X10^3/ul (0.83-4.51); Lymphocyte % 17.3 % (19-41); Mean Corp Hgb Conc 31.5 g/dL (32-36); Mean Corpuscular Hgb 26.1 pg (27.0-32.0); Mean Corpuscular Volume 82.7 fL (80-94); Mean Platelet Vol. 9.5 fl (6.2-12.0); Monocyte# 0.42 X10^3/uL; Monocyte% 6.9 % (0-10); NRBC Flagged by Analyzer 0 % (0-5); Neutrophil # 4.31 X10^3/uL (2.7-7.7); Neutrophil % 70.5 % (47-70); Platelet Count 276 K/mm3 (150-450); RBC Distribution Width CV 14.5 % (11.6-14.6); RBC Distribution Width SD 43.7 fl (35.1-43.9); White Blood Count 6.1 K/mm3 (4.4-11.0)
[2023-02-14] MEDS: Lisinopril 5 MG Tablet PO (09:12)
[2023-02-14] MEDS: Ranolazine 500 MG Tablet PO (09:12)
[2023-02-14] MEDS: Aspirin E.C. 81 MG Tablet PO (09:12)
[2023-02-14] MEDS: Isosorbide Mononitrate 30 MG Tablet PO (09:14)
--- NOTE | 2023-02-14 09:22 | CASEMGMT ---
Tertiary facilities in-network with patient's insurance: [facility], [facility], , [facility]
[2023-02-14 09:36] VITALS: BP 114/68; PULSE 60; RESP 18; TEMP 36.9; O2SAT 96
[2023-02-14 09:36] LABS: Anion Gap 7 (5-15); BUN 19 mg/dL (7-18); Calcium,Total 8.7 mg/dL (8.5-10.1); Chloride 105 mmol/L (98-107); Creatinine, Serum 1.27 mg/dL (0.70-1.30); EST Glomerular Filtration Rate 62 mL/min (>60); Est Glom Filt Rate - Afr Amer 75 mL/min (>60); Estimated Creatinine Clearance 76.89 ml/min; Glucose 249 mg/dL (74-106); Potassium 4.3 mmol/L (3.5-5.1); Sodium Level 137 mmol/L (136-145)
[2023-02-14 12:14] LABS: Bedside Glucose 138 mg/dL (74-106)
--- NOTE | 2023-02-14 13:09 | PN_ITS ---
Subjective Subjective Patient seen and examined. He had no complaints this morning. He said during the night he did have some mild chest pain but it resolved. Review of symptoms otherwise negative. He has remained hemodynamically stable. He is awaiting transfer to [facility] for evaluation for CABG. Objective Data Objective Data Vital Signs: Vital Signs Temp Pulse Resp BP Pulse Ox O2 Del Method O2 Flow Rate 98.4 F 60 18 114/68 96 Room Air 2 02/14/23 09:36 02/14/23 09:36 02/14/23 09:36 02/14/23 09:36 02/14/23 09:36 02/14/23 09:36 02/14/23 08:16 Oxygen Flow Rate (L/min) 2 Oxygen Delivery Method Room Air Weight: 320 lb 1.779 oz Body Mass Index (BMI) 38.9 Intake & Output: Intake and Output for Last 24 Hours 02/12/23 02/13/23 02/14/23 23:59 23:59 23:59 Intake Total 1363.75 / 1363.75 1000 / 1000 Output Total 400 / 400 Balance 963.75 / 963.75 1000 / 1000 Lab / Micro Data Result Diagrams: 02/14/23 08:43 02/14/23 08:43 Labs: Laboratory Results - last 24 hr 02/13/23 16:23: POC Glucose 112 H 02/13/23 21:22: POC Glucose 146 H 02/14/23 06:14: POC Glucose 159 H 02/14/23 08:43: WBC 6.1, RBC 5.10, Hgb 13.3, Hct 42.2, MCV 82.7, MCH 26.1 L, MCHC 31.5 L, RDW Std Deviation 43.7, RDW Coeff of Hillary 14.5, Plt Count 276, MPV 9.5, Immature Gran % (Auto) 1.000 H, Neut % (Auto) 70.5 H, Lymph % (Auto) 17.3 L , [place] % (Auto) 6.9, Eos % (Auto) 3.3, Baso % (Auto) 1.0, Absolute Neuts (auto) 4.3, Absolute Lymphs (auto) 1.06, Nucleated RBC % 0 02/14/23 08:43: Sodium 137, Potassium 4.3, Chloride 105, Carbon Dioxide 25.0, Anion Gap 7, BUN 19 H, Creatinine 1.27, Estim Creat Clear Calc 76.89, Est GFR (MDRD) Af Amer 75, Est GFR (MDRD) Non-Af 62, BUN/Creatinine Ratio 15.0, Glucose 249 H, Calcium 8.7 02/14/23 11:50: POC Glucose 138 H Radiography Diagnostic Testing: Radiology Impression Echocardiogram 02/12/23 23:34 Interpretation Summary Normal LV size. Left ventricular systolic function is normal. The estimated ejection fraction is 55 %. Contrast injection was performed. Ordering Physician: Leonel Laguna Performed By: Keo Fuller RCS Physical Exam Const alert, oriented x3 and no apparent distress General Appearance: cooperative HEENT normocephalic, head/scalp atraumatic, moist oral mucous membranes and oropharynx normal Eyes EOMs intact bilaterally Neck no lymphadenopathy, supple and no JVD Lymph Lymphatic: no lymphadenopathy noted and no lymphedema noted Resp normal respiratory effort, normal air movement and clear to auscultation bilaterally Cardio regular rate, regular rhythm, S1 normal heart sound, S2 normal heart sound and no murmurs GI normal to inspection, nondistended, normoactive bowel sounds, soft to palpation and non-tender Extremity normal capillary refill, no clubbing, cyanosis or edema and no calf tenderness Skin General Skin Exam: no breakdown Neuro CN's II-XII intact bilaterally, no focal motor deficits and no sensory deficits noted Psych thought process normal and cooperative Appearance: appropriate Assessment & Plan Assessment/Plan (1) Chest pain: PLAN: Plan # Chest pain to rule out ACS * Initial troponin was elevated at 195 but troponins did not trend upwards. EKG showed no acute ST changes. * On aspirin and high intensity statin. Cardiology on board. For cardiac cath today. * Cardiac cath showed previously stented vessel in the left anterior descending artery in the midsegment with the first diagonal also stented in the mid segment there being an approximately 70% stenosis noted and mild diffuse disease present. There was also mild diffuse disease in the circumflex artery. The ramus artery had greater than 90% stenosis in the proximal part of the previously stented vessel with the stent itself noted to be patent. He had moderate luminal irregularities up to 50% in the RCA. Attempts were made to stent the proximal LAD but was unsuccessful. Decision was made to transfer patient for CABG. Per patient's preference, [facility] called. Patient accepted at [facility] but is awaiting a bed. * * Also on Imdur and ranolazine * #Elevated creatinine: Resolved #CAD: S/p stents. Metformin on hold. Insulin sliding scale. Accu-Cheks ACHS. * #Hypertension: On lisinopril DVT prophylaxis: Lovenox Disposition: Transfer to [facility] pending bed availability. [facility] wouldnt accept patient on the transfer list as he has already been accepted at [facility]. Charges/Coding Visit Charges Inpatient E&M: 99419 Subs Hosp L2
[2023-02-14 15:10] VITALS: BP 109/62; PULSE 69; RESP 16; TEMP 36.8; O2SAT 94
[2023-02-14 17:05] LABS: Bedside Glucose 152 mg/dL (74-106)
[2023-02-14 21:19] VITALS: BP 123/74; PULSE 65; RESP 18; TEMP 36.8; O2SAT 97
[2023-02-14] MEDS: Atorvastatin Calcium 40 MG Tablet PO (21:23)
[2023-02-14 21:44] LABS: Bedside Glucose 176 mg/dL (74-106)
--- NOTE | 2023-02-15 00:54 | NURSING ---
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 Pt made aware of bed and signed agreement for transfer. Pt refused RN to notify family of transfer-pt states will notify per self. Report called to LUCERO Levine at [facility] and made aware of ETA for pickup approx. 2 hours.
[2023-02-15 02:29] VITALS: BP 117/73; PULSE 66; RESP 16; TEMP 36.6; O2SAT 98
[2023-02-15] MEDS: 0.9% Saline Lock 10 ML Syringe IV (04:47)
[2023-02-15 04:51] VITALS: BP 124/85; PULSE 57; RESP 16; TEMP 36.6; O2SAT 97
--- NOTE | 2023-02-15 09:00 | PCM.DC.SUM ---
Providers Date of Admission: 02/12/23 Date of Discharge: 02/15/23 Primary Care Physician: Dr. Maximo Samayoa, Consultations 02/12/23 23:34 Consult: Cardiology Routine Consulting Provider: Gordo Godinez Reason for Consult: Chest Pain with elevated troponin EMERGENT Consult: No MD Notified: Yes Date Notified: 02/13/23 Time Notified: 06:47 Method of Notification: Text Reason For Visit: NSTEMI Diagnosis Discharge Diagnosis (1) Chest pain: Status: Acute Code(s): R07.9 - Chest pain, unspecified Plan # Chest pain to rule out ACS Initial troponin was elevated at 195 but troponins did not trend upwards. EKG showed no acute ST changes. On aspirin and high intensity statin. Cardiology on board. For cardiac cath today. Cardiac cath showed previously stented vessel in the left anterior descending artery in the midsegment with the first diagonal also stented in the mid segment there being an approximately 70% stenosis noted and mild diffuse disease present. There was also mild diffuse disease in the circumflex artery. The ramus artery had greater than 90% stenosis in the proximal part of the previously stented vessel with the stent itself noted to be patent. He had moderate luminal irregularities up to 50% in the RCA. Attempts were made to stent the proximal LAD but was unsuccessful. Decision was made to transfer patient for CABG. Per patient's preference, [facility] called. Patient accepted at [facility] but is awaiting a bed. Also on Imdur and ranolazine #Elevated creatinine: Resolved #CAD: S/p stents. Metformin on hold. Insulin sliding scale. Accu-Cheks ACHS. #Hypertension: On lisinopril DVT prophylaxis: Lovenox Disposition: Transfer to [facility] pending bed availability. [facility] wouldnt accept patient on the transfer list as he has already been accepted at [facility]. Medications at Discharge Home Medications nitroglycerin 0.4 mg sublingual tablet 0.4 mg sublingual Q5-15M PRN chest pain #25 tabs 07/27/22 metformin 500 mg tablet,extended release 24 hr 500 mg PO BID BLOOD SUGAR 09/13/22 aspirin 81 mg tablet,delayed release (Adult Aspirin Regimen) 81 mg PO QDAY HEART 09/26/22 atorvastatin 40 mg tablet 40 mg PO QHS CHOLESTEROL 09/26/22 isosorbide mononitrate 30 mg tablet,extended release 24 hr 30 mg PO DAILY HEART 09/26/22 lisinopril 5 mg tablet 5 mg PO DAILY bp 01/04/23 ranolazine 500 mg tablet,extended release,12 hr 500 mg PO DAILY angina 02/12/23 Hospital Course Operations None Procedures 2-D Echocardiogram and Cardiac catheterization Summary of Care Provided Minutes Spent on Discharge: 45 Hospital Course: Alexis Piper is a 57 y/o male with a PMH as outlined who was admitted with a complaint of chest pain. Pain was left sided, nonradiating, with no aggravating or relieving factors. He took sublingual nitroglycerin which helped improve the pain. He does not have a history of CAD and had stents placed about 7 years ago. On admission his EKG showed no acute ST changes. Initial troponin was 195. Troponins did not trend upwards. Cardiology was consulted. He had 2D echo which showed EF of 55% with normal left ventricular size and function and no regional wall motion abnormalities noted. He had a cardiac cath which showed previously stented vessel in the left anterior descending artery in the midsegment with the first diagonal also stented in the mid segment there being an approximately 70% stenosis noted and mild diffuse disease present.? There was also mild diffuse disease in the circumflex artery.? The ramus artery had greater than 90% stenosis in the proximal part of the previously stented vessel with the stent itself noted to be patent.? He had moderate luminal irregularities up to 50% in the RCA.? Attempts were made to stent the proximal LAD but was unsuccessful. Decision was therefore made to transfer patient to a tertiary facility for CABG. Patient opted for [facility]. Patient was accepted at [facility] pending bed availability. He obtained a bed at [facility] on 02/15/2023 and was transferred to [facility] on 02/15/2023. Patient was unable to be seen and examined by this hospitalist before he was discharged as he left in the very early hours of 02/15/2023. Physical Exam Narrative Patient not examined as he was transferred before this hospitalist could review and examine him. Weight / BMI Weight Weight: 320 lb 1.779 oz Body Mass Index (BMI) 38.9 ABG / Lab / Microbiology Data Result Diagrams: 02/14/23 08:43 02/14/23 08:43 Laboratory: Laboratory Results - last 24 hr 02/14/23 08:43: Sodium 137, Potassium 4.3, Chloride 105, Carbon Dioxide 25.0, Anion Gap 7, BUN 19 H, Creatinine 1.27, Estim Creat Clear Calc 76.89, Est GFR (MDRD) Af Amer 75, Est GFR (MDRD) Non-Af 62, BUN/Creatinine Ratio 15.0, Glucose 249 H, Calcium 8.7 02/14/23 11:50: POC Glucose 138 H 02/14/23 16:36: POC Glucose 152 H 02/14/23 21:14: POC Glucose 176 H Meaningful Use Info Meaningful Use Diagnoses (Choose all that apply): AMI AMI/Post PCI/Angioplasty Aspirin given w/in 24hrs of arrival?: Yes ASA at discharge?: No Reason ASA not ordered:: Allergy (transferred to [facility]) Antiplatelet Therapy at Discharge:: No Reason Antiplatelet Therapy not ordered:: transferred to [facility] Statins at discharge?: No Reason statins not ordered:: Allergy (patient transferred to [facility]) Yaron/ARB at discharge?: No Reason Yaron/ARB not ordered:: Not indicated Beta Cheryl at discharge?: No Reason Beta Cheryl not ordered:: Allergy ([facility]) Done w/ Acute NM measure.: Yes Documented LVEF (%): 55 Discharge Plan Admission Admit Date/Time: 02/12/23 22:31 Primary Reason for Your Visit: nstemi Attending Provider: Ary Gillespie Primary Care Provider: Maximo Samayoa Consulting Providers: Leonel Laguna ; Gordo Godinez Discharge Orders/Prescriptions Prescriptions: No Action metformin 500 mg tablet extended release 24 hr 500 mg PO BID Label Comments: TAKE 1 TABLET BY MOUTH TWICE A DAY atorvastatin 40 mg tablet 40 mg PO QHS isosorbide mononitrate 30 mg tablet extended release 24 hr 30 mg PO DAILY aspirin [Adult Aspirin Regimen] 81 mg tablet,delayed release (DR/EC) 81 mg PO QDAY Rx Instructions: STOP 7 DAYS ranolazine 500 mg tablet extended release 12 hr 500 mg PO DAILY nitroglycerin 0.4 mg tablet, sublingual 0.4 mg SUBLINGUAL Q5-15M PRN (Reason: chest pain) Qty: 25 3RF lisinopril 5 mg tablet 5 mg PO DAILY Referrals / Follow Up: Maximo Samayoa, [Primary Care Provider] - Disposition Disposition (needs filled in before D/C Order can be placed): Acute Care Hospital Charges/Coding Visit Charges Inpatient E&M: 81694 Disch Hosp
== END 2023-02-15 05:50 | disposition short-term general hospital (02) | DRG 249 ==
LOC: ED 22:29 → PCU 22:54
PROVIDERS: Admitting Provider Hospitalist; Emergency Provider Emergency Medicine; PCP Family Medicine; Visit Provider Student in an Organized Health Care Education/Training Program
DX: R07.9 Chest pain, unspecified (principal); E11.9 Type 2 diabetes mellitus without complications; E78.00 Pure hypercholesterolemia, unspecified; I25.10 Atherosclerotic heart disease of native coronary artery without angina pectoris; I10 Essential (primary) hypertension; I25.2 Old myocardial infarction; Z95.5 Presence of coronary angioplasty implant and graft; Z79.84 Long term (current) use of oral hypoglycemic drugs; Z87.891 Personal history of nicotine dependence
CPT/HCPCS: 36415; 71045; 80048; 82962; 84484; 85025; 93005; 93306; 93458; 93571; 99152; 99153; 99285; J0153; J7030; J7040; Q9957; Q9967; A4216; C1769; C1887; C1894; C8929

== ENCOUNTER → 2023-04-02 | Outpatient (CLI) | payer OTHER, SELFPAY ==
[2022-10-23 08:23] VITALS: BMI 38.5
--- NOTE | 2023-04-02 08:01 | CR.ITP_ITS ---
Diagnosis General Information Admitting Diagnosis: S/P CABG x 3 vessel Secondary Diagnosis: HTN, HLD, DM Type II Personal Learning Style:: Written Barriers to Learning: Vision Impairment Stage of change r/t lifestyle modifications:: Action Gave educational material for:: Treating Heart Disease, How The Heart Works, What it means to have Heart Disease, How Coronary Artery Disease is Diagnosed, Heart Procedures, What Heart Medications Do, Risk Factors & Modifications, Living an Active Life, Nutrition, Emotions & Heart Disease, Stress Management & Relaxation and Sleep Disorders & Heart Disease Education/Goals Individual Counseling: Initial Assessment: Abnormal Cholesterol Levels, High Blood Pressure, Overweight/Obesity, Diabetes, C. High Triglycerides >150 (230), Hypertension and Low HDL <40/Males or <50/Females (27) Cardiac Rehabilitation Goals Personal Goals: Initial Assessment: Improve management of stress and emotions, Improve energy level, Participate in home exercise program, Get back to work, or to resume activities faster, Improve knowledge of cardiac disease, Improve muscle strength and endurance, Improve diet and eating habits (eat healthier) and Control risk factors (learn risk factor modification) Scale for measuring improvement of personal goals Diagnosis & Disease Process Outcomes/Goals: Pt IDs own risk factors & lifestyle modifications by Session 10, Verbalizes symptoms of angina & response by session 3. and Pt independently manages Plan/Interventions: Assist Pt to ID & engage in lifestyle modification to reduce CVD risk, Instruct on individual risk factors, Review symptoms of angina & emergency actions and Review secondary diagnosis & identify educational needs. Safety Referral to Physical Therapy: No Referral to [facility] Case Management: No Fall Risk Assessed:: Yes Assistive Devices:: None Exercise - Initial Assessment Visit Date of Eval: 04/02/23 Session #:: 0 (Initial evaluation) Mets: Pre-: >7 METS for 30 minutes by discharge Physician Prescribed Exercise Modalities: Treadmill, Airdyne and NuStep Frequency: 3x/week for 12 weeks [36 sessions] Intensity: 60-80% of age predicted maximum heart rate reserve Duration: 30 - 45 minutes Current METSs:: 3.0 Target Heart Rate:: 97-121 Target RPE 12-16:: 12-16 Resting Blood Pressure: 109/61 EKG Type: Normal Sinus Rhythm Current Physical Activity or Exercising minutes: Daily walking Outcomes & Goals Goals:: Verbalizes understanding of THR, RPE & goal METS by session 6, Documents in home exercise log/reports 30 min aerobic 5 day/wk by DC and Demonstrates accurate pulse taking by DC Intervention & Plan Exercise Program Goals: Instruct on personal THR & RPE, Instruct on MET level & personal MET goal, Show patient to take own pulse /validate performance until accurate and Instruct on home exercise Physical Activity Home Exercise Physical Activity - Home Exercise: Safe Exercise, Warm-up, Self-monitoring, Cool-Down, Home Exercise > 30 min Daily and Sitting Time <3 hours/daily Outcomes & Goals Outcomes/Goals: Demonstrates correct Warm-up/exercise Cool-Down (S3) if = 2.5 METs, Verbalizes symptoms of exercise intolerance by Session 3 (S3) and Demonstrate safe equipment use (S3) & follows exercise prescrition (6) Intervention & Plan Plan/Intervention: Instruct warm-up & cool-down if exercising at > 2 METs, Instruct on symptoms of exercise intolerance & actions to take, Instruct & monitor on saf and Assess intial functional capacity & safety risk Nutrition - Initial Assessment Visit Date of Eval: 04/02/23 Session #:: 0 (Initial Evaluation) Cholesterol/Lipids (Other Core Measures) Triglycerides (mg/dL): 230 Total Cholesterol (mg/dL): 149 LDL Cholesterol (mg/dL): 76 HDL Cholesterol (mg/dL): 27 Determine presence & major risk factors that modify LDL goal: Hypertension or hypertensive medication, Low HDL cholesterol <40 mg/dL*, Family history of premature CHD in Male < 55 years: female <65 yearsFa and Age men > 45 years; women >/= 55 years Outcomes/Goals: Pt IDs own risk factors & lifestyle modifications by Session 10, Verbalizes symptoms of angina & response by session 3. and Pt independently manages Intervention/Plan: Instruct on personal lipid levels & lipid goals/NCEP guidelines and Instruct on cholesterol Referral to dietitian:: Yes Diabetes (Other Core Measures) Diabetes Type: Diagnosis Type II ICD-10 E11 Hgb A1C (4.2 - 6.3): Insulin dependent injection/pump?: No Non-Insulin Dependent?: Yes (Metformin 500mg Q12 H) Do you monitor your blood sugar at home?: No Referral to Diabetic Clinic:: Yes Outcomes/Goals:: Able to state symptoms of, Able to state and Able to state Intervention/Plan:: Instruct on, Refer to and Instruct on Weight Mgt (Other Care) Not Applicable: Yes Height: 6 ft 3 in Weight:: 306 lb BMI: 38.2 Diagnosis Overweight/Obesity BMI> 30% ICD-10 E66: Yes Diagnosis High BMI/Morbid Obesity BMI> 35% ICD-10 Z68: Yes Outcomes/Goals: Pt sets, maintains & shows weight loss goal & trend during rehab Intervention/Plan: Instruct on ideal BMI & set weight loss goal w/patient, Assist pt to ID & incorporate diet changes for weight loss by S9, Refer to Structured Weight Loss program as appropriate and Encourage goal of using 250- 300dcal per session for weight loss Healthy Eating Habits Will attend diet classes:: Yes Outcomes/Goals:: Consume diet rich in vegs,fruits,whole grain/high fiber,fish,lean meat and Limit sat/trans fats,cholesterol & added salts & sugars Intervention/Plan:: Assess current eating habits Education Gave educational materials for:: Signs & symptoms of hypoglycemia, Signs & symptoms of hyperglycemia and Relate diabetes to coronary artery disease Core - Initial Assessment Visit Date of Eval: 04/02/23 Session #:: 0 (Initial evaluation) Medication Compliance Preventative Medication(s):: Aspirin and Statin/lipid H/O mental health issues: depression, anxiety, or addiction?: No Doesn?t believe in the benefits of treatment?: No Believes medications are unnecessary or harmful?: No Has a concern about medication side effects?: No Expresses concern over the cost of medications?: No Outcomes/Goals: Verbalizes medications,desired effect & common side effects @ DC, Pt self-reports following medication regimen and Keeps card in wallet w/medications listed by DC Interventions/plans: Instruct on medication effects & side effects, Review medication list w/patient every two weeks and Instruct importance of taking meds as ordered & assist problem solving Tobacco Use Tobacco Use: Non-smoker (Former smoker has been smoke free for years.) Hypertension Hypertension Diagnosis:: Hypertension ICD-10 I10 Resting Blood Pressure:: 109/61 [place] [employer] Hypertension Guidelines Outcomes/Goals: Able to verbalize/achieve optimal blood pressure <130/80 and Incorporates diet changes & exercise for blood pressure control by DC Interventions/plan: Instruct on optimal blood pressure, hypertension & medications and Instruct on effects of sodium, alcohol, stress, exercise &hypertension Tobacco Cessation Referral Smoking Cessation Referral:: No Individual Education/Counseling:: No Education Schedule Given:: Yes Psychosocial - Initial Assess VIsit Date of Eval: 04/02/23 Session #:: 0 (Initial Evaluation) Not Applicable: Yes History of previous Mental disease:: No Target Goals Target Goals Psychosocial Test Tool Used:: [employer] QOL Cardiac and PHQ-9 Questionnaire phq-9 Severity Referral to Behavioral Health PS - Interventions: Yes: Attend Stress Management Classes and No: Referral to Behavioral Health if PHQ-9 score >9:, No: Referral to [facility] and No: Referral to Physician if PHQ-9 if score is 5-9: Outcomes/Goals: See list Psychosocial Outcomes/Goals:: ID's personal stressors & 2 strategies to manage stress by discharge Intervention/Plan: See List Interventions/Plan:: Assess stressors,coping strategies & signs of derpression on admission, Instruct/assist pt to develop coping & personal stress Mgt strategies, Instruct patient to recognize signs & symptoms of depression and Instruct patient to recog Patient Health Questionnaire PHQ-9 Screening Initial Assessment: 1. Little interest or pleasure in doing things: Not at all 2. Feeling down, depressed, or hopeless: Not at all 3. Trouble falling or staying asleep, or sleeping too much: More than half the days 4. Feeling tired or having little energy: Several days 5. Poor appetite or overeating: Nearly every day 6. Feeling bad about yourself -- or that you are a failure or have let yourself or your family down: Not at all 7. Trouble concentrating on things, such as reading the newspaper or watching television: Several days 8. Moving or speaking so slowly that other people could have noticed. Or the opposite - being so fidgety or restless that you have been moving around a lot more than usual: Several days 9. Thoughts that you would be better off , or of hurting yourself in some way: Not at all How difficult have these problems made it for you to do your work, take care of things at home, or get along with other people?: Not difficult at all Total Score: 8 MAXIMILIANO-Q SV Test Statements CAD is a disease of the arteries in the heart: False Examples of risk factors for heart disease: False Angina is chest pain or discomfort: True The benefits of resistance training include: True Eating more meat and dairy products: False Anti-platelet medications such as aspirin are important: True The only effective way to manage stress: False An exercise warm-up slowly increases heart rate: False Prepared, processed foods usually have high sodium: True Depression is common after a heart attack: True The statin medications lower cholesterol: True To control blood pressure, lower the amount of sodium: True If someone gets chest discomfort during walking: False Transfats are partially hydrogenated vegetable oils: True Sleep apnea that is not treated increases the risk: False To control cholesterol, one should become a vegetarian: False Someone knows if he/she is exercising at the right level: False Diabetes cannot be prevented with exercise & health eating: False Stress is a large risk for heart attack: True A diet that can help lower blood pressure is rich in: True Total Score Total Correct Responses: 17 Self-Efficacy 6-Item Scale Initial Assessment: We would like to know how confident you are in doing certain activities. Please select your confidence level for: Fatigue Select Number: 10 Physical Discomfort or Pain Select Number: 9 Emotional Distress Select Number: 10 Other Symptoms or Health Problems Select Number: 10 Different Tasks and Activities Select Number: 10 Medication Select Number: 10 Total Score:: 9 Nutrition Survey Nutrition Survey Instructions Scoring Instructions Nutrition Survey Initial: Have you lost >10 lbs over the past 2 months without trying?: No Are you following a special diet at home for diabetes, low fat, or low salt?: Yes Are you interested in meeting with a dietitian for help understanding your diet?: Yes Do you eat less than 3 meals a day?: Yes Do you eat fatty meats (lockhart, sausage, ribs, etc), fried foods, desserts, large amounts of salad dressings, margarine, butter, or cheese most days?: Yes Do you have food allergies? [Enter types in comment field]: No Do you eat in restaurants more than 3 times a week?: Yes Do you season food with salt, seasoning salt, or garlic salt?: Yes Do you used canned, boxed, frozen meals, or soups, seasoning packets?: No Total Score:: 6 Exercise - Final/Discharge Physician Prescribed Exercise Modalities: Treadmill, Airdyne and NuStep Frequency: 3x/week for 12 weeks [36 sessions] Intensity: 60-80% of age predicted maximum heart rate reserve Current METSs:: 3.0 Target Heart Rate:: 97-121 Nutrition - 30-Day Assessment Weight Mgt (Other Care) Height: 6 ft 3 in Weight:: 306 lb BMI: 38.2 Nutrition - 60-Day Assessment Weight Mgt (Other Care) Height: 6 ft 3 in Weight:: 306 lb BMI: 38.2 Core - 30-Day Assessment Visit Session #:: 0 (Initial evaluation) Core - Final Assessment Hypertension Resting Blood Pressure:: 109/61 [place] [employer] Hypertension Guidelines Core - 60-Day Assessment Hypertension Resting Blood Pressure:: 109/61 [place] [employer] Hypertension Guidelines Psychosocial - 30-Day Assess Target Goals Target Goals Referral to Behavioral Health PS - Interventions: Yes: Attend Stress Management Classes and No: Referral to Behavioral Health if PHQ-9 score >9:, No: Referral to [facility] and No: Referral to Physician if PHQ-9 if score is 5-9: Psychosocial - 60-Day Assess Target Goals Target Goals Referral to Behavioral Health PS - Interventions: Yes: Attend Stress Management Classes and No: Referral to Behavioral Health if PHQ-9 score >9:, No: Referral to [facility] and No: Referral to Physician if PHQ-9 if score is 5-9: Psychosocial - 90-Day Assess Target Goals Target Goals Referral to Behavioral Health PS - Interventions: Yes: Attend Stress Management Classes and No: Referral to Behavioral Health if PHQ-9 score >9:, No: Referral to [facility] and No: Referral to Physician if PHQ-9 if score is 5-9: Psychosocial - Final Assessmen Target Goals Target Goals Referral to Behavioral Health PS - Interventions: Yes: Attend Stress Management Classes and No: Referral to Behavioral Health if PHQ-9 score >9:, No: Referral to [facility] and No: Referral to Physician if PHQ-9 if score is 5-9: Nutrition - 90-Day Assessment Weight Mgt (Other Care) Height: 6 ft 3 in Weight:: 306 lb BMI: 38.2 Nutrition - Final Assessment Weight Mgt (Other Care) Height: 6 ft 3 in Weight:: 306 lb BMI: 38.2
--- NOTE | 2023-04-02 08:17 | PCM.CR.HP2 ---
CR - History & Physical Medications Ambulatory Orders Medication Instructions Recorded metformin 500 mg tablet,extended 500 mg PO BID BLOOD SUGAR 09/13/22 release 24 hr aspirin 81 mg tablet,delayed 81 mg PO QDAY HEART 09/26/22 release (Adult Aspirin Regimen) atorvastatin 40 mg tablet 40 mg PO QHS CHOLESTEROL 09/26/22 acetaminophen 500 mg tablet 1,000 mg PO Q6H PRN 03/16/23 gabapentin 100 mg capsule 300 mg PO QHS 03/16/23 (Neurontin) magnesium oxide 400 mg PO BID 03/16/23 metoprolol tartrate 25 mg tablet 25 mg PO BID 03/16/23 pantoprazole 20 mg tablet,delayed 20 mg PO DAILY 03/16/23 release zolpidem 10 mg tablet 10 mg PO QHS 03/16/23 Allergies Allergies rosuvastatin [From Crestor] Adverse Reaction (Verified 02/12/23 21:05) myalgia Sleep Disorder Evaluation Hx of Sleep Apnea: No Do you snore loudly (louder than talking or can be heard through closed doors)?: Yes Do you often feel tired/ fatigued/ sleepy during daytime?: Yes Has anyone observed you stop breathing during sleep?: No History of Hypertension (for STOP score): Yes STOP Results: Positive Advanced Directives Advanced Directives 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 Living Will: Yes Advance Directives Information Provided: No Advance Directives on File: Yes DNR Order?:: No MOLST See MOLST form: No Past Medical History Covid-19 Screening Physicial Symptoms Fever: No Unexplained muscle aches: No Current respiratory symptoms: No Upper respiratory infections symptoms: No Gastro-intestinal symptoms: No [id number] symptoms: No Other Clinical Concerns Has tested positive for COVID-19 in last 30 days: No Date of testin04/02/23 (Initial vaccine no boosters) Exposure Risk Had contact w/person w/symptoms or Covid-19 (+) last 14 days: No Has High Risk Exposures ID'd by Health dept/Inf Control team: No Pertinent Comorbidities 65 years or older:: No Lives in Assisted Living facility:: No Has a chronic lung disease or moderate to severe asthma:: No Has a serious heart condition:: Yes Immunocompromised:: No Severely obese (Body Mass Index of 40 or higher):: No Diabetic:: Yes Has chronic kidney disease undergoing dialysis:: No Has liver disease:: No Past Medical Illness Past Medical History (Updated 03/16/23 @ 16:23 by Harper Noble) Atherosclerosis of coronary artery of [place] heart without angina pectoris I25.10 Chest pain R07.9 TOOK NTG, RELIEVED WITH ONE NTG Diabetic neuropathy E11.40 Essential hypertension I10 History of diabetes mellitus, type II Z86.39 History of non-ST elevation myocardial infarction (NSTEMI) (02/12/23) I25.2 11/2018, 02/13/2020,02/12/2023 Hyperlipidemia E78.5 Hypertriglyceridemia E78.1 Loss of hearing H91.90 Non-smoker Z78.9 Obesity E66.9 2021 Orthopedic aftercare Z47.89 Primary osteoarthritis of right knee M17.11 Type 2 diabetes mellitus E11.9 Wears glasses Z97.3 Past Surgical History Past Surgical History (Updated 03/16/23 @ 16:23 by Harper Noble) History of cardiac catheterization Z98.890 2019 History of coronary artery stent placement (02/16/20) Z95.5 OUR-XAU-Vorw LAD 01/29/2014; FBU-YMX-wvxkfc Ramus with a 2.25 x 12 mm Promus Synergy, followed upstream with a 2.25 x 12 mm Promus Synergy, SUSY distal LCX with a 2.25 x 12 mm Promus Synergy 02/16/2020 History of coronary artery stent placement Z95.5 WITHJ HEART CATH 2019 History of left heart catheterization (02/13/20) Z98.890 11/18/2018, 02/13/2020 Hx of total knee replacement Z96.659 LEFT 2018 Hx of total knee replacement Z96.659 10/10/2022, RIGHT 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) Hours worked per day:: 10 Hobbies, Recreation, Social Activities Hobbies: Walking and Other (riding motorcycle and BBQ) Recreational Activities: I am able to engage in most, but not all activities Social Environment Status Marital Status: Current Living Arrangements Living Environment:: Family Children How many children do you have?: 2 Do any of your children live nearby?: Yes Safety Do you feel safe in your surroundings?: Yes Assistance Do you need any assistance at home?: no Review of Systems Review of Systems Hints Review of Present Symptoms: Reports Shortness of Breath with Exertion, Operative Discomfort (still a little tenderness in the chest), Wound Healing, Fatigue, Appetite - Normal and Sleep - Normal; Denies Shortness of Breath at Rest, PVD, Angina, Dizziness/Lightheadedness, Heart Arrhythmia/Irregularities, Appetite - Special Diet or Sexual Changes Pain Is Patient Pain Free?: No Pain Location: back (lower back) and lower extremity (Bilateral knee pain the past few weeks) Pain Level: 11/17 Risk Factor Assessment Vital Signs Temperature: 98.6 F Respiratory Rate: 14 Pulse Ox: 97 Blood Pressure: 109/61 Pulse Pulse Rate: 59 Pulse Rhythm: Regular Hypertension How long have you been treated?: 7 years On medication(s)?: Lisinopril Blood Pressure Sitting - Right Arm: 109/61 Blood Cholesterol/Lipids Total Cholesterol (mg/dL) Goal = less than 200 mg/dL: 149 HDL Cholesterol (mg/dL) Goal = less than 40 mg/dL: 27 LDL Cholesterol (mg/dL) Goal = less than 70 mg/dL: 76 Triglycerides (mg/dL) Goal = less than 150 mg/dL: 230 Diabetes Diabetic History: Type II and Medication Dependent Nutrition Referral for Diabetes: Yes Obesity Height: 6 ft 4 in Weight:: 306 lb Weight in Pounds: 306.0 lbs Weight Source: Stated by Patient Body Mass Index (BMI): 37.2 Nutritional Referral for Obesity: Yes Physical Inactivity Physical Inactivity: Recreational activity (walking) Risk Stratification Risk Guidelines: Lowest Risk: Risk Factor for Smoking, Risk Factor for Diabetes, Risk Factor for Hypertension, Risk Factor for Sedentary Lifestyle and Risk Factor for Depression, Moderate Risk: Risk Factor for Dyslipidemia and Highest Risk: Risk Factor for Obesity For Smoking Smoking Risk Guidelines For Dyslipidemia Dyslipidemia Risk Guidelines For Diabetes Mellitus Diabetes Risk Guidelines For Obesity/Overweight Obesity/Overweight Risk Guidelines For Hypertension Hypertension Risk Guidelines For Sedentary Lifestyle Sedentary Lifestyle Risk Guidelines For Depression Depression Risk Guidelines Family History Family History (Updated 03/16/23 @ 16:26 by Harper Noble) Father Heart disease Mother Diabetes Motivation Motivation to Participate On a scale of 1 to 10, how prepared are you to commit to attending program?: 10 What do you see as barriers to successfully being able to complete the program?: nothing What do you see as the benefits of succesfully completing the program? In other words, what do you hope to get out of participating in the program?: get back in shape, strengthen the heart Are there issues you are dealing with that will interfere with completing the program?: none Do you have a spouse or signficant other, family or friends who will help support you to complete the program?: Yes
[2023-04-02 08:28] VITALS: BP 109/61; PULSE 59; RESP 14; TEMP 37; O2SAT 97; BMI 37.2
[2023-04-02 08:41] VITALS: BP 109/61; BMI 38.2
== END | disposition home or self-care (01) ==
LOC: CR 07:57
PROVIDERS: PCP Family Medicine; Referring Provider Internal Medicine Cardiovascular Disease; Visit Provider Internal Medicine Cardiovascular Disease
DX: Z00.00 Encounter for general adult medical examination without abnormal findings (principal)

== ENCOUNTER 2023-04-09 09:30 | Outpatient (RCR) | payer OTHER, SELFPAY ==
[2023-04-02 08:41] VITALS: BMI 38.2
== END 2023-04-09 23:59 ==
LOC: CR 09:30
PROVIDERS: PCP Family Medicine; Referring Provider Internal Medicine Cardiovascular Disease; Visit Provider Internal Medicine Cardiovascular Disease
DX: Z95.1 Presence of aortocoronary bypass graft (principal)
CPT/HCPCS: 93798

== ENCOUNTER 2023-05-09 09:30 | Outpatient (RCR) | payer OTHER, SELFPAY ==
[2023-04-02 08:41] VITALS: BMI 38.2
--- NOTE | 2023-05-02 07:33 | PCM.CR.ITP ---
Exercise - Initial Assessment Visit Session #:: 12 Nutrition - Initial Assessment Weight Mgt (Other Care) Height: 6 ft 3 in Weight:: 315 lb BMI: 39.4 Psychosocial - Initial Assess Target Goals Target Goals Referral to Behavioral Health PS - Interventions: Yes: Attend Stress Management Classes and No: Referral to Behavioral Health if PHQ-9 score >9:, No: Referral to [facility] and No: Referral to Physician if PHQ-9 if score is 5-9: Patient Health Questionnaire PHQ-9 Screening 30-Day Re-eval Assessment: 1. Little interest or pleasure in doing things: Not at all 2. Feeling down, depressed, or hopeless: Not at all 3. Trouble falling or staying asleep, or sleeping too much: More than half the days 4. Feeling tired or having little energy: Several days 5. Poor appetite or overeating: More than half the days 6. Feeling bad about yourself -- or that you are a failure or have let yourself or your family down: Not at all 7. Trouble concentrating on things, such as reading the newspaper or watching television: Not at all 8. Moving or speaking so slowly that other people could have noticed. Or the opposite - being so fidgety or restless that you have been moving around a lot more than usual: Not at all 9. Thoughts that you would be better off , or of hurting yourself in some way: Not at all How difficult have these problems made it for you to do your work, take care of things at home, or get along with other people?: Not difficult at all Total Score: 5 Self-Efficacy 6-Item Scale 30-Day Re-eval Assessment: We would like to know how confident you are in doing certain activities. Please select your confidence level for: Fatigue Select Number: 10 Physical Discomfort or Pain Select Number: 10 Emotional Distress Select Number: 10 Other Symptoms or Health Problems Select Number: 10 Different Tasks and Activities Select Number: 10 Medication Select Number: 10 Total Score:: 10 Nutrition Survey Nutrition Survey Instructions Scoring Instructions Exercise - 30-day Assessment Visit Date of Eval: 05/02/23 Session #:: 12 Physician Prescribed Exercise Modalities: Treadmill, Airdyne and NuStep Frequency: 3x/week for 12 weeks [36 sessions] Intensity: 60-80% of age predicted maximum heart rate reserve Duration: 30 - 45 minutes Current METSs:: 4.0 Target Heart Rate:: 97-121 Current RPE:: 12-13 Maximum Excercise HR:: 100 Resting Blood Pressure: 130/70 Maximum Exercise Blood Pressure: 150/80 EKG Type: NSR to sinus tach w/rare PAC, rare multifocal PVCs. Outcomes & Goals Goals:: Verbalizes understanding of THR, RPE & goal METS by session 6, Documents in home exercise log/reports 30 min aerobic 5 day/wk by DC and Demonstrates accurate pulse taking by DC Intervention & Plan Exercise Program Goals: Instruct on personal THR & RPE, Instruct on MET level & personal MET goal, Show patient to take own pulse /validate performance until accurate and Instruct on home exercise 30-day Reassessments 30 day Reassessments:: Met Physical Activity Home Exercise Physical Activity - Home Exercise: Safe Exercise, Warm-up, Self-monitoring, Cool-Down, Home Exercise > 30 min Daily and Sitting Time <3 hours/daily Outcomes & Goals Outcomes/Goals: Demonstrates correct Warm-up/exercise Cool-Down (S3) if = 2.5 METs, Verbalizes symptoms of exercise intolerance by Session 3 (S3) and Demonstrate safe equipment use (S3) & follows exercise prescrition (6) Intervention & Plan Plan/Intervention: Instruct warm-up & cool-down if exercising at > 2 METs, Instruct on symptoms of exercise intolerance & actions to take, Instruct & monitor on saf and Assess intial functional capacity & safety risk 30-day Reassessments 30 day Reassessments:: Met Nutrition - 30-Day Assessment Program Goals Nutrition Program Goals Patient has diagnosis of Hyperlipidemia (ICD E78)?: Yes Visit Date of Eval: 05/02/23 Session #:: 12 Cholesterol/Lipids (Other Core Measures) Triglycerides (mg/dL): 230 Total Cholesterol (mg/dL): 149 LDL Cholesterol (mg/dL): 76 HDL Cholesterol (mg/dL): 27 Determine presence & major risk factors that modify LDL goal: Hypertension or hypertensive medication, Low HDL cholesterol <40 mg/dL* and Age men > 45 years; women >/= 55 years Outcomes/Goals: Pt IDs own risk factors & lifestyle modifications by Session 10, Verbalizes symptoms of angina & response by session 3. and Pt independently manages Intervention/Plan: Instruct on personal lipid levels & lipid goals/NCEP guidelines and Instruct on cholesterol Referral to dietitian:: No (Has previously seen Nutritional Services at [facility].) 30-day Reassessments:: Progressing Diabetes (Other Core Measures) Diabetes Type: Diagnosis Type II ICD-10 E11 Insulin dependent injection/pump?: No Non-Insulin Dependent?: Yes Do you monitor your blood sugar at home?: Yes Referral to Diabetic Clinic:: No (Previously has seen Diabetic Education.) Outcomes/Goals:: Able to state symptoms of, Able to state and Able to state Intervention/Plan:: Instruct on and Instruct on 30-day Reassessments:: Progressing Weight Mgt (Other Care) Not Applicable: No Height: 6 ft 3 in Weight:: 315 lb BMI: 39.4 Diagnosis Overweight/Obesity BMI> 30% ICD-10 E66: Yes Diagnosis High BMI/Morbid Obesity BMI> 35% ICD-10 Z68: Yes Outcomes/Goals: Pt sets, maintains & shows weight loss goal & trend during rehab Intervention/Plan: Instruct on ideal BMI & set weight loss goal w/patient, Assist pt to ID & incorporate diet changes for weight loss by S9 and Encourage goal of using 250-300dcal per session for weight loss 30 day Reassessments:: Progressing Reassessment Notes & Comments:: Seen by [facility] and Why Weight program at [facility]. Healthy Eating Habits Will attend diet classes:: Yes Outcomes/Goals:: Consume diet rich in vegs,fruits,whole grain/high fiber,fish,lean meat and Limit sat/trans fats,cholesterol & added salts & sugars Intervention/Plan:: Assess current eating habits 30-day Reassessments:: Progressing Education Gave educational materials for:: Signs & symptoms of hypoglycemia, Signs & symptoms of hyperglycemia, Relate diabetes to coronary artery disease and Healthy eating Nutrition - 60-Day Assessment Weight Mgt (Other Care) Height: 6 ft 3 in Weight:: 315 lb BMI: 39.4 Core - 30-Day Assessment Visit Date of Eval: 05/02/23 Session #:: 12 Medication Compliance Preventative Medication(s):: Aspirin and Statin/lipid H/O mental health issues: depression, anxiety, or addiction?: No Doesn?t believe in the benefits of treatment?: No Believes medications are unnecessary or harmful?: No Has a concern about medication side effects?: No Expresses concern over the cost of medications?: No Outcomes/Goals: Verbalizes medications,desired effect & common side effects @ DC, Pt self-reports following medication regimen and Keeps card in wallet w/medications listed by DC Interventions/plans: Instruct on medication effects & side effects, Review medication list w/patient every two weeks and Instruct importance of taking meds as ordered & assist problem solving 30-day Reassessments:: Progressing Tobacco Use Tobacco Use: Non-smoker Hypertension Hypertension Diagnosis:: Hypertension ICD-10 I10 Resting Blood Pressure:: 130/70 [place] [employer] Hypertension Guidelines Peak Exercise Blood Pressure:: 150/80 Outcomes/Goals: Able to verbalize/achieve optimal blood pressure <130/80 and Incorporates diet changes & exercise for blood pressure control by DC Interventions/plan: Instruct on optimal blood pressure, hypertension & medications and Instruct on effects of sodium, alcohol, stress, exercise &hypertension 30 day Reassessments:: Progressing Tobacco Cessation Referral Smoking Cessation Referral:: No Individual Education/Counseling:: No Education Schedule Given:: Yes Psychosocial - 30-Day Assess VIsit Date of Eval: 05/02/23 Session #:: 12 Not Applicable: Yes History of previous Mental disease:: No Target Goals Target Goals Psychosocial Test Tool Used:: PHQ-9 Questionnaire phq-9 Severity Referral to Behavioral Health PS - Interventions: Yes: Attend Stress Management Classes and No: Referral to Behavioral Health if PHQ-9 score >9:, No: Referral to [facility] and No: Referral to Physician if PHQ-9 if score is 5-9: Outcomes/Goals: See list Psychosocial Outcomes/Goals:: ID's personal stressors & 2 strategies to manage stress by discharge Intervention/Plan: See List Interventions/Plan:: Assess stressors,coping strategies & signs of derpression on admission, Instruct/assist pt to develop coping & personal stress Mgt strategies, Instruct patient to recognize signs & symptoms of depression and Instruct patient to recog 30-day Reassessments: 30 day Reassessments:: Progressing Psychosocial - 60-Day Assess Target Goals Target Goals Referral to Behavioral Health PS - Interventions: Yes: Attend Stress Management Classes and No: Referral to Behavioral Health if PHQ-9 score >9:, No: Referral to [facility] and No: Referral to Physician if PHQ-9 if score is 5-9: Outcomes/Goals: See list Psychosocial Outcomes/Goals:: ID's personal stressors & 2 strategies to manage stress by discharge Psychosocial - 90-Day Assess Target Goals Target Goals Referral to Behavioral Health PS - Interventions: Yes: Attend Stress Management Classes and No: Referral to Behavioral Health if PHQ-9 score >9:, No: Referral to [facility] and No: Referral to Physician if PHQ-9 if score is 5-9: Psychosocial - Final Assessmen Target Goals Target Goals Referral to Behavioral Health PS - Interventions: Yes: Attend Stress Management Classes and No: Referral to Behavioral Health if PHQ-9 score >9:, No: Referral to [facility] and No: Referral to Physician if PHQ-9 if score is 5-9: Nutrition - 90-Day Assessment Weight Mgt (Other Care) Height: 6 ft 3 in Weight:: 315 lb BMI: 39.4 Nutrition - Final Assessment Weight Mgt (Other Care) Height: 6 ft 3 in Weight:: 315 lb BMI: 39.4
[2023-05-02 07:43] VITALS: BP 130/70; BMI 39.4
== END 2023-05-10 23:59 ==
LOC: CR 09:30
PROVIDERS: PCP Family Medicine; Referring Provider Internal Medicine Cardiovascular Disease; Visit Provider Internal Medicine Cardiovascular Disease
DX: Z95.1 Presence of aortocoronary bypass graft (principal)
CPT/HCPCS: 93798; 97802

== ENCOUNTER → 2023-05-23 | Outpatient (CLI) | payer OTHER, SELFPAY ==
[2023-04-02 08:41] VITALS: BMI 38.2
[2023-05-02 07:43] VITALS: BMI 39.4
--- NOTE | 2023-05-23 07:55 | ECHOD_ITS ---
Reason For Study: CABG Procedure This was a 2D Doppler, Color Flow transthoracic echocardiogram. The study was technically difficult. Contrast injection was performed. Exam performed in department. Left Ventricle Normal LV size. Moderate concentric left ventricular hypertrophy. Left ventricular systolic function is normal. The estimated ejection fraction is 55 %. No regional wall motion abnormalities noted. Right Ventricle Normal RV size. Normal systolic function. Atria The left atrium is moderately enlarged. Normal right atrium. Mitral Valve Normal mitral valve. Tricuspid Valve Normal tricuspid valve. Aortic Valve Trisinus/trileaflet aortic valve. Pulmonic Valve The pulmonic valve is not well visualized. Great Vessels Normal aortic root. Pericardium/Pleural No pericardial effusion. Medication 22 gauge I.V. with prn adaptor inserted into right arm. Diluted definity 2.5ml given slow IV push to enhance endocardial definition. MMode/2D Measurements & Calculations LVIDd: 5.6 cm IVSd: 1.5 cm Ao root diam: 3.6 cm LVIDs: 4.1 cm LVPWd: 1.3 cm FS: 26.7 % LAV(MOD-bp): 86.0 ml LVAd ap4: 44.0 cm2 SV(MOD-sp4): 85.7 ml LAV(MOD-bp) Indexed: 32.0 ml/m2 LVLd ap4: 9.4 cm LAV(MOD-sp2): 82.0 ml EDV(MOD-sp4): 165.2 ml LAV(MOD-sp4): 86.9 ml EDV(sp4-el): 173.6 ml LVAs ap4: 28.1 cm2 LVLs ap4: 7.9 cm ESV(MOD-sp4): 79.5 ml ESV(sp4-el): 84.7 ml EF(MOD-sp4): 51.9 % EF(sp4-el): 51.2 % SV(sp4-el): 88.9 ml LA A4 area: 25.1 cm2 LA dimension(2D): 5.3 cm RA A4 area: 21.1 cm2 TAPSE: 1.4 cm Time Measurements MV dec time: 0.31 sec Doppler Measurements & Calculations MV E max doug: 76.2 cm/sec Lat Peak E' Doug: 10.5 cm/sec Med Peak E' Doug: 8.8 cm/sec MV A max doug: 38.0 cm/sec E/E' lat: 7.3 E/E' med: 8.7 MV E/A: 2.0 MV V2 max: 73.2 cm/sec MV dec slope: 246.3 cm/sec2 Ao V2 max: 98.0 cm/sec MV max P.1 mmHg Ao max P.8 mmHg MV V2 mean: 36.8 cm/sec Ao V2 mean: 68.8 cm/sec MV mean P.64 mmHg Ao mean P.2 mmHg MV V2 VTI: 28.3 cm Ao V2 VTI: 24.2 cm AV (velocity ratio): 0.79 LV V1 max: 80.9 cm/sec PA V2 max: 84.0 cm/sec LV V1 max P.6 mmHg PA V2 mean: 56.9 cm/sec LV V1 mean P.6 mmHg LV V1 mean: 59.7 cm/sec LV V1 VTI: 19.2 cm ECHO/Echo Complete W/ Contrast Interpretation Summary Normal LV size. Moderate concentric left ventricular hypertrophy. Left ventricular systolic function is normal. The estimated ejection fraction is 55 %. Contrast injection was performed. Ordering Physician: Gordo Godinez Referring Physician: Gordo Godinez Performed By: Camila Cox RCS
--- NOTE | 2023-05-23 07:55 | EKG12_ITS ---
Test Reason : BYPASS GRAFT Blood Pressure : / mmHG Vent. Rate : 058 BPM Atrial Rate : 058 BPM P-R Int : 184 ms QRS Dur : 090 ms QT Int : 436 ms P-R-T Axes : -01 -17 057 degrees QTc Int : 428 ms Sinus bradycardia with occasional Premature ventricular complexes Otherwise normal ECG Confirmed by HANK LARA, GORDO ([id number]), non linear editor VITALY MANNING ([id number]) on 05/24/2023 1:29:40 PM Referred By: Gordo Godinez Confirmed By:GORDO GODINEZ MD
--- NOTE | 2023-05-23 08:50 | RAD_ITS ---
STUDY: X-RAY - RIGHT ANKLE REASON FOR EXAM: Male, 57 years old. SWELLING TECHNIQUE: 2 view(s) of the ankle. COMPARISON: None. FINDINGS: No acute fracture or dislocation. Degenerative changes of the talotibial joint. Normal visualized talus and calcaneus. The visualized subtalar, talonavicular, calcaneocuboid and tarsal articulations are normal. There is no demonstrated fracture. The soft tissue structures are unremarkable. RAD/Ankle 2 Views IMPRESSION: No acute fracture or dislocation. Degenerative changes. Electronically Signed: Gary Guerin MD at 17:00 EDT ,
== END | disposition home or self-care (01) ==
PROVIDERS: PCP Family Medicine; Referring Provider Internal Medicine Cardiovascular Disease; Visit Provider Internal Medicine Cardiovascular Disease
DX: M25.471 Effusion, right ankle (principal); Z95.1 Presence of aortocoronary bypass graft; I10 Essential (primary) hypertension; I25.2 Old myocardial infarction
CPT/HCPCS: 73600; 93005; 93306; Q9957; A4216; C8929

== ENCOUNTER 2023-06-08 09:30 | Outpatient (RCR) | payer OTHER, SELFPAY ==
[2023-05-02 07:43] VITALS: BMI 39.4
[2023-05-11 00:33] VITALS: BP 130/70
--- NOTE | 2023-05-30 10:57 | CR.ITP_ITS ---
Nutrition - Initial Assessment Weight Mgt (Other Care) Height: 6 ft 3 in Weight:: 314 lb BMI: 39.2 Psychosocial - Initial Assess Target Goals Target Goals Patient Health Questionnaire PHQ-9 Screening 60-Day Re-eval Assessment: 1. Little interest or pleasure in doing things: Not at all 2. Feeling down, depressed, or hopeless: Not at all 3. Trouble falling or staying asleep, or sleeping too much: More than half the days 4. Feeling tired or having little energy: Several days 5. Poor appetite or overeating: More than half the days 6. Feeling bad about yourself -- or that you are a failure or have let yourself or your family down: Not at all 7. Trouble concentrating on things, such as reading the newspaper or watching television: Not at all 8. Moving or speaking so slowly that other people could have noticed. Or the opposite - being so fidgety or restless that you have been moving around a lot more than usual: Not at all 9. Thoughts that you would be better off , or of hurting yourself in some way: Not at all How difficult have these problems made it for you to do your work, take care of things at home, or get along with other people?: Not difficult at all Total Score: 5 Self-Efficacy 6-Item Scale 60-Day Re-eval Assessment: We would like to know how confident you are in doing certain activities. Please select your confidence level for: Fatigue Select Number: 10 Physical Discomfort or Pain Select Number: 10 Emotional Distress Select Number: 10 Other Symptoms or Health Problems Select Number: 10 Different Tasks and Activities Select Number: 10 Medication Select Number: 10 Total Score:: 10 Nutrition Survey Nutrition Survey Instructions Scoring Instructions Exercise - 60-day Assessment Visit Date of Eval: 05/30/23 Session #:: 23 Physician Prescribed Exercise Modalities: Treadmill, Airdyne and NuStep Frequency: 3x/week for 12 weeks [36 sessions] Intensity: 60-80% of age predicted maximum heart rate reserve Duration: 30 - 45 minutes Current METSs:: 4 Target Heart Rate:: 97-121 Current RPE:: 11.5-13 Maximum Excercise HR:: 90 Resting Blood Pressure: 132/78 Maximum Exercise Blood Pressure: 142/76 EKG Type: SB to NSRw/rare to occas pac,rare multifocal pvc's,rare vent bigeminy, trig Outcomes & Goals Goals:: Verbalizes understanding of THR, RPE & goal METS by session 6, Documents in home exercise log/reports 30 min aerobic 5 day/wk by DC, Demonstrates accurate pulse taking by DC and Other additional outcome/goals: see below Intervention & Plan Exercise Program Goals: Instruct on personal THR & RPE, Instruct on MET level & personal MET goal, Show patient to take own pulse /validate performance until accurate, Instruct on home exercise and Other additional plan/int 30-day Reassessments 30 day Reassessments:: Met Nutrition - 30-Day Assessment Weight Mgt (Other Care) Height: 6 ft 3 in Weight:: 314 lb BMI: 39.2 Nutrition - 60-Day Assessment Program Goals Nutrition Program Goals Patient has diagnosis of Hyperlipidemia (ICD E78)?: Yes Visit Date of Eval: 05/30/23 Session #:: 23 Cholesterol/Lipids (Other Core Measures) Determine presence & major risk factors that modify LDL goal: Hypertension or hypertensive medication, Low HDL cholesterol <40 mg/dL*, Family history of premature CHD in Male < 55 years: female <65 yearsFa and Age men > 45 years; women >/= 55 years Outcomes/Goals: Pt IDs own risk factors & lifestyle modifications by Session 10, Verbalizes symptoms of angina & response by session 3., Pt independently manages and Other Additional Outcomes/Goals: Intervention/Plan: Advocate for lipid panel cholesterol medication if applicable, Instruct on personal lipid levels & lipid goals/NCEP guidelines, Instruct on cholesterol and Other additional plan/int Diabetes (Other Core Measures) Diabetes Type: Diagnosis Type II ICD-10 E11 Insulin dependent injection/pump?: No Non-Insulin Dependent?: Yes Do you monitor your blood sugar at home?: Yes Referral to Diabetic Clinic:: No Outcomes/Goals:: Able to state symptoms of, Able to state, Able to state and Other additional Intervention/Plan:: Instruct on, Refer to, Instruct on and Other 30-day Reassessments:: Met Weight Mgt (Other Care) Height: 6 ft 3 in Weight:: 314 lb BMI: 39.2 Diagnosis Overweight/Obesity BMI> 30% ICD-10 E66: Yes Diagnosis High BMI/Morbid Obesity BMI> 35% ICD-10 Z68: Yes Outcomes/Goals: Pt sets, maintains & shows weight loss goal & trend during rehab and Other additional outcomes/goals Intervention/Plan: Instruct on ideal BMI & set weight loss goal w/patient, Assist pt to ID & incorporate diet changes for weight loss by S9, Refer to Structured Weight Loss program as appropriate, Encourage goal of using 250- 300dcal per session for weight loss and Other additional plan/interventions 30 day Reassessments:: Progressing Healthy Eating Habits Will attend diet classes:: Yes Outcomes/Goals:: Consume diet rich in vegs,fruits,whole grain/high fiber,fish,lean meat, Limit sat/trans fats,cholesterol & added salts & sugars and Other additional outcome/goals: Intervention/Plan:: Assess current eating habits and Other Additional plan/interventions 30-day Reassessments:: Progressing Education Gave educational materials for:: Signs & symptoms of hypoglycemia, Signs & symptoms of hyperglycemia, Relate diabetes to coronary artery disease and Healthy eating Core - 60-Day Assessment Visit Date of Eval: 05/30/23 Session #:: 23 Medication Compliance Preventative Medication(s):: Aspirin and Statin/lipid H/O mental health issues: depression, anxiety, or addiction?: No Doesn?t believe in the benefits of treatment?: No Believes medications are unnecessary or harmful?: No Has a concern about medication side effects?: No Expresses concern over the cost of medications?: No Outcomes/Goals: Verbalizes medications,desired effect & common side effects @ DC, Pt self-reports following medication regimen, Keeps card in wallet w/medications listed by DC and Other additional outcome/goals: Interventions/plans: Instruct on medication effects & side effects, Review medication list w/patient every two weeks, Instruct importance of taking meds as ordered & assist problem solving and Other additional 30-day Reassessments:: Met Tobacco Use Tobacco Use: Non-smoker Hypertension Hypertension Diagnosis:: Hypertension ICD-10 I10 Resting Blood Pressure:: 132/78 [place] [employer] Hypertension Guidelines Peak Exercise Blood Pressure:: 142/76 Outcomes/Goals: Able to verbalize/achieve optimal blood pressure <130/80, Incorporates diet changes & exercise for blood pressure control by DC and Other additional outcomes/goals Interventions/plan: Instruct on optimal blood pressure, hypertension & medications, Instruct on effects of sodium, alcohol, stress, exercise &hypertension and Other additional plan/interventions 30 day Reassessments:: Progressing Tobacco Cessation Referral Smoking Cessation Referral:: No Individual Education/Counseling:: No Education Schedule Given:: Yes Psychosocial - 30-Day Assess Target Goals Target Goals Psychosocial - 60-Day Assess VIsit Date of Eval: 05/30/23 Session #:: 23 History of previous Mental disease:: No Target Goals Target Goals Psychosocial - 90-Day Assess Target Goals Target Goals Psychosocial - Final Assessmen Target Goals Target Goals Nutrition - 90-Day Assessment Weight Mgt (Other Care) Height: 6 ft 3 in Weight:: 314 lb BMI: 39.2 Nutrition - Final Assessment Weight Mgt (Other Care) Height: 6 ft 3 in Weight:: 314 lb BMI: 39.2
[2023-05-30 11:11] VITALS: BP 132/78; BMI 39.2
== END 2023-06-09 23:59 ==
LOC: CR 09:30
PROVIDERS: PCP Family Medicine; Referring Provider Internal Medicine Cardiovascular Disease; Visit Provider Internal Medicine Cardiovascular Disease
DX: Z95.1 Presence of aortocoronary bypass graft (principal)
CPT/HCPCS: 93798

== ENCOUNTER → 2023-06-20 | Outpatient (CLI) | payer OTHER, SELFPAY ==
[2023-05-30 11:11] VITALS: BMI 39.2
[2023-06-20 10:37] LABS: Hematocrit 48.3 % (40-54); Hemoglobin 14.8 g/dL (13.0-16.5); Mean Corp Hgb Conc 30.6 g/dL (32-36); Mean Corpuscular Hgb 25.3 pg (27.0-32.0); Mean Corpuscular Volume 82.4 fL (80-94); Mean Platelet Vol. 10.2 fl (6.2-12.0); Platelet Count 314 K/mm3 (150-450); RBC Distribution Width CV 14.9 % (11.6-14.6); Red Blood Count 5.86 M/mm3 (4.6-6.2); White Blood Count 6.9 K/mm3 (4.4-11.0)
[2023-06-20 11:02] LABS: AST(SGOT) 14 U/L (15-37); Alanine Aminotransfer ALT/SGPT 37 U/L (16-61); Albumin, Serum 3.8 g/dL (3.2-5.0); Alkaline Phosphatase 81 U/L (45-117); Anion Gap 3 (5-15); BUN 21 mg/dL (7-18); BUN/Creat Ratio 19.4 RATIO (10-20); Bilirubin, Direct 0.13 mg/dL (0.00-0.30); Calcium,Total 8.9 mg/dL (8.5-10.1); Chloride 108 mmol/L (98-107); Cholesterol 123 mg/dL (200); Creatinine, Serum 1.08 mg/dL (0.70-1.30); EST Glomerular Filtration Rate 74 mL/min (>60); Est Glom Filt Rate - Afr Amer 90 mL/min (>60); Globulin 3.5 g/dL (2.2-4.2); Glucose 123 mg/dL (74-106); High Density Lipoprotein 24 mg/dL; Potassium 4.5 mmol/L (3.5-5.1); Protein, Total 7.3 g/dL (6.4-8.2); Sodium Level 138 mmol/L (136-145); Triglycerides 211 mg/dL; Very Low Density Lipoprotein 42 mg/dL (5-40)
== END | disposition home or self-care (01) ==
LOC: LAB 10:11
PROVIDERS: PCP Family Medicine; Visit Provider Physician Assistant Medical
DX: I49.3 Ventricular premature depolarization (principal); I25.10 Atherosclerotic heart disease of native coronary artery without angina pectoris; Z95.1 Presence of aortocoronary bypass graft; R07.9 Chest pain, unspecified; E78.5 Hyperlipidemia, unspecified
CPT/HCPCS: 36415; 80048; 80061; 80076; 85027

== ENCOUNTER → 2023-06-20 | Outpatient (CLI) | payer OTHER, SELFPAY ==
[2023-05-30 11:11] VITALS: BMI 39.2
== END | disposition home or self-care (01) ==
LOC: PSN 09:53
PROVIDERS: PCP Family Medicine; Referring Provider Physician Assistant Medical; Visit Provider Physician Assistant Medical
DX: I49.3 Ventricular premature depolarization (principal); R00.8 Other abnormalities of heart beat; I49.8 Other specified cardiac arrhythmias; Z95.1 Presence of aortocoronary bypass graft; I25.10 Atherosclerotic heart disease of native coronary artery without angina pectoris; I25.2 Old myocardial infarction
CPT/HCPCS: 93225; 93226

== ENCOUNTER → 2023-06-28 | Outpatient (CLI) | payer OTHER, SELFPAY ==
[2023-05-30 11:11] VITALS: BMI 39.2
--- NOTE | 2023-06-29 07:18 | STRESSREP ---
Stress Test Report Exercise myocardial perfusion stress test. 57-year-old man with a history of coronary artery bypass surgery Stress protocol: Resting EKG demonstrates normal sinus rhythm with a rate of 57 bpm resting blood pressure is 118/82 mmHg. The patient exercised according to the regular [place] protocol for a total duration of 7 minutes and 16 seconds attaining a maximum heart rate of 150 bpm which was 93% of maximum predicted heart rate; the maximum workload was 10.1 metabolic equivalents. At rest there were no ST or T wave changes noted to suggest ischemia and at peak exercise upsloping ST changes only were noted which did not meet the criteria for ischemia. No clinical angina was noted the test was terminated due to the target heart rate being achieved/fatigue. The peak blood pressure was 182/78 mmHg. Rate-pressure product was 23,300. Myocardial perfusion protocol. 14.9 mCi of technetium 99m sestamibi was injected at rest. The patient exercised according to regular [place] protocol for total duration of 7 minutes and 16 seconds and at peak exercise 44.8 mCi of technetium 99m sestamibi was injected stress images were obtained stress and rest images were reconstructed in comparing the short axis vertical long and horizontal long axis. Gated images were also obtained. Perfusion SPECT analysis: Review of the stress images demonstrate normal uptake of tracer noted in all areas of the myocardium. There is a small area in the mid anterior wall with mild reduction of perfusion which appears to be present on the resting images as well. A small area of previous infarct cannot be completely excluded or a very small ischemic zone. Gated SPECT analysis: The gated ejection fraction is 55%. Conclusion: Normal exercise myocardial perfusion stress test at a high workload Preserved ejection fraction.
== END | disposition home or self-care (01) ==
LOC: CVS 06:00
PROVIDERS: PCP Family Medicine; Referring Provider Physician Assistant Medical; Visit Provider Physician Assistant Medical
DX: R07.9 Chest pain, unspecified (principal); E11.9 Type 2 diabetes mellitus without complications; I49.3 Ventricular premature depolarization; R00.8 Other abnormalities of heart beat; I49.8 Other specified cardiac arrhythmias; Z95.1 Presence of aortocoronary bypass graft; I25.10 Atherosclerotic heart disease of native coronary artery without angina pectoris; I25.2 Old myocardial infarction; I10 Essential (primary) hypertension; E78.5 Hyperlipidemia, unspecified; E78.1 Pure hyperglyceridemia
CPT/HCPCS: 78452; 93017; A9500; A4216

== ENCOUNTER 2023-06-29 09:30 | Outpatient (RCR) | payer OTHER, SELFPAY ==
[2023-05-30 11:11] VITALS: BMI 39.2
[2023-06-10 00:42] VITALS: BP 130/70; BP 132/78
== END 2023-07-10 23:59 ==
LOC: CR 09:30
PROVIDERS: PCP Family Medicine; Referring Provider Internal Medicine Cardiovascular Disease; Visit Provider Internal Medicine Cardiovascular Disease
DX: Z95.1 Presence of aortocoronary bypass graft (principal)
CPT/HCPCS: 93798

== ENCOUNTER → 2023-11-14 | Outpatient (CLI) | payer OTHER, SELFPAY ==
[2023-05-30 11:11] VITALS: BMI 39.2
--- NOTE | 2023-11-14 08:53 | RAD_ITS ---
INDICATION: SOB EXAMINATION/TECHNIQUE: X-RAY - XR Chest 2 Views COMPARISON: Prior study dated: 02/12/2023 FINDINGS: LINES/DEVICES: None. LUNGS: No consolidation, edema or effusion. No pneumothorax. MEDIASTINUM AND CARDIOVASCULAR STRUCTURES: Normal cardiac silhouette. Status post median sternotomy. BONES AND SOFT TISSUES: Unremarkable. RAD/Chest PA and Lateral IMPRESSION: No radiographic evidence of acute cardiopulmonary disease. Electronically Signed: Navdeep Lemon MD at 12:52 EST ,
[2023-11-14 09:34] LABS: Absolute Lymphocyte Count 1.65 X10^3/uL (0.83-4.51); Absolute Neutrophil Count 3.7 X10^3/uL (2.0-7.7); Basophil% 1.5 % (0-1); Eosinophil# 0.23 X10^3/uL; Eosinophils% 3.5 % (0-5); Hematocrit 48.3 % (40-54); Hemoglobin 15.7 g/dL (13.0-16.5); Lymphocyte # 1.65 X10^3/ul (0.83-4.51); Lymphocyte % 24.9 % (19-41); Mean Corp Hgb Conc 32.5 g/dL (32-36); Mean Corpuscular Hgb 26.7 pg (27.0-32.0); Mean Corpuscular Volume 82.1 fL (80-94); Mean Platelet Vol. 9.9 fl (6.2-12.0); Monocyte# 0.79 X10^3/uL; Monocyte% 11.9 % (0-10); NRBC Flagged by Analyzer 0 % (0-5); Neutrophil # 3.67 X10^3/uL (2.7-7.7); Neutrophil % 55.5 % (47-70); Platelet Count 325 K/mm3 (150-450); RBC Distribution Width CV 13.5 % (11.6-14.6); RBC Distribution Width SD 40.1 fl (35.1-43.9); Red Blood Count 5.88 M/mm3 (4.6-6.2); White Blood Count 6.6 K/mm3 (4.4-11.0)
[2023-11-14 10:19] LABS: ALB/GLOB Ratio 0.9 RATIO (0.9-2.4); AST(SGOT) 29 U/L (15-37); Alanine Aminotransfer ALT/SGPT 81 U/L (16-61); Albumin, Serum 3.6 g/dL (3.2-5.0); Alkaline Phosphatase 99 U/L (45-117); Anion Gap 6 (5-15); BUN 26 mg/dL (7-18); Chloride 102 mmol/L (98-107); Cholesterol 147 mg/dL (200); Creatinine, Serum 1.18 mg/dL (0.70-1.30); EST Glomerular Filtration Rate 67 mL/min (>60); Est Glom Filt Rate - Afr Amer 81 mL/min (>60); Globulin 4.1 g/dL (2.2-4.2); Glucose 209 mg/dL (74-106); High Density Lipoprotein 27 mg/dL; PSA,Total - Annual Screen 2.72 ng/mL (0.00-4.00); Potassium 4.4 mmol/L (3.5-5.1); Protein, Total 7.7 g/dL (6.4-8.2); Sodium Level 135 mmol/L (136-145); Thyroid Stim Hormone (TSH) 1.22 uIU/mL (0.358-3.74); Triglycerides 260 mg/dL; Very Low Density Lipoprotein 52 mg/dL (5-40)
[2023-11-14 10:53] LABS: Hemoglobin A1c 8.3 % (3.8-5.6)
== END | disposition home or self-care (01) ==
PROVIDERS: PCP Family Medicine; Referring Provider Family Medicine; Visit Provider Family Medicine
DX: R06.02 Shortness of breath (principal); E11.9 Type 2 diabetes mellitus without complications; E78.2 Mixed hyperlipidemia; Z13.29 Encounter for screening for other suspected endocrine disorder; Z12.5 Encounter for screening for malignant neoplasm of prostate
CPT/HCPCS: 36415; 71046; 80053; 80061; 83036; 84153; 84443; 85025; G0103

== ENCOUNTER 2023-11-23 11:30 | Inpatient (IN) | payer OTHER, SELFPAY ==
[2023-05-30 11:11] VITALS: BMI 39.2
[2023-11-23] VITALS (19 sets, daily range): BP systolic 117–146; BP diastolic 66–93; PULSE 55–75; RESP 16–20; TEMP 35.6–36.4; O2SAT 93–100; BMI 39.6; BMI 38.5
--- NOTE | 2023-11-23 11:53 | RAD_ITS ---
STUDY: X-RAY CHEST REASON FOR EXAM: Male, 58 years old. Chest pain TECHNIQUE: Single AP portable view of the chest. COMPARISON: Comparison is made with prior study dated November 14, 2023. FINDINGS: The lungs are clear and expanded. There is no demonstrated pleural abnormality. Sternal cerclage wires and vascular clips are present from a prior sternotomy and coronary artery bypass graft procedure (CABG). Borderline cardiomegaly. Normal mediastinum and magdi. Normal visualized pulmonary arteries. Normal visualized aortic arch and descending thoracic aorta. Normal visualized thoracic spine. Normal visualized ribs, clavicles, and shoulders. There is no demonstrated abnormality of the visualized soft tissue structures of the upper abdomen. RAD/Chest 1 View (Portable) IMPRESSION: Borderline cardiomegaly. The lungs are clear. Electronically Signed: Liu Clements MD at 12:25 EDT ,
--- NOTE | 2023-11-23 12:00 | EKG12_ITS ---
Test Reason : post heart cath Blood Pressure : / mmHG Vent. Rate : 057 BPM Atrial Rate : 057 BPM P-R Int : 202 ms QRS Dur : 092 ms QT Int : 406 ms P-R-T Axes : -06 -52 055 degrees QTc Int : 395 ms Sinus bradycardia Left axis deviation Nonspecific T wave abnormality Abnormal ECG When compared with ECG of 23-NOV-2023 15:24, MANUAL COMPARISON REQUIRED, DATA IS UNCONFIRMED Confirmed by HANK LARA, SANJIV ([id number]), editor house organ TAWANA GERMAN ([id number]) on 11/27/2023 6:56:28 AM Referred By: Confirmed By:SANJIV MCKINNEY MD
--- NOTE | 2023-11-23 12:01 | EX.ED.DYSGE1 ---
HPI <PENELOPE Amaya - Last Filed: 11/23/23 13:01> History of Present Illness Chief Complaint: Chest Pain Narrative Narrative: Patient is a 58-year-old male with history of CAD, triple bypass February 2023, history of angina who sees Dr. Valenzuela, obesity, type 2 diabetes who presents to the emergency department for chest pain that is worse with exertion. Patient states over the last month to month and a half, he has been having chest pain much worse with any exertion. When he rests, it does go away within 5 to 10 minutes. He has seen Dr. Valenzuela about this, they have been trying to get him to have a stress test however there was some insurance difficulty, his neck stress test is scheduled December 03. Patient has been placed on Ranexa, isosorbide as well as his blood pressure and cholesterol medication. Patient states that the pain is in his upper chest into his shoulder blades, it can go down to his left arm, he feels weak, and then when he rests he feels better. From previous notes, the patient seems is not utilize his nitro. Patient is here because he is having difficulty doing anything exertional. [facility] <PENELOPE Amaya - Last Filed: 11/23/23 13:01> [facility] Medical History (Updated 11/23/23 @ 14:27 by Reba Lynn) Atherosclerosis of coronary artery of [place] heart without angina pectoris Chest pain Diabetes Diabetic neuropathy Essential hypertension Former smoker History of diabetes mellitus, type II History of non-ST elevation myocardial infarction (NSTEMI) (02/12/23) Hyperlipidemia Hypertriglyceridemia Loss of hearing Myocardial infarct Non-smoker Obesity Orthopedic aftercare Primary osteoarthritis of right knee Type 2 diabetes mellitus Wears glasses Home Medications aspirin 81 mg tablet,delayed release (Adult Aspirin Regimen) 81 mg PO QDAY HEART 09/26/22 [History Last Taken 11/23/23] atorvastatin 40 mg tablet 40 mg PO QHS CHOLESTEROL #90 tabs 07/19/23 [Rx Last Taken 11/22/23] isosorbide mononitrate 30 mg tablet,extended release 24 hr 30 mg PO DAILY HEART #30 tabs 10/22/23 [Rx Last Taken 11/23/23] ranolazine 500 mg tablet,extended release,12 hr 500 mg PO BID take with food 11/15/23 [History Last Taken 11/23/23] fluticasone propionate 50 mcg/actuation nasal spray,suspension 2 spray intranasal DAILY 11/23/23 [History Last Taken 11/23/23] nitroglycerin 0.4 mg sublingual tablet 0.4 mg sublingual Q5M PRN chest pain #25 tabs 11/23/23 [Rx Last Taken Unknown] Allergy/AdvReac Type Severity Reaction Status Date / Time rosuvastatin [From Crestor] AdvReac myalgia Verified 11/23/23 11:32 Family History Father Heart disease Mother Diabetes Surgical History (Updated 11/23/23 @ 14:26 by Reba Lynn) History of cardiac catheterization History of coronary artery stent placement (02/16/20) History of coronary artery stent placement History of left heart catheterization (02/13/20) Hx of CABG Hx of total knee replacement Hx of total knee replacement S/P CABG x 3 (02/19/23) S/P total knee arthroplasty Social History Smoking Status: Former smoker substance use type: does not use ROS <PENELOPE Amaya - Last Filed: 11/23/23 13:01> ROS ED ROS Narrative Constitutional: Negative for fever, chills, weight loss, weakness Eyes: Negative for vision loss, vision change, double vision ENT: Negative for any sore throat, ear pain, congestion Cardiovascular: Negative for any palpitations. Positive chest pain, chest tightness, worse on exertion Respiratory: Negative for any cough, sputum production, hemoptysis, dyspnea, dyspnea on exertion, orthopnea Gastrointestinal: Negative for any abdominal pain, nausea, vomiting, diarrhea, constipation, blood in stool, blood in vomit : Negative for any urinary frequency, dysuria, retention, blood in urine Muscle skeletal: Negative for any neck pain, back pain. Positive left arm pain, worse on exertion Neurological: Negative for any headache, syncope, dizziness Skin: Negative for any rashes, itching, abrasions, lacerations Psychiatric: Negative for any depression, anxiety, stress, suicidal ideation, homicidal ideation Hematologic: Negative for any excessive bruising, easy bleeding EXAM <PENELOPE Amaya - Last Filed: 11/23/23 13:01> Physical Exam Narrative Exam Narrative: Vital signs reviewed. Patient at rest is in no discomfort. Vital signs are stable. Alert and orient x 4. HEET: Head normocephalic atraumatic, TMs clear bilaterally. Posterior pharynx is clear, moist mucous membranes. Nares clear bilaterally. Neck: Supple with no lymphadenopathy or tenderness. No signs of meningismus. Cardiac: Regular rate and rhythm no murmurs gallops or rubs, equal peripheral pulses bilaterally. Respiratory: Lungs clear to auscultation bilaterally. No chest tenderness. Abdomen: Soft, nontender, nondistended. No abdominal bruit or pulsatile masses. No hepatosplenomegaly Extremities: No peripheral edema, no signs of gross trauma or deformity. Active full range of motion of all extremities. Neuro: Cranial nerves II through XII intact, no focal neurological deficits. Skin: Clean dry and intact with no rash, purpura, petechiae, vesicles or pustules. Backs/flank: No CVA tenderness, no midline spinal tenderness, no deformity. Psych: Normal mood and affect. No SI, HI or acute psychosis. Const Vital Signs: 11/23/23 11:30 11/23/23 11:53 Temperature 97.5 F L Temperature Source Temporal Pulse Rate 69 Respiratory Rate 18 Blood Pressure 143/84 H Blood Pressure Mean 103 Pulse Ox 97 97 Oxygen Delivery Method Room Air Room Air <Dr. Dung Dia DO - Last Filed: 11/23/23 17:51> Physical Exam Const Vital Signs: 11/23/23 11:30 11/23/23 11:53 Temperature 97.5 F L Temperature Source Temporal Pulse Rate 69 Respiratory Rate 18 Blood Pressure 143/84 H Blood Pressure Mean 103 Pulse Ox 97 97 Oxygen Delivery Method Room Air Room Air [facility] <PENELOPE Amaya - Last Filed: 11/23/23 13:01> [facility] Lab Data Labs: Laboratory Results - last 24 hr 11/23/23 11:50 WBC 5.8 RBC 5.28 Hgb 14.1 Hct 43.3 MCV 82.0 MCH 26.7 L MCHC 32.6 RDW Std Deviation 39.8 RDW Coeff of Hillary 13.3 Plt Count 235 MPV 10.3 Immature Gran % (Auto) 1.900 H Neut % (Auto) 58.6 Lymph % (Auto) 25.3 [place] % (Auto) 9.2 Eos % (Auto) 3.6 Baso % (Auto) 1.4 H Absolute Neuts (auto) 3.4 Absolute Lymphs (auto) 1.46 Nucleated RBC % 0 Sodium 135 L Potassium 4.2 Chloride 104 Carbon Dioxide 24.0 Anion Gap 7 BUN 28 H Creatinine 1.09 Estim Creat Clear Calc 113.35 Est GFR (MDRD) Af Amer 89 Est GFR (MDRD) Non-Af 73 BUN/Creatinine Ratio 25.7 H Glucose 238 H Calcium 9.0 Troponin I High Sens 239 H* B-Natriuretic Peptide 43.8 TSH 0.91 Radiography Diagnostic Testing: Clinical Impression(s) from Imaging Studies Chest X-Ray 11/23/23 11:53 IMPRESSION: Borderline cardiomegaly. The lungs are clear. Electronically Signed: Liu Clements MD at 12:25 EDT , EKG Normal sinus rhythm: Attestation: I personally reviewed and interpreted this EKG as follows: Interpretation: Sinus Rhythm Comments: Normal sinus rhythm, rate of 66 bpm, MN interval 188 ms, QRS duration 86 ms, no acute ST elevation, no acute infarct noted. Treatment and Re-Evaluation :: Differential diagnosis includes however is not limited to: ACS, [place], NSTEMI, community-acquired pneumonia, unstable angina, muscle skeletal chest pain Patient on my initial evaluation was in no pain, patient states he is usually not in pain however whenever he exerts himself the pain comes he feels short of breath as well as pain to his upper chest to his shoulder blades. Patient is scheduled for a stress test on December 04, 2023 however patient states he cannot last that long. Patient will receive a full cardiac workup including 2 troponins, chest x-ray, basic laboratory values. Patient does see Dr. Valenzuela, possible consultation for cardiology may arise. Since the patient is not having any pain, no nitro or analgesia will be given. Patient will be reevaluated. All radiologic examinations were read, reviewed by the emergency department attending. From these reads, a plan of care will be put in place. Patient's CBC was unremarkable, patient's chemistries showed a creatinine of 1.09 which is normal, glucose of 238, patient's initial troponin was 239, significantly elevated, secondary to the patient's pain on exertion, ideally this is an NSTEMI. The patient still pain-free, I will reach out to cardiology. Cardiology would like to start the patient on heparin. Patient's chest x-ray per the ER physician shows borderline cardiomegaly, the lungs are clear. At this time, we will reach out to admitting physician. Patient will be admitted, stable for admission <Dr. Dung Dia, DO - Last Filed: 11/23/23 17:51> MDM MDM Narrative Medical decision making narrative: I have personally performed a face to face assessment of the patient and have reviewed the KEVIN Note. I performed a substantive portion of the visit including all aspects of the following. My marquez findings include: History: Patient presents with chest pain that has been intermittent over the last month. Patient states it is worse with activity and exertion. Patient states it gets better with nitroglycerin. Patient states it is across his upper chest and down both arms. Patient denies any shortness of breath. Patient denies any nausea or vomiting. Patient denies any diaphoresis. Exam: Vital signs are stable. Patient is afebrile. Patient is in no acute distress. Oral mucosa is pink and moist. Neck is supple. Trachea is midline. There is no JVD. Heart was regular rate and rhythm. Lungs are clear and equal bilateral. Abdomen is soft. Bowel sounds are normal. There is no tenderness. Cranial nerves II through XII are intact. There are no focal motor or sensory deficits noted. Medical Decision Making: Differential diagnosis includes cardiac dysrhythmia, cardiac ischemia, electrolyte abnormality, pneumonia, pneumothorax, congestive heart failure, and hyperthyroidism. CBC will be obtained to assess for leukocytosis and anemia. Basic metabolic profile will be obtained to assess for electrolyte abnormality and renal function. High-sensitivity troponin will be obtained to assess for cardiac ischemia. BNP will be obtained to assess for congestive heart failure. TSH will be obtained to assess for hyperthyroidism. Chest x-ray will be obtained to assess for pneumonia and pneumothorax. EKG will be obtained to assess for cardiac dysrhythmia and cardiac ischemia. Patient was given aspirin here. EKG was obtained. On my independent interpretation, it shows normal sinus rhythm with a rate of 66. There are no acute ST or T wave changes noted. Portable 1 view chest x-ray was obtained. On my independent interpretation, lung cortez are clear. There is borderline cardiomegaly. Bony thorax is normal. There is no acute process noted. Radiologist also interpreted the x-ray and agrees. CBC was reviewed and was within normal limits. Basic metabolic profile was reviewed and was essentially within normal limits. Glucose was slightly elevated at 238. High-sensitivity troponin was elevated at 239. BNP was normal at 43.8. TSH was normal at 0.91. 12 patient was advised of this finding. Patient is resting comfortably on reevaluation. Patient was advised of the need for admission. Patient is agreeable with this. Case was discussed with the hospitalist. Patient will be admitted to the hospital. Patient understood and was agreeable with the plan. All questions answered. Lab Data Labs: Laboratory Results - last 24 hr 11/23/23 11:50 WBC 5.8 RBC 5.28 Hgb 14.1 Hct 43.3 MCV 82.0 MCH 26.7 L MCHC 32.6 RDW Std Deviation 39.8 RDW Coeff of Hillary 13.3 Plt Count 235 MPV 10.3 Immature Gran % (Auto) 1.900 H Neut % (Auto) 58.6 Lymph % (Auto) 25.3 [place] % (Auto) 9.2 Eos % (Auto) 3.6 Baso % (Auto) 1.4 H Absolute Neuts (auto) 3.4 Absolute Lymphs (auto) 1.46 Nucleated RBC % 0 Sodium 135 L Potassium 4.2 Chloride 104 Carbon Dioxide 24.0 Anion Gap 7 BUN 28 H Creatinine 1.09 Estim Creat Clear Calc 113.35 Est GFR (MDRD) Af Amer 89 Est GFR (MDRD) Non-Af 73 BUN/Creatinine Ratio 25.7 H Glucose 238 H Calcium 9.0 Troponin I High Sens 239 H* B-Natriuretic Peptide 43.8 TSH 0.91 Radiography Diagnostic Testing: Clinical Impression(s) from Imaging Studies Chest X-Ray 11/23/23 11:53 IMPRESSION: Borderline cardiomegaly. The lungs are clear. Electronically Signed: Liu Clements MD at 12:25 EDT , Discharge Plan Dx/Rx/DC Orders Clinical Impression: Acute non-ST elevation myocardial infarction (NSTEMI), Stable angina, Chest pain Disposition Disposition: Acute Care Hospital [facility] Discharge Date/Time: 11/23/23 13:58
[2023-11-23] MEDS: Aspirin 81 MG TAB.CHEW 243 MG PO (12:12)
[2023-11-23 12:19] LABS: Absolute Lymphocyte Count 1.46 X10^3/uL (0.83-4.51); Absolute Neutrophil Count 3.4 X10^3/uL (2.0-7.7); Basophil# 0.08 X10^3/uL; Basophil% 1.4 % (0-1); Eosinophil# 0.21 X10^3/uL; Eosinophils% 3.6 % (0-5); Hematocrit 43.3 % (40-54); Hemoglobin 14.1 g/dL (13.0-16.5); Lymphocyte # 1.46 X10^3/ul (0.83-4.51); Lymphocyte % 25.3 % (19-41); Mean Corp Hgb Conc 32.6 g/dL (32-36); Mean Corpuscular Hgb 26.7 pg (27.0-32.0); Mean Platelet Vol. 10.3 fl (6.2-12.0); Monocyte# 0.53 X10^3/uL; Monocyte% 9.2 % (0-10); NRBC Flagged by Analyzer 0 % (0-5); Neutrophil # 3.37 X10^3/uL (2.7-7.7); Neutrophil % 58.6 % (47-70); Platelet Count 235 K/mm3 (150-450); RBC Distribution Width CV 13.3 % (11.6-14.6); RBC Distribution Width SD 39.8 fl (35.1-43.9); Red Blood Count 5.28 M/mm3 (4.6-6.2); White Blood Count 5.8 K/mm3 (4.4-11.0)
[2023-11-23 12:42] LABS: BNP,B-Type NATRIURETIC PEPTIDE 43.8 pg/mL (0-100)
[2023-11-23 12:43] LABS: Anion Gap 7 (5-15); BUN 28 mg/dL (7-18); BUN/Creat Ratio 25.7 RATIO (10-20); Chloride 104 mmol/L (98-107); Creatinine, Serum 1.09 mg/dL (0.70-1.30); EST Glomerular Filtration Rate 73 mL/min (>60); Est Glom Filt Rate - Afr Amer 89 mL/min (>60); Estimated Creatinine Clearance 113.35 ml/min; Glucose 238 mg/dL (74-106); Potassium 4.2 mmol/L (3.5-5.1); Sodium Level 135 mmol/L (136-145); Thyroid Stim Hormone (TSH) 0.91 uIU/mL (0.358-3.74); Troponin-I HS (w/2H Reflex) 239 pg/mL (3.0-78.0)
--- NOTE | 2023-11-23 13:14 | HP.PCM.HOS_ITS ---
HPI - General General Date of Admission: 11/23/23 Date of Service: 11/23/23 Chief Complaint: chest pain HPI Narrative QI VELA, is a 58 M who presents with ongoing exertional chest pain. Chest pain occurs goes away with rest associated with some shortness of breath. Never had symptoms like this before despite having stents and a cardiac bypass. Had troponins that were elevated. Dr. Valenzuela, cardiology was notified and recommended heparin drip and will see the patient in consultation. Patient did receive aspirin. Heparin drip has been ordered. [facility] Medical History Atherosclerosis of coronary artery of [place] heart without angina pectoris Chest pain Diabetic neuropathy Essential hypertension History of diabetes mellitus, type II History of non-ST elevation myocardial infarction (NSTEMI) (02/12/23) Hyperlipidemia Hypertriglyceridemia Loss of hearing Non-smoker Obesity Orthopedic aftercare Primary osteoarthritis of right knee Type 2 diabetes mellitus Wears glasses Home Medications aspirin 81 mg tablet,delayed release (Adult Aspirin Regimen) 81 mg PO QDAY HEART 09/26/22 [History Last Taken 11/23/23] atorvastatin 40 mg tablet 40 mg PO QHS CHOLESTEROL #90 tabs 07/19/23 [Rx Last Taken 11/22/23] isosorbide mononitrate 30 mg tablet,extended release 24 hr 30 mg PO DAILY HEART #30 tabs 10/22/23 [Rx Last Taken 11/23/23] ranolazine 500 mg tablet,extended release,12 hr 500 mg PO BID take with food 11/15/23 [History Last Taken 11/23/23] fluticasone propionate 50 mcg/actuation nasal spray,suspension 2 spray intranasal DAILY 11/23/23 [History Last Taken 11/23/23] nitroglycerin 0.4 mg sublingual tablet 0.4 mg sublingual Q5M PRN chest pain #25 tabs 11/23/23 [Rx Last Taken Unknown] Allergy/AdvReac Type Severity Reaction Status Date / Time rosuvastatin [From Crestor] AdvReac myalgia Verified 11/23/23 11:32 Family History Father Heart disease Mother Diabetes Surgical History History of cardiac catheterization History of coronary artery stent placement (02/16/20) History of coronary artery stent placement History of left heart catheterization (02/13/20) Hx of total knee replacement Hx of total knee replacement S/P CABG x 3 (02/19/23) S/P total knee arthroplasty Social History Smoking Status: Former smoker substance use type: does not use ROS ROS Narrative All review of systems were negative except as mentioned above in the history of present illness and the other review of systems. Vital Signs Vital Signs Vital Signs: 11/23/23 11:30 11/23/23 11:53 Temperature 36.4 C L Temperature Source Temporal Pulse Rate 69 Respiratory Rate 18 Blood Pressure 143/84 H Blood Pressure Mean 103 Pulse Ox 97 97 Oxygen Delivery Method Room Air Room Air Weight Weight: 147.78 kg Body Mass Index (BMI) 39.6 Physical Exam Const alert and no apparent distress HEENT normocephalic Resp normal respiratory effort and no retractions Cardio regular rate, regular rhythm, S1 normal heart sound and S2 normal heart sound GI normal to inspection, nondistended, normoactive bowel sounds, soft to palpation, non-tender and non-distended Extremity normal to inspection Results Lab / Micro Data Attestation: I reviewed the patient's lab results. 11/23/23 11:50 11/23/23 11:50 Labs: Laboratory Results - last 24 hr 11/23/23 11:50: WBC 5.8, RBC 5.28, Hgb 14.1, Hct 43.3, MCV 82.0, MCH 26.7 L, MCHC 32.6, RDW Std Deviation 39.8, RDW Coeff of Hillary 13.3, Plt Count 235, MPV 10.3, Immature Gran % (Auto) 1.900 H, Neut % (Auto) 58.6, Lymph % (Auto) 25.3, [place] % (Auto) 9.2, Eos % (Auto) 3.6, Baso % (Auto) 1.4 H, Absolute Neuts (auto) 3.4, Absolute Lymphs (auto) 1.46, Nucleated RBC % 0, Sodium 135 L, Potassium 4.2, Chloride 104, Carbon Dioxide 24.0, Anion Gap 7, BUN 28 H, Creatinine 1.09, Estim Creat Clear Calc 113.35, Est GFR (MDRD) Af Amer 89, Est GFR (MDRD) Non-Af 73, BUN/Creatinine Ratio 25.7 H, Glucose 238 H, Calcium 9.0, Troponin I High Sens 239 H*, B-Natriuretic Peptide 43.8, TSH 0.91 EKG Initial EKG: Attestation: I personally reviewed and interpreted this EKG as follows: Prior EKG tracings: available for review EKG Rhythm Intrepretation: Sinus Rhythm Imaging Radiology Impression Chest X-Ray 11/23/23 11:53 IMPRESSION: Borderline cardiomegaly. The lungs are clear. Electronically Signed: Liu Clements MD at 12:25 EDT , Assessment & Plan Assessment/Plan (1) Acute non-ST elevation myocardial infarction (NSTEMI): PLAN: Plan Acute NSTEMI * Currently stable * Heparin gtt. ASA. * Check FLP in AM, check echo * consult cardiology Chronic conditions * DM2: SSI * HLP: continue Statin. Check FLP VTE prophylaxis: not indicated as he is already anticoagulated. Charges/Coding Visit Charges Inpatient E&M: 94407 Init Hosp L3
[2023-11-23] MEDS: Heparin Injection (Vial) 5,000 UNIT/ML VIAL 4000 UNIT IV (13:22)
[2023-11-23] MEDS: HEPARIN/D5w 25,000 UNITS 25,000 UNITS/250 ML IV.SOLN. 10 UNITS CONT INF (13:26)
[2023-11-23 14:05] LABS: International Normalized Ratio 0.9; Partial Thromboplast Time 23.9 Seconds (24.1-36.2); Prothrombin Time (Protime)PT. 12.5 SECONDS (11.7-14.9)
--- NOTE | 2023-11-23 14:09 | ECHOCS_ITS ---
Reason For Study: CHEST PAIN Procedure This was a 2D Doppler, Color Flow transthoracic echocardiogram. The study was technically difficult. Contrast injection was performed. Exam performed portable in patient room. Left Ventricle Normal LV size. Left ventricular systolic function is normal. The estimated ejection fraction is 55 %. No regional wall motion abnormalities noted. Right Ventricle Normal RV size. Normal systolic function. Atria The left atrium is mildly enlarged. Normal right atrium. Mitral Valve Normal mitral valve. Tricuspid Valve Normal tricuspid valve. Aortic Valve Trisinus/trileaflet aortic valve. Pulmonic Valve Normal pulmonic valve. Great Vessels Normal aortic root. The pulmonary artery is normal size. Normal inferior vena cava. Pericardium/Pleural No pericardial effusion. Medication Diluted definity 2ml given slow IV push to enhance endocardial definition. MMode/2D Measurements & Calculations LVIDd: 5.9 cm IVSd: 1.1 cm Ao root diam: 3.3 cm LVIDs: 4.4 cm LVPWd: 1.4 cm FS: 26.4 % LAV(MOD-bp): 76.8 ml LVAd ap4: 41.4 cm2 SV(MOD-sp4): 84.2 ml LAV(MOD-bp) Indexed: 32.0 ml/m2 LVLd ap4: 9.0 cm LAV(MOD-sp2): 83.3 ml EDV(MOD-sp4): 156.5 ml LAV(MOD-sp4): 70.9 ml EDV(sp4-el): 162.5 ml LVAs ap4: 26.4 cm2 LVLs ap4: 7.8 cm ESV(MOD-sp4): 72.3 ml ESV(sp4-el): 75.4 ml EF(MOD-sp4): 53.8 % EF(sp4-el): 53.6 % SV(sp4-el): 87.1 ml LA A4 area: 22.6 cm2 LA dimension(2D): 4.1 cm RA A4 area: 19.4 cm2 TAPSE: 2.0 cm Time Measurements MV dec time: 0.21 sec Doppler Measurements & Calculations MV E max doug: 60.2 cm/sec Lat Peak E' Doug: 14.9 cm/sec Med Peak E' Doug: 6.2 cm/sec MV A max doug: 52.0 cm/sec E/E' lat: 4.0 E/E' med: 9.7 MV E/A: 1.2 MV V2 max: 81.1 cm/sec MV dec slope: 293.2 cm/sec2 Ao V2 max: 68.4 cm/sec MV max P.6 mmHg Ao max P.9 mmHg MV V2 mean: 50.2 cm/sec Ao V2 mean: 47.7 cm/sec MV mean P.1 mmHg Ao mean P.1 mmHg MV V2 VTI: 33.3 cm Ao V2 VTI: 14.8 cm AV (velocity ratio): 1.3 LV V1 max: 90.9 cm/sec LV V1 max P.3 mmHg LV V1 mean P.8 mmHg LV V1 mean: 63.1 cm/sec LV V1 VTI: 18.6 cm ECHO/Echo Complete W/ Contrast Interpretation Summary Normal LV size. Left ventricular systolic function is normal. The estimated ejection fraction is 55 %. Contrast injection was performed. Ordering Physician: Dung Fernandez Referring Physician: PRIYA BRISENO Performed By: Camila Cox RCS
--- NOTE | 2023-11-23 14:09 | EKG12_ITS ---
Test Reason : Blood Pressure : / mmHG Vent. Rate : 058 BPM Atrial Rate : 058 BPM P-R Int : 190 ms QRS Dur : 090 ms QT Int : 400 ms P-R-T Axes : -02 -48 059 degrees QTc Int : 392 ms Sinus bradycardia Left axis deviation Abnormal ECG When compared with ECG of 23-NOV-2023 11:36, MANUAL COMPARISON REQUIRED, DATA IS UNCONFIRMED Confirmed by HANK LARA, SANJIV ([id number]), editor news TAWANA GERMAN ([id number]) on 11/27/2023 6:58:15 AM Referred By: Confirmed By:SANJIV MCKINNEY MD
--- NOTE | 2023-11-23 14:09 | EKG12_ITS ---
Test Reason : AM EKG Blood Pressure : / mmHG Vent. Rate : 067 BPM Atrial Rate : 067 BPM P-R Int : 184 ms QRS Dur : 086 ms QT Int : 392 ms P-R-T Axes : -01 -64 063 degrees QTc Int : 414 ms Normal sinus rhythm Left axis deviation Inferior infarct , age undetermined Cannot rule out Anterior infarct , age undetermined Abnormal ECG When compared with ECG of 23-NOV-2023 19:14, MANUAL COMPARISON REQUIRED, DATA IS UNCONFIRMED Confirmed by HANK LARA, SANJIV ([id number]), field map editor TAWANA GERMAN ([id number]) on 11/27/2023 6:56:09 AM Referred By: Confirmed By:SANJIV MCKINNEY MD
[2023-11-23 14:13] LABS: Reflex Troponin-HS? (from REC) Y
[2023-11-23 15:22] LABS: Troponin-I HS 221 pg/mL (3.0-78.0)
--- NOTE | 2023-11-23 15:55 | CON.PCM.CA_ITS ---
Assessment & Plan Assessment/Plan (1) Acute non-ST elevation myocardial infarction (NSTEMI): PLAN: Aspirin. Heparin. Given patient's new onset angina pectoralis, I advised coronary angiography with possible revascularization. Risks benefits and alternatives explained. He understands these and wishes to proceed. (2) Unstable angina: PLAN: See #1 above. (3) Essential hypertension: PLAN: Nitrates. No beta-blockers in view of baseline bradycardia. Angiotensin receptor blockers. (4) Hyperlipidemia: QUALIFIERS: Hyperlipidemia type: unspecified Qualified Code(s): E78.5 - Hyperlipidemia, unspecified PLAN: On atorvastatin. (5) Type 2 diabetes mellitus: PLAN: As per internal medicine. HPI Consult Data Date of Consult: 11/23/23 HPI Narrative Reason for Consultation: NSTEMI HPI Narrative: This patient has past medical history significant for coronary artery disease status post triple-vessel CABG about 8 months ago. For the past 1 month, patient has been having anterior chest discomfort with mild to moderate exertion. According to him, this radiates to both his shoulders and to his upper back. Not associated with shortness of breath or diaphoresis. Relieved with rest. Promptly relieved with taking sublingual nitroglycerin. Per patient, his symptoms have progressively been getting worse. He therefore decided to present to the emergency room today. In the ER, his troponins were noted to be elevated. [facility] Medical History (Updated 11/23/23 @ 14:27 by Reba Lynn) Atherosclerosis of coronary artery of three affiliated heart without angina pectoris Chest pain Diabetes Diabetic neuropathy Essential hypertension Former smoker History of diabetes mellitus, type II History of non-ST elevation myocardial infarction (NSTEMI) (02/12/23) Hyperlipidemia Hypertriglyceridemia Loss of hearing Myocardial infarct Non-smoker Obesity Orthopedic aftercare Primary osteoarthritis of right knee Type 2 diabetes mellitus Wears glasses Home Medications aspirin 81 mg tablet,delayed release (Adult Aspirin Regimen) 81 mg PO QDAY HEART 09/26/22 [History Last Taken 11/23/23] atorvastatin 40 mg tablet 40 mg PO QHS CHOLESTEROL #90 tabs 07/19/23 [Rx Last Taken 11/22/23] isosorbide mononitrate 30 mg tablet,extended release 24 hr 30 mg PO DAILY HEART #30 tabs 10/22/23 [Rx Last Taken 11/23/23] ranolazine 500 mg tablet,extended release,12 hr 500 mg PO BID take with food 11/15/23 [History Last Taken 11/23/23] fluticasone propionate 50 mcg/actuation nasal spray,suspension 2 spray intranasal DAILY 11/23/23 [History Last Taken 11/23/23] nitroglycerin 0.4 mg sublingual tablet 0.4 mg sublingual Q5M PRN chest pain #25 tabs 11/23/23 [Rx Last Taken Unknown] Allergy/AdvReac Type Severity Reaction Status Date / Time rosuvastatin [From Crestor] AdvReac myalgia Verified 11/23/23 11:32 Family History Father Heart disease Mother Diabetes Surgical History (Updated 11/23/23 @ 14:26 by Reba Lynn) History of cardiac catheterization History of coronary artery stent placement (02/16/20) History of coronary artery stent placement History of left heart catheterization (02/13/20) Hx of CABG Hx of total knee replacement Hx of total knee replacement S/P CABG x 3 (02/19/23) S/P total knee arthroplasty Social History Smoking Status: Former smoker substance use type: does not use Physical Exam Narrative Comfortable. No apparent distress. Heart sounds 1 and 2 are normal. No murmurs or rubs are noted. Chest is clear to auscultation bilaterally. Abdomen obese. Alert oriented x 3. No ankle edema. Risk Stratification Risk Stratification Applicable: No Objective Data Vital Signs: Vital Signs Temp Pulse Resp BP Pulse Ox O2 Del Method 97.0 F L 56 L 20 H 146/81 H 96 Room Air 11/23/23 14:28 11/23/23 14:28 11/23/23 14:28 11/23/23 14:28 11/23/23 15:40 11/23/23 15:40 Oxygen Delivery Method Room Air Weight: 317 lb 0.395 oz Body Mass Index (BMI) 38.5 Lab / Micro Data Attestation: I reviewed the patient's lab results. 11/23/23 11:50 11/23/23 11:50 Labs: Laboratory Results - last 24 hr 11/23/23 11:50: WBC 5.8, RBC 5.28, Hgb 14.1, Hct 43.3, MCV 82.0, MCH 26.7 L, M CHC 32.6, RDW Std Deviation 39.8, RDW Coeff of Hillary 13.3, Plt Count 235, MPV 10.3, Immature Gran % (Auto) 1.900 H, Neut % (Auto) 58.6, Lymph % (Auto) 25.3, Pierce % (Auto) 9.2, Eos % (Auto) 3.6, Baso % (Auto) 1.4 H, Absolute Neuts (auto) 3.4, Absolute Lymphs (auto) 1.46, Nucleated RBC % 0, Sodium 135 L, Potassium 4.2, Chloride 104, Carbon Dioxide 24.0, Anion Gap 7, BUN 28 H, Creatinine 1.09, Estim Creat Clear Calc 113.35, Est GFR (MDRD) Af Amer 89, Est GFR (MDRD) Non-Af 73, BUN/Creatinine Ratio 25.7 H, Glucose 238 H, Calcium 9.0, Troponin I High S ens 239 H*, B-Natriuretic Peptide 43.8, TSH 0.91 11/23/23 13:25: PT 12.5, INR 0.9, APTT 23.9 L 11/23/23 14:44: Troponin I High Sens 221 H* Rhythm Strip Rhythm Strip: Sinus Rhythm Cardiology Labs/Tests 11/23/23 11:50: WBC 5.8, RBC 5.28, Hgb 14.1, Hct 43.3, MCV 82.0, MCH 26.7 L, MCHC 32.6, Plt Count 235, MPV 10.3, Immature Gran % (Auto) 1.900 H, Neut % (Auto) 58.6, Lymph % (Auto) 25.3, Pierce % (Auto) 9.2, Eos % (Auto) 3.6, Baso % (Auto) 1.4 H, Absolute Neuts (auto) 3.4, Nucleated RBC % 0, Sodium 135 L, Potassium 4.2, Chloride 104, Carbon Dioxide 24.0, Anion Gap 7, BUN 28 H, Creatinine 1.09, Est GFR (MDRD) Af Amer 89, Est GFR (MDRD) Non-Af 73, BUN/Creatinine Ratio 25.7 H, Glucose 238 H, Calcium 9.0, B-Natriuretic Peptide 43.8 11/23/23 13:25: PT 12.5, INR 0.9, APTT 23.9 L Rhythm: EKG: Sinus bradycardia ECHO: Stress Test: Cardiac Cath: PCI: CT Surgery: Holter monitor: EPS: PPM: CXR: Chest CT Scan: Radiography Diagnostic Testing: Radiology Impression Chest X-Ray 11/23/23 11:53 IMPRESSION: Borderline cardiomegaly. The lungs are clear. Electronically Signed: Liu Clements MD at 12:25 EDT ,
[2023-11-23 16:28] LABS: Bedside Glucose 162 mg/dL (74-106)
--- NOTE | 2023-11-23 18:05 | PCM.PN.BLA ---
Progress Note Coronary angiography done. Patent Y graft to the obtuse marginal and ramus intermedius. Patent BARRERA to the LAD. 99% mid RCA, 70% distal RCA. Both lesions treated with drug-eluting stents with excellent results. Recommend continuing aspirin lifelong. Ticagrelor for at least 1 year. DC Ranexa on discharge. DC Imdur. Start low-dose angiotensin receptor ash. Also start amlodipine 2.5 mg daily. May discharge home in the morning if asymptomatic and hemodynamically stable. Follow-up with Dr. Clayton Valenzuela in the office in couple of weeks.
--- NOTE | 2023-11-23 18:19 | CRPHASE1_ITS ---
Patient Communication Patient Information Former Patient:: Phase II PHII Cardiac Rehab Discussed with Patient:: Yes Guide to Cardiac Rehab Given to Patient:: Yes Cardiac Rehab Facility Choice List Given to Patient:: Yes Communication to Cardiac Rehab Choice Program [facility] CR PHII:: Communication Given to CR Battery Repairer:: Jan Abdul Phase II Cardiac Rehab:: Yes Sessions:: 36 sessions - 3 days/wk, 12 weeks Cardiac Rehabilitation Info Program Information Cardiac Rehabilitation Program Information: Cardiac Rehab The cardiac rehab team at [facility] consists of highly skilled exercise physiologists, nurses, respiratory therapists and physicians working together with you. Our purpose is to help you have a full recovery and achieve the goals you set for yourself. Over the years many of our patients have returned to activities they assumed they would never do again! We can help restore your confidence and motivation to make lifestyle changes that can have a significant impact on your health and quality of life! We can help answer questions and concerns you may have about exercise, lifestyle, medications, diet, stress and anxiety which are common following a hospitalization. WE monitor ECG and vital signs during exercise and discuss your progress with you and report to your physician(s). Cardiac Rehab is proven to help reduce readmissions, improve functional capacity and lower recurrence of problems with your heart. Our Cardiac Rehab program is Certified by the [place] [employer]-Vascular and Pulmonary [employer] (AACVPR) and Accredited by the [place] [employer] through our [facility]. You can contact us at . We invite you to call us with your questions or to get started in our program. If you have other questions or concerns be sure to ask your physician/provider during your follow-up visit. WE look forward to seeing you!
--- NOTE | 2023-11-23 18:21 | CRPH1.INSTRU ---
General Education Discussed with Patient CAD and cardiac anatomy and function:: Patient communicates acknowledgment Explanation of diagnoses and procedures:: Patient communicates acknowledgment Sign/Symptoms of ID:: Patient communicates acknowledgment Antiplatelet therapy: Patient communicates acknowledgment Proper use of NTG-SL: Patient communicates acknowledgment Emergency procedures and activation of EMS: Patient communicates acknowledgment Compliance of all prescribed medications: Patient communicates acknowledgment Smoking Risk Factors Patient Nicotine/Smoking Risk Factors Are:: Never smoked Dyslipidemia Risk Factors Patient Dyslipidemia Risk Factors Are:: Total Cholesterol, Triglycerides, HDL and LDL Recommendations Recommendations Include:: Lipid profile not available Response Code Dyslipidemia Response Code:: Patient communicates acknowledgment Overweight/Obesity Risk Factors Patient Overweight/Obesity Risk Factors Are:: Obesity - > or = 30 Recommendations Recommendations Include:: Weight loss of 5-10% Response Code Overweight/Obesity:: Patient communicates acknowledgment Hypertension Recommendations Recommendations Include:: BP <130/80 if diabetic and Decrease/maintain normal body weight Response Code Hypertension:: Patient communicates acknowledgment Heart Disease Risk Factors Patient Heart Disease Risk Factors Are:: Previous cardiac event Recommendations Recommendations Include:: Educated family members of their risk Response Code Heart Disease Response Code:: Patient communicates acknowledgment Diabetes Risk Factors Patient Diabetes Risk Factors Are:: Elevated blood sugars Recommendations Recommendations Include:: Maintain fasting blood sugars 70-110 md/dL, Maintain HgbA1c of 6% or less, Monitor blood sugar as prescribed and Decrease/maintain body weight Response Code Diabetes:: Patient communicates acknowledgment Sedentary Risk Factors Patient Sedentary Risk Factors Are:: Lack of regular exercise Recommendations Recommendations Include:: Aerobic exercise 5-7 times/week for 20-30 minutes continuously, Benefits of regular exercise and Monitored Outpatient Cardiac Rehab Response Code Sedentary Response Code:: Patient communicates acknowledgment
[2023-11-23] MEDS: 0.9% Normal Saline (1000mL) 1,000 ML 100 ML IV (19:00)
[2023-11-23 19:51] LABS: Troponin-I HS 222 pg/mL (3.0-78.0)
[2023-11-23 20:00] LABS: Bedside Glucose 134 mg/dL (74-106)
[2023-11-23] MEDS: Atorvastatin Calcium 40 MG Tablet PO (21:11)
[2023-11-23] MEDS: Losartan Potassium 25 MG Tablet PO (21:12)
[2023-11-23] MEDS: TICAGRELOR 90 MG TABLET PO (22:10)
[2023-11-24] VITALS: BP 113/76; PULSE 63; RESP 16; TEMP 35.6; O2SAT 99
[2023-11-24 05:00] VITALS: BP 109/79; PULSE 67; RESP 16; TEMP 36.1; O2SAT 99
[2023-11-24 05:11] LABS: Hematocrit 45.6 % (40-54); Mean Corp Hgb Conc 32.9 g/dL (32-36); Mean Corpuscular Hgb 26.8 pg (27.0-32.0); Mean Corpuscular Volume 81.4 fL (80-94); Mean Platelet Vol. 10.3 fl (6.2-12.0); Platelet Count 255 K/mm3 (150-450); RBC Distribution Width CV 13.3 % (11.6-14.6); RBC Distribution Width SD 39.6 fl (35.1-43.9); White Blood Count 7.7 K/mm3 (4.4-11.0)
[2023-11-24 05:38] LABS: AST(SGOT) 22 U/L (15-37); Alanine Aminotransfer ALT/SGPT 40 U/L (16-61); Albumin, Serum 3.4 g/dL (3.2-5.0); Alkaline Phosphatase 76 U/L (45-117); Anion Gap 7 (5-15); BUN 22 mg/dL (7-18); BUN/Creat Ratio 21.2 RATIO (10-20); Chloride 104 mmol/L (98-107); Cholesterol 146 mg/dL (200); Creatinine, Serum 1.04 mg/dL (0.70-1.30); EST Glomerular Filtration Rate 77 mL/min (>60); Est Glom Filt Rate - Afr Amer 94 mL/min (>60); Estimated Creatinine Clearance 117.09 ml/min; Globulin 3.5 g/dL (2.2-4.2); Glucose 203 mg/dL (74-106); High Density Lipoprotein 21 mg/dL; Protein, Total 6.9 g/dL (6.4-8.2); Sodium Level 136 mmol/L (136-145); Triglycerides 636 mg/dL
[2023-11-24] MEDS: Insulin Lispro 100 UNIT/ML INSULN.PEN SC ×2 (06:28→11:24)
[2023-11-24 06:49] LABS: Bedside Glucose 187 mg/dL (74-106)
--- NOTE | 2023-11-24 07:21 | PCM.PN.HOSP ---
Reason for Visit Reason for Visit: Diagnoses Type 2 diabetes mellitus without complications (11/23/23) Hyperlipidemia, unspecified (11/23/23) Essential (primary) hypertension (11/23/23) Unstable angina (11/23/23) Non-ST elevation (NSTEMI) myocardial infarction (11/23/23) Subjective Subjective Feels well. No further chest pain. Objective Data Objective Data Vital Signs: Vital Signs Temp Pulse Resp BP Pulse Ox O2 Del Method O2 Flow Rate 36.1 C L 67 16 109/79 99 Nasal Cannula 2 11/24/23 05:00 11/24/23 05:00 11/24/23 05:00 11/24/23 05:00 11/24/23 05:00 11/24/23 05:00 11/24/23 05:00 Oxygen Flow Rate (L/min) 2 Oxygen Delivery Method Nasal Cannula Weight: 143.8 kg Body Mass Index (BMI) 38.5 Intake & Output: Intake and Output for Last 24 Hours 11/22/23 11/23/23 11/24/23 23:59 23:59 23:59 Intake Total 28.17 / 268.17 1480 / 1480 Balance 28.17 / 268.17 1480 / 1480 Lab / Micro Data 11/24/23 04:06 11/24/23 04:06 Labs: Laboratory Results - last 24 hr 11/23/23 11:50: WBC 5.8, RBC 5.28, Hgb 14.1, Hct 43.3, MCV 82.0, MCH 26.7 L, MCHC 32.6, RDW Std Deviation 39.8, RDW Coeff of Hillary 13.3, Plt Count 235, MPV 10.3, Immature Gran % (Auto) 1.900 H, Neut % (Auto) 58.6, Lymph % (Auto) 25.3, Mifflin % (Auto) 9.2, Eos % (Auto) 3.6, Baso % (Auto) 1.4 H, Absolute Neuts (auto) 3.4, Absolute Lymphs (auto) 1.46, Nucleated RBC % 0, Sodium 135 L, Potassium 4.2, Chloride 104, Carbon Dioxide 24.0, Anion Gap 7, BUN 28 H, Creatinine 1.09, Estim Creat Clear Calc 113.35, Est GFR (MDRD) Af Amer 89, Est GFR (MDRD) Non-Af 73, BUN/Creatinine Ratio 25.7 H, Glucose 238 H, Calcium 9.0, Troponin I High Sens 239 H*, B-Natriuretic Peptide 43.8, TSH 0.91 11/23/23 13:25: PT 12.5, INR 0.9, APTT 23.9 L 11/23/23 14:44: Troponin I High Sens 221 H* 11/23/23 16:09: POC Glucose 162 H 11/23/23 19:13: Troponin I High Sens 222 H* 11/23/23 19:41: POC Glucose 134 H 11/24/23 04:06: WBC 7.7, RBC 5.60, Hgb 15.0, Hct 45.6, MCV 81.4, MCH 26.8 L, MCHC 32.9, RDW Std Deviation 39.6, RDW Coeff of Hillary 13.3, Plt Count 255, MPV 10.3, Sodium 136, Potassium 4.0, Chloride 104, Carbon Dioxide 25.0, Anion Gap 7, BUN 22 H, Creatinine 1.04, Estim Creat Clear Calc 117.09, Est GFR (MDRD) Af Amer 94, Est GFR (MDRD) Non-Af 77, BUN/Creatinine Ratio 21.2 H, Glucose 203 H, Calcium 9.0, Total Bilirubin 0.50, AST 22, ALT 40, Alkaline Phosphatase 76, Total Protein 6.9, Albumin 3.4, Globulin 3.5, Albumin/Globulin Ratio 1.0, Triglycerides 636 H, Cholesterol 146, LDL Cholesterol TNP, VLDL Cholesterol TNP, HDL Cholesterol 21 L 11/24/23 06:24: POC Glucose 187 H Radiography Diagnostic Testing: Radiology Impression Chest X-Ray 11/23/23 11:53 IMPRESSION: Borderline cardiomegaly. The lungs are clear. Electronically Signed: Liu Clements MD at 12:25 EDT , Echocardiogram 11/23/23 14:09 Interpretation Summary Normal LV size. Left ventricular systolic function is normal. The estimated ejection fraction is 55 %. Contrast injection was performed. Ordering Physician: Dung Fernandez Referring Physician: PRIYA BRISENO Performed By: Camila Cox RCS Rhythm Strip Rhythm Strip: Sinus Rhythm Physical Exam Const alert and no apparent distress HEENT head/scalp atraumatic and moist oral mucous membranes Cardio regular rate, regular rhythm, S1 normal heart sound and S2 normal heart sound GI normal to inspection, nondistended, normoactive bowel sounds, soft to palpation, non-tender and non-distended Psych affect normal Assessment & Plan Assessment/Plan (1) Acute non-ST elevation myocardial infarction (NSTEMI): PLAN: Plan Acute NSTEMI [facility] on 11/22: SUSY to Mid RCA and distal RCA continue ASA indefinitely and ticagrelor for 12 months. Echo shows and EF 55% LDL unable to be performed DW lamont Jennings for discharge. Hypertriglyceridemia TG 636 add gemfibrozil Chronic conditions DM2: SSI HLP: continue Statin. Check FLP VTE prophylaxis: not indicated as he is already anticoagulated.
[2023-11-24 09:00] VITALS: BP 116/82; PULSE 73; RESP 13; TEMP 36.1; O2SAT 96
--- NOTE | 2023-11-24 09:42 | DS.PCM_ITS ---
Providers Date of Admission: 11/23/23 Primary Care Physician: Dr. Maximo Samayoa, Consultations 11/23/23 14:09 Consult: Cardiology Routine Consulting Provider: Torsten Valenzuela Reason for Consult: Chest Pain EMERGENT Consult: No MD Notified: Yes Date Notified: 11/23/23 Time Notified: 13:00 Method of Notification: ED Physician Initiated Reason For Visit: NSTEMI Diagnosis Discharge Diagnosis (1) Acute non-ST elevation myocardial infarction (NSTEMI): Status: Acute Code(s): I21.4 - Non-ST elevation (NSTEMI) myocardial infarction Plan Acute NSTEMI * [facility] on 11/22: SUSY to Mid RCA and distal RCA * continue ASA indefinitely and ticagrelor for 12 months. * Echo shows and EF 55% * LDL unable to be performed * DW Dr. Abdul md for discharge. Hypertriglyceridemia * TG 636 * add gemfibrozil Chronic conditions * DM2: SSI * HLP: continue Statin. Check FLP VTE prophylaxis: not indicated as he is already anticoagulated. Medications at Discharge Home Medications aspirin 81 mg tablet,delayed release (Adult Aspirin Regimen) 81 mg PO QDAY HEART 09/26/22 atorvastatin 40 mg tablet 40 mg PO QHS CHOLESTEROL #90 tabs 07/19/23 isosorbide mononitrate 30 mg tablet,extended release 24 hr 30 mg PO DAILY HEART #30 tabs 10/22/23 fluticasone propionate 50 mcg/actuation nasal spray,suspension 2 spray intranasal DAILY 11/23/23 nitroglycerin 0.4 mg sublingual tablet 0.4 mg sublingual Q5M PRN chest pain #25 tabs 11/23/23 amlodipine 2.5 mg tablet 2.5 mg PO DAILY #30 tabs 11/24/23 gemfibrozil 600 mg tablet 600 mg PO BIDAC #60 tabs 11/24/23 losartan 25 mg tablet 25 mg PO DAILY #30 tabs 11/24/23 ticagrelor 90 mg tablet (Brilinta) 90 mg PO BID #60 tabs 11/24/23 Hospital Course Operations None Procedures Cardiac catheterization Summary of Care Provided Minutes Spent on Discharge: 32 Weight / BMI Weight Weight: 143.8 kg Body Mass Index (BMI) 38.5 ABG / Lab / Microbiology Data 11/24/23 04:06 11/24/23 04:06 Laboratory: Laboratory Results - last 24 hr 11/23/23 11:50: WBC 5.8, RBC 5.28, Hgb 14.1, Hct 43.3, MCV 82.0, MCH 26.7 L, MCHC 32.6, RDW Std Deviation 39.8, RDW Coeff of Hillary 13.3, Plt Count 235, MPV 10.3, Immature Gran % (Auto) 1.900 H, Neut % (Auto) 58.6, Lymph % (Auto) 25.3, Knott % (Auto) 9.2, Eos % (Auto) 3.6, Baso % (Auto) 1.4 H, Absolute Neuts (auto) 3.4, Absolute Lymphs (auto) 1.46, Nucleated RBC % 0, Sodium 135 L, Potassium 4.2, Chloride 104, Carbon Dioxide 24.0, Anion Gap 7, BUN 28 H, Creatinine 1.09, Estim Creat Clear Calc 113.35, Est GFR (MDRD) Af Amer 89, Est GFR (MDRD) Non-Af 73, BUN/Creatinine Ratio 25.7 H, Glucose 238 H, Calcium 9.0, Troponin I High Sens 239 H*, B-Natriuretic Peptide 43.8, TSH 0.91 11/23/23 13:25: PT 12.5, INR 0.9, APTT 23.9 L 11/23/23 14:44: Troponin I High Sens 221 H* 11/23/23 16:09: POC Glucose 162 H 11/23/23 19:13: Troponin I High Sens 222 H* 11/23/23 19:41: POC Glucose 134 H 11/24/23 04:06: WBC 7.7, RBC 5.60, Hgb 15.0, Hct 45.6, MCV 81.4, MCH 26.8 L, MCHC 32.9, RDW Std Deviation 39.6, RDW Coeff of Hillary 13.3, Plt Count 255, MPV 10.3, Sodium 136, Potassium 4.0, Chloride 104, Carbon Dioxide 25.0, Anion Gap 7, BUN 22 H, Creatinine 1.04, Estim Creat Clear Calc 117.09, Est GFR (MDRD) Af Amer 94, Est GFR (MDRD) Non-Af 77, BUN/Creatinine Ratio 21.2 H, Glucose 203 H, Calcium 9.0, Total Bilirubin 0.50, AST 22, ALT 40, Alkaline Phosphatase 76, To marin Protein 6.9, Albumin 3.4, Globulin 3.5, Albumin/Globulin Ratio 1.0, Triglycerides 636 H, Cholesterol 146, LDL Cholesterol TNP, VLDL Cholesterol TNP, HDL Cholesterol 21 L 11/24/23 06:24: POC Glucose 187 H Radiography Diagnostic Testing: Radiology Impression Chest X-Ray 11/23/23 11:53 IMPRESSION: Borderline cardiomegaly. The lungs are clear. Electronically Signed: Liu Clements MD at 12:25 EDT , Echocardiogram 11/23/23 14:09 Interpretation Summary Normal LV size. Left ventricular systolic function is normal. The estimated ejection fraction is 55 %. Contrast injection was performed. Ordering Physician: Dung Fernandez Referring Physician: PRIYA SAMAYOA Performed By: Camila Cox RCS D/C Instructions Discharge Diet: Low fat / Low cholesterol and 2000 Calorie Control Diet Meaningful Use Info Meaningful Use Diagnoses (Choose all that apply): AMI AMI/Post PCI/Angioplasty Aspirin given w/in 24hrs of arrival?: Yes ASA at discharge?: Yes Antiplatelet Therapy at Discharge:: Yes Statins at discharge?: Yes Yaron/ARB at discharge?: Yes Beta Cheryl at discharge?: No Reason Beta Cheryl not ordered:: Drug Interaction (bradycardia) Done w/ Acute NE measure.: Yes Documented LVEF (%): 55 Discharge Plan Admission Admit Date/Time: 11/23/23 12:58 Primary Reason for Your Visit: myocardial infarction. Attending Provider: Dung Fernandez Primary Care Provider: Yao,[place] Consulting Providers: Torsten Valenzuela Instructions Additional Instructions / Restrictions: You had a heart attack though mild. He did have 2 stents placed.'s are importantly do take aspirin and your Brilinta. Be on both those medications for 1 year and then afterwards likely the Brilinta will be stopped. That will be at the lining maker's discretion. Also your triglycerides were very high. I had had a medication called gemfibrozil to help with that. If you do experience muscle aches that could be a sign that of a intolerance to that medication. And you may need to stop it if you are experiencing uncontrolled muscle aches. Discharge Orders/Prescriptions Prescriptions: New amlodipine 2.5 mg Tablet 2.5 mg PO DAILY Qty: 30 0RF gemfibrozil 600 mg Tablet 600 mg PO BIDAC Qty: 60 0RF losartan 25 mg Tablet 25 mg PO DAILY Qty: 30 0RF Brilinta 90 mg Tablet 90 mg PO BID Qty: 60 0RF Continued aspirin [Adult Aspirin Regimen] 81 mg tablet,delayed release (DR/EC) 81 mg PO QDAY Rx Instructions: STOP 7 DAYS fluticasone propionate 50 mcg/actuation spray,suspension 2 spray INTRANASAL DAILY atorvastatin 40 mg tablet 40 mg PO QHS Qty: 90 3RF isosorbide mononitrate 30 mg tablet extended release 24 hr 30 mg PO DAILY Qty: 30 12RF nitroglycerin 0.4 mg tablet, sublingual 0.4 mg sublingual Q5M PRN (Reason: chest pain) Qty: 25 3RF Rx Instructions: do not exceed 3 doses per episode Discontinued ranolazine 500 mg tablet extended release 12 hr 500 mg PO BID Referrals / Follow Up: Maximo Samayoa DO [Primary Care Provider] - Within 2 Weeks Torsten Valenzuela MD [Med Staff - Active Staff] - Within 1 Month Disposition Disposition (needs filled in before D/C Order can be placed): Home, Self Care Charges/Coding Visit Charges Inpatient E&M: 28650 Disch Hosp >30min
[2023-11-24] MEDS: Losartan Potassium 25 MG Tablet PO (09:49)
[2023-11-24] MEDS: amLODIPine 2.5 MG Tablet PO (09:49)
[2023-11-24] MEDS: TICAGRELOR 90 MG TABLET PO (09:49)
--- NOTE | 2023-11-24 10:05 | CASEMGMT ---
RN CM Face to Face with patient for initial transition planning/care coordination assessment. RN CM introduced self and role at [facility]. Patient sitting in chair, alert and oriented. Patient willing to participate in assessment and is able to answer all questions appropriately. Care providers, pharmacy, and demographics verified. PCP: Yao Specialists: Bianca certified orthotic fitter Preferred [facility]acy: [facility] Insurance: [employer] for [employer] Prescription Benefit: yes , Brilinta savings card provided to patient Living Will/HPOA: yes, Aura Piper LNOK: Living Arrangements: Patient lives with in single story home with no steps to enter the home. Patient is independent at home Transportation: self, DME/HHC: Patient has shower chair, raised toilet, cane, walker at home. No previous HHC Or SNF Patient wishes to discharge home, denies need for home health at this time. Patient states he has no further needs or concerns at this time. CM to follow for discharge planning needs that may arise. Disposition Plan: Patient to discharge home with family support and follow-up plans in place. Eileen MCCLAIN, RN, CM
--- NOTE | 2023-11-24 10:37 | PCM.PN.CARD ---
Subjective Subjective Denies any complaints. Reports complete resolution of angina this morning. Ambulated without any discomfort. Objective Data Vital Signs: Vital Signs Temp Pulse Resp BP Pulse Ox O2 Del Method O2 Flow Rate 97.0 F L 73 13 116/82 H 96 Room Air 2 11/24/23 09:00 11/24/23 09:00 11/24/23 09:00 11/24/23 09:00 11/24/23 09:00 11/24/23 09:00 11/24/23 05:00 Oxygen Flow Rate (L/min) 2 Oxygen Delivery Method Room Air Weight: 317 lb 0.395 oz Body Mass Index (BMI) 38.5 Intake & Output: Intake and Output for Last 24 Hours 11/22/23 11/23/23 11/24/23 23:59 23:59 23:59 Intake Total 28.17 / 268.17 1480 / 1480 Balance 28.17 / 268.17 1480 / 1480 Lab / Micro Data 11/24/23 04:06 11/24/23 04:06 Labs: Laboratory Results - last 24 hr 11/23/23 11:50: WBC 5.8, RBC 5.28, Hgb 14.1, Hct 43.3, MCV 82.0, MCH 26.7 L, MCHC 32.6, RDW Std Deviation 39.8, RDW Coeff of Hillary 13.3, Plt Count 235, MPV 10.3, Immature Gran % (Auto) 1.900 H, Neut % (Auto) 58.6, Lymph % (Auto) 25.3, [place] % (Auto) 9.2, Eos % (Auto) 3.6, Baso % (Auto) 1.4 H, Absolute Neuts (auto) 3.4, Absolute Lymphs (auto) 1.46, Nucleated RBC % 0, Sodium 135 L, Potassium 4.2, Chloride 104, Carbon Dioxide 24.0, Anion Gap 7, BUN 28 H, Creatinine 1.09, Estim Creat Clear Calc 113.35, Est GFR (MDRD) Af Amer 89, Est GFR (MDRD) Non-Af 73, BUN/Creatinine Ratio 25.7 H, Glucose 238 H, Calcium 9.0, Troponin I High Sens 239 H*, B-Natriuretic Peptide 43.8, TSH 0.91 11/23/23 13:25: PT 12.5, INR 0.9, APTT 23.9 L 11/23/23 14:44: Troponin I High Sens 221 H* 11/23/23 16:09: POC Glucose 162 H 11/23/23 19:13: Troponin I High Sens 222 H* 11/23/23 19:41: POC Glucose 134 H 11/24/23 04:06: WBC 7.7, RBC 5.60, Hgb 15.0, Hct 45.6, MCV 81.4, MCH 26.8 L, MCHC 32.9, RDW Std Deviation 39.6, RDW Coeff of [place] 13.3, Plt Count 255, MPV 10.3, Sodium 136, Potassium 4.0, Chloride 104, Carbon Dioxide 25.0, Anion Gap 7, BUN 22 H, Creatinine 1.04, Estim Creat Clear Calc 117.09, Est GFR (MDRD) Af Amer 94, Est GFR (MDRD) Non-Af 77, BUN/Creatinine Ratio 21.2 H, Glucose 203 H, Calcium 9.0, Total Bilirubin 0.50, AST 22, ALT 40, Alkaline Phosphatase 76, Total Protein 6.9, Albumin 3.4, Globulin 3.5, Albumin/Globulin Ratio 1.0, Triglycerides 636 H, Cholesterol 146, LDL Cholesterol TNP, VLDL Cholesterol TNP, HDL Cholesterol 21 L 11/24/23 06:24: POC Glucose 187 H Rhythm Strip Rhythm Strip: Sinus Rhythm Cardiology Labs/Tests 11/23/23 11:50: WBC 5.8, RBC 5.28, Hgb 14.1, Hct 43.3, MCV 82.0, MCH 26.7 L, MCHC 32.6, Plt Count 235, MPV 10.3, Immature Gran % (Auto) 1.900 H, Neut % (Auto) 58.6, Lymph % (Auto) 25.3, [place] % (Auto) 9.2, Eos % (Auto) 3.6, Baso % (Auto) 1.4 H, Absolute Neuts (auto) 3.4, Nucleated RBC % 0, Sodium 135 L, Potassium 4.2, Chloride 104, Carbon Dioxide 24.0, Anion Gap 7, BUN 28 H, Creatinine 1.09, Est GFR (MDRD) Af Amer 89, Est GFR (MDRD) Non-Af 73, BUN/Creatinine Ratio 25.7 H, Glucose 238 H, Calcium 9.0, B-Natriuretic Peptide 43.8 11/23/23 13:25: PT 12.5, INR 0.9, APTT 23.9 L 11/24/23 04:06: WBC 7.7, RBC 5.60, Hgb 15.0, Hct 45.6, MCV 81.4, MCH 26.8 L, MCHC 32.9, Plt Count 255, MPV 10.3, Sodium 136, Potassium 4.0, Chloride 104, Carbon Dioxide 25.0, Anion Gap 7, BUN 22 H, Creatinine 1.04, Est GFR (MDRD) Af Amer 94, Est GFR (MDRD) Non-Af 77, BUN/Creatinine Ratio 21.2 H, Glucose 203 H, Calcium 9.0, Total Bilirubin 0.50, Triglycerides 636 H, Cholesterol 146, LDL Cholesterol TNP, VLDL Cholesterol TNP, HDL Cholesterol 21 L Rhythm: EKG: ECHO: Stress Test: Cardiac Cath: PCI: CT Surgery: Holter monitor: EPS: PPM: CXR: Chest CT Scan: Radiography Diagnostic Testing: Radiology Impression Chest X-Ray 11/23/23 11:53 IMPRESSION: Borderline cardiomegaly. The lungs are clear. Electronically Signed: Liu Clements MD at 12:25 EDT , Echocardiogram 11/23/23 14:09 Interpretation Summary Normal LV size. Left ventricular systolic function is normal. The estimated ejection fraction is 55 %. Contrast injection was performed. Ordering Physician: Dung Fernandez Referring Physician: PRIYA BRISENO Performed By: Camila Cox RCS Physical Exam Narrative Comfortable. No apparent distress. Heart sounds 1 and 2 are normal. No murmurs or rubs are noted. Chest is clear to auscultation bilaterally. Abdomen obese. Alert oriented x 3. No ankle edema. Right radial pulses 2+. No hematoma. Assessment & Plan Assessment/Plan (1) Acute non-ST elevation myocardial infarction (NSTEMI): PLAN: Status post drug-eluting stents to the mid and distal RCA. Stable. Angina completely resolved. Continue aspirin lifelong. Counseled regarding compliance with ticagrelor and aspirin therapy. No beta-blockers in view of baseline bradycardia. (2) Unstable angina: PLAN: Resolved. See #1 above. (3) Essential hypertension: PLAN: Losartan, amlodipine and nitrates. (4) Hyperlipidemia: QUALIFIERS: Hyperlipidemia type: unspecified Qualified Code(s): E78.5 - Hyperlipidemia, unspecified PLAN: On atorvastatin. (5) Type 2 diabetes mellitus: PLAN: As per internal medicine. PLAN: Plan Discharge home today. Follow-up as outpatient.
[2023-11-24] MEDS: Aspirin E.C. 81 MG Tablet PO (11:23)
[2023-11-24 11:24] VITALS: O2SAT 94
[2023-11-24 11:42] LABS: Bedside Glucose 216 mg/dL (74-106)
[2023-11-24 16:34] LABS: ACT Activated Clotting Time 228 sec (74-137)
[2023-11-24 16:34] LABS: ACT Activated Clotting Time 250 sec (74-137)
--- NOTE | 2023-11-27 14:26 | CL.I_ITS ---
Patient Name: QI VELA Study Date: 11/23/2023 Performing: Jan Abdul MD Ht: 76 inches 193.04 cm : 1965 Wt: 317.4 lbs 143.8 kg Age: 58 Gender: male BSA: 2.69 PROCEDURE(S) PERFORMED DC04-(06598)LHC/COR/CABG IC12-(24678/C9600)SUSY W/WO PTCA, SINGLE CORONARY ARTERY CLINICAL PROFILE AND CO-MORBIDITIES Indications: ACS <= 24 hrs Heart Failure: None Angina Classification Anginal Classification w/in 2 Weeks: CCS III CAD Presentations: Unstable angina. CONCLUSIONS Severe Prox LAD, 100% Mid LAD; BARRERA to LAD patent Severe Prox LCX and Ramus; SVG to OM1 patent, Y graft to Ramus patent 95-99% Mid RCA, 70% distal RCA Successful PTCA/SUSY Mid RCA using [employer] 3.0x22 mm, post-dilated using 3.5 mm balloon Successful SUSY distal RCA using [employer] 3.0x15 mm, post-dilated using 3.25 mm balloon RECOMMENDATIONS ASA Indefinitley Brilinta for at least 12 months DESCRIPTION OF PROCEDURE The patient arrived to the procedure lab. The risks and benefits of the procedure as well as a full description of our services here and lack of surgical backup were fully explained to the patient and/or their significant other prior to the catheterization. The Timeout was completed, verifying the correct patient and procedure. The patient's procedural site was prepped and draped in the usual fashion. Local anesthetic was given subcutaneously to right radial region with Lidocaine 2%. Using a modified Seldinger technique, arterial access was obtained via the right radial artery, a 6Fr sheath was inserted.. Right Coronary Artery selective angiography was then performed in multiple views using a 5 Fr. 4.0 [place] catheter. Left internal mammary artery graft to the LAD selective angiography was performed in multiple views using a 5 Fr. IM catheter. Left Coronary Artery selective angiography was performed in multiple views using a 5 Fr. AL 1 catheter. Saphenous Vein graft to the Ramus and OM1 selective angiography was performed in multiple views using a 5 Fr. AL 1 catheterThe images were reviewed and options discussed. A decision was then made to proceed with an Intervention, IVUS or other adjunct procedure. AL 0.75 Guide catheter was inserted and engaged into the RCA. Runthrough Guide wire was advanced to the RCA. 3 x 12 Emerge Balloon catheter was inserted. Balloon catheter was advanced across lesion in the right coronary, mid. PTCA balloon inflated at 10 atms for 14 secs. Angiogram performed post balloon dilatation. 3.0 x 15 [employer] Drug Eluting stent was inserted. Drug Eluting stent was advanced across the lesion in the right coronary, distal. Angiogram performed pre stent deployment. Angiogram performed post stent deployment. 3.25 x 12 [place] emerge Balloon catheter was inserted. Balloon catheter was inserted post stent. 3.0 x 22 [employer] Drug Eluting stent was inserted. Drug Eluting stent was advanced across the lesion in the right coronary, mid. Angiogram performed post stent deployment. 3.5 x 15 [place] [employer]ge Balloon catheter was inserted post stent. Angiogram performed post balloon dilatation. The arterial sheath was pulled and a TR Band was applied for hemostasis CORONARY ANGIOGRAPHY DOMINANCE: Right Dominant LEFT MAIN: Tubular 30% Ostial lesion in Left Main LEFT ANTERIOR DESCENDING ARTERY: LAD: Tubular 100% Mid lesion in LAD Tubular 80% Proximal lesion in LAD OM 1: Tubular 80% Proximal lesion in MARG1 OM 2: Tubular 80% Proximal lesion in MARG1 RAMUS: Tubular 70% Mid lesion in Ramus RIGHT CORONARY ARTERY: RCA: Tubular 40% Proximal lesion in RCA Tubular 99% Mid lesion in RCA Tubular 70% Distal lesion in RCA RT PDA: Tubular 50% Ostial lesion in RT PDA GRAFTS: BRARERA Graft to LAD SVG Graft to MARG1 INTERVENTION INFORMATION LESION SITE: RCA (Mid) lesion length: 20 mm, Lesion Complexity: High/C, culprit lesion: Yes Pre Stenosis: 99 % Pre intervention MT flow: 3 PROCEDURE: Drug Eluting Stent with pre and post dilatation Post Stenosis: 0 % Post intervention MT flow: 3 Lesion Devices: Terumo .014 180cm Runthrough Extra Floppy straight Cordis 6 Fr AL.75 100cm Guide Catheter [employer] EMERGE MR 3.00x12 BALLOON Medtronic 3.0 x 22 ADDIE FRONTIER SUSY [employer] NC EMERGE MR 3.50x15 BALLOON LESION SITE: RCA (Distal) lesion length: 13 mm, culprit lesion: No Pre Stenosis: 70 % Pre intervention MT flow: 3 PROCEDURE: Drug Eluting Stent with post dilatation Post Stenosis: 0 % Post intervention MT flow: 3 Lesion Devices: Terumo .014 180cm Runthrough Extra Floppy straight Cordis 6 Fr AL.75 100cm Guide Catheter Medtronic 3.0 x 15 ADDIE [employer] SUSY [employer] NC EMERGE MR 3.25x12 BALLOON COMPLICATIONS No Complications PROCEDURE MEDICATIONS Fentanyl 50 mcg IV Versed 1 mg IV Versed 1 mg IV Versed 1 mg IV Oxygen: 2 L/min via nasal cannula Brilinta 180 mg PO @ 11/23/2023 16:49:16 Heparin given IA 11/23/2023 16:42:12 Heparin 8000 unit(s) IV 11/23/2023 16:56:47 Heparin 3000 unit(s) IV 11/23/2023 17:17:41 Heparin 4000 unit(s) IV 11/23/2023 18:01:06 Verapamil 2.5mg, Ntg 200mcgs, 2000 units of Heparin given IA 11/23/2023 16:42:12 IV Bolus: .9 NaCl 400 ml total 11/23/2023 17:56:39 SUMMARY OF HEMODYNAMIC DATA Time AIR REST ECG 16:31:40 AO 121/79 (99) SA 16:47:30 AO 131/87 (106) 16:48:44 Signed By Jan Abdul MD On 11/23/2023 18:32:58 Jan Abdul MD
[2023-11-27 17:41] LABS: ACT Activated Clotting Time 250 sec (74-137)
[2023-11-27 17:41] LABS: ACT Activated Clotting Time 228 sec (74-137)
== END 2023-11-24 12:46 | disposition home or self-care (01) | DRG 322 ==
LOC: ED 13:01 → PCU 13:09
PROVIDERS: Internal Medicine Cardiovascular Disease; Nurse Practitioner; Emergency Provider Emergency Medicine; PCP Family Medicine
DX: I21.4 Non-ST elevation (NSTEMI) myocardial infarction (principal); E11.9 Type 2 diabetes mellitus without complications; I25.110 Atherosclerotic heart disease of native coronary artery with unstable angina pectoris; I10 Essential (primary) hypertension; E78.5 Hyperlipidemia, unspecified; I25.2 Old myocardial infarction; E66.9 Obesity, unspecified; Z87.891 Personal history of nicotine dependence; Z79.02 Long term (current) use of antithrombotics/antiplatelets; Z79.82 Long term (current) use of aspirin; Z95.5 Presence of coronary angioplasty implant and graft; Z95.1 Presence of aortocoronary bypass graft; Z68.38 Body mass index [BMI] 38.0-38.9, adult
CPT/HCPCS: 36415; 71045; 80048; 80053; 80061; 82962; 83880; 84443; 84484; 85025; 85027; 85347; 85610; 85730; 92928; 93005; 93306; 93455; 99152; 99153; 99285; J7030; J7040; Q9957; Q9967; A4216; C1725; C1769; C1874; C1887; C1894; C8929; C9600

== ENCOUNTER → 2024-04-01 | Outpatient (CLI) | payer OTHER, SELFPAY ==
[2023-05-30 11:11] VITALS: BMI 39.2
[2024-04-01 12:32] LABS: Absolute Lymphocyte Count 1.54 X10^3/uL (0.83-4.51); Basophil# 0.08 X10^3/uL; Basophil% 1.4 % (0-1); Eosinophil# 0.24 X10^3/uL; Eosinophils% 4.3 % (0-5); Hematocrit 43.1 % (40-54); Lymphocyte # 1.54 X10^3/ul (0.83-4.51); Lymphocyte % 27.5 % (19-41); Mean Corp Hgb Conc 32.5 g/dL (32-36); Mean Corpuscular Hgb 27.2 pg (27.0-32.0); Mean Corpuscular Volume 83.9 fL (80-94); Mean Platelet Vol. 10.3 fl (6.2-12.0); Monocyte# 0.64 X10^3/uL; Monocyte% 11.4 % (0-10); NRBC Flagged by Analyzer 0 % (0-5); Neutrophil # 3.04 X10^3/uL (2.7-7.7); Neutrophil % 54.5 % (47-70); Platelet Count 336 K/mm3 (150-450); RBC Distribution Width CV 12.9 % (11.6-14.6); RBC Distribution Width SD 39.5 fl (35.1-43.9); Red Blood Count 5.14 M/mm3 (4.6-6.2); White Blood Count 5.6 K/mm3 (4.4-11.0)
[2024-04-01 12:48] LABS: International Normalized Ratio 0.9; Prothrombin Time (Protime)PT. 12.3 SECONDS (11.7-14.9)
[2024-04-01 12:49] LABS: Partial Thromboplast Time 28.1 Seconds (24.1-36.2)
[2024-04-01 13:08] LABS: Anion Gap 10 (5-15); BUN 27 mg/dL (7-18); BUN/Creat Ratio 24.8 RATIO (10-20); Calcium,Total 9.7 mg/dL (8.5-10.1); Chloride 104 mmol/L (98-107); Creatinine, Serum 1.09 mg/dL (0.70-1.30); EST Glomerular Filtration Rate 73 mL/min (>60); Est Glom Filt Rate - Afr Amer 89 mL/min (>60); Glucose 117 mg/dL (74-106); Potassium 4.1 mmol/L (3.5-5.1); Sodium Level 137 mmol/L (136-145)
== END | disposition home or self-care (01) ==
LOC: LAB 12:22
PROVIDERS: PCP Family Medicine; Referring Provider Physician Assistant Medical; Visit Provider Physician Assistant Medical
DX: R07.9 Chest pain, unspecified (principal); I25.10 Atherosclerotic heart disease of native coronary artery without angina pectoris; R06.09 Other forms of dyspnea
CPT/HCPCS: 80048; 85025; 85610; 85730

== ENCOUNTER 2024-04-09 09:26 | Day surgery (SDC) | payer OTHER, SELFPAY ==
[2023-05-30 11:11] VITALS: BMI 39.2
[2024-04-08 08:36] VITALS: BMI 37.3
--- NOTE | 2024-04-10 16:05 | CL.D_ITS ---
Patient Name: QI VELA Study Date: 04/09/2024 Performing: Shanna Serrano MD Ht: 76 inches 193.04 cm : 1965 Wt: 307.4 lbs 139.25 kg Age: 58 Gender: male BSA: 2.66 PROCEDURE(S) PERFORMED DC04-(06376)LHC/COR/CABG CLINICAL PROFILE AND INDICATIONS Indications: Worsening Angina, Unstable angina Heart Failure: None CONCLUSIONS CAD as described. Patent 3 out of 3 bypass grafts. Recent stents in the RCA are patent RECOMMENDATIONS Medical therapy for coronary artery disease. Consider increasing Ranexa if clinically indicated. DESCRIPTION OF PROCEDURE The patient arrived to the procedure lab. The risks and benefits of the procedure as well as a full description of our services here and current unavailability of surgical backup were fully explained to the patient and/or their significant other prior to the catheterization. The Timeout was completed, verifying the correct patient and procedure. The patient's procedural site was prepped and draped in the usual fashion. Local anesthetic was given subcutaneously to right groin region with Lidocaine 2%. Using a modified Seldinger technique, arterial access was obtained via the right femoral artery, with Micropuncture set Left Coronary Artery selective angiography was performed in multiple views using a 5 Fr. JL4 catheter. LV to AO pullback pressures were then recorded. Saphenous Vein graft to the Ramus selective angiography was performed in multiple views using a 5 Fr. JR 4 catheter. Saphenous Vein graft to the OM 1 selective angiography was performed in multiple views using a 5 Fr. JR 4 catheter. Right Coronary Artery selective angiography was then performed in multiple views using a 5 Fr. JR 4 catheter. Left internal mammary artery graft to the LAD selective angiography was performed in multiple views using a 5 Fr. IM catheter.Contrast was injected through the sheath and the Right Iliac and Femoral artery were assessed for possible closure device.The arterial sheath was pulled and a Perclose closure device was deployed for hemostasis CORONARY ANGIOGRAPHY DOMINANCE: Right Dominant LEFT MAIN: Mild diffuse disease. 30% distal stenosis LEFT ANTERIOR DESCENDING ARTERY: OSTIAL LAD: 50 % Stenosis MID LAD: 70 % Stenosis CIRCUMFLEX ARTERY: PROX CIRC: 90 % Stenosis RAMUS: 80 % Proximal Stenosis RIGHT CORONARY ARTERY: MID RCA: 30-40 % Stenosis GRAFTS: BARRERA graft to the Mid LAD is patent Y graft to the 1st OM and Ramus is patent COMPLICATIONS No Complications PROCEDURE MEDICATIONS Versed 1 mg IV Fentanyl 50 mcg IV Oxygen: 2 L/min via nasal cannula SUMMARY OF HEMODYNAMIC DATA Time AIR REST ECG 09:46:35 AO 122/80 (99) SA 11:33:32 LV 101/1, 6 11:39:12 LV 103/2, 7 11:39:20 LVp 115/-4, 7 11:39:28 AOp 117/64 (83) 11:39:35 Signed By Shanna Serrano MD On 04/10/2024 16:04:51 Shanna Serrano MD
== END 2024-04-09 14:23 | disposition home or self-care (01) ==
PROVIDERS: PCP Family Medicine; Referring Provider Specialist; Visit Provider Specialist
DX: I25.110 Atherosclerotic heart disease of native coronary artery with unstable angina pectoris (principal); E11.9 Type 2 diabetes mellitus without complications; I25.2 Old myocardial infarction; E78.5 Hyperlipidemia, unspecified; I10 Essential (primary) hypertension; R06.09 Other forms of dyspnea; Z79.01 Long term (current) use of anticoagulants; Z79.82 Long term (current) use of aspirin; Z79.84 Long term (current) use of oral hypoglycemic drugs; Z79.899 Other long term (current) drug therapy; Z95.1 Presence of aortocoronary bypass graft; Z87.891 Personal history of nicotine dependence; Z95.5 Presence of coronary angioplasty implant and graft
CPT/HCPCS: 93454; 99152; 99153; C1894; J7040; Q9967; C1760; C1769

== ENCOUNTER → 2024-05-13 | Outpatient (CLI) | payer OTHER, SELFPAY ==
[2023-05-30 11:11] VITALS: BMI 39.2
== END | disposition home or self-care (01) ==
LOC: PSN 08:02
PROVIDERS: PCP Family Medicine; Referring Provider Family Medicine; Visit Provider Family Medicine
DX: R06.09 Other forms of dyspnea (principal)
CPT/HCPCS: 94060; 94726; 94729

== ENCOUNTER → 2024-06-05 | Outpatient (CLI) | payer OTHER, SELFPAY ==
[2023-05-30 11:11] VITALS: BMI 39.2
== END | disposition home or self-care (01) ==
LOC: SL 20:15
PROVIDERS: PCP Family Medicine; Referring Provider Physician Assistant Medical; Visit Provider Physician Assistant Medical
DX: G47.33 Obstructive sleep apnea (adult) (pediatric) (principal)
CPT/HCPCS: 95811

== ENCOUNTER → 2024-06-17 | Outpatient (CLI) | payer OTHER, SELFPAY ==
[2023-05-30 11:11] VITALS: BMI 39.2
--- NOTE | 2024-06-17 14:32 | RAD_ITS ---
INDICATION: Shortness of breath EXAMINATION/TECHNIQUE: X-RAY - XR Chest 2 Views COMPARISON: November 23, 2023 FINDINGS: LINES/DEVICES: None. LUNGS: No new consolidation, edema or effusion. No pneumothorax. MEDIASTINUM AND CARDIOVASCULAR STRUCTURES: There are sternotomy wires in place. There is cardiomegaly, less pronounced than the prior examination. Central airways and mediastinal contour are unremarkable. BONES AND SOFT TISSUES: Unremarkable. RAD/Chest PA and Lateral IMPRESSION: No radiographic evidence of acute cardiopulmonary disease. Electronically Signed: Jillian Leblanc MD at 14:49 EDT ,
[2024-06-17 15:05] LABS: Absolute Lymphocyte Count 1.46 X10^3/uL (0.83-4.51); Basophil# 0.08 X10^3/uL; Basophil% 1.4 % (0-1); Eosinophil# 0.35 X10^3/uL; Eosinophils% 6.3 % (0-5); Hematocrit 41.6 % (40-54); Hemoglobin 13.2 g/dL (13.0-16.5); Lymphocyte # 1.46 X10^3/ul (0.83-4.51); Lymphocyte % 26.3 % (19-41); Mean Corp Hgb Conc 31.7 g/dL (32-36); Mean Corpuscular Hgb 26.6 pg (27.0-32.0); Mean Corpuscular Volume 83.7 fL (80-94); Mean Platelet Vol. 10.4 fl (6.2-12.0); Monocyte# 0.65 X10^3/uL; Monocyte% 11.7 % (0-10); NRBC Flagged by Analyzer 0 % (0-5); Neutrophil # 2.98 X10^3/uL (2.7-7.7); Neutrophil % 53.6 % (47-70); Platelet Count 313 K/mm3 (150-450); RBC Distribution Width CV 13.3 % (11.6-14.6); RBC Distribution Width SD 40.7 fl (35.1-43.9); Red Blood Count 4.97 M/mm3 (4.6-6.2); White Blood Count 5.6 K/mm3 (4.4-11.0)
[2024-06-17 16:09] LABS: Anion Gap 9 (5-15); BUN 28 mg/dL (7-18); BUN/Creat Ratio 24.3 RATIO (10-20); Calcium,Total 9.3 mg/dL (8.5-10.1); Chloride 107 mmol/L (98-107); Creatinine, Serum 1.15 mg/dL (0.70-1.30); EST Glomerular Filtration Rate 69 mL/min (>60); Est Glom Filt Rate - Afr Amer 83 mL/min (>60); Glucose 121 mg/dL (74-106); Sodium Level 140 mmol/L (136-145)
[2024-06-17 20:49] LABS: BNP,B-Type NATRIURETIC PEPTIDE 38.5 pg/mL (0-100)
== END | disposition home or self-care (01) ==
LOC: LAB 14:00
PROVIDERS: PCP Family Medicine; Referring Provider Internal Medicine Cardiovascular Disease; Visit Provider Internal Medicine Cardiovascular Disease
DX: R06.09 Other forms of dyspnea (principal); R07.89 Other chest pain; I25.10 Atherosclerotic heart disease of native coronary artery without angina pectoris; Z95.5 Presence of coronary angioplasty implant and graft; R06.02 Shortness of breath
CPT/HCPCS: 36415; 71046; 80048; 83880; 85025

== ENCOUNTER → 2024-06-20 | Outpatient (CLI) | payer OTHER, SELFPAY ==
[2023-05-30 11:11] VITALS: BMI 39.2
== END | disposition home or self-care (01) ==
LOC: SL 09:42
PROVIDERS: PCP Family Medicine; Visit Provider Physician Assistant Medical
DX: Z46.89 Encounter for fitting and adjustment of other specified devices (principal)

== ENCOUNTER → 2024-07-30 | Outpatient (CLI) | payer OTHER, SELFPAY ==
[2023-05-30 11:11] VITALS: BMI 39.2
[2024-07-30 12:31] LABS: Vitamin B12 306 pg/mL (211-911); Vitamin D,25 Hydroxy 16.5 ng/mL
[2024-07-30 12:39] LABS: Cholesterol 157 mg/dL (200); High Density Lipoprotein 27 mg/dL; Magnesium 1.9 mg/dL (1.6-2.6); Thyroid Stim Hormone (TSH) 0.944 uIU/mL (0.358-3.740); Triglycerides 168 mg/dL; Very Low Density Lipoprotein 34 mg/dL (5-40)
[2024-07-31 13:08] LABS: PSA, Free 0.32 ng/mL; PSA, Free % 18.1 % (.)
== END | disposition home or self-care (01) ==
LOC: VSLAB 08:50
PROVIDERS: PCP Family Medicine; Visit Provider Family Medicine
DX: M79.10 Myalgia, unspecified site (principal); E11.69 Type 2 diabetes mellitus with other specified complication; E78.2 Mixed hyperlipidemia; Z12.5 Encounter for screening for malignant neoplasm of prostate
CPT/HCPCS: 36415; 80061; 82043; 82306; 82607; 83735; 84153; 84154; 84443

== ENCOUNTER 2024-08-06 06:48 | Inpatient (IN) | payer OTHER, SELFPAY ==
[2023-05-30 11:11] VITALS: BMI 39.2
[2024-08-06] VITALS (16 sets, daily range): BP systolic 108–149; BP diastolic 68–96; PULSE 54–68; RESP 14–19; TEMP 36.3–36.8; O2SAT 94–98; BMI 38.2; BMI 37.7
[2024-08-06] MEDS: Aspirin 81 MG TAB.CHEW 324 MG PO (07:37)
[2024-08-06 07:41] LABS: Absolute Lymphocyte Count 1.33 X10^3/uL (0.83-4.51); Absolute Neutrophil Count 3.1 X10^3/uL (2.0-7.7); Basophil# 0.11 X10^3/uL; Eosinophils% 3.7 % (0-5); Hematocrit 43.7 % (40-54); Hemoglobin 13.9 g/dL (13.0-16.5); Lymphocyte # 1.33 X10^3/ul (0.83-4.51); Lymphocyte % 24.6 % (19-41); Mean Corp Hgb Conc 31.8 g/dL (32-36); Mean Corpuscular Hgb 26.2 pg (27.0-32.0); Mean Corpuscular Volume 82.3 fL (80-94); Mean Platelet Vol. 10.4 fl (6.2-12.0); Monocyte# 0.66 X10^3/uL; Monocyte% 12.2 % (0-10); NRBC Flagged by Analyzer 0 % (0-5); Neutrophil # 3.05 X10^3/uL (2.7-7.7); Neutrophil % 56.4 % (47-70); Platelet Count 335 K/mm3 (150-450); RBC Distribution Width CV 13.3 % (11.6-14.6); RBC Distribution Width SD 39.6 fl (35.1-43.9); Red Blood Count 5.31 M/mm3 (4.6-6.2); White Blood Count 5.4 K/mm3 (4.4-11.0)
[2024-08-06 08:01] LABS: Anion Gap 7 (5-15); BUN 33 mg/dL (7-18); BUN/Creat Ratio 26.6 RATIO (10-20); Calcium,Total 9.4 mg/dL (8.5-10.1); Chloride 105 mmol/L (98-107); Creatinine, Serum 1.24 mg/dL (0.70-1.30); EST Glomerular Filtration Rate 63 mL/min (>60); Est Glom Filt Rate - Afr Amer 76 mL/min (>60); Estimated Creatinine Clearance 96.48 ml/min; Glucose 190 mg/dL (74-106); Potassium 4.2 mmol/L (3.5-5.1); Sodium Level 136 mmol/L (136-145); Troponin-I HS (w/2H Reflex) 311 pg/mL (3.0-78.0)
[2024-08-06 09:36] LABS: Reflex Troponin-HS? (from REC) Y
[2024-08-06 10:13] LABS: Troponin-I HS 292 pg/mL (3.0-78.0)
[2024-08-06] MEDS: EPTIFIBATIDE 75 MG/100 ML VIAL 22.7 MG CONT INF (11:20)
[2024-08-06 11:40] LABS: ACT Activated Clotting Time 279 sec (74-137)
[2024-08-06 11:40] LABS: ACT Activated Clotting Time 199 sec (74-137)
[2024-08-06] MEDS: 0.9% Normal Saline (1000mL) 1,000 ML 150 ML IV (13:32)
[2024-08-06] MEDS: Metoprolol(XL)Succ 25 MG Tablet PO (17:21)
[2024-08-06] MEDS: Gemfibrozil 600 MG Tablet PO (17:21)
[2024-08-06] MEDS: Atorvastatin Calcium 80 MG Tablet PO (21:18)
[2024-08-06] MEDS: 0.9% Saline Lock 10 ML Syringe IV (21:18)
[2024-08-07 03:00] VITALS: BP 121/71; PULSE 64; RESP 16; TEMP 36.6; O2SAT 96
[2024-08-07] MEDS: Gemfibrozil 600 MG Tablet PO (06:24)
[2024-08-07 07:23] LABS: Hematocrit 42.7 % (40-54); Hemoglobin 13.6 g/dL (13.0-16.5); Mean Corp Hgb Conc 31.9 g/dL (32-36); Mean Corpuscular Volume 81.5 fL (80-94); Mean Platelet Vol. 10.3 fl (6.2-12.0); Platelet Count 364 K/mm3 (150-450); RBC Distribution Width CV 13.3 % (11.6-14.6); RBC Distribution Width SD 39.6 fl (35.1-43.9); Red Blood Count 5.24 M/mm3 (4.6-6.2); White Blood Count 6.7 K/mm3 (4.4-11.0)
[2024-08-07 07:53] LABS: ALB/GLOB Ratio 1.1 RATIO (0.9-2.4); AST(SGOT) 23 U/L (15-37); Alanine Aminotransfer ALT/SGPT 29 U/L (16-61); Albumin, Serum 3.9 g/dL (3.2-5.0); Alkaline Phosphatase 67 U/L (45-117); Anion Gap 7 (5-15); BUN 26 mg/dL (7-18); Calcium,Total 8.9 mg/dL (8.5-10.1); Chloride 106 mmol/L (98-107); Cholesterol 135 mg/dL (200); Creatinine, Serum 1.13 mg/dL (0.70-1.30); EST Glomerular Filtration Rate 70 mL/min (>60); Est Glom Filt Rate - Afr Amer 85 mL/min (>60); Estimated Creatinine Clearance 105.14 ml/min; Globulin 3.4 g/dL (2.2-4.2); Glucose 173 mg/dL (74-106); High Density Lipoprotein 28 mg/dL; Potassium 4.1 mmol/L (3.5-5.1); Protein, Total 7.3 g/dL (6.4-8.2); Sodium Level 135 mmol/L (136-145); Triglycerides 187 mg/dL; Very Low Density Lipoprotein 37 mg/dL (5-40)
[2024-08-07 09:08] VITALS: BP 114/71; PULSE 64; RESP 17; TEMP 36.9; O2SAT 96
[2024-08-07 09:14] VITALS: PULSE 64
[2024-08-07] MEDS: Clopidogrel Bisulfate 75 MG Tablet PO (09:14)
[2024-08-07] MEDS: Aspirin E.C. 81 MG Tablet PO (09:14)
[2024-08-07] MEDS: Metoprolol(XL)Succ 25 MG Tablet PO (09:14)
[2024-08-07] MEDS: Losartan Potassium 25 MG Tablet PO (09:14)
== END 2024-08-07 12:17 | disposition home or self-care (01) | DRG 322 ==
LOC: ED 09:31 → PCU 08-07 06:56
PROVIDERS: Internal Medicine Cardiovascular Disease; Admitting Provider Internal Medicine; Emergency Provider Emergency Medicine; PCP Family Medicine
DX: I21.4 Non-ST elevation (NSTEMI) myocardial infarction (principal); E11.40 Type 2 diabetes mellitus with diabetic neuropathy, unspecified; I10 Essential (primary) hypertension; E78.5 Hyperlipidemia, unspecified; I25.2 Old myocardial infarction; I25.10 Atherosclerotic heart disease of native coronary artery without angina pectoris; Z79.84 Long term (current) use of oral hypoglycemic drugs; Z87.891 Personal history of nicotine dependence; Z95.5 Presence of coronary angioplasty implant and graft; Z79.85 Long-term (current) use of injectable non-insulin antidiabetic drugs; Z83.3 Family history of diabetes mellitus; Z79.02 Long term (current) use of antithrombotics/antiplatelets; Z79.82 Long term (current) use of aspirin; Z95.1 Presence of aortocoronary bypass graft
CPT/HCPCS: 36415; 71045; 80048; 80053; 80061; 84484; 85025; 85027; 85347; 92928; 92972; 93005; 93455; 99152; 99153; 99285; C1761; C1874; J7030; J7040; Q9967; A4216; C1725; C1769; C1887; C1894; C9600; J1327

== ENCOUNTER 2024-08-22 23:36 | Inpatient (IN) | payer OTHER, SELFPAY ==
[2023-05-30 11:11] VITALS: BMI 39.2
[2024-08-22 23:37] VITALS: BP 137/73; PULSE 68; RESP 14; TEMP 36.6; O2SAT 100; BMI 38.7
--- NOTE | 2024-08-22 23:46 | EDS_ITS ---
HPI History of Present Illness Chief Complaint: Chest Pain Informant: patient Onset/Context/Timing Onset: Today Activity at onset: gradual Timing: Continuous Quality: Positive for Dull and Tightness Location: Substernal and - (Back, and right arm) Worsened By: Nothing Relieved By: Nothing Associated Symptoms: Positive for Nausea and Acid Reflux; Negative for Vomiting, Diaphoresis, Dyspnea, Cough, Fever, Lightheadedness or Palpitations Narrative Narrative: Patient presents with chest pain that began today. Patient states that has gradually gotten worse. Patient describes it as dull and tightness. Patient states nothing makes it better and nothing makes it worse. Patient states the pain is over the substernal area and radiates to his back and right arm. Patient admits to some nausea but denies any vomiting. Patient admits to some r eflux symptoms. Patient denies any shortness of breath or cough. Patient denies any diaphoresis or palpitations. Patient denies any lightheadedness or dizziness. CVD Risk Factors: Positive for Hypertension, Diabetes and Family History 1' </=55; Negative for Hypercholesterolemia or Smoking PE Risk Factors: Positive for Recent Travel/Surgery; Negative for Recent Immobilization, Prior DVT or PE, Cancer or OCP + Smoking + >/=35 PFSH PFSH Medical History Diabetes Former smoker Myocardial infarct Essential hypertension Diabetic neuropathy History of diabetes mellitus, type II Orthopedic aftercare Loss of hearing Wears glasses Non-smoker Chest pain Primary osteoarthritis of right knee Hypertriglyceridemia Type 2 diabetes mellitus History of non-ST elevation myocardial infarction (NSTEMI) (02/12/23) Hyperlipidemia Obesity Atherosclerosis of coronary artery of [place] heart without angina pectoris Home Medications ?Medication ?Instructions ?Recorded ?Last Taken ?Type aspirin 81 mg tablet,delayed 81 mg PO QDAY HEART 09/26/22 04/09/24 History release (Adult Aspirin Regimen) nitroglycerin 0.4 mg sublingual 0.4 mg sublingual Q5M PRN chest 11/23/23 Unknown Rx tablet pain #25 tabs gemfibrozil 600 mg tablet 600 mg PO BIDAC cholesterol #180 12/28/23 Unknown Rx tabs losartan 25 mg tablet 25 mg PO DAILY blood pressure #90 12/28/23 04/09/24 Rx tabs clopidogrel 75 mg tablet (Plavix) 75 mg PO DAILY anti platelet #90 03/06/24 04/09/24 Rx tabs metformin 1,000 mg tablet 1,000 mg PO BID diabetes 04/01/24 04/08/24 History tirzepatide 2.5 mg/0.5 mL 2.5 mg subcut QWEEK diabetes 08/06/24 08/02/24 History subcutaneous pen injector (Herbert) atorvastatin 80 mg tablet 80 mg PO QHS #30 tabs 08/07/24 Unknown Rx metoprolol succinate 25 mg 25 mg PO DAILY #30 tabs 08/07/24 Unknown Rx tablet,extended release 24 hr Allergy/AdvReac Type Severity Reaction Status Date / Time rosuvastatin (From Crestor) AdvReac myalgia Verified 08/22/24 23:37 Family History Father Heart disease Mother Diabetes Surgical History S/P CABG x 3 (02/19/23) Hx of total knee replacement S/P total knee arthroplasty History of coronary artery stent placement Hx of total knee replacement History of left heart catheterization (11/23/23) History of coronary artery stent placement (08/06/24) Social History (Updated 08/23/24 @ 01:[address] Courtney Montgomery MD) household members: spouse Smoking Status: Former smoker alcohol intake: never substance use type: does not use ROS ROS ED Constitutional Constitutional ED: Denies chills or fever(s) Eyes Eyes: Denies blurry vision or change in vision ENT ENT ED: Denies rhinorrhea or sore throat Cardiovascular Cardiovascular: Reports as per HPI and chest pain; Denies palpitations Respiratory/Chest Respiratory/Chest: Denies cough or dyspnea Gastrointestinal Gastrointestinal: Denies nausea or vomiting Genitourinary Genitourinary ED: Denies dysuria or hematuria Musculoskeletal Musculoskeletal: Reports back pain and neck pain Integumentary Denies abscess or rash Neurologic Neurologic: Denies headache(s) or weakness Allergic/Immunologic Allergic/Immunologic ED: Denies mouth swelling or urticaria EXAM Physical Exam Const Vital Signs: 08/22/24 23:37 08/22/24 23:39 08/23/24 00:04 Temperature 98 F Temperature Source Oral Pulse Rate 68 Respiratory Rate 14 Respiratory Effort Normal Blood Pressure 137/73 H Blood Pressure Mean 94 Pulse Ox 100 Oxygen Delivery Method Room Air 08/23/24 00:37 08/23/24 00:45 08/23/24 00:48 Temperature 98.2 F Temperature Source Pulse Rate 61 59 L 65 Respiratory Rate 16 18 Respiratory Effort Blood Pressure 124/68 H 128/68 H 119/58 L Blood Pressure Mean 86 78 Pulse Ox 97 95 Oxygen Delivery Method Room Air 08/23/24 00:50 08/23/24 00:50 08/23/24 00:55 Temperature 98.2 F Temperature Source Oral Pulse Rate 64 65 63 Respiratory Rate 18 Respiratory Effort Blood Pressure 119/58 L 119/58 L 121/58 H Blood Pressure Mean 78 Pulse Ox 95 Oxygen Delivery Method Room Air Positive well nourished and well developed General Appearance ED: well developed and NAD HEENT Reports moist mucous membranes normocephalic and atraumatic Neck supple and no JVD Chest Wall inspection of chest normal and palpation of chest normal Resp normal respiratory effort and clear to auscultation bilaterally Cardio regular rate and regular rhythm GI soft to palpation, non-tender and non-distended Extremity normal to inspection General Extremety ED: Negative for edema or tenderness General Extremity: Negative for edema Neuro oriented x3, CN's II-XII intact bilaterally and no sensory deficits noted Sensorium / Orientation: awake and alert Motor Exam: strength 5/5 throughout Psych mental status grossly normal Heart Score History: Slightly/Non-Suspicious ECG: Normal Age: >45 - <65 years Risk Factors: >/= 3 Risk Factors or History of CAD Score: 3 MDM MDM MDM Narrative Medical decision making narrative: Differential diagnosis includes cardiac dysrhythmia, cardiac ischemia, pneumonia, pneumothorax, pulmonary embolism, electrolyte abnormality, gastroesophageal reflux disease, musculoskeletal pain, and anxiety. EKG will be obtained to assess for cardiac dysrhythmia and cardiac ischemia. Chest x-ray will be obtained to assess for pneumonia and pneumothorax. CBC will be obtained to assess for leukocytosis and anemia. Basic metabolic profile will be obtained to assess for electrolyte abnormality and renal function. High-sensitivity troponin will be obtained to assess for cardiac ischemia. D-dimer will be obtained to assess for pulmonary embolism. 2-hour repeat high-sensitivity troponin will be obtained to assess for ongoing cardiac ischemia. History & Record Review Additional record(s) reviewed:: Prior inpatient record, Prior ED visit and Prior labs Lab Data Attestation: I reviewed the patient's lab results. Lab results narrative: CBC was reviewed and was essentially within normal limits. Basic metabolic profile was reviewed. BUN was slightly elevated at 38 and creatinine was slightly elevated at 1.43. These are mildly increased from previous results. High-sensitivity troponin was reviewed and was elevated at 583. D-dimer was reviewed normal at 0.31. PT with INR and PTT were reviewed and were within normal limits. Labs: Laboratory Results - last 24 hr 08/22/24 23:52 WBC 9.1 RBC 4.90 Hgb 12.8 L Hct 39.7 L MCV 81.0 MCH 26.1 L MCHC 32.2 RDW Std Deviation 38.7 RDW Coeff of Hillary 13.2 Plt Count 312 MPV 10.2 Immature Gran % (Auto) 0.600 Neut % (Auto) 59.5 Lymph % (Auto) 23.9 Collin % (Auto) 10.7 H Eos % (Auto) 4.1 Baso % (Auto) 1.2 H Absolute Neuts (auto) 5.4 Absolute Lymphs (auto) 2.17 Nucleated RBC % 0 PT 13.2 INR 1.0 APTT 26.4 D-Dimer Quant (PE/DVT) 0.31 Sodium 138 Potassium 3.8 Chloride 104 Carbon Dioxide 26.0 Anion Gap 8 BUN 38 H Creatinine 1.43 H Estim Creat Clear Calc 84.22 Est GFR (MDRD) Af Amer 65 Est GFR (MDRD) Non-Af 53 L BUN/Creatinine Ratio 26.6 H Glucose 136 H Calcium 9.3 Troponin I High Sens 583 H* Radiography Chest X-Ray - ED: 1 View, Read by ED Physician, Read by Radiologist and No Acute Disease Diagnostic Testing: Clinical Impression(s) from Imaging Studies Chest X-Ray 08/22/24 23:59 IMPRESSION: Low lung volumes limit the exam. No acute cardiopulmonary abnormality. Electronically Signed: Torsten Westfall MD at 0:54 EST , Portable 1 view chest x-ray was obtained. On my independent interpretation, lung cortez left basilar atelectasis. There is normal cardiac silhouette. Bony thorax is normal. There is no acute process noted. Radiologist also interpreted the x-ray and agrees. EKG Initial EKG: Attestation: I personally reviewed and interpreted this EKG as follows: Interpretation: Sinus Rhythm (63) and No Acute Injury Pattern Comments: EKG was obtained. On my independent interpretation, it showed a normal sinus rhythm with a rate of 63. OR interval, QRS interval, and QTc intervals were all normal. There is left axis deviation at -40. There are no acute ST or T wave changes. Prior EKG tracings: available for review Prior: Unchanged (08/07/2024) Management Discussion w/another healthcare provider: Hospitalist and Air Crew Officer Additional Tests and Interventions Additional Tests or Interventions: PT with INR and PTT were obtained prior to initiation of heparin drip. Treatment and Re-Evaluation :: Patient was given aspirin. Patient was started on heparin IV drip. Patient was advised of his findings. Case was discussed with hospitalist. She will admit the patient to her service. Case was also discussed with Dr. Serrano, photoengraving finisher on-call. He agreed with heparin drip. He had no further recommendations. Patient understood and was agreeable with the plan. All questions were answered. Discharge Plan Dx/Rx/DC Orders Clinical Impression: Non-STEMI (non-ST elevated myocardial infarction), History of coronary artery stent placement, CAD (coronary artery disease) Disposition Disposition: Acute Care Hospital [facility]
--- NOTE | 2024-08-22 23:55 | EKG12_ITS ---
Test Reason : CP Blood Pressure : */* mmHG Vent. Rate : 63 BPM Atrial Rate : 63 BPM P-R Int : 198 ms QRS Dur : 88 ms QT Int : 386 ms P-R-T Axes : 54 -40 22 degrees QTcB Int : 395 ms Normal sinus rhythm Left axis deviation Pulmonary disease pattern Abnormal ECG Confirmed by JOSE LARA, FRANCES ([id number]), digital editor TAWANA GERMAN ([id number]) on 08/27/2024 1:36:17 P M Referred By: VREN Confirmed By: FRANCES GARCIA MD
--- NOTE | 2024-08-22 23:59 | RAD_ITS ---
EXAM: XR CHEST, 1 VIEW CLINICAL INDICATION: chest pain TECHNIQUE: Frontal view of the chest. COMPARISON: 08/06/2024. FINDINGS: LUNGS AND PLEURAL SPACES: Low lung volumes limit the exam. No consolidations. No pneumothorax. No effusion. HEART: Status post coronary artery bypass graft. MEDIASTINUM: Central airways and mediastinal contour are unremarkable. BONES/JOINTS: Sternal wires. No acute fracture. SOFT TISSUES: Unremarkable. RAD/Chest 1 View (Portable) IMPRESSION: Low lung volumes limit the exam. No acute cardiopulmonary abnormality. Electronically Signed: Torsten Westfall MD at 0:54 EST ,
[2024-08-23] VITALS (12 sets, daily range): BP systolic 116–128; BP diastolic 58–113; PULSE 57–69; RESP 16–18; TEMP 35.6–36.8; O2SAT 94–99; BMI 38.4
[2024-08-23] MEDS: Aspirin 81 MG TAB.CHEW 324 MG PO (00:02)
[2024-08-23 00:09] LABS: Absolute Lymphocyte Count 2.17 X10^3/uL (0.83-4.51); Absolute Neutrophil Count 5.4 X10^3/uL (2.0-7.7); Basophil# 0.11 X10^3/uL; Basophil% 1.2 % (0-1); Eosinophil# 0.37 X10^3/uL; Eosinophils% 4.1 % (0-5); Hematocrit 39.7 % (40-54); Hemoglobin 12.8 g/dL (13.0-16.5); Lymphocyte # 2.17 X10^3/ul (0.83-4.51); Lymphocyte % 23.9 % (19-41); Mean Corp Hgb Conc 32.2 g/dL (32-36); Mean Corpuscular Hgb 26.1 pg (27.0-32.0); Mean Platelet Vol. 10.2 fl (6.2-12.0); Monocyte# 0.97 X10^3/uL; Monocyte% 10.7 % (0-10); NRBC Flagged by Analyzer 0 % (0-5); Neutrophil # 5.42 X10^3/uL (2.7-7.7); Neutrophil % 59.5 % (47-70); Platelet Count 312 K/mm3 (150-450); RBC Distribution Width CV 13.2 % (11.6-14.6); RBC Distribution Width SD 38.7 fl (35.1-43.9); White Blood Count 9.1 K/mm3 (4.4-11.0)
[2024-08-23 00:21] LABS: D-Dimer Quantitative (DVT/PE) 0.31 FEU/ug/m (0.27-0.49)
[2024-08-23 00:32] LABS: Anion Gap 8 (5-15); BUN 38 mg/dL (7-18); BUN/Creat Ratio 26.6 RATIO (10-20); Calcium,Total 9.3 mg/dL (8.5-10.1); Chloride 104 mmol/L (98-107); Creatinine, Serum 1.43 mg/dL (0.70-1.30); EST Glomerular Filtration Rate 53 mL/min (>60); Est Glom Filt Rate - Afr Amer 65 mL/min (>60); Estimated Creatinine Clearance 84.22 ml/min; Glucose 136 mg/dL (74-106); Potassium 3.8 mmol/L (3.5-5.1); Sodium Level 138 mmol/L (136-145); Troponin-I HS (w/2H Reflex) 583 pg/mL (3.0-78.0)
[2024-08-23] MEDS: Heparin Injection (Vial) 5,000 UNIT/ML VIAL 4000 UNIT IV (00:45)
[2024-08-23] MEDS: Nitroglycerin SL (ED/IMG/CATH) 0.4 MG TABLET SL ×3 (00:45→00:55)
[2024-08-23] MEDS: HEPARIN/D5w 25,000 UNITS 25,000 UNITS/250 ML IV.SOLN. 10 UNITS CONT INF (00:49)
[2024-08-23 00:51] LABS: Prothrombin Time (Protime)PT. 13.2 SECONDS (11.7-14.9)
[2024-08-23 00:52] LABS: Partial Thromboplast Time 26.4 Seconds (24.1-36.2)
--- NOTE | 2024-08-23 01:00 | HP.PCM.HOS_ITS ---
HPI - General General Date of Admission: 08/23/24 Date of Service: 08/23/24 Chief Complaint: Chest pain, back pain, nausea, BL UE pain. HPI Narrative The patient is a 59 y/o M w/ PMHx: CKD stage II per GFR trending, Obesity, Former tobacco use, Diabetes mellitus type II with chronic neuropathy, MARTIR, HTN, HLD, CAD s/p PCI and CABG including most recent presentation with discharge 08/07/2024 with evidence of NSTEMI with cardiac catheterization and PCI to the right coronary artery will continue aspirin, Plavix and increase of his statin therapy with continue metoprolol and losartan regimen who now re-presents to the [facility] ED on 08/23/2024 with onset of upper back discomfort between the shoulder blades with radiation to both arms with slight associated chest tightness rating discomfort 6 out of 10 in severity with similar symptoms when he had previous chest discomfort presentation and required cardiac stents at that time with self administration of 3 nitroglycerin sublingual tablets prior to arrival prompting ED evaluation. He notes currently upon evaluation in the ED but his discomfort is improved and is only having right upper extremity discomfort rating it 3-4 out of 10 in severity but it continues to improve. He does report that he had nausea but no emesis with his chest discomfort episode. He denies any associated dyspnea or diaphoresis. Workup in the ED included T98, heart rate 68, BP 137/73, respiratory 14, 100% on room air, CBC with WBC 9.1, human 12.8, MCV 81, platelet 312 without marked shift, D-dimer 0.31, BMP with BUN/Efren 38/1.43, GFR 53, troponin 583, chest x-ray no acute cardiopulmonary findings, EKG with sinus bradycardia with no acute evidence of ischemia. In the ED patient ministered full-strength aspirin therapy as well as heparin bolus and drip initiated. ED physician discussed case with Dr. Serrano on-call for cardiology. COUNT INCLUDES [facility] Medical History Diabetes Former smoker Myocardial infarct Essential hypertension Diabetic neuropathy History of diabetes mellitus, type II Orthopedic aftercare Loss of hearing Wears glasses Non-smoker Chest pain Primary osteoarthritis of right knee Hypertriglyceridemia Type 2 diabetes mellitus History of non-ST elevation myocardial infarction (NSTEMI) (02/12/23) Hyperlipidemia Obesity Atherosclerosis of coronary artery of [place] heart without angina pectoris Home Medications ?Medication ?Instructions ?Recorded ?Last Taken ?Type aspirin 81 mg tablet,delayed 81 mg PO QDAY HEART 09/26/22 04/09/24 History release (Adult Aspirin Regimen) nitroglycerin 0.4 mg sublingual 0.4 mg sublingual Q5M PRN chest 11/23/23 Unknown Rx tablet pain #25 tabs gemfibrozil 600 mg tablet 600 mg PO BIDAC cholesterol #180 12/28/23 Unknown Rx tabs losartan 25 mg tablet 25 mg PO DAILY blood pressure #90 12/28/23 04/09/24 Rx tabs clopidogrel 75 mg tablet (Plavix) 75 mg PO DAILY anti platelet #90 03/06/24 04/09/24 Rx tabs metformin 1,000 mg tablet 1,000 mg PO BID diabetes 04/01/24 04/08/24 History tirzepatide 2.5 mg/0.5 mL 2.5 mg subcut QWEEK diabetes 08/06/24 08/02/24 History subcutaneous pen injector (Mounjaro) atorvastatin 80 mg tablet 80 mg PO QHS #30 tabs 08/07/24 Unknown Rx metoprolol succinate 25 mg 25 mg PO DAILY #30 tabs 08/07/24 Unknown Rx tablet,extended release 24 hr Allergy/AdvReac Type Severity Reaction Status Date / Time rosuvastatin (From Crestor) AdvReac myalgia Verified 08/22/24 23:37 Family History Father Heart disease Mother Diabetes Surgical History S/P CABG x 3 (02/19/23) Hx of total knee replacement S/P total knee arthroplasty History of coronary artery stent placement Hx of total knee replacement History of left heart catheterization (11/23/23) History of coronary artery stent placement (08/06/24) Social History (Updated 08/23/24 @ 01:[address] Courtney Montgomery MD) household members: spouse Smoking Status: Former smoker alcohol intake: never substance use type: does not use ROS ROS Narrative Admission Review of Systems: CONSTITUTIONAL: No weight loss, fever, chills, + weakness or fatigue. HEENT: Eyes: No visual loss, blurred vision, double vision or yellow sclerae. Ears, Nose, Throat: No hearing loss, sneezing, congestion, runny nose or sore throat. SKIN: No rash or itching, lesions, wounds. CARDIOVASCULAR: + Chest pain, chronic peripheral distal mild edema. No palpitations, orthopnea, syncopal events. RESPIRATORY: No shortness of breath, cough or sputum, wheezing, hemoptysis. GASTROINTESTINAL: + Nausea, anorexia, nausea. No emesis, diarrhea, abdominal pain, melena, BRBPR. GENITOURINARY: No dysuria, frequency, urgency or retention. NEUROLOGICAL: No headache, dizziness, syncope, paralysis, ataxia, numbness or tingling in the extremities, focal weakness, change in bowel or bladder control, seizure. MUSCULOSKELETAL: + muscle, back pain, joint pain or stiffness. HEMATOLOGIC: + Current labs consistent with anemia, easy bleeding/bruising. LYMPHATICS: No enlarged nodes. No history of splenectomy. PSYCHIATRIC: No history of depression or anxiety. ENDOCRINOLOGIC: No reports of sweating, cold or heat intolerance. No polyuria or polydipsia. ALLERGIES: No history of asthma, hives, eczema or rhinitis. Vital Signs Vital Signs Vital Signs: 08/22/24 23:37 08/22/24 23:39 08/23/24 00:04 Temperature 98 F Temperature Source Oral Pulse Rate 68 Respiratory Rate 14 Respiratory Effort Normal Blood Pressure 137/73 H Blood Pressure Mean 94 Pulse Ox 100 Oxygen Delivery Method Room Air 08/23/24 00:37 08/23/24 00:45 08/23/24 00:48 Temperature 98.2 F Temperature Source Pulse Rate 61 59 L 65 Respiratory Rate 16 18 Respiratory Effort Blood Pressure 124/68 H 128/68 H 119/58 L Blood Pressure Mean 86 78 Pulse Ox 97 95 Oxygen Delivery Method Room Air 08/23/24 00:50 08/23/24 00:50 08/23/24 00:55 Temperature 98.2 F Temperature Source Oral Pulse Rate 64 65 63 Respiratory Rate 18 Respiratory Effort Blood Pressure 119/58 L 119/58 L 121/58 H Blood Pressure Mean 78 Pulse Ox 95 Oxygen Delivery Method Room Air Weight Weight: 317 lb 14.505 oz Body Mass Index (BMI) 38.7 Physical Exam Narrative Physical Examination: General: Awake, alert, oriented x 3 and cooperative, seated upright in the ED bed, notes continuing to improve, only now has right upper extremity discomfort rating it 3-4 out of 10 in severity. Skin: Normal color, normal turgor, no icterus, no cyanosis. HEENT: AT/NC, EOMI, PERRLA, MMM, no carotid bruits, difficult assess JVD given thickened neck. Lungs: Diminished, greater bases, appropriate effort, no rales, ronchi or wheezing. Heart: Mildly bradycardic with regular rhythm; no gallop, rub audible. Abdomen: Soft, obese, NTTP, distant BS, no appreciated distention or HSM however habitus makes evaluation difficult. Extremities: No cyanosis, no clubbing, no marked peripheral edema. Neurological: Patient awake, alert, oriented as noted, cognitive function intact; pupils equally reactive to light and accommodation, cranial nerves grossly normal, moving all 4 extremities, no focal deficits, strength moderately global decrease secondary to acute presentation complaints. Psychiatric: Affect appears fatigued, no acute evidence of depressive or anxiety feelings. Results Lab / Micro Data 08/22/24 23:52 08/22/24 23:52 Labs: Laboratory Results - last 24 hr 08/22/24 23:52: WBC 9.1, RBC 4.90, Hgb 12.8 L, Hct 39.7 L, MCV 81.0, MCH 26.1 L, MCHC 32.2, RDW Std Deviation 38.7, RDW Coeff of Hillary 13.2, Plt Count 312, MPV 10.2, Immature Gran % (Auto) 0.600, Neut % (Auto) 59.5, Lymph % (Auto) 23.9, M andres % (Auto) 10.7 H, Eos % (Auto) 4.1, Baso % (Auto) 1.2 H, Absolute Neuts (auto) 5.4, Absolute Lymphs (auto) 2.17, Nucleated RBC % 0, PT 13.2, INR 1.0, APTT 26.4, D-Dimer Quant (PE/DVT) 0.31, Sodium 138, Potassium 3.8, Chloride 104, Carbon Dioxide 26.0, Anion Gap 8, BUN 38 H, Creatinine 1.43 H, Estim Creat Clear Calc 84.22, Est GFR (MDRD) Af Amer 65, Est GFR (MDRD) Non-Af 53 L, B UN/Creatinine Ratio 26.6 H, Glucose 136 H, Calcium 9.3, Troponin I High Sens 583 H* Imaging Radiology Impression Chest X-Ray 08/22/24 23:59 IMPRESSION: Low lung volumes limit the exam. No acute cardiopulmonary abnormality. Electronically Signed: Torsten Westfall MD at 0:54 EST Reading Location ID and State: [id number] Tel , Service support , Assessment & Plan Assessment/Plan (1) Non-STEMI (non-ST elevated myocardial infarction): PLAN: Plan The patient is a 59 y/o M w/ PMHx: CKD stage II per GFR trending, Obesity, Former tobacco use, Diabetes mellitus type II with chronic neuropathy, MARTIR, HTN, HLD, CAD s/p PCI and CABG including most recent presentation with discharge 08/07/2024 with evidence of NSTEMI with cardiac catheterization and PCI to the right coronary artery will continue aspirin, Plavix and increase of his statin therapy with continue metoprolol and losartan regimen who now re-presents to the [facility] ED on 08/23/2024 with onset of upper back discomfort between the shoulder blades with radiation to both arms with slight associated chest tightness rating discomfort 6 out of 10 in severity with similar symptoms when he had previous chest discomfort presentation and required cardiac stents at that time with self administration of 3 nitroglycerin sublingual tablets prior to arrival prompting ED evaluation. #1. Chest Pain, back discomfort, bilateral upper extremity discomfort with associated nausea with elevated cardiac enzyme suspicious for Acute NSTEMI type I: EKG in ED w/ sinus bradycardia with no acute evidence of ischemia, CXR w/ no acute cardiopulmonary finding. Trop elevated, 583 and per review of previous especially given recent admission had been down on 08/06/24 to creatinine 292 now increased again. Will admit to PCU, maintain on a monitored bed, continue serial cardiac enzymes and EKGs. Obtain magnesium level upon admission. Continue heparin drip initiated in the ED. Continue medical management w/ asa, Plavix, losartan, BB, statin w/ AM FLP. ECHO requested. Cardiology consulted. NG, morphine. #2. Acutely elevated creatinine/renal insufficiency on CKD stage II per previous GFR trend: Admission BUN/Cr 38/1.43, GFR 53, baseline renal function primarily 1.0-1.2 with normally GFR in the stage II range of note, repeat BMP in AM. #3. Normocytic anemia, appears new and chronicity: Admission hemoglobin 12.8, MCV 81, most recent prior to this hemoglobin primarily 13-14, will continue to trend CBC and further investigate depending on trending. #4. CAD: Status post CABG x 3 02/2023 w/ BARRERA to the LAD, SVG to the ramus, SVG to the OM1as well as PCI including 02/2020 PCI ramus intermedius and distal circumflex, 02/2023 FFR LAD with referral for surgical evaluation at that time, 11/2023 PCI right coronary artery as well as distal right and most recently 08/06/2024 to the right coronary artery, continue aspirin, Plavix, statin, metoprolol, losartan home regimen. Patient remotely had been on Brilinta however he developed shortness of breath with this and was eventually transition to Plavix. #5. Hypertension: Continue home regimen including metoprolol, losartan, PRN hydralazine. #6. Hyperlipidemia: Will continue patient on statin therapy as well as gemfibrozil. #7. Diabetes mellitus type II with chronic neuropathy: Holding metformin and Mounjaro, will continue ADA diet, accu checks w/ ISS. #8. Obesity: Weight loss and lifestyle changes encouraged. #9. Former tobacco use: Encourage continued tobacco cessation. #10. MARTIR: Will continue BIPAP therapy. Per most recent records able to be obtained 06/20/2024 appears to be on BiPAP 08/16 but will need to clarify. #11. DVT prophylaxis: Continue heparin drip. #12. CODE status: Patient HCPOA and living will are not in place but he notes his who is present would be his medical decision-maker if necessary. Discussed CODE status at length including difference between FULL code, DNR-CCA and DNR-CC status. Following discussions about the differences in these status, requested Full Code status. Advanced Care Planning Face to Face Time: 16 minutes. Charges/Coding Visit Charges Inpatient E&M: 14677 Init Hosp L3 Procedures Hospitalists Procedures: 24225 Advncd Care Plan 30 Min
[2024-08-23 01:37] LABS: Magnesium 1.6 mg/dL (1.6-2.6)
--- NOTE | 2024-08-23 01:53 | EKG12_ITS ---
Test Reason : CP ADMIT Blood Pressure : */* mmHG Vent. Rate : 62 BPM Atrial Rate : 62 BPM P-R Int : 202 ms QRS Dur : 96 ms QT Int : 396 ms P-R-T Axes : 8 -56 25 degrees QTcB Int : 401 ms Normal sinus rhythm Left axis deviation Abnormal ECG When compared with ECG of 22-Aug-2024 23:41, MANUAL COMPARISON REQUIRED DATA IS UNCONFIRMED Confirmed by HANK LARA, SANJIV ([id number]), photo editor TAWANA GERMAN ([id number]) on 08/25/2024 12:48:20 PM Referred By: Confirmed By: SANJIV MCKINNEY MD
[2024-08-23 02:04] LABS: Reflex Troponin-HS? (from REC) Y
[2024-08-23] MEDS: 0.9% Normal Saline (1000mL) 1,000 ML 100 ML IV (02:28)
[2024-08-23] MEDS: Mag Hydrox/Al Hydrox/Simeth 30 ML UDC PO (02:44)
[2024-08-23 03:36] LABS: Troponin-I HS 620 pg/mL (3.0-78.0)
--- NOTE | 2024-08-23 05:55 | ECHOCS_ITS ---
Reason For Study: NSTEMI Procedure This was a 2D Doppler, Color Flow transthoracic echocardiogram. Contrast injection was performed. Exam performed portable in patient room. Left Ventricle Normal LV size. The estimated ejection fraction is 55 %. No evidence for diastolic dysfunction. Septal hypokinesis. Right Ventricle Normal RV size. Normal systolic function. Atria The left atrium is mildly enlarged. Normal right atrium. No doppler evidence for ASD. Mitral Valve There is no mitral valve stenosis. No mitral valve insufficiency. Tricuspid Valve There is no tricuspid stenosis. Unable to estimate RV systolic pressure due to inadequate jet, pulmonary artery pressure probably normal. Aortic Valve Trisinus/trileaflet aortic valve. There is no aortic stenosis. No aortic valve insufficiency. Pulmonic Valve There is no pulmonic valvular stenosis. Trivial pulmonic valve insufficiency. Great Vessels Normal aortic root. Pericardium/Pleural No pericardial effusion. Medication Diluted definity 2ml given slow IV push to enhance endocardial definition. MMode/2D Measurements & Calculations LVIDd: 5.0 cm IVSd: 1.2 cm asc Aorta Diam: 3.5 cm LVIDs: 3.3 cm LVPWd: 1.3 cm RVDd: 4.8 cm FS: 35.3 % LAV(MOD-bp): 75.3 ml LVAd ap4: 35.9 cm2 SV(MOD-sp4): 73.2 ml LAV(MOD-bp) Indexed: 27.9 ml/m2 LVLd ap4: 8.5 cm SI(MOD-sp4): 27.2 ml/m2 LAV(MOD-sp2): 70.1 ml EDV(MOD-sp4): 127.1 ml LAV(MOD-sp4): 75.5 ml EDV(sp4-el): 129.5 ml LVAs ap4: 20.7 cm2 LVLs ap4: 6.9 cm ESV(MOD-sp4): 53.9 ml ESV(sp4-el): 52.6 ml EF(MOD-sp4): 57.6 % EF(sp4-el): 59.4 % SV(sp4-el): 76.9 ml LA A4 area: 24.2 cm2 LA dimension(2D): 5.6 cm RA A4 area: 17.9 cm2 TAPSE: 1.8 cm Time Measurements MV dec time: 0.19 sec Doppler Measurements & Calculations MV E max doug: 92.7 cm/sec Lat Peak E' Doug: 13.2 cm/sec Med Peak E' Doug: 7.9 cm/sec MV A max doug: 73.7 cm/sec E/E' lat: 7.0 E/E' med: 11.7 MV E/A: 1.3 MV dec slope: 497.5 cm/sec2 Ao V2 max: 130.9 cm/sec LV V1 max: 111.8 cm/sec Ao max P.9 mmHg LV V1 max P.0 mmHg Ao V2 mean: 86.6 cm/sec Ao mean P.5 mmHg Ao V2 VTI: 29.3 cm PA V2 max: 134.8 cm/sec PA V2 mean: 92.2 cm/sec ECHO/Echo Complete W/ Contrast Interpretation Summary The estimated ejection fraction is 55 %. Septal hypokinesis No evidence for diastolic dysfunction. The left atrium is mildly enlarged. Ordering Physician: Courtney Montgomery Referring Physician: Karolyn Solomon Performed By: Charlotte Medel, ESTIVEN, RVT
[2024-08-23 07:02] LABS: Absolute Lymphocyte Count 1.43 X10^3/uL (0.83-4.51); Absolute Neutrophil Count 3.7 X10^3/uL (2.0-7.7); Basophil# 0.09 X10^3/uL; Basophil% 1.5 % (0-1); Eosinophils% 4.8 % (0-5); Hematocrit 38.2 % (40-54); Hemoglobin 12.7 g/dL (13.0-16.5); Lymphocyte # 1.43 X10^3/ul (0.83-4.51); Lymphocyte % 23.1 % (19-41); Mean Corp Hgb Conc 33.2 g/dL (32-36); Mean Corpuscular Volume 81.3 fL (80-94); Mean Platelet Vol. 10.1 fl (6.2-12.0); Monocyte# 0.63 X10^3/uL; Monocyte% 10.2 % (0-10); NRBC Flagged by Analyzer 0 % (0-5); Neutrophil # 3.71 X10^3/uL (2.7-7.7); Neutrophil % 59.8 % (47-70); Platelet Count 299 K/mm3 (150-450); RBC Distribution Width CV 13.2 % (11.6-14.6); RBC Distribution Width SD 38.9 fl (35.1-43.9); White Blood Count 6.2 K/mm3 (4.4-11.0)
[2024-08-23 07:18] LABS: Bedside Glucose 156 mg/dL (74-106)
[2024-08-23 08:12] LABS: AST(SGOT) 22 U/L (15-37); Alanine Aminotransfer ALT/SGPT 25 U/L (16-61); Albumin, Serum 3.5 g/dL (3.2-5.0); Alkaline Phosphatase 89 U/L (45-117); Anion Gap 8 (5-15); BUN 33 mg/dL (7-18); BUN/Creat Ratio 28.9 RATIO (10-20); Calcium,Total 8.2 mg/dL (8.5-10.1); Chloride 108 mmol/L (98-107); Cholesterol 104 mg/dL (200); Creatinine, Serum 1.14 mg/dL (0.70-1.30); EST Glomerular Filtration Rate 69 mL/min (>60); Est Glom Filt Rate - Afr Amer 84 mL/min (>60); Estimated Creatinine Clearance 105.29 ml/min; Globulin 3.4 g/dL (2.2-4.2); Glucose 177 mg/dL (74-106); High Density Lipoprotein 22 mg/dL; Potassium 4.1 mmol/L (3.5-5.1); Protein, Total 6.9 g/dL (6.4-8.2); Sodium Level 139 mmol/L (136-145); Triglycerides 586 mg/dL; Troponin-I HS 1000 pg/mL (3.0-78.0)
[2024-08-23] MEDS: Gemfibrozil 600 MG Tablet PO ×2 (08:19→16:27)
[2024-08-23] MEDS: Aspirin E.C. 81 MG Tablet PO (08:22)
[2024-08-23] MEDS: Metoprolol(XL)Succ 25 MG Tablet PO (08:22)
[2024-08-23] MEDS: Clopidogrel Bisulfate 75 MG Tablet PO (08:22)
[2024-08-23] MEDS: Losartan Potassium 25 MG Tablet PO (08:22)
[2024-08-23 10:11] LABS: Hemoglobin A1c 7.8 % (3.8-5.6)
[2024-08-23 11:44] LABS: Bedside Glucose 150 mg/dL (74-106)
--- NOTE | 2024-08-23 11:46 | PCM.PN.HOSP ---
Reason for Visit Reason for Visit: Diagnoses Non-ST elevation (NSTEMI) myocardial infarction (08/23/24) Subjective Subjective Saw patient at bedside this morning, present. Patient was mildly fatigued appearing but otherwise sitting up comfortably in bedside chair, conversing normally, in no acute distress. Denied any chest pain or discomfort. Patient does state that his pain has primarily been in his back and has been more of a tightness with prior episodes, and he denies this pain currently as well. No other acute concerns. Objective Data Objective Data Vital Signs: Vital Signs Temp Pulse Resp BP Pulse Ox O2 Del Method 96.1 F L 63 18 127/113 H 97 Room Air 08/23/24 02:00 08/23/24 08:22 08/23/24 02:00 08/23/24 08:22 08/23/24 03:46 08/23/24 08:12 Oxygen Delivery Method Room Air Weight: 143.3 kg Body Mass Index (BMI) 38.4 Lab / Micro Data 08/23/24 06:49 08/23/24 06:49 Labs: Laboratory Results - last 24 hr 08/22/24 23:52: WBC 9.1, RBC 4.90, Hgb 12.8 L, Hct 39.7 L, MCV 81.0, MCH 26.1 L, MCHC 32.2, RDW Std Deviation 38.7, RDW Coeff of Hillary 13.2, Plt Count 312, MPV 10.2, Immature Gran % (Auto) 0.600, Neut % (Auto) 59.5, Lymph % (Auto) 23.9, [place] % (Auto) 10.7 H, Eos % (Auto) 4.1, Baso % (Auto) 1.2 H, Absolute Neuts (auto) 5.4, Absolute Lymphs (auto) 2.17, Nucleated RBC % 0, PT 13.2, INR 1.0, APTT 26.4, D-Dimer Quant (PE/DVT) 0.31, Sodium 138, Potassium 3.8, Chloride 104, Carbon Dioxide 26.0, Anion Gap 8, BUN 38 H, Creatinine 1.43 H, Estim Creat Clear Calc 84.22, Est GFR (MDRD) Af Amer 65, Est GFR (MDRD) Non-Af 53 L, BUN/Creatinine Ratio 26.6 H, Glucose 136 H, Calcium 9.3, Magnesium 1.6, Troponin I High Sens 583 H* 08/23/24 02:20: Troponin I High Sens 620 H* 08/23/24 06:49: WBC 6.2, RBC 4.70, Hgb 12.7 L, Hct 38.2 L, MCV 81.3, MCH 27.0, MCHC 33.2, RDW Std Deviation 38.9, RDW Coeff of Hillary 13.2, Plt Count 299, MPV 10.1, Immature Gran % (Auto) 0.600, Neut % (Auto) 59.8, Lymph % (Auto) 23.1, [place] % (Auto) 10.2 H, Eos % (Auto) 4.8, Baso % (Auto) 1.5 H, Absolute Neuts (auto) 3.7, Absolute Lymphs (auto) 1.43, Nucleated RBC % 0, APTT 30.0, Sodium 139, Potassium 4.1, Chloride 108 H, Carbon Dioxide 23.0, Anion Gap 8, BUN 33 H, Creatinine 1.14, Estim Creat Clear Calc 105.29, Est GFR (MDRD) Af Amer 84, Est GFR (MDRD) Non-Af 69, BUN/Creatinine Ratio 28.9 H, Glucose 177 H, Hemoglobin A1c 7.8 H, Calcium 8.2 L, Total Bilirubin 0.30, AST 22, ALT 25, Alkaline Phosphatase 89, Troponin I High Sens 1000 H*, Total Protein 6.9, Albumin 3.5, Globulin 3.4, Albumin/Globulin Ratio 1.0, Triglycerides 586 H, Cholesterol 104, LDL Cholesterol TNP, VLDL Cholesterol TNP, HDL Cholesterol 22 L 08/23/24 06:58: POC Glucose 156 H 08/23/24 11:23: POC Glucose 150 H Radiography Diagnostic Testing: Radiology Impression Chest X-Ray 08/22/24 23:59 IMPRESSION: Low lung volumes limit the exam. No acute cardiopulmonary abnormality. Electronically Signed: Torsten Westfall MD at 0:54 EST , Physical Exam Const alert, oriented x3 and no apparent distress Constitutional Narrative: Middle-age male, class II obesity, mildly fatigued appearing, otherwise sitting comfortably in bedside chair, conversing normally, no acute distress. General Appearance: cooperative and comfortable HEENT normocephalic, head/scalp atraumatic, hearing grossly normal bilaterally, nasal mucous membranes and turbinates normal and moist oral mucous membranes Eyes PERRL, EOMs intact bilaterally and conjunctivae normal Neck full ROM Chest inspection of chest normal Resp normal respiratory effort, normal air movement, no use of accessory muscles and clear to auscultation bilaterally Cardio regular rate, regular rhythm, no murmurs and peripheral pulses 2+ throughout GI normal to inspection, nondistended, normoactive bowel sounds, soft to palpation, non-tender and non-distended Back/Spine normal ROM Extremity normal to inspection, full ROM and no pedal edema Skin no rashes or lesions noted Psych mental status grossly normal Assessment & Plan Assessment/Plan (1) Non-STEMI (non-ST elevated myocardial infarction): PLAN: Plan Patient is a 59-year-old male who presented [facility] ED on 08/22/2024 with chest pain. 1. NSTEMI ? Cardiology following. History of CAD with CABG and recent stenting as noted below. Troponin trend on admit 583 > 620 > 1000. EKG unremarkable. Echo 08/23 showed EF 55% but with septal hypokinesis. 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 Options of cath versus stress testing versus medical management in play, we will see how patient does overnight and make decision tomorrow. Continue heparin drip. Continue home meds as below. 2. History of CAD with CABG and stenting, hypertension, hyperlipidemia ? Follows with cardiology. Had recent NSTEMI in end of July. Left heart cath on 08/06 showed 99% in-stent restenosis of the mid RCA s/p PTCA/SUSY x 1 to the mid RCA. Also showed patent SVG to OM1, Y graft to ramus and BARRERA to LAD grafts. Per cardiology, very low concern for recurrent in-stent restenosis on this admission given EKG and echo findings. Treating as above. Continue home aspirin, Plavix, statin, gemfibrozil, losartan and Toprol. 3. Mild creatinine elevation, resolved ? Creatinine 1.43 on admit, baseline around 1.1. Improved back to baseline by hospital day 2 after IV fluid resuscitation. Chronic medical conditions: ? Class II obesity: BMI 38 on admit. Complicates hospital course, care and prognosis. ? MARTIR: Continue home CPAP. ? Type 2 diabetes mellitus: Holding home metformin and Mounjaro. Sliding scale insulin with meals while inpatient. DVT prophylaxis: Not indicated, on heparin drip CODE STATUS: Full code, verified Expected disposition: Home, TBD Total clinical time spent by myself addressing the patient's medical issues, reviewing all the data, and collaborating with patient's care team: 35 minutes. Charges/Coding Visit Charges Inpatient E&M: 68668 Subs Hosp L2
--- NOTE | 2024-08-23 14:17 | CASEMGMT ---
Readmission Note: Index: 08/06/24- 08/07/24. Dx: NSTEMI, HTN Readmission: 08/23/24. Dx: NSTEMI From index admission, the pt was discharged home with his with 2 new prescriptions (Atorvastatin and Metoprolol). LUCERO ARNOLD to pt room at this time. Pt states that he was able to take his new prescriptions as ordered. Pt states that he was also taking all of his other medications as ordered. Pt states that he had a f/u appt with this PCP this week, but the f/u appt with the [facility] is not until next month. Moving forward, the pt may be getting another cardiac catheter placed (per the hospitalist). Pt states that he is completely independent and that he lives with his at home. Pt states that he feels safe returning home at the time of DC and denies needs including HH, OP Tx, or CCN. Pt denies further questions or concerns at this time. Manjula FUENTES RN, CM
--- NOTE | 2024-08-23 15:33 | CON.PCM.CA_ITS ---
Assessment & Plan Assessment/Plan (1) Non-STEMI (non-ST elevated myocardial infarction): PLAN: Continue heparin for now. EKG does not reveal any significant ST elevation that would suggest stent thrombosis. 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 Discussed the option of coronary angiography versus stress testing versus just medical management with the patient in detail. We will continue heparin at this time. Based on how the patient does overnight, we will make a decision tomorrow as to which route to proceed. HPI Consult Data Date of Consult: 08/23/24 HPI Narrative Reason for Consultation: non-STEMI HPI Narrative: QI VELA, is a 59 M who presents with interscapular pain with radiation to the right arm. This is similar to the pain that he had about 3 weeks back when he underwent coronary angiography and was found to have 99% stenosis in the RCA within (in-stent restenosis) that was treated with PTCA and drug-eluting stent placement. The chest pain lasted about 5 hours and patient came to the emergency room. In the ER he was given sublingual nitroglycerin which relieved the pain eventually. Yesterday he was not exerting himself significantly when he started having the pain. After the last PCI patient went to his cabin and was walking up and down hill a fair amount and did not have anginal discomfort at that time. Patient's high-sensitivity troponin went up to 1000. Patient is currently chest pain-free. He had a 2D echo which revealed mild septal hypokinesis. Ejection fraction is still preserved and is around 55%. Patient's prior angiograms were reviewed. 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 [facility] Medical History Diabetes Former smoker Myocardial infarct Essential hypertension Diabetic neuropathy History of diabetes mellitus, type II Orthopedic aftercare Loss of hearing Wears glasses Non-smoker Chest pain Primary osteoarthritis of right knee Hypertriglyceridemia Type 2 diabetes mellitus History of non-ST elevation myocardial infarction (NSTEMI) (02/12/23) Hyperlipidemia Obesity Atherosclerosis of coronary artery of [place] heart without angina pectoris Home Medications ?Medication ?Instructions ?Recorded ?Last Taken ?Type aspirin 81 mg tablet,delayed 81 mg PO QDAY HEART 09/26/22 04/09/24 History release (Adult Aspirin Regimen) nitroglycerin 0.4 mg sublingual 0.4 mg sublingual Q5M PRN chest 11/23/23 Unknown Rx tablet pain #25 tabs gemfibrozil 600 mg tablet 600 mg PO BIDAC cholesterol #180 12/28/23 Unknown Rx tabs losartan 25 mg tablet 25 mg PO DAILY blood pressure #90 12/28/23 04/09/24 Rx tabs clopidogrel 75 mg tablet (Plavix) 75 mg PO DAILY anti platelet #90 03/06/24 04/09/24 Rx tabs metformin 1,000 mg tablet 1,000 mg PO BID diabetes 04/01/24 04/08/24 History tirzepatide 2.5 mg/0.5 mL 2.5 mg subcut QWEEK diabetes 08/06/24 08/02/24 History subcutaneous pen injector (Mounjaro) atorvastatin 80 mg tablet 80 mg PO QHS #30 tabs 08/07/24 Unknown Rx metoprolol succinate 25 mg 25 mg PO DAILY #30 tabs 08/07/24 Unknown Rx tablet,extended release 24 hr Allergy/AdvReac Type Severity Reaction Status Date / Time rosuvastatin (From Crestor) AdvReac myalgia Verified 08/22/24 23:37 Family History Father Heart disease Mother Diabetes Surgical History S/P CABG x 3 (02/19/23) Hx of total knee replacement S/P total knee arthroplasty History of coronary artery stent placement Hx of total knee replacement History of left heart catheterization (11/23/23) History of coronary artery stent placement (08/06/24) Social History (Updated 08/23/24 @ 01:[address] Courtney Montgomery MD) household members: spouse Smoking Status: Former smoker alcohol intake: never substance use type: does not use Physical Exam Const alert and oriented x3 HEENT normocephalic Eyes no scleral icterus Resp normal respiratory effort Cardio regular rate Extremity no pedal edema Risk Stratification Risk Stratification Applicable: No Charges/Coding Visit Charges Inpatient E&M: 49544 Init Hosp L2 Objective Data Vital Signs: Vital Signs Temp Pulse Resp BP Pulse Ox O2 Del Method 97.5 F L 62 18 121/70 H 97 Room Air 08/23/24 15:27 08/23/24 15:27 08/23/24 15:27 08/23/24 15:27 08/23/24 15:27 08/23/24 15:27 Oxygen Delivery Method Room Air Weight: 315 lb 14.758 oz Body Mass Index (BMI) 38.4 Intake & Output: Intake and Output for Last 24 Hours 08/21/24 08/22/24 08/23/24 23:59 23:59 23:59 Intake Total 1220 / 1220 Balance 1220 / 1220 Lab / Micro Data 08/23/24 06:49 08/23/24 06:49 Labs: Laboratory Results - last 24 hr 08/22/24 23:52: WBC 9.1, RBC 4.90, Hgb 12.8 L, Hct 39.7 L, MCV 81.0, MCH 26.1 L, MCHC 32.2, RDW Std Deviation 38.7, RDW Coeff of Hillary 13.2, Plt Count 312, MPV 10.2, Immature Gran % (Auto) 0.600, Neut % (Auto) 59.5, Lymph % (Auto) 23.9, M andres % (Auto) 10.7 H, Eos % (Auto) 4.1, Baso % (Auto) 1.2 H, Absolute Neuts (auto) 5.4, Absolute Lymphs (auto) 2.17, Nucleated RBC % 0, PT 13.2, INR 1.0, APTT 26.4, D-Dimer Quant (PE/DVT) 0.31, Sodium 138, Potassium 3.8, Chloride 104, Carbon Dioxide 26.0, Anion Gap 8, BUN 38 H, Creatinine 1.43 H, Estim Creat Clear Calc 84.22, Est GFR (MDRD) Af Amer 65, Est GFR (MDRD) Non-Af 53 L, B UN/Creatinine Ratio 26.6 H, Glucose 136 H, Calcium 9.3, Magnesium 1.6, Troponin I High Sens 583 H* 08/23/24 02:20: Troponin I High Sens 620 H* 08/23/24 06:49: WBC 6.2, RBC 4.70, Hgb 12.7 L, Hct 38.2 L, MCV 81.3, MCH 27.0, MCHC 33.2, RDW Std Deviation 38.9, RDW Coeff of Hillary 13.2, Plt Count 299, MPV 10.1, Immature Gran % (Auto) 0.600, Neut % (Auto) 59.8, Lymph % (Auto) 23.1, M andres % (Auto) 10.2 H, Eos % (Auto) 4.8, Baso % (Auto) 1.5 H, Absolute Neuts (auto) 3.7, Absolute Lymphs (auto) 1.43, Nucleated RBC % 0, APTT 30.0, Sodium 139, Potassium 4.1, Chloride 108 H, Carbon Dioxide 23.0, Anion Gap 8, BUN 33 H, Creatinine 1.14, Estim Creat Clear Calc 105.29, Est GFR (MDRD) Af Amer 84, Est GFR (MDRD) Non-Af 69, BUN/Creatinine Ratio 28.9 H, Glucose 177 H, Hemoglobin A1c 7.8 H, Calcium 8.2 L, Total Bilirubin 0.30, AST 22, ALT 25, Alkaline Phosphatase 89, Troponin I High Sens 1000 H*, Total Protein 6.9, Albumin 3.5, Globulin 3.4, Albumin/Globulin Ratio 1.0, Triglycerides 586 H, Cholesterol 104, LDL Cholesterol TNP, VLDL Cholesterol TNP, HDL Cholesterol 22 L 08/23/24 06:58: POC Glucose 156 H 08/23/24 11:23: POC Glucose 150 H Cardiology Labs/Tests 08/22/24 23:52: WBC 9.1, RBC 4.90, Hgb 12.8 L, Hct 39.7 L, MCV 81.0, MCH 26.1 L, MCHC 32.2, Plt Count 312, MPV 10.2, Immature Gran % (Auto) 0.600, Neut % (Auto) 59.5, Lymph % (Auto) 23.9, [place] % (Auto) 10.7 H, Eos % (Auto) 4.1, Baso % (Auto) 1.2 H, Absolute Neuts (auto) 5.4, Nucleated RBC % 0, PT 13.2, INR 1.0, APTT 26.4, D-Dimer Quant (PE/DVT) 0.31, Sodium 138, Potassium 3.8, Chloride 104, Carbon Dioxide 26.0, Anion Gap 8, BUN 38 H, Creatinine 1.43 H, Est GFR (MDRD) Af Amer 65, Est GFR (MDRD) Non-Af 53 L, BUN/Creatinine Ratio 26.6 H, Glucose 136 H, Calcium 9.3, Magnesium 1.6 08/23/24 06:49: WBC 6.2, RBC 4.70, Hgb 12.7 L, Hct 38.2 L, MCV 81.3, MCH 27.0, MCHC 33.2, Plt Count 299, MPV 10.1, Immature Gran % (Auto) 0.600, Neut % (Auto) 59.8, Lymph % (Auto) 23.1, [place] % (Auto) 10.2 H, Eos % (Auto) 4.8, Baso % (Auto) 1.5 H, Absolute Neuts (auto) 3.7, Nucleated RBC % 0, APTT 30.0, Sodium 139, Potassium 4.1, Chloride 108 H, Carbon Dioxide 23.0, Anion Gap 8, BUN 33 H, Creatinine 1.14, Est GFR (MDRD) Af Amer 84, Est GFR (MDRD) Non-Af 69, B UN/Creatinine Ratio 28.9 H, Glucose 177 H, Hemoglobin A1c 7.8 H, Calcium 8.2 L, Total Bilirubin 0.30, Triglycerides 586 H, Cholesterol 104, LDL Cholesterol TNP, VLDL Cholesterol TNP, HDL Cholesterol 22 L Rhythm: EKG: ECHO: Stress Test: Cardiac Cath: PCI: CT Surgery: Holter monitor: EPS: PPM: CXR: Chest CT Scan: Radiography Diagnostic Testing: Radiology Impression Chest X-Ray 08/22/24 23:59 IMPRESSION: Low lung volumes limit the exam. No acute cardiopulmonary abnormality. Electronically Signed: Torsten Westfall MD at 0:54 EST , Echocardiogram 08/23/24 05:55 Interpretation Summary The estimated ejection fraction is 55 %. Septal hypokinesis No evidence for diastolic dysfunction. The left atrium is mildly enlarged. Ordering Physician: Courtney Montgomery Referring Physician: Karloyn Solomon Performed By: Charlotte Medel, ESTIVEN, RVT
[2024-08-23] MEDS: Insulin Lispro 100 UNIT/ML INSULN.PEN SC ×2 (16:26→21:51)
[2024-08-23 16:45] LABS: Bedside Glucose 169 mg/dL (74-106)
[2024-08-23] MEDS: Acetaminophen 325 MG Tablet 650 MG PO (19:52)
[2024-08-23 20:08] LABS: Partial Thromboplast Time 30.5 Seconds (24.1-36.2)
[2024-08-23] MEDS: Heparin Injection (Vial) 5,000 UNIT/ML VIAL IV (20:14)
[2024-08-23] MEDS: Atorvastatin Calcium 80 MG Tablet PO (21:51)
[2024-08-23 22:17] LABS: Bedside Glucose 204 mg/dL (74-106)
[2024-08-24] MEDS: HEPARIN/D5w 25,000 UNITS 25,000 UNITS/250 ML IV.SOLN. 12 UNITS CONT INF (00:43)
--- NOTE | 2024-08-24 01:42 | CPS ---
pt has home unit
[2024-08-24 02:41] LABS: Partial Thromboplast Time 35.7 Seconds (24.1-36.2)
[2024-08-24] MEDS: Heparin Injection (Vial) 5,000 UNIT/ML VIAL IV ×3 (02:51→16:52)
[2024-08-24 03:00] VITALS: BP 94/60; PULSE 66; RESP 18; TEMP 36.6; O2SAT 98
[2024-08-24 04:15] VITALS: BMI 37.8
[2024-08-24] MEDS: Gemfibrozil 600 MG Tablet PO ×2 (06:30→16:23)
[2024-08-24] MEDS: Insulin Lispro 100 UNIT/ML INSULN.PEN SC ×3 (06:30→16:23)
[2024-08-24 06:57] LABS: Bedside Glucose 157 mg/dL (74-106)
[2024-08-24 07:01] LABS: Absolute Lymphocyte Count 1.72 X10^3/uL (0.83-4.51); Absolute Neutrophil Count 1.8 X10^3/uL (2.0-7.7); Basophil# 0.09 X10^3/uL; Eosinophil# 0.27 X10^3/uL; Hematocrit 40.2 % (40-54); Hemoglobin 12.6 g/dL (13.0-16.5); Lymphocyte # 1.72 X10^3/ul (0.83-4.51); Lymphocyte % 38.3 % (19-41); Mean Corp Hgb Conc 31.3 g/dL (32-36); Mean Corpuscular Volume 82.9 fL (80-94); Mean Platelet Vol. 10.3 fl (6.2-12.0); Monocyte# 0.63 X10^3/uL; NRBC Flagged by Analyzer 0 % (0-5); Neutrophil # 1.76 X10^3/uL (2.7-7.7); Neutrophil % 39.3 % (47-70); Platelet Count 316 K/mm3 (150-450); RBC Distribution Width CV 13.2 % (11.6-14.6); RBC Distribution Width SD 39.9 fl (35.1-43.9); Red Blood Count 4.85 M/mm3 (4.6-6.2); White Blood Count 4.5 K/mm3 (4.4-11.0)
[2024-08-24 08:01] VITALS: O2SAT 95
[2024-08-24 09:00] VITALS: BP 119/74; PULSE 56; RESP 16; TEMP 36.7; O2SAT 97
[2024-08-24 09:19] LABS: Partial Thromboplast Time 32.9 Seconds (24.1-36.2)
[2024-08-24 10:10] VITALS: BP 129/81; PULSE 59
[2024-08-24] MEDS: Losartan Potassium 25 MG Tablet PO (10:10)
[2024-08-24] MEDS: Metoprolol(XL)Succ 25 MG Tablet PO (10:10)
[2024-08-24] MEDS: Aspirin E.C. 81 MG Tablet PO (10:10)
[2024-08-24] MEDS: Clopidogrel Bisulfate 75 MG Tablet PO (10:10)
--- NOTE | 2024-08-24 11:11 | PN.CARD_ITS ---
Subjective Subjective Patient has had mild back pain on and off. Objective Data Vital Signs: Vital Signs Temp Pulse Resp BP Pulse Ox O2 Del Method 98.1 F 59 L 16 129/81 H 97 Room Air 08/24/24 09:00 08/24/24 10:10 08/24/24 09:00 08/24/24 10:10 08/24/24 09:00 08/24/24 10:18 Oxygen Delivery Method Room Air Weight: 310 lb 3.046 oz Body Mass Index (BMI) 37.8 Intake & Output: Intake and Output for Last 24 Hours 08/22/24 08/23/24 08/24/24 23:59 23:59 23:59 Intake Total 629.8 / 629.8 Balance 629.8 / 629.8 Lab / Micro Data 08/24/24 02:20 08/23/24 06:49 Labs: Laboratory Results - last 24 hr 08/23/24 11:23: POC Glucose 150 H 08/23/24 16:20: POC Glucose 169 H 08/23/24 19:47: APTT 30.5 08/23/24 21:48: POC Glucose 204 H 08/24/24 02:20: WBC 4.5, RBC 4.85, Hgb 12.6 L, Hct 40.2, MCV 82.9, MCH 26.0 L, M CHC 31.3 L D, RDW Std Deviation 39.9, RDW Coeff of Hillary 13.2, Plt Count 316, MPV 10.3, Immature Gran % (Auto) 0.400, Neut % (Auto) 39.3 L, Lymph % (Auto) 38.3, M andres % (Auto) 14.0 H, Eos % (Auto) 6.0 H, Baso % (Auto) 2.0 H, Absolute Neuts (auto) 1.8 L, Absolute Lymphs (auto) 1.72, Nucleated RBC % 0, APTT 35.7 08/24/24 06:28: POC Glucose 157 H 08/24/24 08:35: APTT 32.9 Cardiology Labs/Tests 08/23/24 19:47: APTT 30.5 08/24/24 02:20: WBC 4.5, RBC 4.85, Hgb 12.6 L, Hct 40.2, MCV 82.9, MCH 26.0 L, M CHC 31.3 L D, Plt Count 316, MPV 10.3, Immature Gran % (Auto) 0.400, Neut % (Auto) 39.3 L, Lymph % (Auto) 38.3, [place] % (Auto) 14.0 H, Eos % (Auto) 6.0 H, B aso % (Auto) 2.0 H, Absolute Neuts (auto) 1.8 L, Nucleated RBC % 0, APTT 35.7 08/24/24 08:35: APTT 32.9 Rhythm: EKG: ECHO: Stress Test: Cardiac Cath: PCI: CT Surgery: Holter monitor: EPS: PPM: CXR: Chest CT Scan: Radiography Diagnostic Testing: Radiology Impression Echocardiogram 08/23/24 05:55 Interpretation Summary The estimated ejection fraction is 55 %. Septal hypokinesis No evidence for diastolic dysfunction. The left atrium is mildly enlarged. Ordering Physician: Courtney Montgomery Referring Physician: Karolyn Solomon Performed By: Charlotte Medel, ESTIVEN, RVT Physical Exam Const alert HEENT normocephalic Eyes no scleral icterus Resp normal respiratory effort Assessment & Plan Assessment/Plan (1) Non-STEMI (non-ST elevated myocardial infarction): PLAN: Continue heparin for now. EKG does not reveal any significant ST elevation that would suggest stent thrombosis. 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 Discussed the option of coronary angiography versus stress testing versus just medical management with the patient in detail. Patient continues to have on and off back pain that appears to be his anginal equivalent. We will proceed with coronary angiography tomorrow. Charges/Coding Visit Charges Inpatient E&M: 90510 Subs Hosp L1
--- NOTE | 2024-08-24 11:13 | PCM.PN.HOSP ---
Reason for Visit Reason for Visit: Diagnoses Non-ST elevation (NSTEMI) myocardial infarction (08/23/24) Subjective Subjective Saw patient at bedside this morning. Appeared stable from yesterday, sitting up comfortably in bedside chair in no acute distress. No new concerns today. Objective Data Objective Data Vital Signs: Vital Signs Temp Pulse Resp BP Pulse Ox O2 Del Method 98.1 F 59 L 16 129/81 H 97 Room Air 08/24/24 09:00 08/24/24 10:10 08/24/24 09:00 08/24/24 10:10 08/24/24 09:00 08/24/24 10:18 Oxygen Delivery Method Room Air Weight: 140.7 kg Body Mass Index (BMI) 37.8 Intake & Output: Intake and Output for Last 24 Hours 08/22/24 08/23/24 08/24/24 23:59 23:59 23:59 Intake Total 629.8 / 629.8 Balance 629.8 / 629.8 Lab / Micro Data 08/24/24 02:20 08/23/24 06:49 Labs: Laboratory Results - last 24 hr 08/23/24 11:23: POC Glucose 150 H 08/23/24 16:20: POC Glucose 169 H 08/23/24 19:47: APTT 30.5 08/23/24 21:48: POC Glucose 204 H 08/24/24 02:20: WBC 4.5, RBC 4.85, Hgb 12.6 L, Hct 40.2, MCV 82.9, MCH 26.0 L, MCHC 31.3 L D, RDW Std Deviation 39.9, RDW Coeff of Hillary 13.2, Plt Count 316, MPV 10.3, Immature Gran % (Auto) 0.400, Neut % (Auto) 39.3 L, Lymph % (Auto) 38.3, [place] % (Auto) 14.0 H, Eos % (Auto) 6.0 H, Baso % (Auto) 2.0 H, Absolute Neuts (auto) 1.8 L, Absolute Lymphs (auto) 1.72, Nucleated RBC % 0, APTT 35.7 08/24/24 06:28: POC Glucose 157 H 08/24/24 08:35: APTT 32.9 Radiography Diagnostic Testing: Radiology Impression Echocardiogram 08/23/24 05:55 Interpretation Summary The estimated ejection fraction is 55 %. Septal hypokinesis No evidence for diastolic dysfunction. The left atrium is mildly enlarged. Ordering Physician: Courtney Montgomery Referring Physician: Karolyn Solomon Performed By: Charlotte Medel, FAITHCS, RVT Physical Exam Const alert, oriented x3 and no apparent distress Constitutional Narrative: Middle-age male, class II obesity, mildly fatigued appearing, otherwise sitting comfortably in bedside chair, conversing normally, no acute distress. Stable. General Appearance: cooperative and comfortable HEENT normocephalic, head/scalp atraumatic, hearing grossly normal bilaterally, nasal mucous membranes and turbinates normal and moist oral mucous membranes Eyes PERRL, EOMs intact bilaterally and conjunctivae normal Neck full ROM Chest inspection of chest normal Resp normal respiratory effort, normal air movement, no use of accessory muscles and clear to auscultation bilaterally Cardio regular rate, regular rhythm, no murmurs and peripheral pulses 2+ throughout GI normal to inspection, nondistended, normoactive bowel sounds, soft to palpation, non-tender and non-distended Back/Spine normal ROM Extremity normal to inspection, full ROM and no pedal edema Skin no rashes or lesions noted Psych mental status grossly normal Assessment & Plan Assessment/Plan (1) Non-STEMI (non-ST elevated myocardial infarction): PLAN: Plan Patient is a 59-year-old male who presented [facility] ED on 08/22/2024 with chest pain. 1. NSTEMI ? Cardiology following. History of CAD with CABG and recent stenting as noted below. Troponin trend on admit 583 > 620 > 1000. EKG unremarkable. Echo 08/23 showed EF 55% but with septal hypokinesis. 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 Planning for coronary angiography tomorrow, n.p.o. at midnight. Continue heparin drip. Continue home meds as below. 2. History of CAD with CABG and stenting, hypertension, hyperlipidemia ? Follows with cardiology. Had recent NSTEMI in end of July. Left heart cath on 08/06 showed 99% in-stent restenosis of the mid RCA s/p PTCA/SUSY x 1 to the mid RCA. Also showed patent SVG to OM1, Y graft to ramus and BARRERA to LAD grafts. Per cardiology, very low concern for recurrent in-stent restenosis on this admission given EKG and echo findings. Treating as above. Continue home aspirin, Plavix, statin, gemfibrozil, losartan and Toprol. 3. Mild creatinine elevation, resolved ? Creatinine 1.43 on admit, baseline around 1.1. Improved back to baseline by hospital day 2 after IV fluid resuscitation. Chronic medical conditions: ? Class II obesity: BMI 38 on admit. Complicates hospital course, care and prognosis. ? MARTIR: Continue home CPAP. ? Type 2 diabetes mellitus: Holding home metformin and Mounjaro. Sliding scale insulin with meals while inpatient. DVT prophylaxis: Not indicated, on heparin drip CODE STATUS: Full code, verified Expected disposition: Home, TBD Total clinical time spent by myself addressing the patient's medical issues, reviewing all the data, and collaborating with patient's care team: 35 minutes. Charges/Coding Visit Charges Inpatient E&M: 90921 Subs Hosp L2
[2024-08-24 13:15] LABS: Bedside Glucose 170 mg/dL (74-106)
[2024-08-24 15:00] VITALS: BP 104/65; PULSE 56; RESP 16; TEMP 36.9; O2SAT 96
[2024-08-24 16:21] LABS: Partial Thromboplast Time 38.1 Seconds (24.1-36.2)
[2024-08-24 17:35] LABS: Bedside Glucose 180 mg/dL (74-106)
[2024-08-24] MEDS: HEPARIN/D5w 25,000 UNITS 25,000 UNITS/250 ML IV.SOLN. 18 UNITS CONT INF (18:03)
[2024-08-24 21:05] VITALS: BP 127/77; PULSE 58; RESP 18; TEMP 36.6; O2SAT 96
[2024-08-24] MEDS: Atorvastatin Calcium 80 MG Tablet PO (21:11)
[2024-08-24 21:48] LABS: Partial Thromboplast Time 43.2 Seconds (24.1-36.2)
[2024-08-24 22:07] LABS: Bedside Glucose 149 mg/dL (74-106)
[2024-08-25] VITALS (13 sets, daily range): BP systolic 101–129; BP diastolic 55–82; PULSE 49–61; RESP 13–20; TEMP 36.1–36.8; O2SAT 94–99; BMI 37.3
[2024-08-25 05:03] LABS: Partial Thromboplast Time 52.7 Seconds (24.1-36.2)
[2024-08-25 05:32] LABS: Anion Gap 7 (5-15); BUN 23 mg/dL (7-18); BUN/Creat Ratio 21.1 RATIO (10-20); Calcium,Total 8.9 mg/dL (8.5-10.1); Chloride 108 mmol/L (98-107); Creatinine, Serum 1.09 mg/dL (0.70-1.30); EST Glomerular Filtration Rate 73 mL/min (>60); Est Glom Filt Rate - Afr Amer 88 mL/min (>60); Estimated Creatinine Clearance 108.51 ml/min; Glucose 179 mg/dL (74-106); Potassium 4.1 mmol/L (3.5-5.1); Sodium Level 138 mmol/L (136-145)
--- NOTE | 2024-08-25 05:55 | EKG12_ITS ---
Test Reason : HEART CATH Blood Pressure : */* mmHG Vent. Rate : 52 BPM Atrial Rate : 52 BPM P-R Int : 172 ms QRS Dur : 96 ms QT Int : 440 ms P-R-T Axes : 63 -41 22 degrees QTcB Int : 409 ms Sinus bradycardia Left axis deviation Abnormal ECG When compared with ECG of 23-Aug-2024 02:04, MANUAL COMPARISON REQUIRED DATA IS UNCONFIRMED Confirmed by HANK LARA, SANJIV ([id number]), index editor TAWANA GERMAN ([id number]) on 08/25/2024 2:44:01 PM Referred By: Confirmed By: SANJIV MCKINNEY MD
[2024-08-25] MEDS: Aspirin E.C. 81 MG Tablet PO (06:34)
[2024-08-25] MEDS: Clopidogrel Bisulfate 75 MG Tablet PO (06:34)
[2024-08-25] MEDS: Losartan Potassium 25 MG Tablet PO (06:34)
[2024-08-25] MEDS: HEPARIN/D5w 25,000 UNITS 25,000 UNITS/250 ML IV.SOLN. 20 UNITS CONT INF (06:40)
[2024-08-25 06:54] LABS: Bedside Glucose 179 mg/dL (74-106)
--- NOTE | 2024-08-25 09:24 | CASEMGMT ---
Insurance review for hospitals In-network with [facility] insurance if transfer is recommended is as follows: [facility], [place], [facility], [facility], [facility], [facility], [place], and . [place], Discharge Planning Ass
--- NOTE | 2024-08-25 10:41 | PN.HOSP_ITS ---
Reason for Visit Reason for Visit: Diagnoses Non-ST elevation (NSTEMI) myocardial infarction (08/23/24) Subjective Subjective Saw patient at bedside this morning. Sitting up comfortably bedside chair, in no acute distress. No new concerns today. Objective Data Objective Data Vital Signs: Vital Signs Temp Pulse Resp BP Pulse Ox O2 Del Method 98.3 F 56 L 16 111/55 L 94 Room Air 08/25/24 10:39 08/25/24 10:39 08/25/24 10:39 08/25/24 10:39 08/25/24 10:39 08/25/24 10:39 Oxygen Delivery Method Room Air Weight: 139.3 kg Body Mass Index (BMI) 37.3 Intake & Output: Intake and Output for Last 24 Hours 08/23/24 08/24/24 08/25/24 23:59 23:59 23:59 Intake Total 1940.4 / 1940.4 149.43 / 149.43 Balance 1940.4 / 1940.4 149.43 / 149.43 Lab / Micro Data 08/24/24 02:20 08/25/24 04:39 Labs: Laboratory Results - last 24 hr 08/24/24 11:30: POC Glucose 170 H 08/24/24 15:55: APTT 38.1 H 08/24/24 16:22: POC Glucose 180 H 08/24/24 21:10: POC Glucose 149 H 08/24/24 21:30: APTT 43.2 H 08/25/24 04:39: APTT 52.7 H, Sodium 138, Potassium 4.1, Chloride 108 H, Carbon Dioxide 23.0, Anion Gap 7, BUN 23 H, Creatinine 1.09, Estim Creat Clear Calc 108.51, Est GFR (MDRD) Af Amer 88, Est GFR (MDRD) Non-Af 73, BUN/Creatinine Ratio 21.1 H, Glucose 179 H, Calcium 8.9, Magnesium 2.0 08/25/24 06:31: POC Glucose 179 H Physical Exam Const alert, oriented x3 and no apparent distress Constitutional Narrative: Middle-age male, class II obesity, mildly fatigued appearing, otherwise sitting comfortably in bedside chair, conversing normally, no acute distress. Stable. General Appearance: cooperative and comfortable HEENT normocephalic, head/scalp atraumatic, hearing grossly normal bilaterally, nasal mucous membranes and turbinates normal and moist oral mucous membranes Eyes PERRL, EOMs intact bilaterally and conjunctivae normal Neck full ROM Chest inspection of chest normal Resp normal respiratory effort, normal air movement, no use of accessory muscles and clear to auscultation bilaterally Cardio regular rate, regular rhythm, no murmurs and peripheral pulses 2+ throughout GI normal to inspection, nondistended, normoactive bowel sounds, soft to palpation, non-tender and non-distended Back/Spine normal ROM Extremity normal to inspection, full ROM and no pedal edema Skin no rashes or lesions noted Psych mental status grossly normal Assessment & Plan Assessment/Plan (1) Non-STEMI (non-ST elevated myocardial infarction): PLAN: Plan Patient is a 59-year-old male who presented [facility] ED on 08/22/2024 with chest pain. 1. NSTEMI ? Cardiology following. History of CAD with CABG and recent stenting as noted below. Troponin trend on admit 583 > 620 > 1000. EKG unremarkable. Echo 08/23 showed EF 55% but with septal hypokinesis. 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 Planning for coronary angiography today, we will follow-up result. Continue heparin drip. Continue home meds as below. 2. History of CAD with CABG and stenting, hypertension, hyperlipidemia ? Follows with cardiology. Had recent NSTEMI in end of July. Left heart cath on 08/06 showed 99% in-stent restenosis of the mid RCA s/p PTCA/SUSY x 1 to the mid RCA. Also showed patent SVG to OM1, Y graft to ramus and BARRERA to LAD grafts. Per cardiology, very low concern for recurrent in-stent restenosis on this admission given EKG and echo findings. Treating as above. Continue home aspirin, Plavix, statin, gemfibrozil, losartan and Toprol. 3. Mild creatinine elevation, resolved ? Creatinine 1.43 on admit, baseline around 1.1. Improved back to baseline by hospital day 2 after IV fluid resuscitation. Chronic medical conditions: ? Class II obesity: BMI 38 on admit. Complicates hospital course, care and prognosis. ? MARTIR: Continue home CPAP. ? Type 2 diabetes mellitus: Holding home metformin and Mounjaro. Sliding scale insulin with meals while inpatient. DVT prophylaxis: Not indicated, on heparin drip CODE STATUS: Full code, verified Expected disposition: Home, 1 to 2 days Total clinical time spent by myself addressing the patient's medical issues, reviewing all the data, and collaborating with patient's care team: 35 minutes. Charges/Coding Visit Charges Inpatient E&M: 48032 Subs Hosp L2
[2024-08-25 10:46] LABS: Partial Thromboplast Time 55.9 Seconds (24.1-36.2)
[2024-08-25 12:25] LABS: Bedside Glucose 141 mg/dL (74-106)
--- NOTE | 2024-08-25 14:05 | DCINST_ITS ---
Discharge Instructions Diet Discharge Diet: Carb Control Diet DC O2, CPAP, BIPAP needs PSN CPAP & BiPAP: BiPAP & CPAP Settings per PSN Mode BiPAP 08/24/24 01:41 Additional Home O2 Discharge instructions: No Dressing / Incision Discharge Activity: No Restrictions Follow Up Care Test Results: Test results from this visit will be discussed in further detail at your follow- up appointment, if applicable. Discharge Plan Admission Admit Date/Time: 08/23/24 01:03 Primary Reason for Your Visit: Chest pain Attending Provider: Allan Irwin Primary Care Provider: Karolyn Solomon Consulting Providers: Adin Serrano; Courtney Montgomery Instructions Additional Instructions / Restrictions: Please start taking ranolazine twice daily as noted below. Continue all other home medications as normal. Follow-up with cardiology as needed. Discharge Orders/Prescriptions Prescriptions: New ranolazine 500 mg Tablet Extended Release 12 Hr 500 mg PO BID 30 Days Qty: 60 2RF Continued metformin 1,000 mg tablet 1,000 mg PO BID aspirin [Adult Aspirin Regimen] 81 mg tablet,delayed release (DR/EC) 81 mg PO QDAY Rx Instructions: STOP 7 DAYS Mounjaro 2.5 mg/0.5 mL pen injector 2.5 mg subcut QWEEK Rx Instructions: for 4 weeks atorvastatin 80 mg Tablet 80 mg PO QHS Qty: 30 0RF metoprolol succinate 25 mg Tablet Extended Release 24 Hr 25 mg PO DAILY Qty: 30 0RF nitroglycerin 0.4 mg tablet, sublingual 0.4 mg sublingual Q5M PRN (Reason: chest pain) Qty: 25 3RF Rx Instructions: do not exceed 3 doses per episode gemfibrozil 600 mg tablet 600 mg PO BIDAC Qty: 180 3RF losartan 25 mg tablet 25 mg PO DAILY Qty: 90 3RF clopidogrel [Plavix] 75 mg tablet 75 mg PO DAILY Qty: 90 3RF Referrals / Follow Up: Karolyn Solomon DO [Primary Care Provider] - 08/28/24 10:20 am Disposition Disposition (needs filled in before D/C Order can be placed): Home, Self Care
--- NOTE | 2024-08-25 14:08 | PCM.DC.SUM ---
Providers Date of Admission: 08/23/24 Date of Discharge: 08/25/24 Primary Care Physician: CHRISTIAN Simpson, DO Consultations 08/23/24 01:53 Consult: Cardiology Routine Consulting Provider: Adin Serrano Reason for Consult: NSTEMI EMERGENT Consult: No MD Notified: Yes Date Notified: 08/23/24 Time Notified: 01:04 Method of Notification: ED Physician Initiated Reason For Visit: NSTEMI Diagnosis Discharge Diagnosis (1) Non-STEMI (non-ST elevated myocardial infarction): Status: Acute Code(s): I21.4 - Non-ST elevation (NSTEMI) myocardial infarction Medications at Discharge Home Medications aspirin 81 mg tablet,delayed release (Adult Aspirin Regimen) 81 mg PO QDAY HEART 09/26/22 nitroglycerin 0.4 mg sublingual tablet 0.4 mg sublingual Q5M PRN chest pain #25 tabs 11/23/23 gemfibrozil 600 mg tablet 600 mg PO BIDAC cholesterol #180 tabs 12/28/23 losartan 25 mg tablet 25 mg PO DAILY blood pressure #90 tabs 12/28/23 clopidogrel 75 mg tablet (Plavix) 75 mg PO DAILY anti platelet #90 tabs 03/06/24 metformin 1,000 mg tablet 1,000 mg PO BID diabetes 04/01/24 tirzepatide 2.5 mg/0.5 mL subcutaneous pen injector (Mounjaro) 2.5 mg subcut QWEEK diabetes 08/06/24 atorvastatin 80 mg tablet 80 mg PO QHS #30 tabs 08/07/24 metoprolol succinate 25 mg tablet,extended release 24 hr 25 mg PO DAILY #30 tabs 08/07/24 ranolazine 500 mg tablet,extended release,12 hr 500 mg PO BID 30 days #60 tabs 08/25/24 Hospital Course Operations None Procedures Cardiac catheterization, EKG, Transthoracic echo and - (Chest x-ray) Summary of Care Provided Minutes Spent on Discharge: 35 Hospital Course: Patient is a 59-year-old male who presented [facility] ED on 08/22/2024 with chest pain. Hospital course as noted below. Patient discharged home in stable condition on 08/25. 1. NSTEMI ? Cardiology followed. History of CAD with CABG and recent stenting as noted below. Troponin trend on admit 583 > 620 > 1000. EKG unremarkable. Echo 08/23 showed EF 55% but with septal hypokinesis. Left heart cath on 08/25 with patent stents and no other new concerning findings noted. Treated with heparin drip while inpatient, discontinued after cath. For cardiology will add Ranexa to patient's home regimen but otherwise continue all other home medications as normal. Stable for discharge home on the afternoon of 08/25. 2. History of CAD with CABG and stenting, hypertension, hyperlipidemia ? Follows with cardiology. Had recent NSTEMI in end of July. Left heart cath on 08/06 showed 99% in-stent restenosis of the mid RCA s/p PTCA/SUSY x 1 to the mid RCA. Also showed patent SVG to OM1, Y graft to ramus and BARRERA to LAD grafts. Per cardiology, very low concern for recurrent in-stent restenosis on this admission given EKG and echo findings. Treating as above. Continue home aspirin, Plavix, statin, gemfibrozil, losartan and Toprol. 3. Mild creatinine elevation, resolved ? Creatinine 1.43 on admit, baseline around 1.1. Improved back to baseline by hospital day 2 after IV fluid resuscitation. Chronic medical conditions: ? Class II obesity: BMI 38 on admit. Complicated hospital course, care and prognosis. ? MARTIR: Continue home CPAP. ? Type 2 diabetes mellitus: Treated with sliding scale insulin with meals while inpatient. Okay to resume home metformin and Mounjaro on discharge. Total clinical time spent by myself addressing the patient's medical issues, reviewing all the data, and collaborating with patient's care team: 35 minutes. Physical Exam Const alert, oriented x3 and no apparent distress Constitutional Narrative: Middle-age male, class II obesity, mildly fatigued appearing, otherwise sitting comfortably in bedside chair, conversing normally, no acute distress. Stable. General Appearance: cooperative and comfortable HEENT normocephalic, head/scalp atraumatic, hearing grossly normal bilaterally, nasal mucous membranes and turbinates normal and moist oral mucous membranes Eyes PERRL, EOMs intact bilaterally and conjunctivae normal Neck full ROM Chest inspection of chest normal Resp normal respiratory effort, normal air movement, no use of accessory muscles and clear to auscultation bilaterally Cardio regular rate, regular rhythm, no murmurs and peripheral pulses 2+ throughout GI normal to inspection, nondistended, normoactive bowel sounds, soft to palpation, non-tender and non-distended Back/Spine normal ROM Extremity normal to inspection, full ROM and no pedal edema Skin no rashes or lesions noted Psych mental status grossly normal Weight / BMI Weight Weight: 139.3 kg Body Mass Index (BMI) 37.3 ABG / Lab / Microbiology Data 08/24/24 02:20 08/25/24 04:39 Laboratory: Laboratory Results - last 24 hr 08/24/24 15:55: APTT 38.1 H 08/24/24 16:22: POC Glucose 180 H 08/24/24 21:10: POC Glucose 149 H 08/24/24 21:30: APTT 43.2 H 08/25/24 04:39: APTT 52.7 H, Sodium 138, Potassium 4.1, Chloride 108 H, Carbon Dioxide 23.0, Anion Gap 7, BUN 23 H, Creatinine 1.09, Estim Creat Clear Calc 108.51, Est GFR (MDRD) Af Amer 88, Est GFR (MDRD) Non-Af 73, BUN/Creatinine Ratio 21.1 H, Glucose 179 H, Calcium 8.9, Magnesium 2.0 08/25/24 06:31: POC Glucose 179 H 08/25/24 10:24: APTT 55.9 H 08/25/24 12:04: POC Glucose 141 H D/C Instructions Discharge Diet: Carb Control Diet DC O2, CPAP, BIPAP Needs PSN CPAP & BiPAP: BiPAP & CPAP Settings per PSN Mode BiPAP 08/24/24 01:41 Additional Home O2 Discharge instructions: No DC home with Oxygen: No Meaningful Use Info Meaningful Use Meaningful Use Diagnoses (Choose all that apply): None applicable Ischemic Stroke Statin Dosing Therapy Reference: STATIN DOSE THERAPY REFERENCE: * Patients > 75 years receive moderate or high dose statin therapy. * Patients 75 years or YOUNGER should receive HIGH intensity statin dose unless contraindicated. You will be required to document reason for non-treatment if statin daily dose does not meet guidelines. HIGH DOSE STATIN THERAPY DAILY Atorvastatin > than or = to 40 mg Rosuvastatin > than or = to 20 mg Amlodipine + Atorvastatin > than or = to 2.5/40 mg Ezetimibe + Simvastatin 10/80 mg Simvastatin 80mg Discharge Plan Admission Admit Date/Time: 08/23/24 01:03 Primary Reason for Your Visit: Chest pain Attending Provider: Allan Irwin Primary Care Provider: Karolyn Solomon Consulting Providers: Adin Serrano; Courtney Montgomery Instructions Additional Instructions / Restrictions: Please start taking ranolazine twice daily as noted below. Continue all other home medications as normal. Follow-up with cardiology as needed. Discharge Orders/Prescriptions Prescriptions: New ranolazine 500 mg Tablet Extended Release 12 Hr 500 mg PO BID 30 Days Qty: 60 2RF Continued metformin 1,000 mg tablet 1,000 mg PO BID aspirin [Adult Aspirin Regimen] 81 mg tablet,delayed release (DR/EC) 81 mg PO QDAY Rx Instructions: STOP 7 DAYS Mounjaro 2.5 mg/0.5 mL pen injector 2.5 mg subcut QWEEK Rx Instructions: for 4 weeks atorvastatin 80 mg Tablet 80 mg PO QHS Qty: 30 0RF metoprolol succinate 25 mg Tablet Extended Release 24 Hr 25 mg PO DAILY Qty: 30 0RF nitroglycerin 0.4 mg tablet, sublingual 0.4 mg sublingual Q5M PRN (Reason: chest pain) Qty: 25 3RF Rx Instructions: do not exceed 3 doses per episode gemfibrozil 600 mg tablet 600 mg PO BIDAC Qty: 180 3RF losartan 25 mg tablet 25 mg PO DAILY Qty: 90 3RF clopidogrel [Plavix] 75 mg tablet 75 mg PO DAILY Qty: 90 3RF Referrals / Follow Up: Karolyn Solomon DO [Primary Care Provider] - 08/28/24 10:20 am Disposition Disposition (needs filled in before D/C Order can be placed): Home, Self Care Charges/Coding Visit Charges Inpatient E&M: 65496 Disch Hosp >30min
--- NOTE | 2024-08-25 14:31 | CASEMGMT ---
Patient has order for discharge. RN CM in to discuss needs at discharge. Patient denies needs or help at discharge. Patient had no further questions or concerns.
--- NOTE | 2024-08-25 14:34 | CHAPLAIN ---
Type of Pastoral Visit _x__ Initial Visit ___ Follow-up Visit ___ On-call Visit ___ General Patient Visit ___ Spiritual Assessment ___ Family Conference ___ Bereavement ___ Rapid Response ___ Code Blue ___ Other (describe below) Pastoral Care Referral From _x__ Patient ___ Family ___ Nurse ___ Physician ___ Special Class Welder ___ Marketing Communications Specialist ___ Other (describe below) Sacrament/Intervention _x__ Active listening ___ Anointing ___ Confucianism ___ Bereavement ___ Communion ___ Marianela exploration ___ ___ Life review ___ Prayer ___ Reconciliation ___ Sacrament of Sick _x__ Supportive presence ___ Wedding ___ Other (describe below) Pastoral Comments patient and spouse are in the room; pt is watching TV and says that he is expecting to go home and should be fine; 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
--- NOTE | 2024-08-25 14:50 | PHA.DC.MC.R ---
Pharmacy [facility] Service has performed discharge medication reconciliation and counseling for this patient. 1. RANOLAZINE 500MG PO BID The patient's discharge medication list was reviewed for discrepancies and discrepancies were resolved. The patient was counseled on the following discharge medications and changes in medications for homegoing were reviewed. The Reason for Use, instructions for use, and potential side effects were reviewed for all new medications. The patient's questions regarding all of their medications were answered. The patient was able to verbally demonstrate an understanding of their discharge medications. Medications at Discharge Home Medications aspirin 81 mg tablet,delayed release (Adult Aspirin Regimen) 81 mg PO QDAY HEART 09/26/22 nitroglycerin 0.4 mg sublingual tablet 0.4 mg sublingual Q5M PRN chest pain #25 tabs 11/23/23 gemfibrozil 600 mg tablet 600 mg PO BIDAC cholesterol #180 tabs 12/28/23 losartan 25 mg tablet 25 mg PO DAILY blood pressure #90 tabs 12/28/23 clopidogrel 75 mg tablet (Plavix) 75 mg PO DAILY anti platelet #90 tabs 03/06/24 metformin 1,000 mg tablet 1,000 mg PO BID diabetes 04/01/24 tirzepatide 2.5 mg/0.5 mL subcutaneous pen injector (Mounjaro) 2.5 mg subcut QWEEK diabetes 08/06/24 atorvastatin 80 mg tablet 80 mg PO QHS #30 tabs 08/07/24 metoprolol succinate 25 mg tablet,extended release 24 hr 25 mg PO DAILY #30 tabs 08/07/24 ranolazine 500 mg tablet,extended release,12 hr 500 mg PO BID 30 days #60 tabs 08/25/24
--- NOTE | 2024-09-02 12:57 | CL.D_ITS ---
Patient Name: QI VELA Study Date: 08/25/2024 Performing: Shanna Serrano MD Ht: 76 inches 193.04 cm : 1965 Wt: 307.5 lbs 139.3 kg Age: 59 Gender: male BSA: 2.66 PROCEDURE(S) PERFORMED [id number])LHC/COR/CABG CLINICAL PROFILE AND INDICATIONS Indications: ACS <= 24 hrs, NSTEMI Heart Failure: None CONCLUSIONS CAD as described. Patent 3/3 bypass grafts. Patent recent stent in RCA RECOMMENDATIONS [facility] for CAD/Angina DESCRIPTION OF PROCEDURE The patient arrived to the procedure lab. The risks and benefits of the procedure as well as a full description of our services here and current unavailability of surgical backup were fully explained to the patient and/or their significant other prior to the catheterization. The Timeout was completed, verifying the correct patient and procedure. The patient's procedural site was prepped and draped in the usual fashion. Local anesthetic was given subcutaneously to right groin region with Lidocaine 2%. Using a modified Seldinger technique, arterial access was obtained via the right femoral artery, a 6Fr sheath was inserted. Left Coronary Artery selective angiography was performed in multiple views using a 5 Fr. JL4 catheter. Saphenous Vein graft to the OM 1 selective angiography was performed in multiple views using a 5 Fr. JR 4 catheter. Right Coronary Artery selective angiography was then performed in multiple views using a 5 Fr. JR 4 catheter. Left internal mammary artery graft to the LAD selective angiography was performed in multiple views using a 5 Fr. JR 4 catheter.Contrast was injected through the sheath and the Right Iliac and Femoral artery were assessed for possible closure device.The arterial sheath was pulled and a Perclose closure device was deployed for hemostasis CORONARY ANGIOGRAPHY DOMINANCE: Right Dominant LEFT MAIN: 50 % Stenosis LEFT ANTERIOR DESCENDING ARTERY: OSTIAL LAD: 80 % Stenosis MID LAD: 100 % Stenosis SEPTAL: 90% stenosis of first septal branch CIRCUMFLEX ARTERY: Severe diffuse disease RAMUS: Severe diffuse disease RIGHT CORONARY ARTERY: Mild luminal irregularities MID RCA: Previously placed stent is patent GRAFTS: BARRERA graft to the LAD is patent Saphenous Vein graft to the 1st OM is patent. Y graft from the SVG to OM1 to Ramus is patent COMPLICATIONS No Complications PROCEDURE MEDICATIONS Fentanyl 50 mcg IV Versed 1 mg IV Fentanyl 25 mcg IV Fentanyl 25 mcg IV Oxygen: 2 L/min via nasal cannula SUMMARY OF HEMODYNAMIC DATA Time AIR REST ECG 10:57:11 AO 97/59 (76) SA 11:16:26 Signed By Shanna Serrano MD On 09/02/2024 12:56:33 Shanna Serrano MD
== END 2024-08-25 17:10 | disposition home or self-care (01) | DRG 282 ==
LOC: ED 08-23 00:47 → PCU 08-23 01:23
PROVIDERS: Admitting Provider Family Medicine; Emergency Provider Emergency Medicine; PCP Family Medicine; Visit Provider Hospitalist
DX: I21.4 Non-ST elevation (NSTEMI) myocardial infarction (principal); E11.22 Type 2 diabetes mellitus with diabetic chronic kidney disease; Z95.1 Presence of aortocoronary bypass graft; I12.9 Hypertensive chronic kidney disease with stage 1 through stage 4 chronic kidney disease, or unspecified chronic kidney disease; Z68.38 Body mass index [BMI] 38.0-38.9, adult; E11.40 Type 2 diabetes mellitus with diabetic neuropathy, unspecified; G47.33 Obstructive sleep apnea (adult) (pediatric); I25.10 Atherosclerotic heart disease of native coronary artery without angina pectoris; E78.5 Hyperlipidemia, unspecified; Z79.84 Long term (current) use of oral hypoglycemic drugs; Z95.5 Presence of coronary angioplasty implant and graft; Z79.85 Long-term (current) use of injectable non-insulin antidiabetic drugs; Z79.82 Long term (current) use of aspirin; Z79.01 Long term (current) use of anticoagulants; Z87.891 Personal history of nicotine dependence; E66.812 Obesity, class 2; Z79.02 Long term (current) use of antithrombotics/antiplatelets
CPT/HCPCS: 36415; 71045; 80048; 80053; 80061; 82962; 83036; 83735; 84484; 85025; 85379; 85610; 85730; 93005; 93306; 93455; 94668; 99152; 99153; 99252; 99285; C1894; Q9957; Q9967; A4216; C1760; C1769; C8929; G0463

== ENCOUNTER → 2024-09-04 | Outpatient (CLI) | payer OTHER, SELFPAY ==
[2023-05-30 11:11] VITALS: BMI 39.2
--- NOTE | 2024-09-04 14:00 | CR.HP_ITS ---
CR - History & Physical General Arrival date:: 09/04/24 Arrival time:: 14:00 Date of Referral:: 08/26/24 Date of CR Evaluation:: 09/04/24 Referring Physician: Dr. Godinez Primary Diagnosis: [place] NonSTEMI<12 months History of Present Cardiac Event Onset Date Acute Myocardial Infarction within 12 months:: Yes (08/23/24 onset) PTCA or coronary stenting:: Yes Medications Ambulatory Orders ?Medication ?Instructions ?Recorded aspirin 81 mg tablet,delayed 81 mg PO QDAY HEART 09/26/22 release (Adult Aspirin Regimen) nitroglycerin 0.4 mg sublingual 0.4 mg sublingual Q5M PRN chest 11/23/23 tablet pain #25 tabs gemfibrozil 600 mg tablet 600 mg PO BIDAC cholesterol #180 12/28/23 tabs losartan 25 mg tablet 25 mg PO DAILY blood pressure #90 12/28/23 tabs clopidogrel 75 mg tablet (Plavix) 75 mg PO DAILY anti platelet #90 03/06/24 tabs metformin 1,000 mg tablet 1,000 mg PO BID diabetes 04/01/24 tirzepatide 2.5 mg/0.5 mL 2.5 mg subcut QWEEK diabetes 08/06/24 subcutaneous pen injector (Mounjaro) atorvastatin 80 mg tablet 80 mg PO QHS #30 tabs 08/07/24 metoprolol succinate 25 mg 25 mg PO DAILY #30 tabs 08/07/24 tablet,extended release 24 hr ranolazine 500 mg tablet,extended 500 mg PO BID 30 days #60 tabs 08/25/24 release,12 hr Allergies Allergies rosuvastatin (From Crestor) Adverse Reaction (Verified 08/22/24 23:37) myalgia Sleep Disorder Evaluation Hx of Sleep Apnea: Yes Do you snore loudly (louder than talking or can be heard through closed doors)?: No Do you often feel tired/ fatigued/ sleepy during daytime?: No Has anyone observed you stop breathing during sleep?: No History of Hypertension (for STOP score): No STOP Results: Negative Advanced Directives Advanced Directives Power of Marketing Proposal Specialist: Yes Living Will: Yes Advance Directives Information Provided: No Advance Directives on File: No DNR Order?:: No Past Medical History Covid-19 Screening Physicial Symptoms Other Clinical Concerns Exposure Risk Pertinent Comorbidities Has a serious heart condition:: Yes Diabetic:: Yes Past Medical Illness Medical History Diabetes Former smoker Myocardial infarct Essential hypertension Diabetic neuropathy History of diabetes mellitus, type II Orthopedic aftercare Loss of hearing Wears glasses Non-smoker Chest pain Primary osteoarthritis of right knee Hypertriglyceridemia Type 2 diabetes mellitus History of non-ST elevation myocardial infarction (NSTEMI) (02/12/23) Hyperlipidemia Obesity Atherosclerosis of coronary artery of [place] heart without angina pectoris Past Surgical History Surgical History S/P CABG x 3 (02/19/23) Hx of total knee replacement S/P total knee arthroplasty History of coronary artery stent placement Hx of total knee replacement History of left heart catheterization (11/23/23) History of coronary artery stent placement (08/06/24) Surgical History: total knee arthroplasty Family History Summary Family History Father Heart disease Mother Diabetes Social History Smoking History Smoking Status: Former smoker Years Smokin Packs Smoked per Day: 1.5 (stopped around 1994) Alcohol Use Alcohol Usage: Yes (ocass.) Occupation Occupation (List type of work in comments):: Employed Hours worked per day:: 2 Hobbies, Recreation, Social Activities Hobbies: Other (hunting, shootinh) Recreational Activities: I am able to engage in all my recreational activities Social Environment Status Marital Status: Current Living Arrangements Living Environment:: Spouse Children How many children do you have?: 2 Do any of your children live nearby?: Yes Safety Do you feel safe in your surroundings?: Yes Assistance Do you need any assistance at home?: no Review of Systems Review of Systems Hints Review of Present Symptoms: Reports Angina, Fatigue, Appetite - Normal, Appetite - Special Diet and Sleep - Normal; Denies Shortness of Breath at Rest, Shortness of Breath with Exertion, PVD, Operative Discomfort, Wound Healing, Dizziness/Lightheadedness, Heart Arrhythmia/Irregularities or Sexual Changes Pain Is Patient Pain Free?: Yes Risk Factor Assessment Chief Complaint Chief Complaint: [place] NonSTEMI<12 months Vital Signs Pulse Ox: 96 Blood Pressure: 120/70 Pulse Pulse Rate: 56 Pulse Rhythm: Regular Stress Stress: Work-related (mild) Diabetes Diabetic History: Type II Obesity Height: 6 ft 4 in Weight:: 298 lb Weight in Pounds: 298.0 lbs Body Mass Index (BMI): 36.2 Nutritional Referral for Obesity: No (declines) Physical Inactivity Physical Inactivity: Reg Exercise 30 min/day Risk Stratification Risk Guidelines: Moderate Risk: Risk Factor for Smoking, Risk Factor for Hypertension, Risk Factor for Sedentary Lifestyle and Risk Factor for Depression and Highest Risk: Risk Factor for Dyslipidemia, Risk Factor for Diabetes and Risk Factor for Obesity For Smoking Smoking Risk Guidelines For Dyslipidemia Dyslipidemia Risk Guidelines For Diabetes Mellitus Diabetes Risk Guidelines For Obesity/Overweight Obesity/Overweight Risk Guidelines For Hypertension Hypertension Risk Guidelines For Sedentary Lifestyle Sedentary Lifestyle Risk Guidelines For Depression Depression Risk Guidelines Family History Family History Father Heart disease Mother Diabetes Motivation Motivation to Participate On a scale of 1 to 10, how prepared are you to commit to attending program?: 7 What do you see as barriers to successfully being able to complete the program?: nothing What do you see as the benefits of succesfully completing the program? In other words, what do you hope to get out of participating in the program?: less CP Are there issues you are dealing with that will interfere with completing the program?: no Do you have a spouse or signficant other, family or friends who will help support you to complete the program?: yes
--- NOTE | 2024-09-04 14:10 | PCM.CR.ITP ---
Diagnosis General Information Admitting Diagnosis: [place] NonSTEMI<12 months Personal Learning Style:: Audio/Visual Barriers to Learning: No Barriers Stage of change r/t lifestyle modifications:: Contemplation Gave educational material for:: Treating Heart Disease, How The Heart Works, What it means to have Heart Disease, How Coronary Artery Disease is Diagnosed, Heart Procedures, What Heart Medications Do, Risk Factors & Modifications, Living an Active Life, Nutrition, Emotions & Heart Disease, Stress Management & Relaxation and Sleep Disorders & Heart Disease Education/Goals Cardiac Rehabilitation Goals Personal Goals: Initial Assessment: Get back to work, or to resume activities faster, Improve muscle strength and endurance and Control risk factors (learn risk factor modification) Scale for measuring improvement of personal goals Diagnosis & Disease Process Outcomes/Goals: Pt IDs own risk factors & lifestyle modifications by Session 10, Verbalizes symptoms of angina & response by session 3., Pt independently manages and Other Additional Outcomes/Goals: Plan/Interventions: Assist Pt to ID & engage in lifestyle modification to reduce CVD risk, Instruct on individual risk factors, Review symptoms of angina & emergency actions, Review secondary diagnosis & identify educational needs. and Other see comment 30 day Reassessments:: Not Met 30 day Reassessments:: Not Met 30 day Reassessments:: Not Met 30 day Reassessments:: Not Met Final Reassessments:: Not Met Safety Referral to Physical Therapy: No Referral to [facility] Case Management: No Fall Risk Assessed:: Yes Assistive Devices:: None Exercise - Initial Assessment Visit Date of Eval: 09/04/24 (initial eval ) Mets: Pre-: >3 METS for 30 minutes by discharge, >5 METS for 30 minutes by discharge, >7 METS for 30 minutes by discharge and Unable to meet goal due to: (see comment below) Physician Prescribed Exercise Modalities: Treadmill, Rower, Schwinn Airdyne AD-7, SciFit Stepper, SciFit Pro-II Ergometer and SciFit Lateral [place] Frequency: 3x/week for 12 weeks [36 sessions] Intensity: 60-80% of age predicted maximum heart rate reserve Duration: 30 - 45 minutes Current METSs:: 3 Resting Blood Pressure: 120/70 EKG Type: SB Outcomes & Goals Goals:: Verbalizes understanding of THR, RPE & goal METS by session 6, Documents in home exercise log/reports 30 min aerobic 5 day/wk by DC, Demonstrates accurate pulse taking by DC and Other additional outcome/goals: see below Intervention & Plan Exercise Program Goals: Instruct on personal THR & RPE, Instruct on MET level & personal MET goal, Show patient to take own pulse /validate performance until accurate, Instruct on home exercise and Other additional plan/int Physical Activity Home Exercise Physical Activity - Home Exercise: Safe Exercise, Warm-up, Self-monitoring, Cool-Down, Home Exercise > 30 min Daily and Sitting Time <3 hours/daily Outcomes & Goals Outcomes/Goals: Demonstrates correct Warm-up/exercise Cool-Down (S3) if = 2.5 METs, Verbalizes symptoms of exercise intolerance by Session 3 (S3), Demonstrate safe equipment use (S3) & follows exercise prescrition (6) and Other: See below Intervention & Plan Plan/Intervention: Instruct warm-up & cool-down if exercising at > 2 METs, Instruct on symptoms of exercise intolerance & actions to take, Instruct & monitor on saf, Assess intial functional capacity & safety risk and Other See below Nutrition - Initial Assessment Visit Date of Eval: 09/04/24 (initial eval ) Cholesterol/Lipids (Other Core Measures) Determine presence & major risk factors that modify LDL goal: Cigarette smoking, Hypertension or hypertensive medication, Low HDL cholesterol <40 mg/dL*, Family history of premature CHD in Male < 55 years: female <65 yearsFa and Age men > 45 years; women >/= 55 years Outcomes/Goals: Pt IDs own risk factors & lifestyle modifications by Session 10, Verbalizes symptoms of angina & response by session 3., Pt independently manages and Other Additional Outcomes/Goals: Intervention/Plan: Advocate for lipid panel cholesterol medication if applicable, Instruct on personal lipid levels & lipid goals/NCEP guidelines, Instruct on cholesterol and Other additional plan/int Referral to dietitian:: No (declines) Diabetes (Other Core Measures) Diabetes Type: Diagnosis Type II ICD-10 E11 Non-Insulin Dependent?: Yes Do you monitor your blood sugar at home?: Yes Referral to Diabetic Clinic:: No (declines) Weight Mgt (Other Care) Height: 6 ft 4 in Weight:: 298 lb BMI: 36.2 Diagnosis Overweight/Obesity BMI> 30% ICD-10 E66: Yes Diagnosis High BMI/Morbid Obesity BMI> 35% ICD-10 Z68: Yes Outcomes/Goals: Pt sets, maintains & shows weight loss goal & trend during rehab and Other additional outcomes/goals Intervention/Plan: Instruct on ideal BMI & set weight loss goal w/patient, Assist pt to ID & incorporate diet changes for weight loss by S9, Refer to Structured Weight Loss program as appropriate, Encourage goal of using 250-300dcal per session for weight loss and Other additional plan/interventions Healthy Eating Habits Will attend diet classes:: Yes Outcomes/Goals:: Consume diet rich in vegs,fruits,whole grain/high fiber,fish,lean meat, Limit sat/trans fats,cholesterol & added salts & sugars and Other additional outcome/goals: Intervention/Plan:: Assess current eating habits and Other Additional plan/interventions Education Gave educational materials for:: Signs & symptoms of hypoglycemia, Signs & symptoms of hyperglycemia, Relate diabetes to coronary artery disease and Healthy eating Core - Initial Assessment Visit Date of Eval: 09/04/24 (initial eval ) Medication Compliance Preventative Medication(s):: Aspirin, Clopidogrel/P2Y12 inhibit, Statin/lipid, Beta ash and ARB (Angiotensi Rcap) H/O mental health issues: depression, anxiety, or addiction?: No Doesn?t believe in the benefits of treatment?: No Believes medications are unnecessary or harmful?: No Has a concern about medication side effects?: No Expresses concern over the cost of medications?: No Outcomes/Goals: Verbalizes medications,desired effect & common side effects @ DC, Pt self-reports following medication regimen, Keeps card in wallet w/medications listed by DC and Other additional outcome/goals: Interventions/plans: Instruct on medication effects & side effects, Review medication list w/patient every two weeks, Instruct importance of taking meds as ordered & assist problem solving and Other additional Tobacco Use Tobacco Use: Non-smoker How long ago did you quit using tobacco products?: Greater than or equal to 6 months ago Years Smokin (stopped in 1994) Hypertension Resting Blood Pressure:: 120/70 [place] [employer] Hypertension Guidelines Outcomes/Goals: Able to verbalize/achieve optimal blood pressure <130/80, Incorporates diet changes & exercise for blood pressure control by DC and Other additional outcomes/goals Interventions/plan: Instruct on optimal blood pressure, hypertension & medications, Instruct on effects of sodium, alcohol, stress, exercise &hypertension and Other additional plan/interventions Tobacco Cessation Referral Smoking Cessation Referral:: No Individual Education/Counseling:: No Education Schedule Given:: Yes Psychosocial - Initial Assess VIsit Date of Eval: 09/04/24 (initiaL eval) History of previous Mental disease:: No Target Goals Target Goals Psychosocial Test Tool Used:: [employer] Power QOL Cardiac and PHQ-9 Questionnaire phq-9 Severity Referral to Behavioral Health PS - Interventions: Yes: Attend Stress Management Classes Outcomes/Goals: See list Psychosocial Outcomes/Goals:: ID's personal stressors & 2 strategies to manage stress by discharge and Other Additional outcome/goals: Intervention/Plan: See List Interventions/Plan:: Assess stressors,coping strategies & signs of derpression on admission, Instruct/assist pt to develop coping & personal stress Mgt strategies, Refer to Behavioral Health if appropriate, Refer to Physician if appropriate, Instruct patient to recognize signs & symptoms of depression, Instruct patient to recog and Other additional plan/intervention Patient Health Questionnaire PHQ-9 Screening Initial Assessment: 1. Little interest or pleasure in doing things: Not at all 2. Feeling down, depressed, or hopeless: More than half the days 3. Trouble falling or staying asleep, or sleeping too much: Not at all 4. Feeling tired or having little energy: Not at all 5. Poor appetite or overeating: Several days 6. Feeling bad about yourself -- or that you are a failure or have let yourself or your family down: Not at all 7. Trouble concentrating on things, such as reading the newspaper or watching television: Not at all 8. Moving or speaking so slowly that other people could have noticed. Or the opposite - being so fidgety or restless that you have been moving around a lot more than usual: Not at all 9. Thoughts that you would be better off , or of hurting yourself in some way: Not at all How difficult have these problems made it for you to do your work, take care of things at home, or get along with other people?: Not difficult at all Total Score: 3 MAXIMILIANO-Q SV Test Statements CAD is a disease of the arteries in the heart: False Examples of risk factors for heart disease: True Angina is chest pain or discomfort: True The benefits of resistance training include: True Eating more meat and dairy products: False Anti-platelet medications such as aspirin are important: True The only effective way to manage stress: False An exercise warm-up slowly increases heart rate: I Don't Know Prepared, processed foods usually have high sodium: True Depression is common after a heart attack: I Don't Know The statin medications lower cholesterol: True To control blood pressure, lower the amount of sodium: True If someone gets chest discomfort during walking: False Transfats are partially hydrogenated vegetable oils: True Sleep apnea that is not treated increases the risk: True To control cholesterol, one should become a vegetarian: False Someone knows if he/she is exercising at the right level: False Diabetes cannot be prevented with exercise & health eating: True Stress is a large risk for heart attack: True A diet that can help lower blood pressure is rich in: I Don't Know Total Score Total Correct Responses: 14 Self-Efficacy 6-Item Scale Initial Assessment: We would like to know how confident you are in doing certain activities. Please select your confidence level for: Fatigue Select Number: 5 Physical Discomfort or Pain Select Number: 5 Emotional Distress Select Number: 6 Other Symptoms or Health Problems Select Number: 10 Different Tasks and Activities Select Number: 10 Medication Select Number: 10 Total Score:: 7 Nutrition Survey Nutrition Survey Instructions Scoring Instructions Nutrition Survey Initial: Have you lost >10 lbs over the past 2 months without trying?: No Are you following a special diet at home for diabetes, low fat, or low salt?: Yes Are you interested in meeting with a dietitian for help understanding your diet?: No Do you eat less than 3 meals a day?: Yes Do you eat fatty meats (lockhart, sausage, ribs, etc), fried foods, desserts, large amounts of salad dressings, margarine, butter, or cheese most days?: No Do you have food allergies? [Enter types in comment field]: No Do you eat in restaurants more than 3 times a week?: No Do you season food with salt, seasoning salt, or garlic salt?: Yes Do you used canned, boxed, frozen meals, or soups, seasoning packets?: No Total Score:: 3 Exercise - 30-day Assessment Physician Prescribed Exercise Modalities: Treadmill, Rower, [place] AD-7, SciFit Stepper, SciFit Pro-II Ergometer and SciFit Lateral Industrial Therapist Exercise - 60-day Assessment Physician Prescribed Exercise Modalities: Treadmill, Rower, Schw[place] AD-7, SciFit Stepper, SciFit Pro-II Ergometer and SciFit Lateral [place] Exercise - 90-day Assessment Physician Prescribed Exercise Modalities: Treadmill, Rower, Schwinn [place]yne AD-7, SciFit Stepper, SciFit Pro-II Ergometer and SciFit Lateral Industrial Therapist Exercise - Final/Discharge Physician Prescribed Exercise Modalities: Treadmill, Rower, Schwinn [place] AD-7, SciFit Stepper, SciFit Pro-II Ergometer and SciFit Lateral Industrial Therapist Frequency: 3x/week for 12 weeks [36 sessions] Intensity: 60-80% of age predicted maximum heart rate reserve Current METSs:: 3 Nutrition - 30-Day Assessment Weight Mgt (Other Care) Height: 6 ft 4 in Weight:: 298 lb BMI: 36.2 Nutrition - 60-Day Assessment Weight Mgt (Other Care) Height: 6 ft 4 in Weight:: 298 lb BMI: 36.2 Core - 30-Day Assessment Tobacco Use Years Smokin (stopped in 1994) Core - Final Assessment Hypertension Resting Blood Pressure:: 120/70 [place] [employer] Hypertension Guidelines Core - 60-Day Assessment Hypertension Resting Blood Pressure:: 120/70 [place] [employer] Hypertension Guidelines Psychosocial - 30-Day Assess Target Goals Target Goals Referral to Behavioral Health PS - Interventions: Yes: Attend Stress Management Classes Psychosocial - 60-Day Assess Target Goals Target Goals Referral to Behavioral Health PS - Interventions: Yes: Attend Stress Management Classes Psychosocial - 90-Day Assess Target Goals Target Goals Referral to Behavioral Health PS - Interventions: Yes: Attend Stress Management Classes Psychosocial - Final Assessmen Target Goals Target Goals Referral to Behavioral Health PS - Interventions: Yes: Attend Stress Management Classes Nutrition - 90-Day Assessment Weight Mgt (Other Care) Height: 6 ft 4 in Weight:: 298 lb BMI: 36.2 Nutrition - Final Assessment Weight Mgt (Other Care) Height: 6 ft 4 in Weight:: 298 lb BMI: 36.2
[2024-09-04 14:24] VITALS: BP 120/70; PULSE 56; O2SAT 96
[2024-09-04 14:56] VITALS: BP 120/70; BMI 36.2
== END | disposition home or self-care (01) ==
LOC: CR 13:50
PROVIDERS: PCP Family Medicine; Referring Provider Internal Medicine Cardiovascular Disease; Visit Provider Internal Medicine Cardiovascular Disease
DX: I25.10 Atherosclerotic heart disease of native coronary artery without angina pectoris (principal); I25.2 Old myocardial infarction; Z95.5 Presence of coronary angioplasty implant and graft

== ENCOUNTER 2024-09-08 09:03 | Outpatient (RCR) | payer OTHER, SELFPAY ==
[2024-09-04 14:56] VITALS: BMI 36.2
== END 2024-09-09 23:59 ==
LOC: CR 09:03
PROVIDERS: PCP Family Medicine; Referring Provider Internal Medicine Cardiovascular Disease; Visit Provider Internal Medicine Cardiovascular Disease
DX: I21.4 Non-ST elevation (NSTEMI) myocardial infarction (principal); I25.10 Atherosclerotic heart disease of native coronary artery without angina pectoris; R07.89 Other chest pain; R06.02 Shortness of breath; Z95.5 Presence of coronary angioplasty implant and graft
CPT/HCPCS: 93798

== ENCOUNTER 2024-10-10 08:00 | Outpatient (RCR) | payer OTHER, SELFPAY ==
[2024-09-04 14:56] VITALS: BMI 36.2
--- NOTE | 2024-10-03 09:03 | PCM.CR.ITP ---
Exercise - Initial Assessment Visit Session #:: 10 Physician Prescribed Exercise Modalities: Treadmill, Schwinn Airdyne AD-7 and SciFit Stepper Nutrition - Initial Assessment Weight Mgt (Other Care) Height: 6 ft 4 in Weight:: 311 lb BMI: 37.8 Psychosocial - Initial Assess Target Goals Target Goals Referral to Behavioral Health PS - Interventions: Yes: Attend Stress Management Classes Patient Health Questionnaire PHQ-9 Screening 30-Day Re-eval Assessment: 1. Little interest or pleasure in doing things: Not at all 2. Feeling down, depressed, or hopeless: More than half the days 3. Trouble falling or staying asleep, or sleeping too much: Not at all 4. Feeling tired or having little energy: Not at all 5. Poor appetite or overeating: Several days 6. Feeling bad about yourself -- or that you are a failure or have let yourself or your family down: Not at all 7. Trouble concentrating on things, such as reading the newspaper or watching television: Not at all 8. Moving or speaking so slowly that other people could have noticed. Or the opposite - being so fidgety or restless that you have been moving around a lot more than usual: Not at all 9. Thoughts that you would be better off , or of hurting yourself in some way: Not at all How difficult have these problems made it for you to do your work, take care of things at home, or get along with other people?: Not difficult at all Total Score: 3 Self-Efficacy 6-Item Scale 30-Day Re-eval Assessment: We would like to know how confident you are in doing certain activities. Please select your confidence level for: Fatigue Select Number: 5 Physical Discomfort or Pain Select Number: 5 Emotional Distress Select Number: 6 Other Symptoms or Health Problems Select Number: 10 Different Tasks and Activities Select Number: 10 Medication Select Number: 10 Total Score:: 7 Nutrition Survey Nutrition Survey Instructions Scoring Instructions Exercise - 30-day Assessment Visit Date of Eval: 10/03/24 Session #:: 10 Physician Prescribed Exercise Modalities: Treadmill, Schwinn Airdyne AD-7 and SciFit Stepper Frequency: 3x/week for 12 weeks [36 sessions] Intensity: 60-80% of age predicted maximum heart rate reserve Duration: 30 - 45 minutes Current METSs:: 5.4 Target Heart Rate:: 95-119 Current RPE:: 12-13 Maximum Excercise HR:: 99 Resting Blood Pressure: 122/70 Maximum Exercise Blood Pressure: 148/90 EKG Type: NSR with occas PVC Outcomes & Goals Goals:: Verbalizes understanding of THR, RPE & goal METS by session 6, Documents in home exercise log/reports 30 min aerobic 5 day/wk by DC, Demonstrates accurate pulse taking by DC and Other additional outcome/goals: see below Intervention & Plan Exercise Program Goals: Instruct on personal THR & RPE, Instruct on MET level & personal MET goal, Show patient to take own pulse /validate performance until accurate, Instruct on home exercise and Other additional plan/int Physical Activity Home Exercise Physical Activity - Home Exercise: Safe Exercise, Warm-up, Self-monitoring, Cool-Down, Home Exercise > 30 min Daily and Sitting Time <3 hours/daily Outcomes & Goals Outcomes/Goals: Demonstrates correct Warm-up/exercise Cool-Down (S3) if = 2.5 METs, Verbalizes symptoms of exercise intolerance by Session 3 (S3), Demonstrate safe equipment use (S3) & follows exercise prescrition (6) and Other: See below Intervention & Plan Plan/Intervention: Instruct warm-up & cool-down if exercising at > 2 METs, Instruct on symptoms of exercise intolerance & actions to take, Instruct & monitor on saf, Assess intial functional capacity & safety risk and Other See below 30-day Reassessments 30 day Reassessments:: Progressing Reassessment Notes & Comments:: RPE explained to pt. Pt demonstrates understanding Exercise - 60-day Assessment Physician Prescribed Exercise Modalities: Treadmill, Schwinn Airdyne AD-7 and SciFit Stepper Exercise - 90-day Assessment Physician Prescribed Exercise Modalities: Treadmill, Schwinn Airdyne AD-7 and SciFit Stepper Exercise - Final/Discharge Physician Prescribed Exercise Modalities: Treadmill, Schwinn Airdyne AD-7 and SciFit Stepper Nutrition - 30-Day Assessment Visit Date of Eval: 10/03/24 Session #:: 10 Cholesterol/Lipids (Other Core Measures) Determine presence & major risk factors that modify LDL goal: Cigarette smoking, Hypertension or hypertensive medication, Low HDL cholesterol <40 mg/dL*, Family history of premature CHD in Male < 55 years: female <65 yearsFa and Age men > 45 years; women >/= 55 years Outcomes/Goals: Pt IDs own risk factors & lifestyle modifications by Session 10, Verbalizes symptoms of angina & response by session 3., Pt independently manages and Other Additional Outcomes/Goals: Intervention/Plan: Advocate for lipid panel cholesterol medication if applicable, Instruct on personal lipid levels & lipid goals/NCEP guidelines, Instruct on cholesterol and Other additional plan/int Referral to dietitian:: No (declines) Diabetes (Other Core Measures) Diabetes Type: Diagnosis Type II ICD-10 E11 Insulin dependent injection/pump?: Yes Do you monitor your blood sugar at home?: Yes Referral to Diabetic Clinic:: No (declines) Weight Mgt (Other Care) Height: 6 ft 4 in Weight:: 311 lb BMI: 37.8 Diagnosis Overweight/Obesity BMI> 30% ICD-10 E66: Yes Diagnosis High BMI/Morbid Obesity BMI> 35% ICD-10 Z68: Yes Outcomes/Goals: Pt sets, maintains & shows weight loss goal & trend during rehab and Other additional outcomes/goals Intervention/Plan: Instruct on ideal BMI & set weight loss goal w/patient, Assist pt to ID & incorporate diet changes for weight loss by S9, Refer to Structured Weight Loss program as appropriate, Encourage goal of using 250-300dcal per session for weight loss and Other additional plan/interventions Healthy Eating Habits Will attend diet classes:: Yes Outcomes/Goals:: Consume diet rich in vegs,fruits,whole grain/high fiber,fish,lean meat, Limit sat/trans fats,cholesterol & added salts & sugars and Other additional outcome/goals: Intervention/Plan:: Assess current eating habits and Other Additional plan/interventions 30-day Reassessments:: Progressing Reassessment Notes & Comments:: Pt is scheduled to attend nutrition class. Pt encouraged to keep a food diary Education Gave educational materials for:: Signs & symptoms of hypoglycemia, Signs & symptoms of hyperglycemia, Relate diabetes to coronary artery disease and Healthy eating Nutrition - 60-Day Assessment Weight Mgt (Other Care) Height: 6 ft 4 in Weight:: 311 lb BMI: 37.8 Core - 30-Day Assessment Visit Date of Eval: 10/03/24 Session #:: 10 Medication Compliance Preventative Medication(s):: Aspirin, Clopidogrel/P2Y12 inhibit, Statin/lipid, Beta ash and ARB (Angiotensi Rcap) H/O mental health issues: depression, anxiety, or addiction?: No Doesn?t believe in the benefits of treatment?: No Believes medications are unnecessary or harmful?: No Has a concern about medication side effects?: No Expresses concern over the cost of medications?: No Outcomes/Goals: Verbalizes medications,desired effect & common side effects @ DC, Pt self-reports following medication regimen, Keeps card in wallet w/medications listed by DC and Other additional outcome/goals: Interventions/plans: Instruct on medication effects & side effects, Review medication list w/patient every two weeks, Instruct importance of taking meds as ordered & assist problem solving and Other additional Tobacco Use Tobacco Use: Non-smoker Hypertension Resting Blood Pressure:: 122/70 [place] [employer] Hypertension Guidelines Peak Exercise Blood Pressure:: 148/90 Outcomes/Goals: Able to verbalize/achieve optimal blood pressure <130/80, Incorporates diet changes & exercise for blood pressure control by DC and Other additional outcomes/goals Interventions/plan: Instruct on optimal blood pressure, hypertension & medications, Instruct on effects of sodium, alcohol, stress, exercise &hypertension and Other additional plan/interventions 30 day Reassessments:: Progressing Reassessment Notes & Comments:: Pt's BP's are within AHA normal limits on most days. Will continue to monitor Tobacco Cessation Referral Smoking Cessation Referral:: No Individual Education/Counseling:: No Education Schedule Given:: Yes Psychosocial - 30-Day Assess VIsit Date of Eval: 10/03/24 Session #:: 10 History of previous Mental disease:: No Target Goals Target Goals Psychosocial Test Tool Used:: [employer] Power QOL Cardiac and PHQ-9 Questionnaire phq-9 Severity Referral to Behavioral Health PS - Interventions: Yes: Attend Stress Management Classes Outcomes/Goals: See list Psychosocial Outcomes/Goals:: ID's personal stressors & 2 strategies to manage stress by discharge and Other Additional outcome/goals: Intervention/Plan: See List Interventions/Plan:: Assess stressors,coping strategies & signs of derpression on admission, Instruct/assist pt to develop coping & personal stress Mgt strategies, Refer to Behavioral Health if appropriate, Refer to Physician if appropriate, Instruct patient to recognize signs & symptoms of depression, Instruct patient to recog and Other additional plan/intervention 30-day Reassessments: 30 day Reassessments:: Met Reassessment Notes & Comments:: Pt denies any psychosocial issues at this time. Psychosocial - 60-Day Assess Target Goals Target Goals Referral to Behavioral Health PS - Interventions: Yes: Attend Stress Management Classes Outcomes/Goals: See list Psychosocial Outcomes/Goals:: ID's personal stressors & 2 strategies to manage stress by discharge and Other Additional outcome/goals: Psychosocial - 90-Day Assess Target Goals Target Goals Referral to Behavioral Health PS - Interventions: Yes: Attend Stress Management Classes Psychosocial - Final Assessmen Target Goals Target Goals Referral to Behavioral Health PS - Interventions: Yes: Attend Stress Management Classes Nutrition - 90-Day Assessment Weight Mgt (Other Care) Height: 6 ft 4 in Weight:: 311 lb BMI: 37.8 Nutrition - Final Assessment Weight Mgt (Other Care) Height: 6 ft 4 in Weight:: 311 lb BMI: 37.8
[2024-10-03 09:13] VITALS: BP 122/70; BMI 37.8
== END 2024-10-10 23:59 ==
LOC: CR 08:00
PROVIDERS: PCP Family Medicine; Referring Provider Internal Medicine Cardiovascular Disease; Visit Provider Internal Medicine Cardiovascular Disease
DX: I21.4 Non-ST elevation (NSTEMI) myocardial infarction (principal); I25.10 Atherosclerotic heart disease of native coronary artery without angina pectoris; R07.89 Other chest pain; R06.02 Shortness of breath; Z95.5 Presence of coronary angioplasty implant and graft

== ENCOUNTER 2024-11-07 08:00 | Outpatient (RCR) | payer OTHER, SELFPAY ==
[2024-10-03 09:13] VITALS: BMI 37.8
[2024-10-11 00:54] VITALS: BP 122/70
--- NOTE | 2024-11-04 07:33 | CR.ITP_ITS ---
Exercise - Initial Assessment Physician Prescribed Exercise Modalities: Treadmill, Schwinn Airdyne AD-7 and SciFit Stepper Nutrition - Initial Assessment Weight Mgt (Other Care) Height: 6 ft 4 in Weight:: 308 lb 8 oz BMI: 37.5 Core - Initial Assessment Hypertension Resting Blood Pressure:: 118/64 Citizen Of [place] Heart Association Hypertension Guidelines Psychosocial - Initial Assess Target Goals Target Goals Referral to Behavioral Health PS - Interventions: Yes: Attend Stress Management Classes Patient Health Questionnaire PHQ-9 Screening 60-Day Re-eval Assessment: 1. Little interest or pleasure in doing things: Not at all 2. Feeling down, depressed, or hopeless: More than half the days 3. Trouble falling or staying asleep, or sleeping too much: Not at all 4. Feeling tired or having little energy: Not at all 5. Poor appetite or overeating: Several days 6. Feeling bad about yourself -- or that you are a failure or have let yourself or your family down: Not at all 7. Trouble concentrating on things, such as reading the newspaper or watch ing television: Not at all 8. Moving or speaking so slowly that other people could have noticed. Or the opposite - being so fidgety or restless that you have been moving around a lot more than usual: Not at all 9. Thoughts that you would be better off , or of hurting yourself in some way: Not at all How difficult have these problems made it for you to do your work, take care of things at home, or get along with other people?: Not difficult at all Total Score: 3 Self-Efficacy 6-Item Scale 60-Day Re-eval Assessment: We would like to know how confident you are in doing certain activities. Please select your confidence level for: Fatigue Select Number: 5 Physical Discomfort or Pain Select Number: 5 Emotional Distress Select Number: 6 Other Symptoms or Health Problems Select Number: 10 Different Tasks and Activities Select Number: 10 Medication Select Number: 10 Total Score:: 7 Nutrition Survey Nutrition Survey Instructions Scoring Instructions Exercise - 30-day Assessment Physician Prescribed Exercise Modalities: Treadmill, Schwinn Airdyne AD-7 and SciFit Stepper Exercise - 60-day Assessment Visit Date of Eval: 11/04/24 Session #:: 20 Physician Prescribed Exercise Modalities: Treadmill, Schwinn Airdyne AD-7 and SciFit Stepper Frequency: 3x/week for 12 weeks [36 sessions] Intensity: 60-80% of age predicted maximum heart rate reserve Duration: 30 - 45 minutes Current METSs:: 6.6 Target Heart Rate:: 95-119 Current RPE:: 13-14 Maximum Excercise HR:: 114 Resting Blood Pressure: 120/68 Maximum Exercise Blood Pressure: 192/90 EKG Type: SB to St occas PVC, rare PAC Outcomes & Goals Goals:: Verbalizes understanding of THR, RPE & goal METS by session 6, Documents in home exercise log/reports 30 min aerobic 5 day/wk by DC, Demonstrates accurate pulse taking by DC and Other additional outcome/goals: see below Intervention & Plan Exercise Program Goals: Instruct on personal THR & RPE, Instruct on MET level & personal MET goal, Show patient to take own pulse /validate performance until accurate, Instruct on home exercise and Other additional plan/int Physical Activity Home Exercise Physical Activity - Home Exercise: Safe Exercise, Warm-up, Self-monitoring, Cool-Down, Home Exercise > 30 min Daily and Sitting Time <3 hours/daily Outcomes & Goals Outcomes/Goals: Demonstrates correct Warm-up/exercise Cool-Down (S3) if = 2.5 METs, Verbalizes symptoms of exercise intolerance by Session 3 (S3), Demonstrate safe equipment use (S3) & follows exercise prescrition (6) and Other: See below Intervention & Plan Plan/Intervention: Instruct warm-up & cool-down if exercising at > 2 METs, Instruct on symptoms of exercise intolerance & actions to take, Instruct & monitor on saf, Assess intial functional capacity & safety risk and Other See below 30-day Reassessments 30 day Reassessments:: Progressing Reassessment Notes & Comments:: Slow warm up explained and demonstrated to pt. Pt is able to return demonstration. Exercise - 90-day Assessment Physician Prescribed Exercise Modalities: Treadmill, Schwinn Airdyne AD-7 and SciFit Stepper Exercise - Final/Discharge Physician Prescribed Exercise Modalities: Treadmill, Schwinn Airdyne AD-7 and SciFit Stepper Nutrition - 30-Day Assessment Weight Mgt (Other Care) Height: 6 ft 4 in Weight:: 308 lb 8 oz BMI: 37.5 Nutrition - 60-Day Assessment Program Goals Nutrition Program Goals Patient has diagnosis of Hyperlipidemia (ICD E78)?: Yes Visit Date of Eval: 11/04/24 Session #:: 20 Cholesterol/Lipids (Other Core Measures) Determine presence & major risk factors that modify LDL goal: Hypertension or hypertensive medication, Low HDL cholesterol <40 mg/dL*, Family history of premature CHD in Male < 55 years: female <65 yearsFa and Age men > 45 years; women >/= 55 years Outcomes/Goals: Pt IDs own risk factors & lifestyle modifications by Session 10, Verbalizes symptoms of angina & response by session 3., Pt independently manages and Other Additional Outcomes/Goals: Intervention/Plan: Advocate for lipid panel cholesterol medication if applicable, Instruct on personal lipid levels & lipid goals/NCEP guidelines, Instruct on cholesterol and Other additional plan/int Referral to dietitian:: No (declines) Diabetes (Other Core Measures) Diabetes Type: Diagnosis Type II ICD-10 E11 Insulin dependent injection/pump?: Yes Do you monitor your blood sugar at home?: Yes Referral to Diabetic Clinic:: No (declines) 30-day Reassessments:: Met Reassessment Notes & Comments:: Pt works with his physician to control his BS. Weight Mgt (Other Care) Height: 6 ft 4 in Weight:: 308 lb 8 oz BMI: 37.5 Diagnosis Overweight/Obesity BMI> 30% ICD-10 E66: Yes Diagnosis High BMI/Morbid Obesity BMI> 35% ICD-10 Z68: Yes Outcomes/Goals: Pt sets, maintains & shows weight loss goal & trend during rehab and Other additional outcomes/goals Intervention/Plan: Instruct on ideal BMI & set weight loss goal w/patient, Assist pt to ID & incorporate diet changes for weight loss by S9, Refer to Structured Weight Loss program as appropriate, Encourage goal of using 250- 300dcal per session for weight loss and Other additional plan/interventions Healthy Eating Habits Will attend diet classes:: Yes Outcomes/Goals:: Consume diet rich in vegs,fruits,whole grain/high fiber,fish,lean meat, Limit sat/trans fats,cholesterol & added salts & sugars and Other additional outcome/goals: 30-day Reassessments:: Progressing Reassessment Notes & Comments:: Pt has lost 2.5 lbs in the last month. Pt attended nutrition class last week. Low sodium heart healthy diet encouraged. Education Gave educational materials for:: Signs & symptoms of hypoglycemia, Signs & symptoms of hyperglycemia, Relate diabetes to coronary artery disease and Healthy eating Core - Final Assessment Hypertension Resting Blood Pressure:: 118/64 Citizen Of [place] Heart Association Hypertension Guidelines Core - 60-Day Assessment Visit Date of Eval: 11/04/24 Session #:: 20 Medication Compliance Preventative Medication(s):: Aspirin, Clopidogrel/P2Y12 inhibit, Statin/lipid, Beta ash and ARB (Angiotensi Rcap) H/O mental health issues: depression, anxiety, or addiction?: No Doesn?t believe in the benefits of treatment?: No Believes medications are unnecessary or harmful?: No Has a concern about medication side effects?: No Expresses concern over the cost of medications?: No Outcomes/Goals: Verbalizes medications,desired effect & common side effects @ DC, Pt self-reports following medication regimen, Keeps card in wallet w/medications listed by DC and Other additional outcome/goals: Interventions/plans: Instruct on medication effects & side effects, Review medication list w/patient every two weeks, Instruct importance of taking meds as ordered & assist problem solving and Other additional Tobacco Use Tobacco Use: Non-smoker Hypertension Hypertension Diagnosis:: Hypertension ICD-10 I10 Resting Blood Pressure:: 120/68 Resting Blood Pressure:: 118/64 Citizen Of [place] Heart Association Hypertension Guidelines Peak Exercise Blood Pressure:: 192/90 Outcomes/Goals: Able to verbalize/achieve optimal blood pressure <130/80, Incorporates diet changes & exercise for blood pressure control by DC and Other additional outcomes/goals Interventions/plan: Instruct on optimal blood pressure, hypertension & medications, Instruct on effects of sodium, alcohol, stress, exercise &hypertension and Other additional plan/interventions 30 day Reassessments:: Met Reassessment Notes & Comments:: Pt's BP's are within AHA normal limits. Will continue to monitor. Tobacco Cessation Referral Smoking Cessation Referral:: No Individual Education/Counseling:: No Education Schedule Given:: Yes Psychosocial - 30-Day Assess Target Goals Target Goals Referral to Behavioral Health PS - Interventions: Yes: Attend Stress Management Classes Outcomes/Goals: See list Psychosocial Outcomes/Goals:: ID's personal stressors & 2 strategies to manage stress by discharge and Other Additional outcome/goals: Psychosocial - 60-Day Assess VIsit Date of Eval: 11/04/24 Session #:: 20 History of previous Mental disease:: No Target Goals Target Goals Psychosocial Test Tool Used:: [employer] Power QOL Cardiac and PHQ-9 Questionnaire phq-9 Severity Referral to Behavioral Health PS - Interventions: Yes: Attend Stress Management Classes Outcomes/Goals: See list Psychosocial Outcomes/Goals:: ID's personal stressors & 2 strategies to manage stress by discharge and Other Additional outcome/goals: Intervention/Plan: See List Interventions/Plan:: Assess stressors,coping strategies & signs of derpression on admission, Instruct/assist pt to develop coping & personal stress Mgt strategies, Refer to Behavioral Health if appropriate, Refer to Physician if appropriate, Instruct patient to recognize signs & symptoms of depression, Instruct patient to recog and Other additional plan/intervention 30-day Reassessments: 30 day Reassessments:: Met Reassessment Notes & Comments:: Pt denies any psychosocial issues at this time. Psychosocial - 90-Day Assess Target Goals Target Goals Referral to Behavioral Health PS - Interventions: Yes: Attend Stress Management Classes Psychosocial - Final Assessmen Target Goals Target Goals Referral to Behavioral Health PS - Interventions: Yes: Attend Stress Management Classes Nutrition - 90-Day Assessment Weight Mgt (Other Care) Height: 6 ft 4 in Weight:: 308 lb 8 oz BMI: 37.5 Nutrition - Final Assessment Weight Mgt (Other Care) Height: 6 ft 4 in Weight:: 308 lb 8 oz BMI: 37.5
[2024-11-04 07:47] VITALS: BP 118/64; BP 120/68; BMI 37.5
== END 2024-11-07 23:59 ==
LOC: CR 08:00
PROVIDERS: PCP Family Medicine; Referring Provider Internal Medicine Cardiovascular Disease; Visit Provider Internal Medicine Cardiovascular Disease
DX: I21.4 Non-ST elevation (NSTEMI) myocardial infarction (principal); I25.10 Atherosclerotic heart disease of native coronary artery without angina pectoris; R07.89 Other chest pain; R06.02 Shortness of breath; Z95.5 Presence of coronary angioplasty implant and graft
CPT/HCPCS: 93798

== ENCOUNTER 2024-11-12 08:00 | Outpatient (RCR) | payer OTHER, SELFPAY ==
[2024-11-04 07:47] VITALS: BMI 37.5
[2024-11-08 00:45] VITALS: BP 118/64; BP 120/68; BP 122/70
--- NOTE | 2024-12-01 08:13 | CR.ITP_ITS ---
Exercise - Initial Assessment Physician Prescribed Exercise Modalities: Treadmill, Schwinn Airdyne AD-7 and SciFit Stepper Nutrition - Initial Assessment Weight Mgt (Other Care) Height: 6 ft 4 in Weight:: 310 lb 8 oz BMI: 37.8 Psychosocial - Initial Assess Target Goals Target Goals Referral to Behavioral Health PS - Interventions: Yes: Attend Stress Management Classes and No: Referral to Behavioral Health if PHQ-9 score >9:, No: Referral to [facility] and No: Referral to Physician if PHQ-9 if score is 5-9: Patient Health Questionnaire PHQ-9 Screening 90-Day Re-eval Assessment: 1. Little interest or pleasure in doing things: Not at all 2. Feeling down, depressed, or hopeless: More than half the days 3. Trouble falling or staying asleep, or sleeping too much: Not at all 4. Feeling tired or having little energy: Not at all 5. Poor appetite or overeating: Several days 6. Feeling bad about yourself -- or that you are a failure or have let yourself or your family down: Not at all 7. Trouble concentrating on things, such as reading the newspaper or watching television: Not at all 8. Moving or speaking so slowly that other people could have noticed. Or the opposite - being so fidgety or restless that you have been moving around a lot more than usual: Not at all 9. Thoughts that you would be better off , or of hurting yourself in some way: Not at all How difficult have these problems made it for you to do your work, take care of things at home, or get along with other people?: Not difficult at all Total Score: 3 Self-Efficacy 6-Item Scale 90-Day Re-eval Assessment: We would like to know how confident you are in doing certain activities. Please select your confidence level for: Fatigue Select Number: 5 Physical Discomfort or Pain Select Number: 5 Emotional Distress Select Number: 6 Other Symptoms or Health Problems Select Number: 10 Different Tasks and Activities Select Number: 10 Medication Select Number: 10 Total Score:: 7 Nutrition Survey Nutrition Survey Instructions Scoring Instructions Exercise - 30-day Assessment Physician Prescribed Exercise Modalities: Treadmill, Schwinn Airdyne AD-7 and SciFit Stepper Exercise - 60-day Assessment Physician Prescribed Exercise Modalities: Treadmill, Schwinn Airdyne AD-7 and SciFit Stepper Exercise - 90-day Assessment Visit Date of Eval: 12/01/24 Session #:: 25 Comments:: has been unable to attend rehab since 11/12/24 due to illness. Physician Prescribed Exercise Modalities: Treadmill, Schwinn Airdyne AD-7 and SciFit Stepper Frequency: 3x/week for 12 weeks [36 sessions] Intensity: 60-80% of age predicted maximum heart rate reserve Duration: 30 - 45 minutes METs - Progression 0.5-1.0 weekly:: 0.5 Target RPE 12-16:: 12-16 Current RPE:: 13 Maximum Excercise HR:: 132 Resting Blood Pressure: 120/76 Maximum Exercise Blood Pressure: 188/82 EKG Type: sinus larisa to sinus tach, with rare PAC/PVC. Current Physical Activity or Exercising minutes: 30 MINS Outcomes & Goals Goals:: Verbalizes understanding of THR, RPE & goal METS by session 6, Documents in home exercise log/reports 30 min aerobic 5 day/wk by DC and Demonstrates accurate pulse taking by DC Intervention & Plan Exercise Program Goals: Instruct on personal THR & RPE, Instruct on MET level & personal MET goal, Show patient to take own pulse /validate performance until accurate and Instruct on home exercise Physical Activity Home Exercise Physical Activity - Home Exercise: Safe Exercise, Warm-up, Self-monitoring, Cool-Down, Home Exercise > 30 min Daily and Sitting Time <3 hours/daily Outcomes & Goals Outcomes/Goals: Demonstrates correct Warm-up/exercise Cool-Down (S3) if = 2.5 METs, Verbalizes symptoms of exercise intolerance by Session 3 (S3) and Demonstrate safe equipment use (S3) & follows exercise prescrition (6) Intervention & Plan Plan/Intervention: Instruct warm-up & cool-down if exercising at > 2 METs, Instruct on symptoms of exercise intolerance & actions to take, Instruct & monitor on saf and Assess intial functional capacity & safety risk 30-day Reassessments 30 day Reassessments:: Progressing Reassessment Notes & Comments:: Pt demonstrates safe exercise practices including warm up/cool down period and rating accurately on RPE scale during exercise sessions. Exercise - Final/Discharge Physician Prescribed Exercise Modalities: Treadmill, Schwinn Airdyne AD-7 and SciFit Stepper Nutrition - 30-Day Assessment Weight Mgt (Other Care) Height: 6 ft 4 in Weight:: 310 lb 8 oz BMI: 37.8 Nutrition - 60-Day Assessment Weight Mgt (Other Care) Height: 6 ft 4 in Weight:: 310 lb 8 oz BMI: 37.8 Core - 30-Day Assessment Hypertension [place] [employer] Hypertension Guidelines Reassessment Notes & Comments:: BP's WNL before, during, and after exercise. will continue to trend BP's and report to physician if necessary. Core - Final Assessment Hypertension [place] [employer] Hypertension Guidelines Reassessment Notes & Comments:: BP's WNL before, during, and after exercise. will continue to trend BP's and report to physician if necessary. Core - 90 Day Assessment Visit Date of Eval: 12/01/24 Session #:: 25 Medication Compliance Preventative Medication(s):: Aspirin, Clopidogrel/P2Y12 inhibit, Statin/lipid, Beta ash and ARB (Angiotensi Rcap) H/O mental health issues: depression, anxiety, or addiction?: No Doesn?t believe in the benefits of treatment?: No Believes medications are unnecessary or harmful?: No Has a concern about medication side effects?: No Expresses concern over the cost of medications?: No Outcomes/Goals: Verbalizes medications,desired effect & common side effects @ DC, Pt self-reports following medication regimen and Keeps card in wallet w/medications listed by DC Interventions/plans: Instruct on medication effects & side effects, Review medication list w/patient every two weeks and Instruct importance of taking meds as ordered & assist problem solving 30-day Reassessments:: Met Reassessment Notes & Comments:: Pt reports taking medication as prescribed and BP's and heart rates are remaining WNL. Tobacco Use Tobacco Use: Non-smoker 30-day Reassessments:: Met Hypertension Hypertension Diagnosis:: Hypertension ICD-10 I10 Resting Blood Pressure:: 120/76 [place] [employer] Hypertension Guidelines Peak Exercise Blood Pressure:: 188/82 Outcomes/Goals: Able to verbalize/achieve optimal blood pressure <130/80 and Incorporates diet changes & exercise for blood pressure control by DC Interventions/plan: Instruct on optimal blood pressure, hypertension & medications, Instruct on effects of sodium, alcohol, stress, exercise &hypertension and Other additional plan/interventions 30 day Reassessments:: Met Reassessment Notes & Comments:: BP's WNL before, during, and after exercise. will continue to trend BP's and report to physician if necessary. Tobacco Cessation Referral Smoking Cessation Referral:: No Individual Education/Counseling:: No Education Schedule Given:: Yes Psychosocial - 30-Day Assess Target Goals Target Goals Referral to Behavioral Health PS - Interventions: Yes: Attend Stress Management Classes and No: Referral to Behavioral Health if PHQ-9 score >9:, No: Referral to [facility] and No: Referral to Physician if PHQ-9 if score is 5-9: Psychosocial - 60-Day Assess Target Goals Target Goals Referral to Behavioral Health PS - Interventions: Yes: Attend Stress Management Classes and No: Referral to Behavioral Health if PHQ-9 score >9:, No: Referral to [facility] and No: Referral to Physician if PHQ-9 if score is 5-9: Psychosocial - 90-Day Assess VIsit Date of Eval: 12/01/24 Session #:: 25 History of previous Mental disease:: No Target Goals Target Goals Psychosocial Test Tool Used:: PHQ-9 Questionnaire phq-9 Severity See PHQ-9 Score: 3 Referral to Behavioral Health PS - Interventions: Yes: Attend Stress Management Classes and No: Referral to Behavioral Health if PHQ-9 score >9:, No: Referral to [facility] and No: Referral to Physician if PHQ-9 if score is 5-9: Outcomes/Goals: See list Psychosocial Outcomes/Goals:: ID's personal stressors & 2 strategies to manage stress by discharge Intervention/Plan: See List Interventions/Plan:: Assess stressors,coping strategies & signs of derpression on admission, Instruct/assist pt to develop coping & personal stress Mgt strategies, Refer to Behavioral Health if appropriate, Refer to Physician if appropriate, Instruct patient to recognize signs & symptoms of depression and Instruct patient to recog 30-day Reassessments: 30 day Reassessments:: Progressing Reassessment Notes & Comments:: Pt has not attended rehab since 11/12 due to being sick. no psychosocial issues noted previously, but unable to reassess due to absence. Psychosocial - Final Assessmen Target Goals Target Goals Referral to Behavioral Health PS - Interventions: Yes: Attend Stress Management Classes and No: Referral to Behavioral Health if PHQ-9 score >9:, No: Referral to [facility] and No: Referral to Physician if PHQ-9 if score is 5-9: Nutrition - 90-Day Assessment Visit Date of Eval: 12/01/24 Session #:: 25 Cholesterol/Lipids (Other Core Measures) Determine presence & major risk factors that modify LDL goal: Hypertension or hypertensive medication, Low HDL cholesterol <40 mg/dL*, Family history of premature CHD in Male < 55 years: female <65 yearsFa and Age men > 45 years; women >/= 55 years Outcomes/Goals: Pt IDs own risk factors & lifestyle modifications by Session 10, Verbalizes symptoms of angina & response by session 3. and Pt independently manages Intervention/Plan: Advocate for lipid panel cholesterol medication if applicable , Instruct on personal lipid levels & lipid goals/NCEP guidelines and Instruct on cholesterol 30-day Reassessments:: Met Reassessment Notes & Comments:: attended nutrition classes offered in rehab Diabetes (Other Core Measures) Diabetes Type: Diagnosis Type II ICD-10 E11 Insulin dependent injection/pump?: Yes Do you monitor your blood sugar at home?: Yes Referral to Diabetic Clinic:: No Outcomes/Goals:: Able to state symptoms of, Able to state and Able to state Intervention/Plan:: Instruct on, Refer to and Instruct on 30-day Reassessments:: Met Reassessment Notes & Comments:: Pt continues to manage blood sugars according to physician orders. Weight Mgt (Other Care) Height: 6 ft 4 in Weight:: 310 lb 8 oz BMI: 37.8 Diagnosis High BMI/Morbid Obesity BMI> 35% ICD-10 Z68: Yes Outcomes/Goals: Pt sets, maintains & shows weight loss goal & trend during rehab Intervention/Plan: Instruct on ideal BMI & set weight loss goal w/patient, Assist pt to ID & incorporate diet changes for weight loss by S9, Refer to Structured Weight Loss program as appropriate and Encourage goal of using 250- 300dcal per session for weight loss Healthy Eating Habits Will attend diet classes:: Yes Outcomes/Goals:: Consume diet rich in vegs,fruits,whole grain/high fiber,fish,lean meat and Limit sat/trans fats,cholesterol & added salts & sugars Intervention/Plan:: Assess current eating habits and Other Additional plan/interventions 30-day Reassessments:: Progressing Reassessment Notes & Comments:: working toward weight loss goals, continuing to encourage heart healthy, low sodium diet and monitoring weight loss weekly. encouraging Pt to attend cardiac classes offered in rehab. has last attended rehab on 11/12/24, so we have been unable to get a recent weight. Education Gave educational materials for:: Signs & symptoms of hypoglycemia, Signs & symptoms of hyperglycemia, Relate diabetes to coronary artery disease and Healthy eating Nutrition - Final Assessment Weight Mgt (Other Care) Height: 6 ft 4 in Weight:: 310 lb 8 oz BMI: 37.8
[2024-12-01 08:45] VITALS: BP 120/76; BMI 37.8
== END 2024-12-08 23:59 ==
LOC: CR 08:00
PROVIDERS: PCP Family Medicine; Referring Provider Internal Medicine Cardiovascular Disease; Visit Provider Internal Medicine Cardiovascular Disease
DX: I21.4 Non-ST elevation (NSTEMI) myocardial infarction (principal); I25.10 Atherosclerotic heart disease of native coronary artery without angina pectoris; R07.89 Other chest pain; R06.02 Shortness of breath; Z95.5 Presence of coronary angioplasty implant and graft
CPT/HCPCS: 93798

== ENCOUNTER 2024-11-16 14:54 | Emergency (ER) | payer OTHER, SELFPAY ==
[2024-11-12 15:31] VITALS: BMI 37.5
[2024-11-16 14:56] VITALS: BP 137/74; PULSE 65; RESP 15; TEMP 36.7; O2SAT 97; BMI 37.7
--- NOTE | 2024-11-16 15:10 | RAD_ITS ---
PROCEDURE: HIP, UNI W/ PELVIS 2-3 VIEWS REASON FOR EXAM: 59-year-old male, left hip pain since Sunday. No known injury. TECHNIQUE: Three views of the left hip with AP pelvis. COMPARISON: None. FINDINGS: No acute fracture. Right superior pubic rami bone island. No suspicious bone lesion. Moderate bilateral hip, SI joint and pubic symphysis arthrosis. Surgical clips overlie the right medial upper thigh. Soft tissues are unremarkable. RAD/HIP, UNI W/ Pelvis 2-3 Views IMPRESSION: No acute fracture. Degenerative disease as described. Reading Location: [id number]
--- NOTE | 2024-11-16 15:11 | ED.VIS.LOWEX ---
HPI History of Present Illness Chief Complaint: Lower Extremity Injury Informant: patient and spouse/S.O. Narrative Narrative: 59-year-old male with gradual onset pain in the left hip radiating around into the buttock and down into the mid thigh a little, started spontaneously 3 to 4 days ago, states it has become fairly severe but without any systemic symptoms, numbness, weakness, bowel or bladder dysfunction. Denies any injury. States it hurts in his groin especially when he tries to bear weight on it. No history of hip problems but he does have a history of having to have total knee replacements. No fevers or chills. He is a diabetic, no recen illnesses.t [facility] Medical History Essential hypertension Hypertriglyceridemia Type 2 diabetes mellitus Diabetes Former smoker Myocardial infarct Diabetic neuropathy History of diabetes mellitus, type II Orthopedic aftercare Loss of hearing Wears glasses Non-smoker Chest pain Primary osteoarthritis of right knee History of non-ST elevation myocardial infarction (NSTEMI) (02/12/23) Hyperlipidemia Obesity Atherosclerosis of coronary artery of [place] heart without angina pectoris Home Medications ?Medication ?Instructions ?Recorded ?Last Taken ?Type aspirin 81 mg tablet,delayed 81 mg PO QDAY HEART 09/26/22 04/09/24 History release (Adult Aspirin Regimen) nitroglycerin 0.4 mg sublingual 0.4 mg sublingual Q5M PRN chest 11/23/23 Unknown Rx tablet pain #25 tabs gemfibrozil 600 mg tablet 600 mg PO BIDAC cholesterol #180 12/28/23 Unknown Rx tabs losartan 25 mg tablet 25 mg PO DAILY blood pressure #90 12/28/23 04/09/24 Rx tabs clopidogrel 75 mg tablet (Plavix) 75 mg PO DAILY anti platelet #90 03/06/24 04/09/24 Rx tabs metformin 1,000 mg tablet 1,000 mg PO BID diabetes 04/01/24 04/08/24 History tirzepatide 2.5 mg/0.5 mL 2.5 mg subcut QWEEK diabetes 08/06/24 08/02/24 History subcutaneous pen injector (Bobbyunayah) ranolazine 500 mg tablet,extended 500 mg PO BID 30 days #60 tabs 08/25/24 Unknown Rx release,12 hr atorvastatin 80 mg tablet 80 mg PO QHS #90 tabs 09/26/24 Unknown Rx metoprolol succinate 25 mg 25 mg PO DAILY #30 tabs 10/29/24 Unknown Rx tablet,extended release 24 hr oxycodone-acetaminophen 5 mg-325 1 tab PO Q6H PRN PRN Pain 3 days 11/16/24 Unknown Rx mg tablet #10 TABLETS prednisone 20 mg tablet 40 mg (2 x 20 mg) PO DAILY 6 days 11/16/24 Unknown Rx #12 tabs Allergy/AdvReac Type Severity Reaction Status Date / Time rosuvastatin (From Crestor) AdvReac myalgia Verified 11/16/24 14:58 Family History Father Heart disease Mother Diabetes Surgical History S/P CABG x 3 (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) Hx of total knee replacement S/P total knee arthroplasty History of coronary artery stent placement Hx of total knee replacement History of left heart catheterization (11/23/23) History of coronary artery stent placement (08/06/24) Social History household members: spouse Smoking Status: Former smoker alcohol intake: never substance use type: does not use ROS ROS ED Constitutional Constitutional ED: Denies chills or fever(s) Cardiovascular Cardiovascular: Denies chest pain Respiratory/Chest Respiratory/Chest: Denies cough or dyspnea Gastrointestinal Gastrointestinal: Denies abdominal pain, diarrhea, nausea or vomiting Musculoskeletal Musculoskeletal: Reports extremity pain; Denies neck pain Integumentary Denies Abrasions, rash or wounds Neurologic Neurologic: Denies paresthesias or weakness EXAM Physical Exam Const Vital Signs: 11/16/24 14:56 Temperature 98.1 F Temperature Source Temporal Pulse Rate 65 Respiratory Rate 15 Blood Pressure 137/74 H Blood Pressure Mean 95 Pulse Ox 97 Oxygen Delivery Method Room Air Positive well nourished and well developed General Appearance ED: well developed and NAD Neck full ROM and supple Resp normal respiratory effort GI non-tender and non-distended Inspection: Negative for abdominal distention Auscultation: normoactive bowel sounds Palpation: soft Back/Spine normal ROM and normal to inspection Back/Spine Narrative: Nontender including left buttock and sciatic notch. Straight leg raises are negative but heard him in the groin ipsilaterally on the left. Extremity Extremity Narrative: Full range of motion of the left hip joint, but with pain when I do so passively. He can stand without any apparent difficulty. When sitting with his thigh and knee flexed at 90 degrees, I can passively internally and externally rotate the hip joint, he states it hurts but there is no limitation or apparent difficulty in doing so. Palpating is nontender in the inguinal area, there is no palpable hernia examined while standing, and there is no inguinal lymphadenopathy. No wounds in the legs. Neuro oriented x3, no focal motor deficits and no sensory deficits noted Neuro Narrative: Diminished knee reflexes due to total knee arthroplasties. No clonus in the feet. Sensorium / Orientation: alert Psych mental status grossly normal and thought process normal Skin no wounds Rashes: no rashes MDM MDM MDM Narrative Medical decision making narrative: Obtain three-view x-ray of the left hip, my interpretation there is nothing acute, and some mild arthrosis that appears symmetric, radiology was in agreement. Obtain some labs, and I reviewed them. He has no leukocytosis or significant elevation of any inflammatory markers, his ESR is just barely at in the abnormal range, but his CRP is basically off of the low and negative. However his uric acid is high. I asked him if he had gout in the past, he states he has been diagnosed with a gout before usually in his foot. Is possible this is gouty arthritis in his hip. Given his negative inflammatory markers, this argues against septic arthritis, his exam is inconsistent with a septic arthritis as well, so I think reasonable to give him prednisone. The con being that he is a diabetic and it could make his blood sugars go up, he is not on insulin. He has the ability to check his blood sugars at home. I advised that he periodically check them while he is on prednisone, if they go up to the 300 range or higher, he should back down off the prednisone from 40 mg to 20/day, or discontinue it altogether and follow-up with his orthopedic surgeon. He is comfortable with that plan. We offered crutches but he declines and states he has some at home in case he needs them, he was also given an oxycodone here and couple of those for at home. Lab Data Attestation: I reviewed the patient's lab results. Labs: Laboratory Results - last 24 hr 11/16/24 15:27 WBC 6.7 RBC 5.17 Hgb 13.6 Hct 42.4 MCV 82.0 MCH 26.3 L MCHC 32.1 RDW Std Deviation 42.4 RDW Coeff of Hillary 14.3 Plt Count 357 MPV 10.5 Immature Gran % (Auto) 0.900 Neut % (Auto) 58.3 Lymph % (Auto) 23.8 [place] % (Auto) 10.9 H Eos % (Auto) 4.5 Baso % (Auto) 1.6 H Absolute Neuts (auto) 3.9 Absolute Lymphs (auto) 1.60 Nucleated RBC % 0 ESR 22 H Sodium 138 Potassium 4.4 Chloride 101 Carbon Dioxide 19.6 L Anion Gap 17 H BUN 33 H Creatinine 1.47 H Estim Creat Clear Calc 80.86 Est GFR (MDRD) Non-Af 54 L BUN/Creatinine Ratio 22.7 H Glucose 218 H Uric Acid 7.7 H Calcium 10.2 C-React Prot Ext Range < 3.00 Radiography Diagnostic Testing: Clinical Impression(s) from Imaging Studies Hip/Pelvis X-Ray 11/16/24 15:10 IMPRESSION: No acute fracture. Degenerative disease as described. Reading Location: [facility] Discharge Plan Triage Chief Complaint: Lower Extremity Injury ED Provider: Armani Claudio Dx/Rx/DC Orders Clinical Impression: Arthritis of left hip, High blood uric acid level, History of gout Instructions: What Is Arthritis?, Treating Gout Attacks Prescriptions: New oxycodone-acetaminophen 5-325 mg tablet 1 tab PO Q6H PRN PRN (Reason: Pain) 3 Days Qty: 10 0RF prednisone 20 mg tablet 40 mg PO DAILY 6 Days Qty: 12 0RF Continued metformin 1,000 mg tablet 1,000 mg PO BID metoprolol succinate 25 mg tablet extended release 24 hr 25 mg PO DAILY Qty: 30 0RF aspirin [Adult Aspirin Regimen] 81 mg tablet,delayed release (DR/EC) 81 mg PO QDAY Rx Instructions: STOP 7 DAYS Mounjaro 2.5 mg/0.5 mL pen injector 2.5 mg subcut QWEEK Rx Instructions: for 4 weeks ranolazine 500 mg Tablet Extended Release 12 Hr 500 mg PO BID 30 Days Qty: 60 2RF nitroglycerin 0.4 mg tablet, sublingual 0.4 mg sublingual Q5M PRN (Reason: chest pain) Qty: 25 3RF Rx Instructions: do not exceed 3 doses per episode gemfibrozil 600 mg tablet 600 mg PO BIDAC Qty: 180 3RF losartan 25 mg tablet 25 mg PO DAILY Qty: 90 3RF clopidogrel [Plavix] 75 mg tablet 75 mg PO DAILY Qty: 90 3RF atorvastatin 80 mg tablet 80 mg PO QHS Qty: 90 3RF Primary Care Provider: Karolyn Solomon Referrals: Leonel Witt DO [Med Staff - Active Staff] - 3-5 Days if not improving Karolyn Solomon DO [Primary Care Provider] - (after better, if meds help) Activity Restrictions/Additional Instructions: Keep an eye on your blood sugars. If they go over 300, consider taking your prednisone dose down to 20 mg a day instead of 40, or discontinue it altogether if it does not seem like it is helping. You should notice a difference tomorrow after the initial dose of prednisone tonight. Start the prednisone prescription tomorrow evening, it is once a day. Print Language: Citizen Of [place] Disposition Disposition: Home, Self Care
[2024-11-16 16:00] LABS: Erythrocyte Sedimentation Rate 22 mm/hr (0-20)
[2024-11-16 16:02] LABS: Absolute Neutrophil Count 3.9 X10^3/uL (2.0-7.7); Basophil# 0.11 X10^3/uL; Basophil% 1.6 % (0-1); Eosinophils% 4.5 % (0-5); Hematocrit 42.4 % (40-54); Hemoglobin 13.6 g/dL (13.0-16.5); Lymphocyte % 23.8 % (19-41); Mean Corp Hgb Conc 32.1 g/dL (32-36); Mean Corpuscular Hgb 26.3 pg (27.0-32.0); Mean Platelet Vol. 10.5 fl (6.2-12.0); Monocyte# 0.73 X10^3/uL; Monocyte% 10.9 % (0-10); NRBC Flagged by Analyzer 0 % (0-5); Neutrophil # 3.91 X10^3/uL (2.7-7.7); Neutrophil % 58.3 % (47-70); Platelet Count 357 K/mm3 (150-450); RBC Distribution Width CV 14.3 % (11.6-14.6); RBC Distribution Width SD 42.4 fl (35.1-43.9); Red Blood Count 5.17 M/mm3 (4.6-6.2); White Blood Count 6.7 K/mm3 (4.4-11.0)
[2024-11-16 17:21] LABS: Anion Gap 17 (5-15); BUN 33 mg/dL (4-19); BUN/Creat Ratio 22.7 RATIO (10-20); CRP < 3.00 mg/L (0.0-3.0); Calcium,Total 10.2 mg/dL (7.6-11.0); Carbon Dioxide 19.6 mmol/L (21.0-32.0); Chloride 101 mmol/L (98-108); Creatinine, Serum 1.47 mg/dL (0.70-1.20); EST Glomerular Filtration Rate 54 (>60); Estimated Creatinine Clearance 80.86 ml/min (50-250); Glucose 218 mg/dL (70-99); Potassium 4.4 mmol/L (3.3-5.1); Sodium Level 138 mmol/L (133-145); Uric Acid 7.7 mg/dL (3.5-7.2)
[2024-11-16] MEDS: oxyCODONE 5 MG Tablet PO (17:52)
[2024-11-16] MEDS: predniSONE 20 MG Tablet 40 MG PO (17:53)
[2024-11-16 18:14] VITALS: BP 141/76; PULSE 87; RESP 16; TEMP 36.9; O2SAT 100
== END 2024-11-16 18:15 | disposition home or self-care (01) ==
PROVIDERS: Emergency Provider Emergency Medicine; PCP Family Medicine; Visit Provider Emergency Medicine
DX: M16.12 Unilateral primary osteoarthritis, left hip (principal); E11.40 Type 2 diabetes mellitus with diabetic neuropathy, unspecified; I10 Essential (primary) hypertension; Z87.891 Personal history of nicotine dependence; E78.5 Hyperlipidemia, unspecified; I25.10 Atherosclerotic heart disease of native coronary artery without angina pectoris; Z96.659 Presence of unspecified artificial knee joint; Z95.1 Presence of aortocoronary bypass graft; Z95.5 Presence of coronary angioplasty implant and graft; I25.2 Old myocardial infarction
CPT/HCPCS: 73502; 80048; 84550; 85025; 85652; 86140; 99283

== ENCOUNTER → 2024-12-30 | Outpatient (CLI) | payer OTHER, SELFPAY ==
[2024-11-12 15:31] VITALS: BMI 37.5
[2024-12-01 08:45] VITALS: BMI 37.8
--- NOTE | 2024-12-30 07:12 | RAD_ITS ---
PROCEDURE: ORBITS FOR FOREIGN BODY 12/30/2024 REASON FOR EXAM: MRI CLEARANCE TECHNIQUE: 2 view(s) of the facial bones COMPARISON: None. FINDINGS: Normal bilateral frontozygomatic and zygomatic-temporal arches. Normal bilateral medial and inferior orbital alcocer. Normal bilateral orbits. Normal visualized nasal bones. Normal anterior nasal spine. The remaining visualized osseous structures are normal. Normal visualized paranasal sinuses. Mild S shaped nasal septum deviation. RAD/Orbits for Foreign Body IMPRESSION: No radiopaque foreign body is seen. Reading [facility] [place] [id number]
--- NOTE | 2024-12-30 07:13 | MRI_ITS ---
EXAM: MRI left hip without IV contrast CLINICAL HISTORY: Pain COMPARISON: None TECHNIQUE: Multisequence multiplanar MR images of the left hip were obtained without the administration of intravenous contrast. Imaging sequences were performed to best display suspected pathology. FINDINGS: Negative for acute fracture or marrow replacement. No sizeable hip joint effusion or bursal fluid collection. Musculature is symmetric. Distal colonic diverticulosis. Mild diffuse bladder wall thickening. Mild diffuse degenerative tearing of the superior and anterosuperior labrum. Small conglomerate of paralabral cysts superiorly measuring 10 x 12 x 6 mm. Mild diffuse chondral thinning and fibrillation along the peripheral aspect of the left acetabulum. No full-thickness chondral defects in the left femoral head. Mild gluteus minimus tendinopathy. Mild common hamstring tendinopathy. Other major tendons about the left hip are intact. MRI/Lower Ext Joint Only (Routine) IMPRESSION: 1. No acute process. 2. Mild left hip osteoarthritis as detailed above. 3. Mild gluteus minimus and common hamstring tendinopathy. 4. Mild diffuse bladder wall thickening which may relate to underdistention or cystitis. Reading Location: [facility]
== END | disposition home or self-care (01) ==
LOC: MRI 07:02
PROVIDERS: PCP Family Medicine; Referring Provider Orthopaedic Surgery; Visit Provider Orthopaedic Surgery
DX: M10.9 Gout, unspecified (principal); M25.552 Pain in left hip
CPT/HCPCS: 70030; 73721

== ENCOUNTER 2025-02-06 08:00 | Outpatient (RCR) | payer OTHER, SELFPAY ==
[2024-12-09 00:14] VITALS: BP 118/64; BP 120/68; BP 120/76; BP 122/70
--- NOTE | 2024-12-31 07:09 | CR.ITP_ITS ---
Exercise - Initial Assessment Physician Prescribed Exercise Modalities: Treadmill, Schwinn Airdyne AD-7, SciFit Stepper and SciFit Lateral [place] Nutrition - Initial Assessment Weight Mgt (Other Care) Height: 6 ft 4 in Weight:: 310 lb 8 oz BMI: 37.8 Psychosocial - Initial Assess Target Goals Target Goals Referral to Behavioral Health PS - Interventions: Yes: Attend Stress Management Classes Patient Health Questionnaire PHQ-9 Screening 90-Day Re-eval Assessment: 1. Little interest or pleasure in doing things: Not at all 2. Feeling down, depressed, or hopeless: More than half the days 3. Trouble falling or staying asleep, or sleeping too much: Not at all 4. Feeling tired or having little energy: Several days 5. Poor appetite or overeating: Not at all 6. Feeling bad about yourself -- or that you are a failure or have let yourself or your family down: Not at all 7. Trouble concentrating on things, such as reading the newspaper or jenny lior television: Not at all 8. Moving or speaking so slowly that other people could have noticed. Or the opposite - being so fidgety or restless that you have been moving around a lot more than usual: Not at all 9. Thoughts that you would be better off , or of hurting yourself in some way: Not at all How difficult have these problems made it for you to do your work, take care of things at home, or get along with other people?: Not difficult at all Total Score: 3 Self-Efficacy 6-Item Scale 90-Day Re-eval Assessment: We would like to know how confident you are in doing certain activities. Please select your confidence level for: Fatigue Select Number: 5 Physical Discomfort or Pain Select Number: 5 Emotional Distress Select Number: 6 Other Symptoms or Health Problems Select Number: 10 Different Tasks and Activities Select Number: 10 Medication Select Number: 10 Total Score:: 7 Nutrition Survey Nutrition Survey Instructions Scoring Instructions Exercise - 30-day Assessment Physician Prescribed Exercise Modalities: Treadmill, Schwinn Airdyne AD-7, SciFit Stepper and SciFit Lateral [place] Exercise - 60-day Assessment Physician Prescribed Exercise Modalities: Treadmill, Schwinn Airdyne AD-7, SciFit Stepper and SciFit Lateral Ophthalmic Medical Technologist Exercise - 90-day Assessment Visit Date of Eval: 12/31/24 Session #:: 25 Comments:: Pt has not been able to attend CR due to hip and leg pain. Spoke with Pt 12/30/24. Pt will call me 01/05/25 with update and hopes to return to rehab. Physician Prescribed Exercise Modalities: Treadmill, Schwinn Airdyne AD-7, SciFit Stepper and SciFit Lateral [place] Frequency: 3x/week for 12 weeks [36 sessions] Intensity: 60-80% of age predicted maximum heart rate reserve Duration: 30 - 45 minutes Current METSs:: 4.6 Target Heart Rate:: 95-127 Current RPE:: 13 Maximum Excercise HR:: 132 Resting Blood Pressure: 120/76 Maximum Exercise Blood Pressure: 188/82 EKG Type: SB to ST with rare PAC/PVC Outcomes & Goals Goals:: Verbalizes understanding of THR, RPE & goal METS by session 6, Documents in home exercise log/reports 30 min aerobic 5 day/wk by DC, Demonstrates accurate pulse taking by DC and Other additional outcome/goals: see below Intervention & Plan Exercise Program Goals: Instruct on personal THR & RPE, Instruct on MET level & personal MET goal, Show patient to take own pulse /validate performance until accurate, Instruct on home exercise and Other additional plan/int Physical Activity Home Exercise Physical Activity - Home Exercise: Safe Exercise, Warm-up, Self-monitoring, Cool-Down, Home Exercise > 30 min Daily and Sitting Time <3 hours/daily Outcomes & Goals Outcomes/Goals: Demonstrates correct Warm-up/exercise Cool-Down (S3) if = 2.5 METs, Verbalizes symptoms of exercise intolerance by Session 3 (S3), Demonstrate safe equipment use (S3) & follows exercise prescrition (6) and Other: See below Intervention & Plan Plan/Intervention: Instruct warm-up & cool-down if exercising at > 2 METs, Instruct on symptoms of exercise intolerance & actions to take, Instruct & monitor on saf, Assess intial functional capacity & safety risk and Other See below 30-day Reassessments 30 day Reassessments:: Not Met Reassessment Notes & Comments:: Pt has not been able to attend CR due to hip and leg pain. Spoke with Pt 12/30/24. Pt will call me 01/05/25 with update and hopes to return to rehab. Exercise - Final/Discharge Physician Prescribed Exercise Modalities: Treadmill, Schwinn Airdyne AD-7, SciFit Stepper and SciFit Lateral [place] Nutrition - 30-Day Assessment Weight Mgt (Other Care) Height: 6 ft 4 in Weight:: 310 lb 8 oz BMI: 37.8 Nutrition - 60-Day Assessment Weight Mgt (Other Care) Height: 6 ft 4 in Weight:: 310 lb 8 oz BMI: 37.8 Core - 30-Day Assessment Hypertension [place] [employer] Hypertension Guidelines Reassessment Notes & Comments:: BP's are within normal limits. Will continue to monitor and report to physician if necessary. Core - Final Assessment Hypertension [place] [employer] Hypertension Guidelines Reassessment Notes & Comments:: BP's are within normal limits. Will continue to monitor and report to physician if necessary. Core - 90 Day Assessment Visit Date of Eval: 12/31/24 Session #:: 25 (Pt has not been able to attend CR due to hip and leg pain. Spoke with Pt 12/30/24. Pt will call me 01/05/25 with update and hopes to return to rehab.) Medication Compliance Preventative Medication(s):: Aspirin, Clopidogrel/P2Y12 inhibit, Statin/lipid, Beta ash and ARB (Angiotensi Rcap) H/O mental health issues: depression, anxiety, or addiction?: No Doesn?t believe in the benefits of treatment?: No Believes medications are unnecessary or harmful?: No Has a concern about medication side effects?: No Expresses concern over the cost of medications?: No Outcomes/Goals: Verbalizes medications,desired effect & common side effects @ DC, Pt self-reports following medication regimen, Keeps card in wallet w/medications listed by DC and Other additional outcome/goals: Interventions/plans: Instruct on medication effects & side effects, Review medication list w/patient every two weeks, Instruct importance of taking meds as ordered & assist problem solving and Other additional 30-day Reassessments:: Met Reassessment Notes & Comments:: Pt reports taking meds as prescribed Tobacco Use Tobacco Use: Non-smoker Hypertension Hypertension Diagnosis:: Hypertension ICD-10 I10 Resting Blood Pressure:: 120/76 [place] [employer] Hypertension Guidelines Peak Exercise Blood Pressure:: 188/82 Outcomes/Goals: Able to verbalize/achieve optimal blood pressure <130/80, Incorporates diet changes & exercise for blood pressure control by DC and Other additional outcomes/goals Interventions/plan: Instruct on optimal blood pressure, hypertension & medications, Instruct on effects of sodium, alcohol, stress, exercise &hypertension and Other additional plan/interventions 30 day Reassessments:: Met Reassessment Notes & Comments:: BP's are within normal limits. Will continue to monitor and report to physician if necessary. Tobacco Cessation Referral Smoking Cessation Referral:: No Individual Education/Counseling:: No Education Schedule Given:: Yes Psychosocial - 30-Day Assess Target Goals Target Goals Referral to Behavioral Health PS - Interventions: Yes: Attend Stress Management Classes Psychosocial - 60-Day Assess Target Goals Target Goals Referral to Behavioral Health PS - Interventions: Yes: Attend Stress Management Classes Psychosocial - 90-Day Assess VIsit Date of Eval: 12/31/24 Session #:: 25 (Pt has not been able to attend CR due to hip and leg pain. Spoke with Pt 12/30/24. Pt will call me 01/05/25 with update and hopes to return to rehab.) History of previous Mental disease:: No Target Goals Target Goals Psychosocial Test Tool Used:: PHQ-9 Questionnaire phq-9 Severity See PHQ-9 Score: 3 Referral to Behavioral Health PS - Interventions: Yes: Attend Stress Management Classes Outcomes/Goals: See list Psychosocial Outcomes/Goals:: ID's personal stressors & 2 strategies to manage stress by discharge and Other Additional outcome/goals: Intervention/Plan: See List Interventions/Plan:: Assess stressors,coping strategies & signs of derpression on admission, Instruct/assist pt to develop coping & personal stress Mgt strategies, Refer to Behavioral Health if appropriate, Refer to Physician if appropriate, Instruct patient to recognize signs & symptoms of depression, Instruct patient to recog and Other additional plan/intervention 30-day Reassessments: 30 day Reassessments:: Met Reassessment Notes & Comments:: Pt denies any psychosocial issues at this time. Will continue to monitor. Psychosocial - Final Assessmen Target Goals Target Goals Referral to Behavioral Health PS - Interventions: Yes: Attend Stress Management Classes Nutrition - 90-Day Assessment Visit Date of Eval: 12/31/24 Session #:: 25 (Pt has not been able to attend CR due to hip and leg pain. Spoke with Pt 12/30/24. Pt will call me 01/05/25 with update and hopes to return to rehab.) Cholesterol/Lipids (Other Core Measures) Determine presence & major risk factors that modify LDL goal: Hypertension or hypertensive medication, Low HDL cholesterol <40 mg/dL*, Family history of premature CHD in Male < 55 years: female <65 yearsFa and Age men > 45 years; women >/= 55 years Outcomes/Goals: Pt IDs own risk factors & lifestyle modifications by Session 10, Verbalizes symptoms of angina & response by session 3., Pt independently manages and Other Additional Outcomes/Goals: Intervention/Plan: Advocate for lipid panel cholesterol medication if applicable, Instruct on personal lipid levels & lipid goals/NCEP guidelines, Instruct on cholesterol and Other additional plan/int Diabetes (Other Core Measures) Diabetes Type: Diagnosis Type II ICD-10 E11 Insulin dependent injection/pump?: No Non-Insulin Dependent?: Yes Do you monitor your blood sugar at home?: Yes Weight Mgt (Other Care) Height: 6 ft 4 in Weight:: 310 lb 8 oz BMI: 37.8 Diagnosis Overweight/Obesity BMI> 30% ICD-10 E66: Yes Diagnosis High BMI/Morbid Obesity BMI> 35% ICD-10 Z68: Yes Outcomes/Goals: Pt sets, maintains & shows weight loss goal & trend during rehab and Other additional outcomes/goals Intervention/Plan: Instruct on ideal BMI & set weight loss goal w/patient, Assist pt to ID & incorporate diet changes for weight loss by S9, Refer to Structured Weight Loss program as appropriate, Encourage goal of using 250- 300dcal per session for weight loss and Other additional plan/interventions Healthy Eating Habits Will attend diet classes:: Yes Outcomes/Goals:: Consume diet rich in vegs,fruits,whole grain/high fiber,fish,lean meat, Limit sat/trans fats,cholesterol & added salts & sugars and Other additional outcome/goals: Intervention/Plan:: Assess current eating habits and Other Additional plan/interventions 30-day Reassessments:: Not Met Reassessment Notes & Comments:: Pt has not been able to attend CR due to hip and leg pain. Spoke with Pt 12/30/24. Pt will call me 01/05/25 with update and hopes to return to rehab. Education Gave educational materials for:: Signs & symptoms of hypoglycemia, Signs & symptoms of hyperglycemia, Relate diabetes to coronary artery disease and Healthy eating Nutrition - Final Assessment Weight Mgt (Other Care) Height: 6 ft 4 in Weight:: 310 lb 8 oz BMI: 37.8
[2024-12-31 07:20] VITALS: BP 120/76; BMI 37.8
--- NOTE | 2025-01-29 07:18 | PCM.CR.ITP ---
Exercise - Initial Assessment Physician Prescribed Exercise Modalities: Stanton Griffin AD-7, SciFit Stepper and SciFit Pro-II Ergometer Nutrition - Initial Assessment Weight Mgt (Other Care) Height: 6 ft 4 in Weight:: 304 lb BMI: 37.0 Psychosocial - Initial Assess Target Goals Target Goals Referral to Behavioral Health PS - Interventions: Yes: Attend Stress Management Classes Patient Health Questionnaire PHQ-9 Screening 90-Day Re-eval Assessment: 1. Little interest or pleasure in doing things: Not at all 2. Feeling down, depressed, or hopeless: More than half the days 3. Trouble falling or staying asleep, or sleeping too much: Not at all 4. Feeling tired or having little energy: Not at all 5. Poor appetite or overeating: Several days 6. Feeling bad about yourself -- or that you are a failure or have let yourself or your family down: Not at all 7. Trouble concentrating on things, such as reading the newspaper or watching television: Not at all 8. Moving or speaking so slowly that other people could have noticed. Or the opposite - being so fidgety or restless that you have been moving around a lot more than usual: Not at all 9. Thoughts that you would be better off , or of hurting yourself in some way: Not at all How difficult have these problems made it for you to do your work, take care of things at home, or get along with other people?: Not difficult at all Total Score: 3 Self-Efficacy 6-Item Scale 90-Day Re-eval Assessment: We would like to know how confident you are in doing certain activities. Please select your confidence level for: Fatigue Select Number: 5 Physical Discomfort or Pain Select Number: 5 Emotional Distress Select Number: 6 Other Symptoms or Health Problems Select Number: 10 Different Tasks and Activities Select Number: 10 Medication Select Number: 10 Total Score:: 7 Nutrition Survey Nutrition Survey Instructions Scoring Instructions Exercise - 30-day Assessment Physician Prescribed Exercise Modalities: Stanton Griffin AD-7, SciFit Stepper and SciFit Pro-II Ergometer Exercise - 60-day Assessment Physician Prescribed Exercise Modalities: Stanton Griffin AD-7, SciFit Stepper and SciFit Pro-II Ergometer Exercise - 90-day Assessment Visit Date of Eval: 01/29/25 Session #:: 30 (Pt has returned to rehab from his medical hold. Pt had to pause rehab due to hip and leg pain.) Physician Prescribed Exercise Modalities: Schwinn Airdyne AD-7, SciFit Stepper and SciFit Pro-II Ergometer Frequency: 3x/week for 12 weeks [36 sessions] Intensity: 60-80% of age predicted maximum heart rate reserve Duration: 30 - 45 minutes Current METSs:: 4.6 Target Heart Rate:: 95-127 Current RPE:: 12-13 Maximum Excercise HR:: 105 Resting Blood Pressure: 130/72 Maximum Exercise Blood Pressure: 184/100 EKG Type: NSR to ST w/ occas PVC and rare PAC Outcomes & Goals Goals:: Verbalizes understanding of THR, RPE & goal METS by session 6, Documents in home exercise log/reports 30 min aerobic 5 day/wk by DC, Demonstrates accurate pulse taking by DC and Other additional outcome/goals: see below Intervention & Plan Exercise Program Goals: Instruct on personal THR & RPE, Instruct on MET level & personal MET goal, Show patient to take own pulse /validate performance until accurate, Instruct on home exercise and Other additional plan/int Physical Activity Home Exercise Physical Activity - Home Exercise: Safe Exercise, Warm-up, Self-monitoring, Cool-Down, Home Exercise > 30 min Daily and Sitting Time <3 hours/daily Outcomes & Goals Outcomes/Goals: Demonstrates correct Warm-up/exercise Cool-Down (S3) if = 2.5 METs, Verbalizes symptoms of exercise intolerance by Session 3 (S3), Demonstrate safe equipment use (S3) & follows exercise prescrition (6) and Other: See below Intervention & Plan Plan/Intervention: Instruct warm-up & cool-down if exercising at > 2 METs, Instruct on symptoms of exercise intolerance & actions to take, Instruct & monitor on saf, Assess intial functional capacity & safety risk and Other See below 30-day Reassessments 30 day Reassessments:: Progressing Reassessment Notes & Comments:: Pt has returned from his med hold. Pt has been able to progress his workloads to where he was before pausing his rehab. Will continue to encourage. Exercise - Final/Discharge Physician Prescribed Exercise Modalities: Schwinn Airdyne AD-7, SciFit Stepper and SciFit Pro-II Ergometer Nutrition - 30-Day Assessment Weight Mgt (Other Care) Height: 6 ft 4 in Weight:: 304 lb BMI: 37.0 Nutrition - 60-Day Assessment Weight Mgt (Other Care) Height: 6 ft 4 in Weight:: 304 lb BMI: 37.0 Core - 30-Day Assessment Hypertension [place] [employer] Hypertension Guidelines Reassessment Notes & Comments:: Pt's BP's are within AHA normal limits on most days. Core - Final Assessment Hypertension [place] [employer] Hypertension Guidelines Reassessment Notes & Comments:: Pt's BP's are within AHA normal limits on most days. Core - 90 Day Assessment Visit Date of Eval: 01/29/25 Session #:: 30 Medication Compliance Preventative Medication(s):: Aspirin, Clopidogrel/P2Y12 inhibit, Statin/lipid, Beta ash and ARB (Angiotensi Rcap) H/O mental health issues: depression, anxiety, or addiction?: No Doesn?t believe in the benefits of treatment?: No Believes medications are unnecessary or harmful?: No Has a concern about medication side effects?: No Expresses concern over the cost of medications?: No Outcomes/Goals: Verbalizes medications,desired effect & common side effects @ DC, Pt self-reports following medication regimen, Keeps card in wallet w/medications listed by DC and Other additional outcome/goals: Interventions/plans: Instruct on medication effects & side effects, Review medication list w/patient every two weeks, Instruct importance of taking meds as ordered & assist problem solving and Other additional 30-day Reassessments:: Met Reassessment Notes & Comments:: Pt taking meds as prescribed. Tobacco Use Tobacco Use: Non-smoker Hypertension Hypertension Diagnosis:: Hypertension ICD-10 I10 Resting Blood Pressure:: 130/72 [place] [employer] Hypertension Guidelines Peak Exercise Blood Pressure:: 184/100 Outcomes/Goals: Able to verbalize/achieve optimal blood pressure <130/80, Incorporates diet changes & exercise for blood pressure control by DC and Other additional outcomes/goals Interventions/plan: Instruct on optimal blood pressure, hypertension & medications, Instruct on effects of sodium, alcohol, stress, exercise &hypertension and Other additional plan/interventions 30 day Reassessments:: Met Reassessment Notes & Comments:: Pt's BP's are within AHA normal limits on most days. Tobacco Cessation Referral Smoking Cessation Referral:: No Individual Education/Counseling:: No Education Schedule Given:: Yes Psychosocial - 30-Day Assess Target Goals Target Goals Referral to Behavioral Health PS - Interventions: Yes: Attend Stress Management Classes Psychosocial - 60-Day Assess Target Goals Target Goals Referral to Behavioral Health PS - Interventions: Yes: Attend Stress Management Classes Psychosocial - 90-Day Assess VIsit Date of Eval: 01/29/25 Session #:: 30 History of previous Mental disease:: No Target Goals Target Goals Psychosocial Test Tool Used:: [employer] QOL Cardiac and PHQ-9 Questionnaire phq-9 Severity See PHQ-9 Score: 3 Referral to Behavioral Health PS - Interventions: Yes: Attend Stress Management Classes Outcomes/Goals: See list Psychosocial Outcomes/Goals:: ID's personal stressors & 2 strategies to manage stress by discharge and Other Additional outcome/goals: Intervention/Plan: See List Interventions/Plan:: Assess stressors,coping strategies & signs of derpression on admission, Instruct/assist pt to develop coping & personal stress Mgt strategies, Refer to Behavioral Health if appropriate, Refer to Physician if appropriate, Instruct patient to recognize signs & symptoms of depression, Instruct patient to recog and Other additional plan/intervention 30-day Reassessments: 30 day Reassessments:: Met Reassessment Notes & Comments:: Pt denies any psychosocial issues at this time. Psychosocial - Final Assessmen Target Goals Target Goals Referral to Behavioral Health PS - Interventions: Yes: Attend Stress Management Classes Nutrition - 90-Day Assessment Visit Date of Eval: 01/29/25 Session #:: 30 Cholesterol/Lipids (Other Core Measures) Determine presence & major risk factors that modify LDL goal: Hypertension or hypertensive medication, Low HDL cholesterol <40 mg/dL*, Family history of premature CHD in Male < 55 years: female <65 yearsFa and Age men > 45 years; women >/= 55 years Outcomes/Goals: Pt IDs own risk factors & lifestyle modifications by Session 10, Verbalizes symptoms of angina & response by session 3., Pt independently manages and Other Additional Outcomes/Goals: Intervention/Plan: Advocate for lipid panel cholesterol medication if applicable, Instruct on personal lipid levels & lipid goals/NCEP guidelines, Instruct on cholesterol and Other additional plan/int Diabetes (Other Core Measures) Diabetes Type: Diagnosis Type II ICD-10 E11 Insulin dependent injection/pump?: No Non-Insulin Dependent?: Yes Weight Mgt (Other Care) Height: 6 ft 4 in Weight:: 304 lb BMI: 37.0 Diagnosis Overweight/Obesity BMI> 30% ICD-10 E66: Yes Diagnosis High BMI/Morbid Obesity BMI> 35% ICD-10 Z68: Yes Outcomes/Goals: Pt sets, maintains & shows weight loss goal & trend during rehab and Other additional outcomes/goals Intervention/Plan: Instruct on ideal BMI & set weight loss goal w/patient, Assist pt to ID & incorporate diet changes for weight loss by S9, Refer to Structured Weight Loss program as appropriate, Encourage goal of using 250-300dcal per session for weight loss and Other additional plan/interventions 30 day Reassessments:: Progressing Reassessment Notes & Comments:: Pt has lost 6.5 lbs. Healthy Eating Habits Will attend diet classes:: Yes Outcomes/Goals:: Consume diet rich in vegs,fruits,whole grain/high fiber,fish,lean meat, Limit sat/trans fats,cholesterol & added salts & sugars and Other additional outcome/goals: Intervention/Plan:: Assess current eating habits and Other Additional plan/interventions 30-day Reassessments:: Progressing Reassessment Notes & Comments:: Pt is attending nutrition class this week with [facility] chief executive officer. Education Gave educational materials for:: Signs & symptoms of hypoglycemia, Signs & symptoms of hyperglycemia, Relate diabetes to coronary artery disease and Healthy eating Nutrition - Final Assessment Weight Mgt (Other Care) Height: 6 ft 4 in Weight:: 304 lb BMI: 37.0
[2025-01-29 07:31] VITALS: BP 130/72; BMI 37.0
== END 2025-02-07 23:59 ==
LOC: CR 08:00
PROVIDERS: PCP Family Medicine; Referring Provider Internal Medicine Cardiovascular Disease; Visit Provider Internal Medicine Cardiovascular Disease
DX: I21.4 Non-ST elevation (NSTEMI) myocardial infarction (principal); I25.10 Atherosclerotic heart disease of native coronary artery without angina pectoris; R07.89 Other chest pain; R06.02 Shortness of breath; Z95.5 Presence of coronary angioplasty implant and graft
CPT/HCPCS: 93798

== ENCOUNTER 2025-02-13 08:00 | Outpatient (RCR) | payer OTHER, SELFPAY ==
[2025-01-29 07:31] VITALS: BMI 37.0
[2025-02-08 00:04] VITALS: BP 118/64; BP 120/68; BP 122/70; BP 130/72
== END 2025-03-09 23:59 ==
LOC: CR 08:00
PROVIDERS: PCP Family Medicine; Referring Provider Internal Medicine Cardiovascular Disease; Visit Provider Internal Medicine Cardiovascular Disease
DX: I21.4 Non-ST elevation (NSTEMI) myocardial infarction (principal); I25.10 Atherosclerotic heart disease of native coronary artery without angina pectoris; R07.89 Other chest pain; R06.02 Shortness of breath; Z95.5 Presence of coronary angioplasty implant and graft
CPT/HCPCS: 93798

== ENCOUNTER → 2025-02-23 | Outpatient (CLI) | payer OTHER, SELFPAY ==
[2025-01-29 07:31] VITALS: BMI 37.0
[2025-02-24 15:55] LABS: ALB/GLOB Ratio 1.6 RATIO (0.9-2.4); AST(SGOT) 23 U/L (<=37); Alanine Aminotransfer ALT/SGPT 25 U/L (<=46); Albumin, Serum 4.6 g/dL (3.4-4.8); Alkaline Phosphatase 87 U/L (40-129); Anion Gap 13 (5-15); BUN 28 mg/dL (4-19); BUN/Creat Ratio 22.9 RATIO (10-20); Calcium,Total 9.2 mg/dL (7.6-11.0); Carbon Dioxide 22.2 mmol/L (21.0-32.0); Chloride 103 mmol/L (98-108); Cholesterol 132 mg/dL (<=200); Creatinine, Serum 1.21 mg/dL (0.70-1.20); EST Glomerular Filtration Rate 68 (>60); Globulin 2.8 g/dL (2.2-4.2); Glucose 159 mg/dL (70-99); High Density Lipoprotein 26 mg/dL; Low Density Lipoprotein Calc. 78 mg/dL; Potassium 4.4 mmol/L (3.3-5.1); Protein, Total 7.4 g/dL (5.9-8.4); Sodium Level 138 mmol/L (133-145); Total Bilirubin 0.34 mg/dL (0.00-1.30); Triglycerides 141 mg/dL; Very Low Density Lipoprotein 28 mg/dL (5-40); cholesterol:hdl ratio screen 5.16
== END | disposition home or self-care (01) ==
LOC: LAB 08:23
PROVIDERS: PCP Family Medicine; Referring Provider Family Medicine; Visit Provider Family Medicine
DX: E11.69 Type 2 diabetes mellitus with other specified complication (principal)
CPT/HCPCS: 36415; 80053; 80061; 82043

== ENCOUNTER → 2025-04-15 | Outpatient (CLI) | payer OTHER, SELFPAY ==
[2025-01-29 07:31] VITALS: BMI 37.0
--- NOTE | 2025-04-15 08:58 | RAD_ITS ---
PROCEDURE: CHEST PA AND LATERAL 04/15/2025 REASON FOR EXAM: CHEST PAIN TECHNIQUE: Three-view CHEST PA AND LATERAL COMPARISON: AP chest 08/22/2024. RAD/Chest PA and Lateral IMPRESSION: Prior sternotomy again noted. Lungs appear clear of acute disease. No pleural effusion or pneumothorax is noted. The cardiomediastinal silhouette is within the normal range. Mild thoracic spine degenerative changes are also seen. No evidence of acute cardiopulmonary disease. Reading Location: [place] [id number]
[2025-04-15 09:20] LABS: Hematocrit 43.3 % (40-54); Hemoglobin 14.0 g/dL (13.0-16.5); Immature Granulocytes Count 0.050 X10^3/uL (0.0-0.0); Mean Corp Hgb Conc 32.3 g/dL (32-36); Mean Corpuscular Volume 82.6 fL (80-94); Mean Platelet Vol. 10.0 fl (6.2-12.0); NRBC Flagged by Analyzer 0 % (0-5); Platelet Count 368 K/mm3 (150-450); RBC Distribution Width CV 13.3 % (11.6-14.6); RBC Distribution Width SD 39.9 fl (35.1-43.9); Red Blood Count 5.24 M/mm3 (4.6-6.2); White Blood Count 5.7 K/mm3 (4.4-11.0)
[2025-04-15 09:38] LABS: Prothrombin Time (Protime)PT. 13.1 SECONDS (11.7-14.9)
[2025-04-15 09:39] LABS: Partial Thromboplast Time 29.6 Seconds (24.1-36.2)
[2025-04-15 09:54] LABS: Anion Gap 16 (5-15); BUN 37 mg/dL (4-19); BUN/Creat Ratio 25.5 RATIO (10-20); Calcium,Total 11.4 mg/dL (7.6-11.0); Carbon Dioxide 20.3 mmol/L (21.0-32.0); Chloride 101 mmol/L (98-108); Glucose 134 mg/dL (70-99); Potassium 4.7 mmol/L (3.3-5.1)
== END | disposition home or self-care (01) ==
LOC: RAD 08:57
PROVIDERS: PCP Family Medicine; Referring Provider Student in an Organized Health Care Education/Training Program; Visit Provider Student in an Organized Health Care Education/Training Program
DX: R07.89 Other chest pain (principal); R06.09 Other forms of dyspnea; I25.118 Atherosclerotic heart disease of native coronary artery with other forms of angina pectoris
CPT/HCPCS: 36415; 71046; 80048; 85025; 85610; 85730

== ENCOUNTER 2025-05-12 08:45 | Day surgery (SDC) | payer OTHER, SELFPAY ==
[2025-01-29 07:31] VITALS: BMI 37.0
[2025-04-24 09:04] LABS: Ionized Calcium Order ORDER TUBE
[2025-04-24 09:41] LABS: Anion Gap 11 (5-15); BUN 25 mg/dL (4-19); BUN/Creat Ratio 21.8 RATIO (10-20); Calcium,Total 10.4 mg/dL (7.6-11.0); Carbon Dioxide 22.7 mmol/L (21.0-32.0); Chloride 102 mmol/L (98-108); Glucose 153 mg/dL (70-99); Potassium 4.5 mmol/L (3.3-5.1)
[2025-05-08 07:58] VITALS: BMI 35.2
--- NOTE | 2025-05-12 14:00 | CL.I_ITS ---
Patient Name: QI VELA Study Date: 05/12/2025 Performing: Shanna Serrano MD Ht: 76 inches 193.04 cm : 1965 Wt: 289 lbs 131.09 kg Age: 59 Gender: male BSA: 2.59 PROCEDURE(S) PERFORMED DC04-(32527)LHC/COR/CABG IC12-(33811/C9600)SUSY W/WO PTCA, SINGLE CORONARY ARTERY CLINICAL PROFILE AND CO-MORBIDITIES Indications: Worsening Angina, unstable angina Heart Failure: None CONCLUSIONS CAD as described. Patent 3/3 bypass grafts. Successful SUSY to mid and proximal RCA RECOMMENDATIONS DESCRIPTION OF PROCEDURE The patient arrived to the procedure lab. The risks and benefits of the procedure as well as a full description of our services here and lack of surgical backup were fully explained to the patient and/or their significant other prior to the catheterization. The Timeout was completed, verifying the correct patient and procedure. The patient's procedural site was prepped and draped in the usual fashion. Local anesthetic was given subcutaneously to right groin region with Lidocaine 2%. Local anesthetic was given subcutaneously to right groin region with Lidocaine 2%. Using a modified Seldinger technique, arterial access was obtained via the right femoral artery, with Micropuncture set. Left Coronary Artery selective angiography was performed in multiple views using a 5 Fr. JL4 catheter. Saphenous Vein graft to the OM 1 selective angiography was performed in multiple views using a 5 Fr. JR 4 catheter. Saphenous Vein graft to the Ramus selective angiography was performed in multiple views using a 5 Fr. JR 4 catheter. Right Coronary Artery selective angiography was then performed in multiple views using a 5 Fr. JR 4 catheter. Left internal mammary artery graft to the LAD selective angiography was performed in multiple views using a 5 Fr. IM catheterThe images were reviewed and options discussed. A decision was then made to proceed with an Intervention, IVUS or other adjunct procedure. JR 4 Guide catheter was inserted and engaged into the RCA. {L1} BMW Guide wire was advanced to the RCA. emerge 3.50 x 8 Balloon catheter was inserted. Balloon catheter was advanced across lesion in the right coronary, mid. PTCA balloon inflated at 12 atms for 34 secs. ADDIE FRONITER 4.0 X 12 Drug Eluting stent was inserted. Drug Eluting stent was advanced across the lesion in the right coronary, mid. Angiogram performed post stent deployment. EUPHORA 3.5 X 20 Balloon catheter was inserted. Balloon catheter was advanced across lesion in the right coronary, proximal. PTCA balloon inflated at 12 atms for 12 secs. PTCA balloon inflated at 12 atms for 10 secs. PTCA balloon inflated at 12 atms for 44 secs. ADDIE FRONTIER 4.0 X 34 Drug Eluting stent was inserted. Drug Eluting stent was advanced across the lesion in the right coronary, proximal. Angiogram performed pre stent deployment. Angiogram performed post stent deployment. ADDIE FRONTIER 4.0 X8 Drug Eluting stent was inserted. Drug Eluting stent was advanced across the lesion in the right coronary, proximal. Angiogram performed post stent deployment. Angiogram performed post balloon dilatation. The arterial sheath was pulled and a Perclose closure device was deployed for hemostasis CORONARY ANGIOGRAPHY DOMINANCE: Right Dominant LEFT ANTERIOR DESCENDING ARTERY: 80% ostial LAD stenosis, 100% mid LAD occlusion CIRCUMFLEX ARTERY: PROX CIRC: 90% proximal stenosis RAMUS: 70% mid stenosis RIGHT CORONARY ARTERY: PROX RCA: 70 % Stenosis MID RCA: 70 % instent restenosis DISTAL RCA: 50 % Stenosis GRAFTS: BARRERA graft to the LAD is patent Saphenous Vein graft to the 1st OM is patent Y graft to the Ramus is patent INTERVENTION INFORMATION LESION SITE: RCA (Mid) Lesion Complexity: High/C, chronic total occlusion: No, lesion at bifurcation: No, thrombus present: No, lesion length: 11 mm, culprit lesion: Yes, Previously treated lesion: Yes, Timeframe of previous treatment: Time unknown, Previously treated with a stent: Yes Stent Type: with stent type unknown, In-stent restenosis: Yes Pre Stenosis: 70 % Pre intervention MT flow: 3 PROCEDURE: Drug Eluting Stent with pre and post dilatation Post Stenosis: 0 % Post intervention MT flow: 3 Lesion Devices: Arrieta .014 190cm BMW Union Straight Medtronic 6 Fr JR4.0 100cm Guide Catheter Marcus Sci EMERGE MR 3.50x08 BALLOON Medtronic 4.0 x 12 ADDIE FRONTIER SUSY LESION SITE: RCA (Proximal) Lesion Complexity: High/C, chronic total occlusion: No, lesion at bifurcation: No, thrombus present: No, lesion length: 40 mm, culprit lesion: Yes, Previously treated lesion: No Pre Stenosis: 70 % Pre intervention MT flow: 3 PROCEDURE: Drug Eluting Stent with pre and post dilatation Post Stenosis: 0 % Post intervention MT flow: 3 Lesion Devices: Arrieta .014 190cm BMW Union Straight Medtronic 6 Fr JR4.0 100cm Guide Catheter Medtronic 4.0 x 34 ADDIE FRONTIER SUSY Medtronic 4.0 x 08 ADDIE FRONTIER SUSY Medtronic SC EUPHORA RX 3.5x20 BALLOON COMPLICATIONS No Complications PROCEDURE MEDICATIONS Fentanyl 50 mcg IV Versed 2 mg IV Fentanyl 50 mcg IV Oxygen: 2 L/min via nasal cannula Heparin 7000 unit(s) IV 05/12/2025 11:36:01 IV Fluids: .9 NaCl IV started @ 150 ml/hr 05/12/2025 12:42:31 SUMMARY OF HEMODYNAMIC DATA Time AIR REST ECG 09:07:55 AO 100/56 (77) SA 11:09:56 AO 92/53 (71) 11:12:51 AO 106/61 (81) 11:26:48 AO 127/70 (93) 12:13:21 Signed By Shanna Serrano MD On 05/12/2025 14:00:30 Shanna Serrano MD
--- NOTE | 2025-05-12 14:19 | CRPHASE1 ---
Patient Communication Patient Information Former Patient:: Phase I PHII Cardiac Rehab Discussed with Patient:: Yes Guide to Cardiac Rehab Given to Patient:: Yes Cardiac Rehab Facility Choice List Given to Patient:: Yes Communication to Cardiac Rehab Choice Program [facility] CR PHII:: Communication Given to CR Choice Program Other:: Communication Given to CR Trim Die Maker:: Adin Serrano Sessions:: 36 sessions - 3 days/wk, 12 weeks Cardiac Rehabilitation Info Program Information Cardiac Rehabilitation Program Information: Cardiac Rehab The cardiac rehab team at [facility] consists of highly skilled exercise physiologists, nurses, respiratory therapists and physicians working together with you. Our purpose is to help you have a full recovery and achieve the goals you set for yourself. Over the years many of our patients have returned to activities they assumed they would never do again! We can help restore your confidence and motivation to make lifestyle changes that can have a significant impact on your health and quality of life! We can help answer questions and concerns you may have about exercise, lifestyle, medications, diet, stress and anxiety which are common following a hospitalization. WE monitor ECG and vital signs during exercise and discuss your progress with you and report to your physician(s). Cardiac Rehab is proven to help reduce readmissions, improve functional capacity and lower recurrence of problems with your heart. Our Cardiac Rehab program is Certified by the [place] [employer]io-Vascular and Pulmonary Rehabilitation (AACVPR) and Accredited by the [place] [employer] through our [facility]. You can contact us at . We invite you to call us with your questions or to get started in our program. If you have other questions or concerns be sure to ask your physician/provider during your follow-up visit. WE look forward to seeing you!
--- NOTE | 2025-05-12 14:21 | CRPH1.INSTRU ---
General Education Discussed with Patient CAD and cardiac anatomy and function:: Patient communicates acknowledgment Explanation of diagnoses and procedures:: Patient communicates acknowledgment Sign/Symptoms of [place]:: Patient communicates acknowledgment Antiplatelet therapy: Patient communicates acknowledgment Proper use of NTG-SL: Patient communicates acknowledgment Emergency procedures and activation of EMS: Patient communicates acknowledgment Compliance of all prescribed medications: Patient communicates acknowledgment Smoking Risk Factors Patient Nicotine/Smoking Risk Factors Are:: Cigarettes and Second-hand smoke Recommendations Recommendations Include:: Second-hand smoke recommendation and Previous smoker; encourage continued cessation Response Code Nicotine/Smoking Response Code:: Patient communicates acknowledgment Dyslipidemia Risk Factors Patient Dyslipidemia Risk Factors Are:: Total Cholesterol, Triglycerides, HDL and LDL Recommendations Recommendations Include:: Lipid profile not available, Reviewed NCEP/ATP guidelines and Therapeutic Lifestyle Change dietary guidelines Response Code Dyslipidemia Response Code:: Patient communicates acknowledgment Overweight/Obesity Risk Factors Patient Overweight/Obesity Risk Factors Are:: Overweight = 26-29 and Obesity - > or = 30 Recommendations Recommendations Include:: Weight loss of 5-10%, Reduced calorie diet and Exercise 5-7 times/week Response Code Overweight/Obesity:: Patient communicates acknowledgment Hypertension Risk Factors Patient Hypertension Risk Factors Are:: No documented hx of HTN Recommendations Recommendations Include:: Maintain BP <130/85, BP <130/80 if diabetic, DASH dietary guidelines, Decrease/maintain normal body weight and Moderation of ETOH Response Code Hypertension:: Patient communicates acknowledgment Heart Disease Risk Factors Patient Heart Disease Risk Factors Are:: Family history of heart disease < 65 years old and Previous cardiac event Recommendations Recommendations Include:: Educated family members of their risk and Educated family members of importance of prevention of heart disease Response Code Heart Disease Response Code:: Patient communicates acknowledgment Diabetes Risk Factors Patient Diabetes Risk Factors Are:: Elevated blood sugars and Post-op hyperglycemia Recommendations Recommendations Include:: Maintain fasting blood sugars 70-110 md/dL, Maintain HgbA1c of 6% or less, Monitor blood sugar as prescribed, Diabetic dietary guidelines and Decrease/maintain body weight Response Code Diabetes:: Patient communicates acknowledgment Metabolic Syndrome Risk Factors Patient Metabolic Syndrome Risk Factors Are [3 of 5]:: Fasting blood sugar > 100 mg/dL, Waist circumference > 35 [female] or 40 [male], High triglyceride >150 and Low HDL <40 [male] or < 50 [female] Recommendations Recommendations Include:: Reinforce compliance to risk factor modifications, Patient is diabetic and Encouraged follow-up with Primary Care Physician Response Code Metabolic Syndrome Response Code:: Patient communicates acknowledgment Sedentary Risk Factors Patient Sedentary Risk Factors Are:: Lack of regular exercise Recommendations Recommendations Include:: Aerobic exercise 5-7 times/week for 20-30 minutes continuously, Benefits of regular exercise, Discussed home walking program and Monitored Outpatient Cardiac Rehab Response Code Sedentary Response Code:: Patient communicates acknowledgment Stress Recommendations Recommendations Include:: Identification of stressors, and assessment of coping skills and Stress management techniques Response Code Stress Response Code:: Patient communicates acknowledgment
--- NOTE | 2025-05-12 14:28 | CRPH1.INSTRU ---
General Education Discussed with Patient CAD and cardiac anatomy and function:: Patient communicates acknowledgment Explanation of diagnoses and procedures:: Patient communicates acknowledgment Sign/Symptoms of [place]:: Patient communicates acknowledgment Antiplatelet therapy: Patient communicates acknowledgment Proper use of NTG-SL: Patient communicates acknowledgment Emergency procedures and activation of EMS: Patient communicates acknowledgment Compliance of all prescribed medications: Patient communicates acknowledgment Smoking Risk Factors Patient Nicotine/Smoking Risk Factors Are:: Never smoked Response Code Nicotine/Smoking Response Code:: Not instructed Dyslipidemia Recommendations Recommendations Include:: Lipid profile not available Response Code Dyslipidemia Response Code:: Patient communicates acknowledgment Overweight/Obesity Risk Factors Patient Overweight/Obesity Risk Factors Are:: Overweight = 26-29 Recommendations Recommendations Include:: Exercise 5-7 times/week Response Code Overweight/Obesity:: Patient communicates acknowledgment Hypertension Risk Factors Patient Hypertension Risk Factors Are:: No documented hx of HTN Response Code Hypertension:: Patient communicates acknowledgment Heart Disease Risk Factors Patient Heart Disease Risk Factors Are:: Family history of heart disease < 65 years old and Previous cardiac event Recommendations Recommendations Include:: Educated family members of their risk Response Code Heart Disease Response Code:: Patient communicates acknowledgment Diabetes Risk Factors Patient Diabetes Risk Factors Are:: Elevated blood sugars Recommendations Recommendations Include:: Maintain HgbA1c of 6% or less and Diabetic dietary guidelines Response Code Diabetes:: Patient communicates acknowledgment Metabolic Syndrome Risk Factors Patient Metabolic Syndrome Risk Factors Are [3 of 5]:: Hypertension Recommendations Recommendations Include:: Reinforce compliance to risk factor modifications and Encouraged follow-up with Primary Care Physician Response Code Metabolic Syndrome Response Code:: Patient communicates acknowledgment Sedentary Recommendations Recommendations Include:: Aerobic exercise 5-7 times/week for 20-30 minutes continuously, Benefits of regular exercise and Monitored Outpatient Cardiac Rehab Response Code Sedentary Response Code:: Patient communicates acknowledgment Stress Risk Factors Patient Stress Risk Factors Are:: Patient denies stress as a risk factor Recommendations Recommendations Include:: Identification of stressors, and assessment of coping skills Response Code Stress Response Code:: Patient communicates acknowledgment
--- NOTE | 2025-05-12 14:40 | CRPHASE1_ITS ---
Patient Communication Patient Information Former Patient:: Phase I PHII Cardiac Rehab Discussed with Patient:: Yes Guide to Cardiac Rehab Given to Patient:: Yes Cardiac Rehab Facility Choice List Given to Patient:: Yes Communication to Cardiac Rehab Choice Program [facility] CR PHII:: Communication Given to CR Interpretative Dancer:: Adin Serrano Phase II Cardiac Rehab:: Yes Sessions:: 36 sessions - 3 days/wk, 12 weeks Post Discharge Choice Letter Given to Patient:: Yes Guide to Cardiac Rehab Given by ICU Staff Prior to Discharge:: No Medical/Surgical History Medical History GA:: No Angina:: Yes CAD:: Yes Congestive Heart Failure:: No Cardiomyopathy:: No Valve Disease/Replacement:: No Pulmonary:: No COPD:: No Asthma:: No MARTIR:: No Diabetes:: Yes Diabetes Type I:: No Diabetes Type II:: Yes Hypertension:: Yes Dyslipidemia:: Yes Arrhythmias:: No EPS:: No CVA/TIA: CEA:: No PE:: No DVT:: No PVD:: No PAD:: No Arthritis:: No GI:: No GERD:: No Cancer:: No Renal:: No Thyroid:: No Depression:: No Anxiety:: No Surgical History CABG: Yes PTCA:: Yes ICD:: No Pacemaker:: No Orthopedic:: No Cardiac Rehabilitation Info Program Information Cardiac Rehabilitation Program Information: Cardiac Rehab The cardiac rehab team at [facility] consists of highly skilled exercise physiologists, nurses, respiratory therapists and physicians working together with you. Our purpose is to help you have a full recovery and achieve the goals you set for yourself. Over the years many of our patients have returned to activities they assumed they would never do again! We can help restore your confidence and motivation to make lifestyle changes that can have a significant impact on your health and quality of life! We can help answer questions and concerns you may have about exercise, lifestyle, medications, diet, stress and anxiety which are common following a hospitalization. WE monitor ECG and vital signs during exercise and discuss your progress with you and report to your physician(s). Cardiac Rehab is proven to help reduce readmissions, improve functional capacity and lower recurrence of problems with your heart. Our Cardiac Rehab program is Certified by the [place] [employer] Cardio-Vascular and Pulmonary Rehabilitation (AACVPR) and Accredited by the [place] [employer] through our [facility]. You can contact us at . We invite you to call us with your questions or to get started in our program. If you have other questions or concerns be sure to ask your physician/provider during your follow-up visit. WE look forward to seeing you!
== END 2025-05-12 15:25 | disposition home or self-care (01) ==
PROVIDERS: Student in an Organized Health Care Education/Training Program; PCP Family Medicine; Referring Provider Specialist; Visit Provider Specialist
DX: I25.110 Atherosclerotic heart disease of native coronary artery with unstable angina pectoris (principal); E11.9 Type 2 diabetes mellitus without complications; Z95.5 Presence of coronary angioplasty implant and graft; E78.5 Hyperlipidemia, unspecified; I10 Essential (primary) hypertension; Z79.82 Long term (current) use of aspirin; Z79.84 Long term (current) use of oral hypoglycemic drugs; Z79.899 Other long term (current) drug therapy; Z79.02 Long term (current) use of antithrombotics/antiplatelets; Z79.85 Long-term (current) use of injectable non-insulin antidiabetic drugs; Z87.891 Personal history of nicotine dependence; R07.89 Other chest pain; R06.09 Other forms of dyspnea; Z95.1 Presence of aortocoronary bypass graft; E78.1 Pure hyperglyceridemia
CPT/HCPCS: 36415; 80048; 82330; 92928; 93455; 99152; 99153; C1894; Q9967; C1725; C1760; C1769; C1874; C1887; C9600

== ENCOUNTER → 2025-05-19 | Outpatient (CLI) | payer OTHER, SELFPAY ==
[2025-01-29 07:31] VITALS: BMI 37.0
== END | disposition home or self-care (01) ==
LOC: LAB 08:45
PROVIDERS: PCP Family Medicine; Referring Provider Student in an Organized Health Care Education/Training Program; Visit Provider Student in an Organized Health Care Education/Training Program
DX: I25.10 Atherosclerotic heart disease of native coronary artery without angina pectoris (principal); E11.59 Type 2 diabetes mellitus with other circulatory complications
CPT/HCPCS: 36415; 83036; 83695

== ENCOUNTER 2025-06-09 08:22 | Day surgery (SDC) | payer OTHER, SELFPAY ==
--- OUTSIDE RECORDS SUMMARY | 2024-06-19 | XMS RPT_ITS ---
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 Name Role Phone GAVIN DK Referring Unavailable XAVIER MONDRAGON Attending Unavailable PROBLEMS DATE TYPE CONDITION / CODE ATTENDING STATUS MARJ E 06/19/2024 Admitting diagnosis Obstructive sleep apnea (adult) (pediatric) / G47.33(ICD-10) XAVIER MONDRAGON Active [facility] PROCEDURES No Procedure Records Found RESULTS CNPN Observed: 10/06/2024 12:00 AM Status: COMPLETED Source: [facility] Telephone (FPDOYL) MIRIANQI ([id number]) 1965 M Date Time Provider Department 10/06/24 PRIYA BRISENO FPDOYL During your visit today, we recorded the following information about you: Allergies As of Date: 10/06/2024 Noted Allergy Reaction ROSUVASTATIN 01/23/2022 17 - Myalgia Date Reviewed: 11/12/2023 Reviewed by: Mary Mistry LPN - Fully Assessed Prescriptions as of 10/06/2024 - metFORMIN ER (GLUCOPHAGE XR) 500 mg 24 hr tablet take 1 tablet by mouth twice a day - nitroglycerin sublingual (NITROQUICK) 0.4 mg SL tablet FOR CHEST PAIN. IF NO PAIN RELIEF, CALL 911 - fluticasone (FLONASE ALLERGY RELIEF) 50 mcg/actuation nasal spray Use 2 Sprays in each nostril once daily. - acetaminophen (TYLENOL) 500 mg tablet Take 2 tablets by mouth every 6 hours as needed for pain. - atorvastatin (LIPITOR) 40 mg tablet Take 40 mg by mouth daily at bedtime. - aspirin, enteric coated (ASPIRIN, ENTERIC COATED) 81 mg EC tablet Take 81 mg by mouth once daily. 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] 02/17/2023 On mechanically assisted ventilation (HCC) [Z99*02/19/2023 02/21/2023 Postoperative hypovolemia [E89.89, E86.1] 02/19/2023 02/22/2023 Postoperative pain [G89.18] 02/19/2023 Obesity, Class II, BMI 35-39.9 [E66.812] 02/19/2023 Atelectasis [J98.11] 02/20/2023 Acute kidney injury (HCC) [N17.9] 02/20/2023 02/21/2023 Encounter for support and coordination of trans*02/21/2023 Chest pain [R07.9] 03/14/2023 Hx of CABG [Z95.1] 03/15/2023 Encounter Status:Closed by LEANN WETZEL on 10/06/24 ALLERGIES No Allergies Records Found ENCOUNTERS ADMIT/DISCHARGE ACCOUNT NUMBER ADMITTING ENCOUNTER CLASS LOC ATION SOURCE 06/19/2024 [id number] [facility] PAYERS ENCOUNTER GUARANTOR PAYER SUBSCRIBER SOURCE 06/19/2024 QI CHAVARRIA: [id number] [place] [id number]: (HP) Primary Insurance:[facility] MARKETPLACEPolicy Number: [id number] Date:1787-39-19Ohen Name:MANAGED CARE QI CHAVARRIA: [id number] [place], [place] [address]Zlw: () [facility]
[2025-01-29 07:31] VITALS: BMI 37.0
[2025-06-09 08:22] VITALS: BP 119/74; PULSE 57; RESP 14; TEMP 36.7; O2SAT 98; BMI 34.9
--- NOTE | 2025-06-09 08:24 | EKG12_ITS ---
Test Reason : CP Blood Pressure : */* mmHG Vent. Rate : 56 BPM Atrial Rate : 56 BPM P-R Int : 204 ms QRS Dur : 92 ms QT Int : 414 ms P-R-T Axes : -3 -46 64 degrees QTcB Int : 399 ms Sinus bradycardia Left anterior fascicular block Abnormal ECG Confirmed by HANK LARA, SANJIV ([id number]), fashion editor VITALY MANNING ([id number]) on 06/10/2025 9:07:55 AM Referred By: Confirmed By: SANJIV MCKINNEY MD
--- NOTE | 2025-06-09 08:32 | ED.VIS.CHEST ---
HPI History of Present Illness Chief Complaint: Chest Pain Informant: patient Onset/Context/Timing Onset: Month(s) Activity at onset: gradual Timing: Intermittent Quality: Positive for Aching Location: Substernal Current Severity: Gone Maximum Severity: Moderate Worsened By: Exertion Relieved By: Rest Associated Symptoms: Positive for Dyspnea; Negative for Nausea, Vomiting, Diaphoresis, Cough, Fever, Lightheadedness, Acid Reflux or Palpitations Narrative Narrative: 59-year-old male known history of coronary disease. Prior WI. Prior triple bypass. Prior stents. Last stent was a month ago. He is currently on aspirin and Plavix. He is also known diabetic. Patient states that he gets exertional chest pain and dyspnea. He has had it over the last month since he had his stent. He is getting more frequent and more intense. Currently symptom-free. Said he can walk about 50 yards and then starts getting symptoms. Prior Similar Symptoms: Yes Recent Illness/Hospitalization: No CVD Risk Factors: Positive for Hypertension, Diabetes and Hypercholesterolemia PE Risk Factors: Negative for Recent Travel/Surgery, Recent Immobilization, Prior DVT or PE, Cancer or OCP + Smoking + >/=35 TAD Risk Factors: Negative for Marfan's Syndrome [facility] Medical History Essential hypertension Hypertriglyceridemia Type 2 diabetes mellitus Diabetes Former smoker Myocardial infarct Diabetic neuropathy History of diabetes mellitus, type II Orthopedic aftercare Loss of hearing Wears glasses Non-smoker Chest pain Primary osteoarthritis of right knee History of non-ST elevation myocardial infarction (NSTEMI) (02/12/23) Hyperlipidemia Obesity Atherosclerosis of coronary artery of [place] heart without angina pectoris Home Medications ?Medication ?Instructions ?Recorded ?Last Taken ?Type aspirin 81 mg tablet,delayed 81 mg PO QDAY HEART 09/26/22 05/12/25 History release (Adult Aspirin Regimen) nitroglycerin 0.4 mg sublingual 0.4 mg sublingual Q5M PRN chest 11/23/23 Unknown Rx tablet pain #25 tabs metformin 1,000 mg tablet 1,000 mg PO BID diabetes 04/01/24 05/11/25 History tirzepatide 2.5 mg/0.5 mL 2.5 mg subcut QWEEK diabetes 08/06/24 08/02/24 History subcutaneous pen injector (Mounjaro) atorvastatin 80 mg tablet 80 mg PO QHS #90 tabs 09/26/24 Unknown Rx metoprolol succinate 25 mg 25 mg PO DAILY #90 tabs 11/26/24 05/12/25 Rx tablet,extended release 24 hr losartan 25 mg tablet 25 mg PO DAILY #90 TABLETS 12/19/24 05/12/25 Rx ranolazine 500 mg tablet,extended 500 mg PO BID 30 days #180 tabs 12/23/24 05/07/25 Rx release,12 hr gemfibrozil 600 mg tablet 600 mg PO BIDAC cholesterol #180 01/16/25 05/12/25 Rx tabs clopidogrel 75 mg tablet 75 mg PO DAILY #90 TABLETS 03/17/25 05/12/25 Rx Allergy/AdvReac Type Severity Reaction Status Date / Time rosuvastatin (From Crestor) AdvReac myalgia Verified 06/09/25 08:23 Family History Father Heart disease Mother Diabetes Surgical History S/P CABG x 3 (02/19/23) Hx of total knee replacement S/P total knee arthroplasty History of coronary artery stent placement Hx of total knee replacement History of left heart catheterization (11/23/23) History of coronary artery stent placement (05/13/25) Social History household members: spouse Smoking Status: Former smoker alcohol intake: never substance use type: does not use ROS ROS ED ROS Narrative Exertional chest pain. Otherwise no recent illness. Exertional dyspnea. Constitutional Constitutional ED: Denies chills or fever(s) Eyes Eyes: Reports none ENT ENT ED: Denies ear pain Cardiovascular Cardiovascular: Reports as per HPI and chest pain; Denies palpitations or racing heartbeat Respiratory/Chest Respiratory/Chest: Reports dyspnea and dyspnea on exertion; Denies cough Genitourinary Genitourinary ED: Denies dysuria Musculoskeletal Musculoskeletal: Denies arthralgias Integumentary Denies abscess Neurologic Neurologic: Denies headache(s) Psychiatric Psychiatric: Denies anxiety Endocrine Endocrinology: Denies cold intolerance Hematologic/Lymphatic Hematologic/Lymphatic: Denies easy bleeding, easy bruising or lymphadenopathy Allergic/Immunologic Allergic/Immunologic ED: Denies mouth swelling, tongue swelling or urticaria EXAM Physical Exam Narrative Exam Narrative: 59-year-old male vital signs stable afebrile. No acute distress. Currently symptom-free pain-free. Pulse ox 90% on room air no hypoxia. Sitting upright in bed. present in the room. H EENT exam pupils round reactive light. Moist mucous membranes. Neck nontender no JVD. Lungs clear to auscultation bilaterally. Heart bradycardic rate of 55-60. No murmur. Chest wall and ribs nontender. Abdomen soft nontender. Moving all 4 extremities. 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 Equal symmetrical radial pulses. Calves nontender without edema or cords. Normal strength. Normal range of motion. Neurologically is awake alert. Answering questions following commands. Const Vital Signs: 06/09/25 08:22 06/09/25 08:24 06/09/25 08:24 Temperature 98.1 F Temperature Source Temporal Pulse Rate 57 L Respiratory Rate 14 Respiratory Effort Normal Blood Pressure 119/74 Blood Pressure Mean 89 Pulse Ox 98 Oxygen Delivery Method Room Air Room Air 06/09/25 08:42 Temperature 97.0 F L Temperature Source Temporal Pulse Rate 57 L Respiratory Rate 17 Respiratory Effort Blood Pressure 113/68 Blood Pressure Mean 83 Pulse Ox 97 Oxygen Delivery Method Room Air Positive well nourished and well developed; Negative for cachectic, contractures or unkempt General Appearance ED: well developed and NAD; Negative for unkempt, cachectic, contractures or pallor Nutritional Appearance: Negative for cachectic HEENT Reports moist mucous membranes normocephalic and atraumatic Eyes PERRL and EOMs intact bilaterally General Eye ED: Negative for pale conjunctiva or scleral icterus Neck no lymphadenopathy, supple and no JVD General: Negative for tenderness Chest Wall inspection of chest normal and palpation of chest normal Resp normal respiratory effort and clear to auscultation bilaterally Cardio regular rhythm, S1 normal heart sound, S2 normal heart sound and no murmurs; Negative for regular rate Rate: bradycardia Peripheral Pulses: pulses 2+ throughout GI normal to inspection, nondistended, normoactive bowel sounds, soft to palpation, non-tender, non-distended and no masses Back/Spine no CVA tenderness and no thoracic nor lumbar tenderness Extremity normal to inspection General Extremety ED: Negative for edema, pulses abnormal or tenderness General Extremity: Negative for edema or pulses abnormal Neuro oriented x3 and CN's II-XII intact bilaterally Sensorium / Orientation: awake, alert, oriented to person, oriented to place and oriented to time Motor Exam: strength 5/5 throughout Psych Appearance: Negative for unkempt Attitude: No agitated Mood & Affect: Negative for depressed Skin no rashes or lesions noted and no wounds General Skin Exam: Negative for jaundice or pallor Rashes: No rashes noted Trauma: Negative for abrasion or laceration Heart Score History: Highly Suspicious ECG: Normal Age: >45 - <65 years Risk Factors: >/= 3 Risk Factors or History of CAD Troponin: </= Normal Limit Score: 5 MDM MDM MDM Narrative Medical decision making narrative: 59-year-old male with known cardiac disease prior triple bypass and stent. Month ago received his most recent stent he is on Plavix and aspirin. However he does have an frequent recurrent exertional chest pain exertional dyspnea. It does sound like angina. Undergo cardiac workup. 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 Repeat exam patient doing well at 9:30 AM. I discussed his case with cardiology on-call Dr. Godinez. Given his recent stent and overall cardiac history and his symptoms of unstable angina. He will be taken to the Certified Adaptive Physical Educator today for further evaluation. Patient is aware of this. Comfortable with the plan. Organ to hold him in the ER until the Certified Adaptive Physical Educator is available. History & Record Review Discussion w/independent historian: Patient and Family Additional record(s) reviewed:: Prior inpatient record, Prior outpatient record, Prior ED visit and Prior labs Lab Data Attestation: I reviewed the patient's lab results. Lab results narrative: CBC unremarkable. White count of 4. H&H of 13 and 41. Platelets 305. Chemistries show a gap of 13. BUN and creatinine of 31 and 1.1. Glucose 115. Initial troponin normal at 14. Chest x-ray chronic changes no acute process. Labs: Laboratory Results - last 24 hr 06/09/25 08:36 WBC 4.9 RBC 4.96 Hgb 13.5 Hct 41.7 MCV 84.1 MCH 27.2 MCHC 32.4 RDW Std Deviation 41.6 RDW Coeff of Hillary 13.6 Plt Count 305 MPV 10.2 Immature Gran % (Auto) 0.600 Neut % (Auto) 56.6 Lymph % (Auto) 25.7 Thomas % (Auto) 10.2 H Eos % (Auto) 5.7 H Baso % (Auto) 1.2 H Absolute Neuts (auto) 2.8 Absolute Lymphs (auto) 1.26 Nucleated RBC % 0 Sodium 137 Potassium 4.6 Chloride 103 Carbon Dioxide 22.0 Anion Gap 13 BUN 31 H Creatinine 1.15 Estim Creat Clear Calc 99.34 Est GFR (MDRD) Non-Af 72 BUN/Creatinine Ratio 27.1 H Glucose 115 H Calcium 9.9 Troponin T High Sens 14 Radiography Chest X-Ray - ED: 2 View, Read by ED Physician, Normal, Heart, Lungs, Mediastinum, Bony Structures, No Acute Disease and Chronic Changes Diagnostic Testing: Clinical Impression(s) from Imaging Studies Chest X-Ray 06/09/25 08:45 IMPRESSION: No radiographic evidence of acute cardiopulmonary disease. Reading Location: [place] [address] Chest x-ray, 2 views, AP and lateral, interpreted by myself. Shows chronic changes no acute process. Borderline cardiomegaly. Prior sternotomy. No acute process. Chronic changes. Lungs clear. Rhythm Strip Rhythm Strip: Sinus bradycardia Rate: 56 Ectopy: None EKG Initial EKG: Attestation: I personally reviewed and interpreted this EKG as follows: Interpretation: Sinus Bradycardia Comments: Sinus bradycardia rate of 56 no acute signs of WI or ischemia Prior EKG tracings: available for review Prior: Unchanged Discharge Plan Dx/Rx/DC Orders Clinical Impression: Chest pain, Unstable angina, History of WI (myocardial infarction), S/P CABG x 3 Disposition Disposition: Acute Care Hospital [facility]
[2025-06-09 08:42] VITALS: BP 113/68; PULSE 57; RESP 17; TEMP 36.1; O2SAT 97
--- NOTE | 2025-06-09 08:45 | RAD_ITS ---
PROCEDURE: CHEST PA AND LATERAL 06/09/2025 REASON FOR EXAM: CP TECHNIQUE: Procedure Code: RADCXR Modality: DX Procedure: CHEST PA AND LATERAL COMPARISON: 04/15/2025 FINDINGS: Hardware: None Heart: Mild cardiomegaly Mediastinum: Unremarkable. Lungs: No focal infiltrates or effusions. Bones: Unremarkable. RAD/Chest PA and Lateral IMPRESSION: No radiographic evidence of acute cardiopulmonary disease. Reading Location: [place] [address]
[2025-06-09 08:48] LABS: Hematocrit 41.7 % (40-54); Hemoglobin 13.5 g/dL (13.0-16.5); Immature Granulocytes Count 0.030 X10^3/uL (0.0-0.0); Mean Corp Hgb Conc 32.4 g/dL (32-36); Mean Corpuscular Volume 84.1 fL (80-94); Mean Platelet Vol. 10.2 fl (6.2-12.0); NRBC Flagged by Analyzer 0 % (0-5); Platelet Count 305 K/mm3 (150-450); RBC Distribution Width CV 13.6 % (11.6-14.6); RBC Distribution Width SD 41.6 fl (35.1-43.9); Red Blood Count 4.96 M/mm3 (4.6-6.2); White Blood Count 4.9 K/mm3 (4.4-11.0)
[2025-06-09 09:16] LABS: Anion Gap 13 (5-15); BUN 31 mg/dL (4-19); BUN/Creat Ratio 27.1 RATIO (10-20); Calcium,Total 9.9 mg/dL (7.6-11.0); Carbon Dioxide 22.0 mmol/L (21.0-32.0); Chloride 103 mmol/L (98-108); Estimated Creatinine Clearance 99.34 ml/min (50-250); Glucose 115 mg/dL (70-99); Potassium 4.6 mmol/L (3.3-5.1); Troponin T High Sensitivity 14 ng/L (<=22)
[2025-06-09 09:23] VITALS: BP 119/74; PULSE 55; RESP 18; O2SAT 98
[2025-06-09 10:00] VITALS: BP 118/76; PULSE 56; RESP 18; TEMP 37.1; O2SAT 99
--- NOTE | 2025-06-09 12:22 | CL.D_ITS ---
Patient Name: QI VELA Study Date: 06/09/2025 Performing: Shanna Serrano MD Ht: 76 inches 193.04 cm : 1965 Wt: 286.82 lbs 130.1 kg Age: 59 Gender: male BSA: 2.58 PROCEDURE(S) PERFORMED DC01-([id number])LHC/COR/LV CLINICAL PROFILE AND INDICATIONS Indications: Suspected CAD, chest pain Heart Failure: None CONCLUSIONS CAD as described. Recently placed stents are widely patent. RECOMMENDATIONS Increase Ranexa to 1000mg BID DESCRIPTION OF PROCEDURE The patient arrived to the procedure lab. The risks and benefits of the procedure as well as a full description of our services here and current unavailability of surgical backup were fully explained to the patient and/or their significant other prior to the catheterization. The Timeout was completed, verifying the correct patient and procedure. The patient's procedural site was prepped and draped in the usual fashion. Local anesthetic was given subcutaneously to right radial region with Lidocaine 2%. Using a modified Seldinger technique, arterial access was obtained via the right radial artery, a 6Fr sheath was inserted. Left Coronary Artery selective angiography was performed in multiple views using a 5 Fr. JL3.5 catheter. Right Coronary Artery selective angiography was then performed in multiple views using a 5 Fr. JR 4 catheter.The arterial sheath was pulled and a TR Band was applied for hemostasis CORONARY ANGIOGRAPHY DOMINANCE: Right Dominant LEFT MAIN: 50% distal stenosis LEFT ANTERIOR DESCENDING ARTERY: OSTIAL LAD: 80 % Stenosis MID LAD: is occluded CIRCUMFLEX ARTERY: 90% proximal stenosis RAMUS: 70% proximal stenosis RIGHT CORONARY ARTERY: Widely patent stents in the proximal and mid RCA. 50% distal RCA stenosis GRAFTS: BARRERA graft to the LAD was patent by angiography earlier this month and was not injected today Saphenous Vein graft to the 1st OM was patent by angiography earlier this month and was not injected today Y graft to the Ramus was patent by angiography earlier this month and was not injected today COMPLICATIONS No Complications PROCEDURE MEDICATIONS Versed 1 mg IV Fentanyl 50 mcg IV Oxygen: 2 L/min via nasal cannula Heparin given IA 06/09/2025 10:51:50 Verapamil 2.5mg, Ntg 100mcgs, 3000 units of Heparin given IA 06/09/2025 10:51:50 SUMMARY OF HEMODYNAMIC DATA Time AIR REST ECG 10:22:33 Art 95/54 (70) 10:55:08 AO 98/48 (75) SA 10:59:20 LV 104/0, 6 10:59:41 LV 97/0, 9 10:59:47 LVp 102/-1, 6 11:00:00 AOp 112/64 (84) 11:00:05 Signed By Shanna Serrano MD On 06/09/2025 12:21:49 Shanna Serrano MD
--- NOTE | 2025-06-12 11:54 | CON.PCM.CA_ITS ---
Assessment & Plan Assessment/Plan (1) Chest pain: QUALIFIERS: Chest pain type: unspecified Qualified Code(s): R07.9 - Chest pain, unspecified PLAN: Patient states his chest pain is similar to what he had prior to his PCI in the past. He had recent stents. We will proceed with limited coronary angiography mainly to evaluate his stents. His bypass grafts were open by recent angiogram less than a month back. Risks and benefits explained to the patient and patient wishes to proceed. HPI Consult Data Date of Consult: 06/12/25 HPI Narrative Reason for Consultation: Chest pain HPI Narrative: QI VELA, is a 59 M who presents with chest pain. He had PCI of the RCA earlier this month. His bypass grafts were open at the time. [facility] Medical History Essential hypertension Hypertriglyceridemia Type 2 diabetes mellitus Diabetes Former smoker Myocardial infarct Diabetic neuropathy History of diabetes mellitus, type II Orthopedic aftercare Loss of hearing Wears glasses Non-smoker Chest pain Primary osteoarthritis of right knee History of non-ST elevation myocardial infarction (NSTEMI) (02/12/23) Hyperlipidemia Obesity Atherosclerosis of coronary artery of [place] heart without angina pectoris Home Medications ?Medication ?Instructions ?Recorded ?Last Taken ?Type aspirin 81 mg tablet,delayed 81 mg PO QDAY HEART 09/2606/09/25 History release (Adult Aspirin Regimen) nitroglycerin 0.4 mg sublingual 0.4 mg sublingual Q5M PRN chest 11/23/23 Unknown Rx tablet pain #25 tabs metformin 1,000 mg tablet 1,000 mg PO BID diabetes 05/11/25 History tirzepatide 2.5 mg/0.5 mL 2.5 mg subcut QWEEK diabetes 08/06/24 08/02/24 History subcutaneous pen injector (Mounjaro) atorvastatin 80 mg tablet 80 mg PO QHS #90 tabs 06/09/25 Rx metoprolol succinate 25 mg 25 mg PO DAILY #90 tabs 05/12/25 Rx tablet,extended release 24 hr losartan 25 mg tablet 25 mg PO DAILY #90 TABLETS 0 12/19/24 05/12/25 Rx gemfibrozil 600 mg tablet 600 mg PO BIDAC cholesterol #180 01/16/25 05/12/25 Rx tabs clopidogrel 75 mg tablet 75 mg PO DAILY #90 TABLETS 0 03/17/25 05/12/25 Rx ranolazine 500 mg tablet,extended 1,000 mg (2 x 500 mg ) PO BID #60 06/09/25 Unknown Rx release,12 hr tabs Allergy/AdvReac Type Severity Reaction Status Date / Time rosuvastatin (From Crestor) AdvReac myalgia Verified 06/09/25 08:23 Family History Father Heart disease Mother Diabetes Surgical History S/P CABG x 3 (02/19/23) Hx of total knee replacement S/P total knee arthroplasty History of coronary artery stent placement Hx of total knee replacement History of left heart catheterization (11/23/23) History of coronary artery stent placement (05/13/25) Social History household members: spouse Smoking Status: Former smoker alcohol intake: never substance use type: does not use Physical Exam Const alert and oriented x3 HEENT normocephalic Eyes no scleral icterus Chest inspection of chest normal Resp normal respiratory effort Charges/Coding Visit Charges Inpatient E&M: 25442 Init Hosp L1 Objective Data Vital Signs: Vital Signs Temp Pulse Resp BP Pulse Ox O2 Del Method 98.7 F 56 L 18 118/76 99 Room Air 06/09/25 10:00 06/09/25 10:00 06/09/25 10:00 06/09/25 10:00 06/09/25 10:00 06/09/25 09:23 Oxygen Delivery Method Room Air Weight: 286 lb 13.142 oz Body Mass Index (BMI) 34.9 Lab / Micro Data 06/09/25 08:36 06/09/25 08:36 Rhythm Strip Rhythm Strip: Sinus bradycardia Rate: 56 Ectopy: None Cardiology Labs/Tests Rhythm: EKG: ECHO: Stress Test: Cardiac Cath: PCI: CT Surgery: Holter monitor: EPS: PPM: CXR: Chest CT Scan: MT Risk Score for UA/STEMI Assesmment (YES = 1) Risk Stratification Applicable: No
== END 2025-06-09 13:45 | disposition home or self-care (01) ==
LOC: ED 09:05 → CLSP 09:32 → CLINP 09:32
PROVIDERS: Emergency Provider Emergency Medicine; PCP Family Medicine; Visit Provider Internal Medicine Cardiovascular Disease
DX: I25.10 Atherosclerotic heart disease of native coronary artery without angina pectoris (principal); E11.40 Type 2 diabetes mellitus with diabetic neuropathy, unspecified; Z95.5 Presence of coronary angioplasty implant and graft; Z79.02 Long term (current) use of antithrombotics/antiplatelets; I10 Essential (primary) hypertension; Z87.891 Personal history of nicotine dependence; E78.00 Pure hypercholesterolemia, unspecified; Z79.82 Long term (current) use of aspirin; Z95.1 Presence of aortocoronary bypass graft; Z79.899 Other long term (current) drug therapy; I25.2 Old myocardial infarction
CPT/HCPCS: 71046; 80048; 84484; 85025; 93005; 93458; 99152; 99153; 99285; C1894; Q9967; A4216; C1769

== ENCOUNTER → 2025-07-06 | Outpatient (CLI) | payer OTHER, SELFPAY ==
[2025-01-29 07:31] VITALS: BMI 37.0
--- NOTE | 2025-07-06 07:52 | CDU_ITS ---
Reason For Study Reason For Study: Atherosclerosis Rt. Velocities/BP Lt. Velocities/BP Prox CCA 86/15 cm/sec. Prox CCA 99/20 cm/sec. Mid CCA 82/14 cm/sec. Mid CCA 78/21 cm/sec. Dist CCA 72/16 cm/sec. Dist CCA 48/17 cm/sec. Prox ICA 64/13 cm/sec. Prox ICA 46/15 cm/sec. Mid ICA 60/19 cm/sec. Mid ICA 66/28 cm/sec. Dist ICA 62/24 cm/sec. Dist ICA 76/32 cm/sec. Rt. ICA/CCA = 0.8. Lt. ICA/CCA = 1.0. Prox ECA 100/13 cm/sec. Prox ECA 87/13 cm/sec. Rt. Vert. 44/17 cm/sec. Lt. Vert. 34/10 cm/sec. Right Extracranial There is intimal thickening but no significant atherosclerotic plaque noted in the right common carotid artery. There is heterogeneous, irregular atherosclerotic plaque noted in the right internal carotid artery. There is intimal thickening but no significant atherosclerotic plaque noted in the right external carotid artery. Antegrade flow is noted in the right vertebral artery. Left Extracranial There is heterogeneous, irregular atherosclerotic plaque noted in the left common carotid artery. There is heterogeneous, irregular atherosclerotic plaque noted in the left internal carotid artery. There is intimal thickening but no significant atherosclerotic plaque noted in the left external carotid artery. Antegrade flow is noted in the left vertebral artery. Procedure Carotid Duplex [id number]. This is a Carotid Duplex examination using B-mode, color flow and specral Doppler. Exam performed in department. VL/Carotid Duplex Ultrasound Interpretation Summary Mild (<50%) stenosis right extracranial internal carotid. Mild (<50%) stenosis left extracranial internal carotid. Patent and antegrade vertebrals bilaterally. Ordering Physician: Tito Carnes Referring Physician: Karolyn Solomon Performed By: Charlotte Medel, RDCS, RVT
== END | disposition home or self-care (01) ==
LOC: CVS 07:52
PROVIDERS: PCP Family Medicine; Referring Provider Student in an Organized Health Care Education/Training Program; Visit Provider Student in an Organized Health Care Education/Training Program
DX: I70.90 Unspecified atherosclerosis (principal)
CPT/HCPCS: 93880

== ENCOUNTER → 2025-08-18 | Outpatient (CLI) | payer OTHER, SELFPAY ==
[2025-01-29 07:31] VITALS: BMI 37.0
[2025-08-18 10:32] LABS: AST(SGOT) 19 U/L (<=37); Alanine Aminotransfer ALT/SGPT 23 U/L (<=46); Albumin, Serum 4.6 g/dL (3.4-4.8); Alkaline Phosphatase 77 U/L (40-129); Bilirubin, Direct 0.12 mg/dL (0.00-0.30); Cholesterol 139 mg/dL (<=200); Globulin 3.0 g/dL (2.2-4.2); Low Density Lipoprotein Calc. 87 mg/dL; Triglycerides 126 mg/dL; Very Low Density Lipoprotein 25 mg/dL (5-40); cholesterol:hdl ratio screen 4.71
== END | disposition home or self-care (01) ==
LOC: LAB 07:58
PROVIDERS: PCP Family Medicine; Referring Provider Student in an Organized Health Care Education/Training Program; Visit Provider Student in an Organized Health Care Education/Training Program
DX: E78.1 Pure hyperglyceridemia (principal); I25.10 Atherosclerotic heart disease of native coronary artery without angina pectoris
CPT/HCPCS: 36415; 80061; 80076

== ENCOUNTER 2025-09-07 11:40 | Emergency (ER) | payer OTHER, SELFPAY ==
[2025-01-29 07:31] VITALS: BMI 37.0
[2025-09-07] VITALS (11 sets, daily range): BP systolic 106–117; BP diastolic 70–82; PULSE 52–82; RESP 16–23; TEMP 36.2–36.8; O2SAT 92–100; BMI 35.9
--- NOTE | 2025-09-07 11:49 | EKG12_ITS ---
Test Reason : Blood Pressure : */* mmHG Vent. Rate : 56 BPM Atrial Rate : 56 BPM P-R Int : 198 ms QRS Dur : 96 ms QT Int : 412 ms P-R-T Axes : -15 -51 31 degrees QTcB Int : 397 ms Sinus bradycardia Left axis deviation Abnormal ECG Low voltage Confirmed by Wilbert Jarrell ([id number]), development editor TAWANA GERMAN ([id number]) on 09/11/2025 6:33:43 AM Referred By: Confirmed By: Wilbert Jarrell
--- NOTE | 2025-09-07 12:10 | RAD_ITS ---
PROCEDURE: CHEST 1 VIEW (PORTABLE) 09/07/2025 REASON FOR EXAM: CHEST PAIN TECHNIQUE: Frontal view of the chest. COMPARISON: June 09, 2025 FINDINGS: Hardware: Surgical clips overlying the left upper thorax. Heart: Mildly enlarged status post median sternotomy. Lungs: The lungs are clear. Bones: Degenerative changes are identified within the thoracic spine. RAD/Chest 1 View (Portable) IMPRESSION: Cardiac enlargement Reading Location: [id number]
[2025-09-07 12:11] LABS: Hematocrit 42.0 % (40-54); Hemoglobin 13.8 g/dL (13.0-16.5); Immature Granulocytes Count 0.050 X10^3/uL (0.0-0.0); Mean Corp Hgb Conc 32.9 g/dL (32-36); Mean Corpuscular Volume 80.9 fL (80-94); Mean Platelet Vol. 10.2 fl (6.2-12.0); NRBC Flagged by Analyzer 0 % (0-5); Platelet Count 328 K/mm3 (150-450); RBC Distribution Width CV 13.2 % (11.6-14.6); RBC Distribution Width SD 38.7 fl (35.1-43.9); Red Blood Count 5.19 M/mm3 (4.6-6.2); White Blood Count 6.3 K/mm3 (4.4-11.0)
--- NOTE | 2025-09-07 12:21 | ED.VIS.CHEST ---
HPI History of Present Illness Chief Complaint: Chest Pain Informant: patient, spouse/S.O. and EMS Narrative Narrative: Patient is a 60-year-old male with a history of CAD, CABG, and recent stent placement presenting with recurrent chest discomfort. - Reports intermittent chest discomfort over the past few weeks, similar to previous episodes experienced in May when he had a stent. Describes discomfort as a tightness in the chest, often accompanied by pain in the arm and wrist. Episodes are triggered by light activity, such as walking, and occasionally occur while sitting; symptoms typically resolve within 15-20 minutes of rest. - Denies dyspnea or presyncope during episodes. - Recent increase in frequency and intensity of episodes led to seeking evaluation today. - Last cardiology visit was last week; isosorbide was added to his regimen, but he reports no significant improvement. - Previously on Ranexa and nitroglycerin, which he used frequently due to pain episodes. - Has a history of recurrent stent restenosis; current symptoms are reminiscent of prior episodes. - Denies abdominal discomfort. [facility] Medical History Essential hypertension Hypertriglyceridemia Type 2 diabetes mellitus Diabetes Former smoker Myocardial infarct Diabetic neuropathy History of diabetes mellitus, type II Orthopedic aftercare Loss of hearing Wears glasses Non-smoker Chest pain Primary osteoarthritis of right knee History of non-ST elevation myocardial infarction (NSTEMI) (02/12/23) Hyperlipidemia Obesity Atherosclerosis of coronary artery of [place] without angina pectoris Home Medications ?Medication ?Instructions ?Recorded ?Last Taken ?Type aspirin 81 mg tablet,delayed 81 mg PO QDAY HEART 09/26/22 06/09/25 History release (Adult Aspirin Regimen) metoprolol succinate 25 mg 25 mg PO DAILY #90 tabs 11/26/24 05/12/25 Rx tablet,extended release 24 hr gemfibrozil 600 mg tablet 600 mg PO BIDAC cholesterol #180 01/16/25 05/12/25 Rx tabs clopidogrel 75 mg tablet 75 mg PO DAILY #90 TABLETS 03/17/25 05/12/25 Rx nitroglycerin 0.4 mg sublingual 0.4 mg sublingual Q5M PRN chest 06/22/25 Unknown Rx tablet pain #25 tabs tirzepatide 7.5 mg/0.5 mL 7.5 mg subcut QWEEK 06/22/25 Unknown History subcutaneous pen injector (Herbert) ranolazine 1,000 mg 1,000 mg PO BID #180 tabs 07/07/25 Unknown Rx tablet,extended release,12 hr atorvastatin 80 mg tablet 80 mg PO QHS #90 tabs 08/05/25 Unknown Rx ezetimibe 10 mg tablet 10 mg PO DAILY #90 tabs 08/24/25 Unknown Rx isosorbide mononitrate 30 mg 15 mg (1/2 x 30 mg) PO DAILY #45 08/24/25 Unknown Rx tablet,extended release 24 hr tabs losartan 25 mg tablet 12.5 mg (1/2 x 25 mg) PO DAILY #45 08/24/25 Unknown Rx TABLETS metformin 500 mg tablet 500 mg PO BID 08/24/25 Unknown History amlodipine 5 mg tablet 5 mg PO DAILY #30 tabs 09/07/25 Unknown Rx Allergy/AdvReac Type Severity Reaction Status Date / Time rosuvastatin (From Crestor) AdvReac myalgia Verified 09/07/25 11:40 Family History Father Heart disease Mother Diabetes Surgical History S/P CABG x 3 (02/19/23) Hx of total knee replacement S/P total knee arthroplasty History of coronary artery stent placement Hx of total knee replacement History of left heart catheterization (11/23/23) History of coronary artery stent placement (05/13/25) Social History household members: spouse Smoking Status: Former smoker alcohol intake: never substance use type: does not use ROS ROS ED Constitutional Constitutional ED: Denies chills or fever(s) Eyes Eyes: Denies change in vision or diplopia ENT ENT ED: Denies rhinorrhea or sore throat Cardiovascular Cardiovascular: Reports as per HPI, chest pain, lightheadedness and radiating jaw, neck or arm pain; Denies leg edema, palpitations or syncope Respiratory/Chest Respiratory/Chest: Denies cough or dyspnea Gastrointestinal Gastrointestinal: Denies abdominal pain, diarrhea, nausea or vomiting Genitourinary Genitourinary ED: Denies dysuria or hematuria Musculoskeletal Musculoskeletal: Denies back pain or neck pain Integumentary Denies abscess or rash Neurologic Neurologic: Denies headache(s), paresthesias or weakness Psychiatric Psychiatric: Denies anxiety or suicidal thoughts EXAM Physical Exam Const Vital Signs: 09/07/25 11:41 09/07/25 11:49 09/07/25 12:36 Temperature 98.2 F Temperature Source Oral Pulse Rate 58 L Respiratory Rate 16 Respiratory Effort Normal Blood Pressure 117/71 Blood Pressure Mean 86 Pulse Ox 97 97 Oxygen Delivery Method Room Air Room Air 09/07/25 12:40 09/07/25 13:07 09/07/25 13:15 Temperature Temperature Source Pulse Rate 55 L 54 L 56 L Respiratory Rate 17 18 18 Respiratory Effort Blood Pressure 110/76 Blood Pressure Mean 87 Pulse Ox 92 96 95 Oxygen Delivery Method Room Air 09/07/25 13:15 09/07/25 13:30 09/07/25 13:45 Temperature Temperature Source Pulse Rate 54 L 54 L Respiratory Rate 18 18 Respiratory Effort Blood Pressure 106/76 109/70 113/76 Blood Pressure Mean 86 83 88 Pulse Ox 95 96 Oxygen Delivery Method 09/07/25 14:00 09/07/25 14:15 09/07/25 14:21 Temperature Temperature Source Pulse Rate 52 L 52 L 82 Respiratory Rate 22 H 23 H 16 Respiratory Effort Blood Pressure 112/77 114/76 114/76 Blood Pressure Mean 89 88 88 Pulse Ox 96 98 Oxygen Delivery Method Positive well nourished and well developed General Appearance ED: well developed and NAD HEENT Reports moist mucous membranes normocephalic and atraumatic Eyes PERRL and EOMs intact bilaterally Neck full ROM and supple Resp normal respiratory effort and clear to auscultation bilaterally Cardio regular rate, regular rhythm and no murmurs GI non-tender and non-distended Auscultation: normoactive bowel sounds Palpation: soft Back/Spine no CVA tenderness General Back: other FROM Extremity normal to inspection General Extremety ED: Negative for edema, pulses abnormal or tenderness General Extremity: Negative for edema or pulses abnormal Neuro oriented x3, CN's II-XII intact bilaterally and no sensory deficits noted Sensorium / Orientation: awake and alert Motor Exam: strength 5/5 throughout Skin no rashes or lesions noted and no wounds Heart Score History: Highly Suspicious ECG: Normal Age: >45 - <65 years Risk Factors: >/= 3 Risk Factors or History of CAD Score: 5 MDM MDM MDM Narrative Medical decision making narrative: The patient?s symptoms are concerning for stable angina. He experiences chest discomfort with minimal activity or exertion most of the time and seldom has episodes at rest, although it has occurred in the past (but not today). His EKG shows a left anterior fascicular block, unchanged from prior studies, with no sign of acute injury. Two sequential troponin measurements are negative within normal limits, decreasing from 14 to 12. A chest X-ray is normal. He had no episodes of discomfort in the emergency department. Given his risk and symptoms, I discussed the case with Dr. Jarrell from Cardiology, who evaluated the patient in the emergency department. Dr. Jarrell recommends continuing his previously prescribed medications, adding amlodipine 5 mg for presumed progressive stable angina, and considering uptitration of metoprolol succinate from 25 mg daily to 50 mg daily if he remains symptomatic. The patient was counseled on this plan. Outpatient follow-up with the [facility] is advised, and the patient is already scheduled for a coronary angiogram next week. He is comfortable with this plan. Portions of this note were generated using voice recognition software (Pand[employer] Dictation). I have reviewed the contents and every effort has been made to ensure accuracy; however, inadvertent errors in grammar, spelling, punctuation, or word choice may occur, that were not noted before signing the document and should not alter the intended clinical meaning. History & Record Review Discussion w/independent historian: Patient and Family Additional record(s) reviewed:: Prior outpatient record (05/2025 heart cath) Lab Data Attestation: I reviewed the patient's lab results. Labs: Laboratory Results - last 24 hr 09/07/25 09/07/25 12:00 14:20 WBC 6.3 RBC 5.19 Hgb 13.8 Hct 42.0 MCV 80.9 MCH 26.6 L MCHC 32.9 RDW Std Deviation 38.7 RDW Coeff of Hillary 13.2 Plt Count 328 MPV 10.2 Immature Gran % (Auto) 0.800 Neut % (Auto) 56.6 Lymph % (Auto) 26.5 Davison % (Auto) 10.9 H Eos % (Auto) 3.5 Baso % (Auto) 1.7 H Absolute Neuts (auto) 3.6 Absolute Lymphs (auto) 1.68 Nucleated RBC % 0 Sodium 138 Potassium 4.4 Chloride 104 Carbon Dioxide 22.3 Anion Gap 12 BUN 29 H Creatinine 1.28 H Estim Creat Clear Calc 89.38 Est GFR (MDRD) Non-Af 63 BUN/Creatinine Ratio 22.3 H Glucose 132 H Calcium 9.8 Troponin T High Sens 14 Troponin T Hi Sens 2 Hr 12 Radiography Diagnostic Testing: Clinical Impression(s) from Imaging Studies Chest X-Ray 09/07/25 12:10 IMPRESSION: Cardiac enlargement Reading Location: [facility] Rhythm Strip Rhythm Strip: Sinus Rhythm Rate: 56 Ectopy: None EKG Initial EKG: Attestation: I personally reviewed and interpreted this EKG as follows: Interpretation: Sinus Rhythm, No Acute Injury Pattern and LAFB Prior EKG tracings: available for review Prior: Unchanged Management Discussion w/another healthcare provider: [facility] ([facility]) Discharge Plan Triage Chief Complaint: Chest Pain ED Provider: Armani Claudio Dx/Rx/DC Orders Clinical Impression: Stable angina, History of CAD (coronary artery disease) Instructions: ED Angina, Stable Prescriptions: New amlodipine 5 mg tablet 5 mg PO DAILY Qty: 30 0RF No Action metformin 500 mg tablet 500 mg PO BID losartan 25 mg tablet 12.5 mg PO DAILY Qty: 45 3RF isosorbide mononitrate 30 mg tablet extended release 24 hr 15 mg PO DAILY Qty: 45 3RF ezetimibe 10 mg tablet 10 mg PO DAILY Qty: 90 3RF Mounjaro 7.5 mg/0.5 mL pen injector 7.5 mg subcut QWEEK aspirin [Adult Aspirin Regimen] 81 mg tablet,delayed release (DR/EC) 81 mg PO QDAY metoprolol succinate 25 mg tablet extended release 24 hr 25 mg PO DAILY Qty: 90 3RF gemfibrozil 600 mg tablet 600 mg PO BIDAC Qty: 180 3RF clopidogrel 75 mg tablet 75 mg PO DAILY Qty: 90 3RF nitroglycerin 0.4 mg tablet, sublingual 0.4 mg sublingual Q5M PRN (Reason: chest pain) Qty: 25 3RF Rx Instructions: do not exceed 3 doses per episode ranolazine 1,000 mg tablet extended release 12 hr 1,000 mg PO BID Qty: 180 3RF atorvastatin 80 mg tablet 80 mg PO QHS Qty: 90 3RF Primary Care Provider: Karolyn Solomon [facility] Referrals: Wilbert Jarrell DO [Med Staff - Active Staff, Cardiology] - 5-7 Days Activity Restrictions/Additional Instructions: Have any medications or previous prescriptions. If after taking it for a few days you are still having symptoms of chest pain, double your metoprolol prescription from 25 mg daily to 50 by taking 2 pills in the morning instead of 1. Print Language: Faroese Disposition Disposition: Home, Self Care
[2025-09-07 12:42] LABS: Anion Gap 12 (7-18); BUN 29 mg/dL (4-19); BUN/Creat Ratio 22.3 RATIO (10-20); Calcium,Total 9.8 mg/dL (7.6-11.0); Carbon Dioxide 22.3 mmol/L (20.0-29.0); Chloride 104 mmol/L (96-106); Estimated Creatinine Clearance 89.38 ml/min (50-250); Glucose 132 mg/dL (70-99); Potassium 4.4 mmol/L (3.5-5.1); Troponin T High Sensitivity 14 ng/L (<=22)
[2025-09-07 15:05] LABS: Troponin T High Sens 2 HR 12 ng/L (<=22)
--- NOTE | 2025-09-07 16:34 | PCM.CONS.C ---
Assessment & Plan Assessment/Plan (1) Chronic coronary artery disease: PLAN: Patient is status post PCI below ENU-TGS-Wabk LAD 01/29/2014; WSP-CBS-tlzhlh Ramus with a 2.25 x 12 mm Promus Synergy, followed upstream with a 2.25 x 12 mm Promus Synergy, SUSY distal LCX with a 2.25 x 12 mm Promus Synergy 02/16/2020, PTCA/ SUSY Mid RCA with [place] 3.0 x 22mm and SUSY distal RCA with [place] 3.0 x 15mm 11/23/23 ; PTCA/IVL/SUSY to mid RCA ISR using Osirio s.5 X 35 mm stent 08/06/24; [place] 4.0 X 12mm SUSY to mid RCA; and [place] 4.0X 34mm SUSY to proximal RCA 05/12/25. -Status post CABG x 3:BARRERA to LAD,SVG-Ramus, SVG-OM-1 per Jaime Cruz @ [facility] -Echocardiogram in 08/2024 showed preserved ejection fraction - CCS angina grade: 3 - Suspect significant microvascular disease component - EKG negative for acute specific changes, and unchanged from prior; high-sensitivity troponin: 14-->12 - Patient without evidence of heart failure, notes chronic and unchanged chest pain over several months PLAN: Plan - Continue previously prescribed aspirin 81 mg daily, atorvastatin 80 mg daily, Plavix 75 mg daily, Zetia 10 mg daily, ranolazine 1000 mg twice daily, and metoprolol succinate 25 mg daily - Start amlodipine 5 mg daily for progressive stable angina - Patient to have coronary angiogram next week to determine if candidate for epicardial disease revascularization options - Consider uptitration of metoprolol to 50 mg daily if still symptomatic (notably patient did not tolerate Imdur due to headache with low-dose) - No other cardiac interventions warranted at this time. - Continue outpatient follow-up with [facility] HPI Consult Data Date of Consult: 09/07/25 HPI Narrative HPI Narrative: QI VELA, is a 60 M who presents with complaints of chest pain. Notably, per shared EMR patient has a history of coronary artery disease status post stenting on several occasions, CABG x 3 in 2022, most recent stents in May 2025. He has a history of diabetes, hyperlipidemia, hypertension. He underwent cardiac catheterization 05/12/2025 that demonstrated patent 3/3 bypass grafts, 80% ostial LAD stenosis, 100% mid LAD occlusion, 90% proximal stenosis of circumflex, 70% mid stenosis of ramus, RCA with 70% proximal, 70% in-stent restenosis and 50% distal stenosis. He patient underwent SUSY to mid and proximal RCA. Patient presents today for exertional chest pain. He admits he has had chest pain with exertion over the past several months that has not changed. It has not improved, nor worsened, and happens daily with just mild exertion. He has been following outpatient with [facility] for management. HST: 14-->12. EKG negative for acute ischemic changes, and unchanged compared to prior. His blood pressure is 114/76, heart rate 82. He denies any acute symptoms. [facility] Medical History Essential hypertension Hypertriglyceridemia Type 2 diabetes mellitus Diabetes Former smoker Myocardial infarct Diabetic neuropathy History of diabetes mellitus, type II Orthopedic aftercare Loss of hearing Wears glasses Non-smoker Chest pain Primary osteoarthritis of right knee History of non-ST elevation myocardial infarction (NSTEMI) (02/12/23) Hyperlipidemia Obesity Atherosclerosis of coronary artery of [place] without angina pectoris Home Medications ?Medication ?Instructions ?Recorded ?Last Taken ?Type aspirin 81 mg tablet,delayed 81 mg PO QDAY HEART 09/26/22 06/09/25 History release (Adult Aspirin Regimen) metoprolol succinate 25 mg 25 mg PO DAILY #90 tabs 11/26/24 05/12/25 Rx tablet,extended release 24 hr gemfibrozil 600 mg tablet 600 mg PO BIDAC cholesterol #180 01/16/25 05/12/25 Rx tabs clopidogrel 75 mg tablet 75 mg PO DAILY #90 TABLETS 03/17/25 05/12/25 Rx nitroglycerin 0.4 mg sublingual 0.4 mg sublingual Q5M PRN chest 06/22/25 Unknown Rx tablet pain #25 tabs tirzepatide 7.5 mg/0.5 mL 7.5 mg subcut QWEEK 06/22/25 Unknown History subcutaneous pen injector (Mounjaro) ranolazine 1,000 mg 1,000 mg PO BID #180 tabs 07/07/25 Unknown Rx tablet,extended release,12 hr atorvastatin 80 mg tablet 80 mg PO QHS #90 tabs 08/05/25 Unknown Rx ezetimibe 10 mg tablet 10 mg PO DAILY #90 tabs 08/24/25 Unknown Rx isosorbide mononitrate 30 mg 15 mg (1/2 x 30 mg) PO DAILY #45 08/24/25 Unknown Rx tablet,extended release 24 hr tabs losartan 25 mg tablet 12.5 mg (1/2 x 25 mg) PO DAILY #45 08/24/25 Unknown Rx TABLETS metformin 500 mg tablet 500 mg PO BID 08/24/25 Unknown History Allergy/AdvReac Type Severity Reaction Status Date / Time rosuvastatin (From Crestor) AdvReac myalgia Verified 09/07/25 11:40 Family History Father Heart disease Mother Diabetes Surgical History S/P CABG x 3 (02/19/23) Hx of total knee replacement S/P total knee arthroplasty History of coronary artery stent placement Hx of total knee replacement History of left heart catheterization (11/23/23) History of coronary artery stent placement (05/13/25) Social History household members: spouse Smoking Status: Former smoker alcohol intake: never substance use type: does not use ROS ROS Narrative 14 point ROS reviewed, and negative unless specified above. Physical Exam Narrative ?Gen: A&Ox3, NAD ?HEENT: Normocephalic/Atraumatic, MMM ?Neck: Supple, no JVD ?Pulm: Normal work of breathing, CTA bilaterally with no wheezes or crackles ?CV: RRR, normal S1/S2, no m/r/g ?Abd: Soft, NT/ND ?Extr: Warm to touch, no LE edema, distal pulses intact and symmetric in upper and lower extremities ?Neuro: No gross focal deficits, normal speech ?Psych: Normal affect, answers questions appropriately Objective Data Vital Signs: Vital Signs Temp Pulse Resp BP Pulse Ox O2 Del Method 98.2 F 82 16 114/76 98 Room Air 09/07/25 11:41 09/07/25 14:21 09/07/25 14:21 09/07/25 14:21 09/07/25 14:15 09/07/25 12:40 Oxygen Delivery Method Room Air Weight: 295 lb Body Mass Index (BMI) 35.9 Lab / Micro Data 09/07/25 12:00 09/07/25 12:00 Labs: Laboratory Results - last 24 hr 09/07/25 12:00: WBC 6.3, RBC 5.19, Hgb 13.8, Hct 42.0, MCV 80.9, MCH 26.6 L, MCHC 32.9, RDW Std Deviation 38.7, RDW Coeff of Hillary 13.2, Plt Count 328, MPV 10.2, Immature Gran % (Auto) 0.800, Neut % (Auto) 56.6, Lymph % (Auto) 26.5, Brule % (Auto) 10.9 H, Eos % (Auto) 3.5, Baso % (Auto) 1.7 H, Absolute Neuts (auto) 3.6, Absolute Lymphs (auto) 1.68, Nucleated RBC % 0, Sodium 138, Potassium 4.4, Chloride 104, Carbon Dioxide 22.3, Anion Gap 12, BUN 29 H, Creatinine 1.28 H, Estim Creat Clear Calc 89.38, Est GFR (MDRD) Non-Af 63, BUN/Creatinine Ratio 22.3 H, Glucose 132 H, Calcium 9.8, Troponin T High Sens 14 09/07/25 14:20: Troponin T Hi Sens 2 Hr 12 Rhythm Strip Rhythm Strip: Sinus Rhythm Rate: 56 Ectopy: None Cardiology Labs/Tests 09/07/25 12:00: WBC 6.3, RBC 5.19, Hgb 13.8, Hct 42.0, MCV 80.9, MCH 26.6 L, MCHC 32.9, Plt Count 328, MPV 10.2, Immature Gran % (Auto) 0.800, Neut % (Auto) 56.6, Lymph % (Auto) 26.5, Bru[place] % (Auto) 10.9 H, Eos % (Auto) 3.5, Baso % (Auto) 1.7 H, Absolute Neuts (auto) 3.6, Nucleated RBC % 0, Sodium 138, Potassium 4.4, Chloride 104, Carbon Dioxide 22.3, Anion Gap 12, BUN 29 H, Creatinine 1.28 H, Est GFR (MDRD) Non-Af 63, BUN/Creatinine Ratio 22.3 H, Glucose 132 H, Calcium 9.8 Rhythm: EKG: ECHO: Stress Test: Cardiac Cath: PCI: CT Surgery: Holter monitor: EPS: PPM: CXR: Chest CT Scan: Radiography Diagnostic Testing: Radiology Impression Chest X-Ray 09/07/25 12:10 IMPRESSION: Cardiac enlargement Reading Location: [id number] Risk Score for UA/STEMI Assesmment (YES = 1) Risk Stratification Applicable: No
== END 2025-09-07 17:58 | disposition home or self-care (01) ==
PROVIDERS: Emergency Provider Emergency Medicine; PCP Family Medicine; Visit Provider Emergency Medicine
DX: I25.118 Atherosclerotic heart disease of native coronary artery with other forms of angina pectoris (principal); E11.40 Type 2 diabetes mellitus with diabetic neuropathy, unspecified; Z95.5 Presence of coronary angioplasty implant and graft; Z79.85 Long-term (current) use of injectable non-insulin antidiabetic drugs; I10 Essential (primary) hypertension; E78.5 Hyperlipidemia, unspecified; Z87.891 Personal history of nicotine dependence; Z79.02 Long term (current) use of antithrombotics/antiplatelets; Z79.899 Other long term (current) drug therapy; Z79.84 Long term (current) use of oral hypoglycemic drugs; I25.2 Old myocardial infarction; Z95.1 Presence of aortocoronary bypass graft
CPT/HCPCS: 71045; 80048; 84484; 85025; 93005; 99284; A4216